=== PATIENT | female | born 1985 | race Caucasian/White ===

== ENCOUNTER 2021-07-18 15:14 | Emergency (ER) | payer MEDICAID, SELFPAY ==
[2021-07-18 15:42] VITALS: RESP 20; BMI 20.5
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
--- NOTE | 2021-07-18 16:39 | MHC.CARE ---
CARE Team assists with deescelating pt, who was brought to the Pod and was significantly anxious, paranoid reporting that someone is poisining her and following her. She called EMS herself, hoping for medical attention. She is asking to leave the ED. A chart review is completed and notes reviewed from last inpt admission to M5. Per Dr. Doty's note from Jan 2017, these symptoms are rooted in trauma and pt is not psychotic. Pt reports that she is eating and drinking and has a water bottle on her person. She denies SI/HI and does not want any intervention from CARE Team. Plan is for pt to dischare, CARE Team will provide Lyft.
== END 2021-07-18 18:33 | disposition home or self-care (01) ==
PROVIDERS: Emergency Provider Emergency Medicine
DX: F22 Delusional disorders (principal)
CPT/HCPCS: 99284

== ENCOUNTER 2023-03-05 05:06 | Inpatient (IN) | payer OTHER, MEDICAID, SELFPAY ==
[2023-03-05 05:22] VITALS: BP 132/86; PULSE 105; RESP 18; TEMP 37.1; O2SAT 98; BMI 22.6
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
--- NOTE | 2023-03-05 05:55 | MHC.EDTECH ---
Patient came in by ambulance, vitals taken,patient was changed into crisis attire, security at bedside. Belongings list completed,patient has 221.00 [address], all belongings are in a blue linen bag,they are Locked in the BH Pod in the LINEN ROOM.
--- NOTE | 2023-03-05 05:58 | PC.NURSE ---
Pt changed over by t/w and technical editor. Belonging in clean linen closet.
--- NOTE | 2023-03-05 06:00 | PC.NURSE ---
Pt MAUDE from aunts house, aunt called PD for concerned of bilateral feet. Pt walking from unknown amount of distance. Pt was uncooperative with EMS/PD, refusing transport. Sectioned 12 by [employer]. Pt very repetitive, hyperverbal stating I am from the , I can not be sectioned . Dry blisters noted to bilateral feet. Pt A&Ox3, denies SI/HI/AH/VH. Pt cooperative with changing into hospital attire. Pt talking to self in room.
[2023-03-05 06:09] VITALS: BP 110/74; PULSE 99; RESP 18; O2SAT 98
--- NOTE | 2023-03-05 06:14 | MHC.EDTECH ---
This tech attempted to draw labs, patient is refusing stated I'm in the and they said no is aware and RN.
--- NOTE | 2023-03-05 08:15 | PC.NURSE ---
Pt educated on immportance of giving urine sample. Pt agreed. pt is calm and cooperative at this time.
[2023-03-05 08:44] VITALS: BP 105/64; PULSE 78; RESP 18; TEMP 36.7; O2SAT 98
[2023-03-05 09:03] LABS: Amphetamine Screen Urine Not Detected (Not Detect); Barbiturates, Urine Not Detected (Not Detect); Benzodiazepines Screen Urine Not Detected (Not Detect); Cannabinoid Screen Urine Not Detected (Not Detect); Cocaine Screen Urine Not Detected (Not Detect); Fentanyl, urine Not Detected (Not Detect); Opiate Screen Urine Not Detected (Not Detect); Phencyclidine Screen Urine Not Detected (Not Detect)
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
--- NOTE | 2023-03-05 12:00 | PC.NURSE ---
patient sitting on cough, clinical coordinator pointed out redness and discoloration to bilat feet. RN aware of patients status of her feet.
--- NOTE | 2023-03-05 12:33 | PC.NURSE ---
patient is sitting in community area with other patients, patient is calm and cooperative, being respectful of others. patient will occasionally engage in conversation with others. patient in no apparent distress
--- NOTE | 2023-03-05 16:01 | PC.NURSE ---
patient refusing to have lab work drawn, therefore unable to be evaluated by care team. provider aware no new orders
--- NOTE | 2023-03-05 19:52 | PC.NURSE ---
patient seated on group area couch upon t/w's arrival to unit, half hour thereafter patient began to self dialpgue for 10 minutes or so, doesnt appears anxious or distressed but patient has declined blood draw as nahid, will continue ask periodically throughout shift.
--- NOTE | 2023-03-05 21:46 | PC.NURSE ---
patient escalates when approached in regards to labs
[2023-03-05 22:12] VITALS: BP 109/75; PULSE 78; RESP 18; TEMP 36.4; O2SAT 98
--- NOTE | 2023-03-05 23:50 | MHC.EDTECH ---
All belongings moved from the pod linen room to the laundry room in the POD.
[2023-03-06 01:10] VITALS: BP 109/60; PULSE 80; RESP 15; TEMP 37.1; O2SAT 98
--- NOTE | 2023-03-06 07:41 | PC.NURSE ---
pt currently sleeping, respirations even/non labored
--- NOTE | 2023-03-06 09:37 | PC.NURSE ---
pt states she does not take home medications.
--- NOTE | 2023-03-06 09:38 | PC.NURSE ---
self-dialoguing in pod about having a tracker on her, showing her feet to staff stating that is why she is here- appear dry but intact. walks well. no resp distress. denies si/hi.
--- NOTE | 2023-03-06 11:51 | PC.NURSE ---
pt continuing to refuse labs- md aisha edouard and tltri w pt in pod common room. continuing to self-dialogue.
[2023-03-06 11:57] VITALS: BP 115/62; PULSE 72; RESP 16; TEMP 36.6; O2SAT 98
--- NOTE | 2023-03-06 15:11 | PC.NURSE ---
multiple attempts have been made for covid swab by different staff- md aisha edouard unable to obtain labs. pt declines.
--- NOTE | 2023-03-06 16:05 | MHC.CARE ---
Currently provider and charge manager working on plan to obtain COVID test for admission to pyschaitric unit.
--- NOTE | 2023-03-06 16:36 | PC.NURSE ---
monie mace came to bedside to eval pt's feet per request. pink, raw, dry- monie mace state no signs of necrosis/active frostbite.
[2023-03-06 16:43] LABS: COVID-19 Test Negative (Negative); IDNOW Serial# 9DB6401D
--- NOTE | 2023-03-06 16:50 | PC.NURSE ---
intervention from monie badillo ordered: apply cream to feet when come from pharmacy. no further interventions for feet needed
--- NOTE | 2023-03-06 17:09 | PC.NURSE ---
spoke w pharm requesting cream per apr.
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
[2023-03-06 23:11] VITALS: BP 116/85; PULSE 82; RESP 20; TEMP 36.9; O2SAT 98; BMI 20.9
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
[2023-03-07 09:15] VITALS: RESP 18
--- NOTE | 2023-03-07 11:40 | HO.PSYADMNOT ---
HPI Date of Service: 03/07/23 Chief Complaint: Psychosis Sources of Information: patient interviewed, chart reviewed and crisis/core team assessment reviewed HPI Subjective Notes: Zhang Warning (given and shows understanding) and Section 12B Narrative: Ms. Quiles is a 37 year-old woman with hx of schizophrenia who was brought in by police after aunt called due to patient walking with no shoes in snow with signs of frostbite. 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 She also denied hx of mental illness nor need for medications. She declined labs. She did allow VS, which were stable. On the unit, pt hyperverbal, talking about injustice of being on a psychiatric unit as she initially came to have her feet check. She is declining ointment and tetanus shoot as recommended by hospitalist for frostbite. She goes on and on about how she can't eat the food in hospitals because is poisoned. This teletypewriter operator offered to provide seal containers, which she declined. She was talking to people from the that were not there. She reports she does not have any mental illness and does not need treatment for psychiatric reasons. Past Psychiatric History: Inpt: prior inpt admission at [facility] OP: none Medical Evaluation Reviewed: Yes [facility] Medical History (Updated 03/08/23 @ 13:33 by Aleksandra Jean-Baptiste) Blister of foot Schizophrenia Family History: unknown Social History: homeless Substance History: none Trauma History: not disclosed Diagnostics Vital Signs (24Hr): Vital Signs - 24 hr 03/06/23 11:57 03/06/23 23:11 03/07/23 09:15 Temperature 97.8 F 98.5 F Pulse Rate 72 82 Respiratory Rate 16 20 18 Blood Pressure 115/62 116/85 Pulse Oximetry 98 98 Oxygen Delivery Method Room Air Room Air BMI result Body Mass Index 20.9 Labs Labs: Laboratory Results - last 48 hr 03/06/23 16:20 COVID-19 (SEUN) Negative COVID-19 Clin Com See Note Meds/Allergies Meds Home Medications Medication Instructions Recorded Confirmed Type No Known Home Meds 03/07/23 03/07/23 History Allergies Allergies Allergy/AdvReac Type Severity Reaction Status Date / Time penicillin V Allergy Unknown unknown Verified 03/05/23 05:16 Penicillins [PENICILLINS] Allergy Unknown RASH Verified 03/05/23 05:16 Mental Status Exam Mental Status Exam Narrative: Appearance: disheveled, nodes on her hair, in NAD Behavior:guarded and suspicious Psychomotor: no overt retardation or agitation Speech: verbose, difficult to redirect, spontaneous TP: tangential TC: paranoid delusions Mood: good Affect: suspicious SI: denies HI: none VH/AH: hearing voices theme of her working for Delusions: paranoid delusions Insight/judgment: impaired x 2. Memory/cog: alert, oriented not to situation. Assessment & Plan Assessment & Plan (1) Schizophrenia: Status: Acute Code(s): F20.9 - Schizophrenia, unspecified Plan Ms. Quiles is a 37 year-old woman with hx of schizophrenia. it appears schizophrenia largely untreated and patient has been homeless for several months. She was brought via police after aunt called them due to frostbites and increased paranoia. Pt with no insight into illness or need for treatment for both psychiatric and frostbite. We discussed risks, benefits and alternative treatment options, she declines medications- antipsychotic ones. PLAN 1. Admit to M3, sect 12b, 15 minutes checks 2. obtain collateral information 3. aftercare planning Patient educated on: diagnosis and medication risk/benefits Reason for continued inpatient stay Substantial Risk for: inability to function Statement Statement: I have reviewed the history and physical and performed a pertinent examination on my patient. No changes have occurred unless specified. If the History and Physical was not performed prior to admission, the Hospitalist's service will be consulted for completing the admission physical. Time Spent With Patient Time: Total time managing care of this patient today ____ minutes.
--- NOTE | 2023-03-07 12:12 | P.EN_ITS ---
Event Note Date of Service: 03/07/23 Event Note: 37 year old female admitte to [facility] for acute psychosis. Unable to ascertain reliable history from pt due to tangential speech, hyperverbal, paranoia, anxiety. She is unkempt appearing. Per the patient she was walking all night in 10 degree weather with poor fitting shoes. Per ED provider note, the patient was barefoot. In her belongings locker, there are no shoes, just an insert to a boot. her feet were evaluated by ED provider without any necrosis noted, but oted feet to be dry, cracked with mild erythematous/purplist discoloration. No increased warmth or drainage. She is afebrile. Notes pain to the feet bilaterally, worse with ambulation. Reports her feet are dirty and need to be washed. Exam: Bilateral feet: dusky purple/mottled appearance of the distal aspect of the feet bilaterally with some black patches on the plantar surface of the toes, likely dirt as was able to be gently wiped. There is desquamation of the feet bilaterally primarily on the plantar service as well as the lateral aspect of the R foot with erythema. The feet are cool to touch, but 1+ pedal pulses bilaterally. The patient is disheveled appearing, matted hair, dirt on feet. Assessment: The patient does appear to have grade 2-3 frostbite. I do not see any true necrosis Plan: Update tetanus vaccine Given erythema on lateral aspect of foot, will also treat with doxycycline 100mg bid x 1 week for prophylaxis. Unfortunately pt has pcn allergy Recommend warm soaks twice daily Pat dry well, then place sterile cotton between toes and wrap in sterile gauze General surgery consult placed for further evaluation and recommendations Wound care consult Can continue using [facility] Time Spent With Patient Time: Total time managing care of this patient today ____ minutes.
--- NOTE | 2023-03-07 15:39 | PC.NURSE ---
Pt refused all medications and vital signs. Aleksandra Jean-Baptiste NP made aware.
--- NOTE | 2023-03-07 16:21 | P.CONGS_ITS ---
History of Present Illness Consult details Consult date: 03/07/23 Narrative: 37F here in the Psych unit for acute psychosis. She was admitted last night because of paranoid behavior. She also stated she had been walking for several miles in the cold weather and had developed blisters and pain on her feet. She had patchy area of discoloration on both feet so I was consulted. She ays she does have some pain on both feet but is able to walk. Review of Systems Constitutional: Constitutional: Denies chills and Reports fever(s) Cardiovascular: Cardiovascular: Denies chest pain, Denies dyspnea and Denies dyspnea on exertion Respiratory: Respiratory: Denies cough, Denies dyspnea and Denies dyspnea on exertion Gastrointestinal: Gastrointestinal: Denies hematochezia and Denies change in bowel habits Genitourinary: Genitourinary: Denies hematuria Musculoskeletal: Musculoskeletal: Denies back pain and Denies limited range of motion Neurologic: Denies focal weakness and Denies convulsions Psychiatric: Psychiatric: Denies depression, Reports mood swings and Reports paranoia [facility] Past Medical History Medical History (Updated 03/07/23 @ 16:26 by Joss Jerez MD) Blister of foot Schizophrenia Social History Social History Household Members: Spouse Housing: Unknown / Unable to assess Do you presently have visiting nurse or other home services: No Alcohol intake: never Patient Tobacco Use Status: Never used Tobacco Smoked in Last 30 Days: No e-Cigarette/Vaping Use: Never Used Patient Interested in Nicotine Replacement: No Patient Given Instructions on How to Stop Smoking: No Use of substances other than those prescribed or required for medical reasons: No Currently Displaying Signs/Symptoms of Drug Intoxication Withdrawal: No Any prior treatment program specific to substance use: No Have you been hit, kicked, punched, or otherwise hurt by someone within the past year? If so, by whom?: No (per the I can't answer that) Do you feel safe in your current relationship?: Yes Is there a partner from a previous relationship who is making you feel unsafe now?: No (per the I can't answer that) Are you made to feel afraid or neglected: No Advance Directives: No Advance Directives Information Provided: No Do you have thoughts of harming others: None Do you have a plan to hurt others: No Plan Recently lost weight without trying: Unsure Eating poorly because of decreased appetite: No Nutrition Risks: No Nutritional Risk Patient : No : No Poor oral hygiene: No Meds Allergies Allergy/AdvReac Type Severity Reaction Status Date / Time penicillin V Allergy Unknown unknown Verified 03/05/23 05:16 Penicillins [PENICILLINS] Allergy Unknown RASH Verified 03/05/23 05:16 Active Medications: Current Medications Acetaminophen (Acetaminophen 325 Mg Tablet) 650 mg PO Q6H PRN PRN Reason: Headache/Pain Mild Scale (1-3) Al Hydroxide/Mg Hydroxide (Magnesium Hydrox/Alum Hydrox 30 Ml Oral.Susp) 30 ml PO Q6H PRN PRN Reason: Heartburn/Nausea Doxycycline Monohydrate (Doxycycline Monohydrate 100 Mg Capsule) 100 mg PO BID [facility] Last Admin: 03/07/23 14:41 Dose: Not Given Folic Acid (Folic Acid 1 Mg Tablet) 1 mg PO DAILY [facility] Last Admin: 03/07/23 09:02 Dose: Not Given Hydroxyzine HCl (Hydroxyzine Hcl 25 Mg Tablet) 25 mg PO Q6H PRN PRN Reason: Anxiety Magnesium Hydroxide (Milk Of Magnesia 30 Ml Oral.Susp) 30 ml PO DAILY PRN PRN Reason: Constipation Multi-Ingred Cream/Lotion/Oil/Oint (Mineral Oil/Petrolatum,White 106 Gm Tube) 1 appl TOPICAL DAILY [facility]; Protocol Last Admin: 03/07/23 12:24 Dose: Not Given Multivitamins/Vitamin C (Multivitamin Tablet) 1 tab PO DAILY [facility] Last Admin: 03/07/23 09:02 Dose: Not Given Nicotine (Nicotine 21 Mg Patch.Td24) 21 mg TRANSDERMA DAILY PRN PRN Reason: smoking cessation Nicotine Polacrilex (Nicotine Polacrilex 2 Mg Gum) 4 mg BUCCAL Q2H PRN PRN Reason: Nicotine Cravings Olanzapine (Olanzapine 5 Mg Tablet) 5 mg PO TID PRN PRN Reason: agitation Olanzapine (Olanzapine 5 Mg Tablet) 5 mg PO BID [facility] Last Admin: 03/07/23 09:02 Dose: Not Given Thiamine HCl (Thiamine Hcl 100 Mg Tablet) 100 mg PO DAILY [facility] Last Admin: 03/07/23 09:02 Dose: Not Given Trazodone HCl (Trazodone Hcl 50 Mg Tablet) 50 mg PO BEDTIME MRX1 PRN PRN Reason: Insomnia Home Medications Medication Instructions Recorded Confirmed Last Taken Type No Known Home Meds 03/07/23 03/07/23 Unknown History Physical Exam Vital Signs: Vital Signs: Last Vital Signs Temp 98.5 F 03/06/23 23:11 Pulse 82 03/06/23 23:11 Resp 18 03/07/23 09:15 BP 116/85 03/06/23 23:11 Pulse Ox 98 03/06/23 23:11 O2 Del Method Room Air 03/06/23 23:11 BMI result Body Mass Index 20.9 Const: Other: hyperverbal General: comfortable and no acute distress Resp: Effort & Inspection: normal respiratory effort Cardio: Rate: regular rate GI: Palpation (GI): Soft to palpation, not firm and nontender Extrem: Other: both feet with multiple areas of what appears to be healing bilsters as well as small patchy superficial skin discoloration, no areas of gangrene or drainage, no fluctuance or induratiom Results Labs Labs: All other labs normal. Assessment and Plan (1) Blister of foot: Status: Acute It appears that she has had blisters on multiple areas of both feet likely from prolonged walking with skin trauma from her shoes. She says she ahd a lot of scabs but these appears to have sloughed off. There is no gangrene or any signs of abscess. She does not appear to require any debridement or I and D. She does not good foot care for now. The areas of skin breakdown appear to have healed. Procedures Date of Service Date of Service: 03/07/23
[2023-03-07 19:05] VITALS: BP 103/60; PULSE 80; RESP 18; TEMP 36.2; O2SAT 98
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
[2023-03-08 19:10] VITALS: BP 105/67; PULSE 73; RESP 18; TEMP 36.7; O2SAT 99
--- NOTE | 2023-03-08 23:59 | PC.NURSE ---
Addendum entered by Ryan Lunsford RN 03/09/23 05:09: Patient wrapped foot with some gauze on her right foot only. Original Note: Jennifer soaked her feet in a warm water tub. Bilateral feet are excessive dry and cracked. Healed blisters observed. On right foot, side is red under the white cracked skin. Patient reported minor pain.
--- NOTE | 2023-03-09 08:54 | PC.NURSE ---
Patient refused all AM medications.
[2023-03-09] MEDS: Mineral Oil/Petrolatum,White 106 GM Tube 1 APPL TOPICAL ×2 (10:35→15:30)
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
[2023-03-09 12:38] VITALS: BP 107/65; PULSE 76; RESP 16; TEMP 37; O2SAT 98
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
[2023-03-09 19:30] VITALS: BP 122/59; PULSE 84; RESP 16; TEMP 36.8; O2SAT 99
[2023-03-10] MEDS: Mineral Oil/Petrolatum,White 106 GM Tube 1 APPL TOPICAL ×3 (03:07→19:15)
[2023-03-10 06:00] VITALS: BP 108/59; PULSE 82; RESP 16; TEMP 36.9; O2SAT 98
--- NOTE | 2023-03-10 13:40 | HO.PSYCHPN ---
Subjective Subjective Date of Service: 03/10/23 Reason For Visit: Psychosis Interim History: pressured, tangential. declining to come meet with MD in interview room. asserts she only came to the hospital for medical treatment, not mental health treatment, and she has no need for the latter. states she would like to be discharged. declines to answer MD regarding where she would plan to go on discharge, telling MD it is none of his business. per staff, 12b up tomorrow. denies anx/dep. not attending groups. QID foot soaks. sleeping in day room. slept about 3 hours last night. Mental Status Exam Mental Status Exam Narrative: Appearance: disheveled, poor hygiene, in NAD Behavior:guarded and suspicious Psychomotor: no overt retardation or agitation Speech: pressured, difficult to redirect, loud TP: tangential TC: paranoid delusions Mood: not assessed Affect: hyper-intense, non-labile SI: denies HI: denies VH/AH: none expressed Insight/judgment: impaired x 2. Memory/cog: alert, oriented to situation Diagnostics Vital Signs (24Hr): Vital Signs - 24 hr 03/09/23 19:30 Temperature 98.3 F Pulse Rate 84 Respiratory Rate 16 Blood Pressure 122/59 L Pulse Oximetry 99 Oxygen Delivery Method Room Air BMI result Body Mass Index 20.9 Medications Medications Current Medications Acetaminophen (Acetaminophen 325 Mg Tablet) 650 mg PO Q6H PRN PRN Reason: Headache/Pain Mild Scale (1-3) Al Hydroxide/Mg Hydroxide (Magnesium Hydrox/Alum Hydrox 30 Ml Oral.Susp) 30 ml PO Q6H PRN PRN Reason: Heartburn/Nausea Doxycycline Monohydrate (Doxycycline Monohydrate 100 Mg Capsule) 100 mg PO BID [facility] Last Admin: 03/10/23 09:34 Dose: Not Given Folic Acid (Folic Acid 1 Mg Tablet) 1 mg PO DAILY [facility] Last Admin: 03/10/23 09:34 Dose: Not Given Hydroxyzine HCl (Hydroxyzine Hcl 25 Mg Tablet) 25 mg PO Q6H PRN PRN Reason: Anxiety Magnesium Hydroxide (Milk Of Magnesia 30 Ml Oral.Susp) 30 ml PO DAILY PRN PRN Reason: Constipation Multi-Ingred Cream/Lotion/Oil/Oint (Mineral Oil/Petrolatum,White 106 Gm Tube) 1 appl TOPICAL QID PRN; Protocol PRN Reason: skin protectant Last Admin: 03/10/23 11:42 Dose: 1 appl Multivitamins/Vitamin C (Multivitamin Tablet) 1 tab PO DAILY [facility] Last Admin: 03/10/23 09:34 Dose: Not Given Nicotine (Nicotine 21 Mg Patch.Td24) 21 mg TRANSDERMA DAILY PRN PRN Reason: smoking cessation Nicotine Polacrilex (Nicotine Polacrilex 2 Mg Gum) 4 mg BUCCAL Q2H PRN PRN Reason: Nicotine Cravings Olanzapine (Olanzapine 5 Mg Tablet) 5 mg PO TID PRN PRN Reason: agitation Olanzapine (Olanzapine 5 Mg Tablet) 5 mg PO BID [facility] Last Admin: 03/10/23 09:34 Dose: Not Given Thiamine HCl (Thiamine Hcl 100 Mg Tablet) 100 mg PO DAILY [facility] Last Admin: 03/10/23 09:34 Dose: Not Given Trazodone HCl (Trazodone Hcl 50 Mg Tablet) 50 mg PO BEDTIME MRX1 PRN PRN Reason: Insomnia Allergies Allergies Allergy/AdvReac Type Severity Reaction Status Date / Time penicillin V Allergy Unknown unknown Verified 03/05/23 05:16 Penicillins [PENICILLINS] Allergy Unknown RASH Verified 03/05/23 05:16 Assessment & Plan Assessment & Plan (1) Schizophrenia: Status: Acute Code(s): F20.9 - Schizophrenia, unspecified Plan Ms. Quiles is a 37 year-old woman with hx of schizophrenia. it appears schizophrenia largely untreated and patient has been homeless for several months. She was brought via police after aunt called them due to frostbites and increased paranoia. Pt with no insight into illness or need for treatment for both psychiatric and frostbite. We discussed risks, benefits and alternative treatment options, she declines medications- antipsychotic ones. PLAN 1. Admit to M3, sect 12b, 15 minutes checks 2. obtain collateral information 3. aftercare planning 03/09: refusing medications. frostbite, no insight into mental illness. plan to petition for commitment and medication. 03/10: refusing medications. being treated for frostbite. commitment petition paperwork completed today. Reason for continued inpatient stay Substantial Risk for: harm to self, inability to function, rapid decompensation and med/psych decompensation Time Spent With Patient Time: Total time managing care of this patient today __35__ minutes.
[2023-03-10 19:25] VITALS: BP 114/68; PULSE 85; RESP 18; TEMP 36.6; O2SAT 98
[2023-03-11] MEDS: Mineral Oil/Petrolatum,White 106 GM Tube 1 APPL TOPICAL (13:10)
--- NOTE | 2023-03-11 13:51 | P.PNPSI_ITS ---
Subjective Subjective Date of Service: 03/11/23 Reason For Visit: Psychosis Subjective Notes: Section 7 Interim History: Patient has been accepting medical treatment attempted to be with patient was quite paranoid concerned that I was not DrShaista hanna paranoid story regarding imposters try to give information regarding her legal status but was not able to take in. Delusional preoccupied was not combative quite pressured Mental Status Exam Mental Status Exam Narrative: Appearance: disheveled, poor hygiene, in NAD Behavior:guarded and suspicious Psychomotor: Agitation noted Speech: pressured, difficult to redirect, loud TP: tangential flight of ideas TC: paranoid delusions Mood: Affect: hyper-intense, somewhat irritable SI: denies HI: denies VH/AH: none expressed Insight/judgment: impaired x 2. Memory/cog: alert, oriented to situation Diagnostics Vital Signs (24Hr): Vital Signs - 24 hr 03/10/23 19:25 Temperature 97.8 F Pulse Rate 85 Respiratory Rate 18 Blood Pressure 114/68 Pulse Oximetry 98 Oxygen Delivery Method Room Air BMI result Body Mass Index 20.9 Medications Medications Current Medications Acetaminophen (Acetaminophen 325 Mg Tablet) 650 mg PO Q6H PRN PRN Reason: Headache/Pain Mild Scale (1-3) Al Hydroxide/Mg Hydroxide (Magnesium Hydrox/Alum Hydrox 30 Ml Oral.Susp) 30 ml PO Q6H PRN PRN Reason: Heartburn/Nausea Doxycycline Monohydrate (Doxycycline Monohydrate 100 Mg Capsule) 100 mg PO BID [facility] Last Admin: 03/11/23 08:39 Dose: Not Given Folic Acid (Folic Acid 1 Mg Tablet) 1 mg PO DAILY [facility] Last Admin: 03/11/23 08:39 Dose: Not Given Hydroxyzine HCl (Hydroxyzine Hcl 25 Mg Tablet) 25 mg PO Q6H PRN PRN Reason: Anxiety Magnesium Hydroxide (Milk Of Magnesia 30 Ml Oral.Susp) 30 ml PO DAILY PRN PRN Reason: Constipation Multi-Ingred Cream/Lotion/Oil/Oint (Mineral Oil/Petrolatum,White 106 Gm Tube) 1 appl TOPICAL QID PRN; Protocol PRN Reason: skin protectant Last Admin: 03/11/23 13:10 Dose: 1 appl Multivitamins/Vitamin C (Multivitamin Tablet) 1 tab PO DAILY [facility] Last Admin: 03/11/23 08:39 Dose: Not Given Nicotine (Nicotine 21 Mg Patch.Td24) 21 mg TRANSDERMA DAILY PRN PRN Reason: smoking cessation Nicotine Polacrilex (Nicotine Polacrilex 2 Mg Gum) 4 mg BUCCAL Q2H PRN PRN Reason: Nicotine Cravings Olanzapine (Olanzapine 5 Mg Tablet) 5 mg PO TID PRN PRN Reason: agitation Olanzapine (Olanzapine 5 Mg Tablet) 5 mg PO BID [facility] Last Admin: 03/11/23 08:39 Dose: Not Given Thiamine HCl (Thiamine Hcl 100 Mg Tablet) 100 mg PO DAILY [facility] Last Admin: 03/11/23 08:40 Dose: Not Given Trazodone HCl (Trazodone Hcl 50 Mg Tablet) 50 mg PO BEDTIME MRX1 PRN PRN Reason: Insomnia Allergies Allergies Allergy/AdvReac Type Severity Reaction Status Date / Time penicillin V Allergy Unknown unknown Verified 03/05/23 05:16 Penicillins [PENICILLINS] Allergy Unknown RASH Verified 03/05/23 05:16 Assessment & Plan Assessment & Plan (1) Schizophrenia: Status: Acute Code(s): F20.9 - Schizophrenia, unspecified Plan Ms. Quiles is a 37 year-old woman with hx of schizophrenia. it appears schizophrenia largely untreated and patient has been homeless for several months. She was brought via police after aunt called them due to frostbites and increased paranoia. Pt with no insight into illness or need for treatment for both psychiatric and frostbite. We discussed risks, benefits and alternative treatment options, she declines medications- antipsychotic ones. PLAN 1. Admit to M3, sect 12b, 15 minutes checks 2. obtain collateral information 3. aftercare planning 03/09: refusing medications. frostbite, no insight into mental illness. plan to petition for commitment and medication. 03/10: refusing medications. being treated for frostbite. commitment petition paperwork completed today. 03/11 Patient continues to refuse medication civil commitment and treatment paperwork has been filed by Dr. Diallo patient seemed unable take in information regarding the Reason for continued inpatient stay Substantial Risk for: inability to function, rapid decompensation and med/psych decompensation Time Spent With Patient Time: Total time managing care of this patient today ____ minutes.
[2023-03-11 19:30] VITALS: BP 105/55; PULSE 75; RESP 18; TEMP 37.2; O2SAT 98
--- NOTE | 2023-03-11 22:15 | PC.NURSE ---
Addendum entered by Kristin Stout RN 03/12/23 00:47: Jennifer refused foot soaks I changed my mind I don't want to do the foot soaks tonight they did it a lot earlier today like 3 or 4 times at least. besides I actually think my feet looked better the other day in the morning, like my feet had time to absorbe all the medicine Original Note: Jennifer continues to refuse HS medications. No I told you yesterday I don't take any medications . Patient remains guarded and delusional. denies all psych symptoms. continue to encourage patient to take medications as ordered. Monitor for safety, continue Plan of Care
[2023-03-12 06:00] VITALS: RESP 18
[2023-03-12 07:00] VITALS: BMI 22.4
--- NOTE | 2023-03-12 14:35 | P.PNPSI_ITS ---
Subjective Subjective Date of Service: 03/12/23 Reason For Visit: Psychosis Interim History: seated in dining area, never seems to appear anywhere else. angry on being told of filing and that a huller operator will be assigned to represent her. 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 per staff, denies dep/anx. no groups. hyperverbal, tangential. refusing medications. a llowed foot soaks days, not nights. redirected for talking about murders and ppl in the milieu. appeared to have slept about 5 hours, in dinig area only. Mental Status Exam Mental Status Exam Narrative: Appearance: disheveled, poor hygiene, in NAD Behavior:guarded and suspicious Psychomotor: no overt retardation or agitation Speech: pressured, difficult to redirect, loud TP: tangential TC: paranoid delusions Mood: not assessed Affect: hyper-intense, mod-labile SI: none expressed HI: none expressed VH/AH: none expressed Insight/judgment: impaired x 2. Memory/cog: alert, oriented to situation Diagnostics Vital Signs (24Hr): Vital Signs - 24 hr 03/11/23 19:30 03/12/23 06:00 Temperature 99.0 F Pulse Rate 75 Respiratory Rate 18 18 Blood Pressure 105/55 L Pulse Oximetry 98 Oxygen Delivery Method Room Air BMI result Body Mass Index 20.9 Medications Medications Current Medications Acetaminophen (Acetaminophen 325 Mg Tablet) 650 mg PO Q6H PRN PRN Reason: Headache/Pain Mild Scale (1-3) Al Hydroxide/Mg Hydroxide (Magnesium Hydrox/Alum Hydrox 30 Ml Oral.Susp) 30 ml PO Q6H PRN PRN Reason: Heartburn/Nausea Doxycycline Monohydrate (Doxycycline Monohydrate 100 Mg Capsule) 100 mg PO BID [facility] Last Admin: 03/12/23 09:11 Dose: Not Given Folic Acid (Folic Acid 1 Mg Tablet) 1 mg PO DAILY [facility] Last Admin: 03/12/23 09:11 Dose: Not Given Hydroxyzine HCl (Hydroxyzine Hcl 25 Mg Tablet) 25 mg PO Q6H PRN PRN Reason: Anxiety Magnesium Hydroxide (Milk Of Magnesia 30 Ml Oral.Susp) 30 ml PO DAILY PRN PRN Reason: Constipation Multi-Ingred Cream/Lotion/Oil/Oint (Mineral Oil/Petrolatum,White 106 Gm Tube) 1 appl TOPICAL QID PRN; Protocol PRN Reason: skin protectant Last Admin: 03/11/23 13:10 Dose: 1 appl Multivitamins/Vitamin C (Multivitamin Tablet) 1 tab PO DAILY [facility] Last Admin: 03/12/23 09:11 Dose: Not Given Nicotine (Nicotine 21 Mg Patch.Td24) 21 mg TRANSDERMA DAILY PRN PRN Reason: smoking cessation Nicotine Polacrilex (Nicotine Polacrilex 2 Mg Gum) 4 mg BUCCAL Q2H PRN PRN Reason: Nicotine Cravings Olanzapine (Olanzapine 5 Mg Tablet) 5 mg PO TID PRN PRN Reason: agitation Olanzapine (Olanzapine 5 Mg Tablet) 5 mg PO BID [facility] Last Admin: 03/12/23 09:11 Dose: Not Given Thiamine HCl (Thiamine Hcl 100 Mg Tablet) 100 mg PO DAILY [facility] Last Admin: 03/12/23 09:11 Dose: Not Given Trazodone HCl (Trazodone Hcl 50 Mg Tablet) 50 mg PO BEDTIME MRX1 PRN PRN Reason: Insomnia Allergies Allergies Allergy/AdvReac Type Severity Reaction Status Date / Time penicillin V Allergy Unknown unknown Verified 03/05/23 05:16 Penicillins [PENICILLINS] Allergy Unknown RASH Verified 03/05/23 05:16 Assessment & Plan Assessment & Plan (1) Schizophrenia: Status: Acute Code(s): F20.9 - Schizophrenia, unspecified Plan Ms. Quiles is a 37 year-old woman with hx of schizophrenia. it appears schizophrenia largely untreated and patient has been homeless for several months. She was brought via police after aunt called them due to frostbites and increased paranoia. Pt with no insight into illness or need for treatment for both psychiatric and frostbite. We discussed risks, benefits and alternative treatment options, she declines medications- antipsychotic ones. PLAN 1. Admit to M3, sect 12b, 15 minutes checks 2. obtain collateral information 3. aftercare planning 03/09: refusing medications. frostbite, no insight into mental illness. plan to petition for commitment and medication. 03/10: refusing medications. being treated for frostbite. commitment petition paperwork completed today. 03/11 Patient continues to refuse medication civil commitment and treatment paperwork has been filed by Dr. Diallo patient seemed unable take in information regarding the 03/12: no change in presentation. refusing meds, including doxy for frostbite. intermittent acceptance of foot soaks. denies mental illness. disorganized, delusional. Reason for continued inpatient stay Substantial Risk for: inability to function and med/psych decompensation Time Spent With Patient Time: Total time managing care of this patient today __25__ minutes.
[2023-03-12] MEDS: Mineral Oil/Petrolatum,White 106 GM Tube 1 APPL TOPICAL (17:11)
[2023-03-12 19:40] VITALS: BP 104/53; PULSE 84; RESP 18; TEMP 36.9; O2SAT 99
[2023-03-13 08:15] VITALS: BP 108/57; PULSE 84; RESP 18; TEMP 36.7; O2SAT 100
--- NOTE | 2023-03-13 14:27 | HO.PSYCHPN ---
Subjective Subjective Date of Service: 03/13/23 Reason For Visit: Psychosis Interim History: talking non-stop, talking over MD, not allowing this writer editor to engage in exchange with her. accuses MD of refusing to listen to her, refusing to learn about her, mistaking her for someone else. asserts this writer editor was in legal trouble 7 years ago for doing the same thing to someone else here (writer editor has only worked at [employer] for 2.5 years). she stated the person's name was flako, noting several times that flako had blue eyes, and that MD had her admitted to the unit believing she was someone she was not and flako was involuntarily held and MD tried to have her medicated against her will. MD had to disengage, as pt became increasingly loud in the milieu and more aggressive in her speech and demeanor. per staff, guarded, labile. refusing medications. not leaving milieu other than to use the bathroom in her room. sleeps in milieu. Mental Status Exam Mental Status Exam Narrative: Appearance: disheveled, poor hygiene, in NAD Behavior:guarded and suspicious Psychomotor: no overt retardation or agitation Speech: pressured, difficult to redirect, loud TP: tangential TC: paranoid delusions Mood: not assessed Affect: hyper-intense, mod-labile SI: none expressed HI: none expressed VH/AH: none expressed Insight/judgment: impaired x 2. Memory/cog: alert, oriented to situation Diagnostics Vital Signs (24Hr): Vital Signs - 24 hr 03/12/23 19:40 03/13/23 08:15 Temperature 98.4 F 98.1 F Pulse Rate 84 84 Respiratory Rate 18 18 Blood Pressure 104/53 L 108/57 L Pulse Oximetry 99 100 Oxygen Delivery Method Room Air Room Air BMI result Body Mass Index 22.4 Medications Medications Current Medications Acetaminophen (Acetaminophen 325 Mg Tablet) 650 mg PO Q6H PRN PRN Reason: Headache/Pain Mild Scale (1-3) Al Hydroxide/Mg Hydroxide (Magnesium Hydrox/Alum Hydrox 30 Ml Oral.Susp) 30 ml PO Q6H PRN PRN Reason: Heartburn/Nausea Doxycycline Monohydrate (Doxycycline Monohydrate 100 Mg Capsule) 100 mg PO BID [facility] Last Admin: 03/13/23 11:53 Dose: Not Given Folic Acid (Folic Acid 1 Mg Tablet) 1 mg PO DAILY [facility] Last Admin: 03/13/23 11:53 Dose: Not Given Hydroxyzine HCl (Hydroxyzine Hcl 25 Mg Tablet) 25 mg PO Q6H PRN PRN Reason: Anxiety Magnesium Hydroxide (Milk Of Magnesia 30 Ml Oral.Susp) 30 ml PO DAILY PRN PRN Reason: Constipation Multi-Ingred Cream/Lotion/Oil/Oint (Mineral Oil/Petrolatum,White 106 Gm Tube) 1 appl TOPICAL QID PRN; Protocol PRN Reason: skin protectant Last Admin: 03/12/23 17:11 Dose: 1 appl Multivitamins/Vitamin C (Multivitamin Tablet) 1 tab PO DAILY [facility] Last Admin: 03/13/23 11:53 Dose: Not Given Nicotine (Nicotine 21 Mg Patch.Td24) 21 mg TRANSDERMA DAILY PRN PRN Reason: smoking cessation Nicotine Polacrilex (Nicotine Polacrilex 2 Mg Gum) 4 mg BUCCAL Q2H PRN PRN Reason: Nicotine Cravings Olanzapine (Olanzapine 5 Mg Tablet) 5 mg PO TID PRN PRN Reason: agitation Olanzapine (Olanzapine 5 Mg Tablet) 5 mg PO BID [facility] Last Admin: 03/13/23 11:53 Dose: Not Given Thiamine HCl (Thiamine Hcl 100 Mg Tablet) 100 mg PO DAILY [facility] Last Admin: 03/13/23 11:54 Dose: Not Given Trazodone HCl (Trazodone Hcl 50 Mg Tablet) 50 mg PO BEDTIME MRX1 PRN PRN Reason: Insomnia Allergies Allergies Allergy/AdvReac Type Severity Reaction Status Date / Time penicillin V Allergy Unknown unknown Verified 03/05/23 05:16 Penicillins [PENICILLINS] Allergy Unknown RASH Verified 03/05/23 05:16 Assessment & Plan Assessment & Plan (1) Schizophrenia: Status: Acute Code(s): F20.9 - Schizophrenia, unspecified Plan Ms. Quiles is a 37 year-old woman with hx of schizophrenia. it appears schizophrenia largely untreated and patient has been homeless for several months. She was brought via police after aunt called them due to frostbites and increased paranoia. Pt with no insight into illness or need for treatment for both psychiatric and frostbite. We discussed risks, benefits and alternative treatment options, she declines medications- antipsychotic ones. PLAN 1. Admit to M3, sect 12b, 15 minutes checks 2. obtain collateral information 3. aftercare planning 03/09: refusing medications. frostbite, no insight into mental illness. plan to petition for commitment and medication. 03/10: refusing medications. being treated for frostbite. commitment petition paperwork completed today. 03/11 Patient continues to refuse medication civil commitment and treatment paperwork has been filed by Dr. Diallo patient seemed unable take in information regarding the 03/12: no change in presentation. refusing meds, including doxy for frostbite. intermittent acceptance of foot soaks. denies mental illness. disorganized, delusional. 03/13: no change in presentation. continue current mgmt. court thursday. Reason for continued inpatient stay Substantial Risk for: inability to function and med/psych decompensation Time Spent With Patient Time: Total time managing care of this patient today __25__ minutes.
[2023-03-13] MEDS: Mineral Oil/Petrolatum,White 106 GM Tube 1 APPL TOPICAL (17:57)
[2023-03-13 20:00] VITALS: BP 126/60; PULSE 95; RESP 14; TEMP 37.2; O2SAT 98
[2023-03-14 11:50] VITALS: BP 103/64; PULSE 94; RESP 20; TEMP 36.6; O2SAT 98
[2023-03-14] MEDS: Mineral Oil/Petrolatum,White 106 GM Tube 1 APPL TOPICAL (15:14)
--- NOTE | 2023-03-14 17:42 | HO.PSYCHPN ---
Subjective Subjective Date of Service: 03/14/23 Reason For Visit: Psychosis Interim History: Patient seen in the milieu/common area. She doesn't leave the area except to go to the bathroom and sleeps there on chairs she connects to each other. Patient talkative and pressured. She perseverates on how she came to the hospital because her shoes had holes in them and she got a sierra bite and burned her feet on ice melt salt. She is difficult to interrupt. She refuses medications. She is unkept and her hair is matted. Review of Systems Review of Systems Yes Other (Patient hyperverbal, talking around in circles, not answering questions) Constitutional: Denies chills and Reports fever(s) Cardiovascular: Denies chest pain, Denies dyspnea and Denies dyspnea on exertion Respiratory: Denies cough, Denies dyspnea and Denies dyspnea on exertion Gastrointestinal: Denies hematochezia and Denies change in bowel habits Musculoskeletal: Denies back pain and Denies limited range of motion Denies focal weakness and Denies convulsions Psychiatric: Denies depression, Reports mood swings and Reports paranoia Mental Status Exam Mental Status Exam Narrative: Appearance: disheveled, poor hygiene, in NAD Behavior:guarded and suspicious Psychomotor: no overt retardation or agitation Speech: pressured, difficult to redirect, loud TP: tangential TC: paranoid delusions Mood: not assessed Affect: hyper-intense, mod-labile SI: none expressed HI: none expressed VH/AH: none expressed Insight/judgment: impaired x 2. Memory/cog: alert, oriented to situation Diagnostics Vital Signs (24Hr): Vital Signs - 24 hr 03/13/23 20:00 03/14/23 11:50 Temperature 98.9 F 97.8 F Pulse Rate 95 94 Respiratory Rate 14 20 Blood Pressure 126/60 103/64 Pulse Oximetry 98 98 Oxygen Delivery Method Room Air Room Air BMI result Body Mass Index 22.4 Medications Medications Current Medications Acetaminophen (Acetaminophen 325 Mg Tablet) 650 mg PO Q6H PRN PRN Reason: Headache/Pain Mild Scale (1-3) Al Hydroxide/Mg Hydroxide (Magnesium Hydrox/Alum Hydrox 30 Ml Oral.Susp) 30 ml PO Q6H PRN PRN Reason: Heartburn/Nausea Bacitracin (Bacitracin Oint 14 Gm Tube) 1 appl TOPICAL BID PRN; Protocol PRN Reason: lesion Doxycycline Monohydrate (Doxycycline Monohydrate 100 Mg Capsule) 100 mg PO BID [facility] Last Admin: 03/14/23 10:20 Dose: Not Given Folic Acid (Folic Acid 1 Mg Tablet) 1 mg PO DAILY [facility] Last Admin: 03/14/23 10:20 Dose: Not Given Hydroxyzine HCl (Hydroxyzine Hcl 25 Mg Tablet) 25 mg PO Q6H PRN PRN Reason: Anxiety Magnesium Hydroxide (Milk Of Magnesia 30 Ml Oral.Susp) 30 ml PO DAILY PRN PRN Reason: Constipation Multi-Ingred Cream/Lotion/Oil/Oint (Mineral Oil/Petrolatum,White 106 Gm Tube) 1 appl TOPICAL QID PRN; Protocol PRN Reason: skin protectant Last Admin: 03/14/23 15:14 Dose: 1 appl Multivitamins/Vitamin C (Multivitamin Tablet) 1 tab PO DAILY [facility] Last Admin: 03/14/23 10:21 Dose: Not Given Nicotine (Nicotine 21 Mg Patch.Td24) 21 mg TRANSDERMA DAILY PRN PRN Reason: smoking cessation Nicotine Polacrilex (Nicotine Polacrilex 2 Mg Gum) 4 mg BUCCAL Q2H PRN PRN Reason: Nicotine Cravings Olanzapine (Olanzapine 5 Mg Tablet) 5 mg PO TID PRN PRN Reason: agitation Olanzapine (Olanzapine 5 Mg Tablet) 5 mg PO BID [facility] Last Admin: 03/14/23 10:21 Dose: Not Given Thiamine HCl (Thiamine Hcl 100 Mg Tablet) 100 mg PO DAILY [facility] Last Admin: 03/14/23 10:21 Dose: Not Given Trazodone HCl (Trazodone Hcl 50 Mg Tablet) 50 mg PO BEDTIME MRX1 PRN PRN Reason: Insomnia Allergies Allergies Allergy/AdvReac Type Severity Reaction Status Date / Time penicillin V Allergy Unknown unknown Verified 03/05/23 05:16 Penicillins [PENICILLINS] Allergy Unknown RASH Verified 03/05/23 05:16 Assessment & Plan Assessment & Plan (1) Schizophrenia: Status: Acute Code(s): F20.9 - Schizophrenia, unspecified Plan Ms. Quiles is a 37 year-old woman with hx of schizophrenia. it appears schizophrenia largely untreated and patient has been homeless for several months. She was brought via police after aunt called them due to frostbites and increased paranoia. Pt with no insight into illness or need for treatment for both psychiatric and frostbite. We discussed risks, benefits and alternative treatment options, she declines medications- antipsychotic ones. PLAN 1. Admit to M3, sect 12b, 15 minutes checks 2. obtain collateral information 3. aftercare planning 03/09: refusing medications. frostbite, no insight into mental illness. plan to petition for commitment and medication. 03/10: refusing medications. being treated for frostbite. commitment petition paperwork completed today. 03/11 Patient continues to refuse medication civil commitment and treatment paperwork has been filed by Dr. Diallo patient seemed unable take in information regarding the 03/12: no change in presentation. refusing meds, including doxy for frostbite. intermittent acceptance of foot soaks. denies mental illness. disorganized, delusional. 03/13: no change in presentation. continue current mgmt. court thursday. 03/14: Court on Thursday03/17/23. Cont current plan. Reason for continued inpatient stay Substantial Risk for: inability to function and rapid decompensation Time Spent With Patient Time: Total time managing care of this patient today ____ minutes.
[2023-03-14 20:30] VITALS: BP 117/60; PULSE 90; RESP 16; TEMP 37.3; O2SAT 97
--- NOTE | 2023-03-15 16:39 | P.PNPSI_ITS ---
Subjective Subjective Date of Service: 03/15/23 Reason For Visit: Psychosis Interim History: Patient seen in the milieu/common area. Patient refuses medications. She continues paranoid and loud. She was sitting at the table and when this technical writer and editor introduced himself she started yelling ...I saw a lot of you and you all say you're doctors. There are people talking to me through the TV. The [place] police has cameras in the TV listening. I am in the . You're all the same person. You all look alike. You should be the one taking medication. I refuse to talk to you! She refuses medications. She has poor self care. Review of Systems Review of Systems Yes Other (Patient hyperverbal, talking around in circles, not answering questions) Constitutional: Denies chills and Reports fever(s) Cardiovascular: Denies chest pain, Denies dyspnea and Denies dyspnea on exertion Respiratory: Denies cough, Denies dyspnea and Denies dyspnea on exertion Gastrointestinal: Denies hematochezia and Denies change in bowel habits Musculoskeletal: Denies back pain and Denies limited range of motion Denies focal weakness and Denies convulsions Psychiatric: Denies depression, Reports mood swings and Reports paranoia Mental Status Exam Mental Status Exam Narrative: Appearance: disheveled, poor hygiene, in NAD Behavior:guarded and suspicious Psychomotor: no overt retardation or agitation Speech: pressured, difficult to redirect, loud TP: tangential TC: paranoid delusions Mood: not assessed Affect: hyper-intense, mod-labile SI: none expressed HI: none expressed VH/AH: none expressed Insight/judgment: impaired x 2. Memory/cog: alert, oriented to situation Diagnostics Vital Signs (24Hr): Vital Signs - 24 hr 03/14/23 20:30 Temperature 99.2 F Pulse Rate 90 Respiratory Rate 16 Blood Pressure 117/60 Pulse Oximetry 97 Oxygen Delivery Method Room Air BMI result Body Mass Index 22.4 Medications Medications Current Medications Acetaminophen (Acetaminophen 325 Mg Tablet) 650 mg PO Q6H PRN PRN Reason: Headache/Pain Mild Scale (1-3) Al Hydroxide/Mg Hydroxide (Magnesium Hydrox/Alum Hydrox 30 Ml Oral.Susp) 30 ml PO Q6H PRN PRN Reason: Heartburn/Nausea Bacitracin (Bacitracin Oint 14 Gm Tube) 1 appl TOPICAL BID PRN; Protocol PRN Reason: lesion Doxycycline Monohydrate (Doxycycline Monohydrate 100 Mg Capsule) 100 mg PO BID [facility] Last Admin: 03/15/23 08:47 Dose: Not Given Folic Acid (Folic Acid 1 Mg Tablet) 1 mg PO DAILY [facility] Last Admin: 03/15/23 08:47 Dose: Not Given Hydroxyzine HCl (Hydroxyzine Hcl 25 Mg Tablet) 25 mg PO Q6H PRN PRN Reason: Anxiety Magnesium Hydroxide (Milk Of Magnesia 30 Ml Oral.Susp) 30 ml PO DAILY PRN PRN Reason: Constipation Multi-Ingred Cream/Lotion/Oil/Oint (Mineral Oil/Petrolatum,White 106 Gm Tube) 1 appl TOPICAL QID PRN; Protocol PRN Reason: skin protectant Last Admin: 03/14/23 15:14 Dose: 1 appl Multivitamins/Vitamin C (Multivitamin Tablet) 1 tab PO DAILY [facility] Last Admin: 03/15/23 08:47 Dose: Not Given Nicotine (Nicotine 21 Mg Patch.Td24) 21 mg TRANSDERMA DAILY PRN PRN Reason: smoking cessation Nicotine Polacrilex (Nicotine Polacrilex 2 Mg Gum) 4 mg BUCCAL Q2H PRN PRN Reason: Nicotine Cravings Olanzapine (Olanzapine 5 Mg Tablet) 5 mg PO TID PRN PRN Reason: agitation Olanzapine (Olanzapine 5 Mg Tablet) 5 mg PO BID [facility] Last Admin: 03/15/23 08:47 Dose: Not Given Thiamine HCl (Thiamine Hcl 100 Mg Tablet) 100 mg PO DAILY [facility] Last Admin: 03/15/23 08:47 Dose: Not Given Trazodone HCl (Trazodone Hcl 50 Mg Tablet) 50 mg PO BEDTIME MRX1 PRN PRN Reason: Insomnia Allergies Allergies Allergy/AdvReac Type Severity Reaction Status Date / Time penicillin V Allergy Unknown unknown Verified 03/05/23 05:16 Penicillins [PENICILLINS] Allergy Unknown RASH Verified 03/05/23 05:16 Assessment & Plan Assessment & Plan (1) Schizophrenia: Status: Acute Code(s): F20.9 - Schizophrenia, unspecified Plan Ms. Quiles is a 37 year-old woman with hx of schizophrenia. it appears schizophrenia largely untreated and patient has been homeless for several months. She was brought via police after aunt called them due to frostbites and increased paranoia. Pt with no insight into illness or need for treatment for both psychiatric and frostbite. We discussed risks, benefits and alternative treatment options, she declines medications- antipsychotic ones. PLAN 1. Admit to M3, sect 12b, 15 minutes checks 2. obtain collateral information 3. aftercare planning 03/09: refusing medications. frostbite, no insight into mental illness. plan to petition for commitment and medication. 03/10: refusing medications. being treated for frostbite. commitment petition paperwork completed today. 03/11 Patient continues to refuse medication civil commitment and treatment paperwork has been filed by Dr. Diallo patient seemed unable take in information regarding the 03/12: no change in presentation. refusing meds, including doxy for frostbite. intermittent acceptance of foot soaks. denies mental illness. disorganized, delusional. 03/13: no change in presentation. continue current mgmt. court thursday. 03/14: Court on Thursday03/17/23. Cont current plan. 03/15: Continue current management and treatment plan. Reason for continued inpatient stay Substantial Risk for: inability to function and rapid decompensation Time Spent With Patient Time: Total time managing care of this patient today ____ minutes.
[2023-03-15] MEDS: Mineral Oil/Petrolatum,White 106 GM Tube 1 APPL TOPICAL (18:33)
[2023-03-15 19:45] VITALS: BP 112/64; PULSE 77; RESP 18; TEMP 36.8; O2SAT 98
--- NOTE | 2023-03-16 11:47 | HO.PSYCHPN ---
Subjective Subjective Date of Service: 03/16/23 Reason For Visit: Psychosis Interim History: With patient; discussed with team; reviewed notes Patient remains manic, delusional. Very difficult with which to engage or interrupt. Patient accusing securities underwriter of trying to get her to look at securities underwriter's penis... Repeats over and over that she is in the ; told securities underwriter that she believes securities underwriter and other psychiatrists are related and are not real psychiatrists, that they all are purposely dressing the same, intention is to steal her identity... Patient says I got someone killed on the spot for stealing identity.... There was a warrant... She was an illegal citizen... Patient continues to ramble similar things over and over; says that flako killed everyone in high school in [place]... 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 Patient said she came here because of frostbite for her feet and should not be on the psychiatric unit, that she is going to get everyone in the hospital arrested and that everyone is in big trouble. Payroll Processor inquired why she has been refusing antibiotics that were specifically prescribed due to her frostbite to which patient replied that it is none of securities underwriter's business. Intermittently, throughout conversation with securities underwriter, she would pause to yell at and accuse peer who was sitting at a table next to her. Patient continued to ramble, accuse; as securities underwriter excused himself she continued to yell at securities underwriter down the spencer. Continues to refuse all medications Mental Status Exam Mental Status Exam Narrative: Pt is alert and oriented; behavior is manic, guarded and suspicious, irritable; patient is not in distress; dressed in hospital attire, disheveled; mood is described as I do not want to talk to and affect constricted; eye contact appropriate; Speech pressured, rambling and difficult to interrupt; psychomotor agitation present; thought process can be goal oriented but is overall disorganized; Thought content is various paranoid delusions; otherwise will not discuss SI/HI. Will not discuss AH but intermittently appears to be internally preoccupied. Patients insight and judgment impaired Diagnostics Vital Signs (24Hr): Vital Signs - 24 hr 03/15/23 19:45 Temperature 98.3 F Pulse Rate 77 Respiratory Rate 18 Blood Pressure 112/64 Pulse Oximetry 98 Oxygen Delivery Method Room Air BMI result Body Mass Index 22.4 Medications Medications Current Medications Acetaminophen (Acetaminophen 325 Mg Tablet) 650 mg PO Q6H PRN PRN Reason: Headache/Pain Mild Scale (1-3) Al Hydroxide/Mg Hydroxide (Magnesium Hydrox/Alum Hydrox 30 Ml Oral.Susp) 30 ml PO Q6H PRN PRN Reason: Heartburn/Nausea Bacitracin (Bacitracin Oint 14 Gm Tube) 1 appl TOPICAL BID PRN; Protocol PRN Reason: lesion Doxycycline Monohydrate (Doxycycline Monohydrate 100 Mg Capsule) 100 mg PO BID [facility] Last Admin: 03/16/23 09:29 Dose: Not Given Folic Acid (Folic Acid 1 Mg Tablet) 1 mg PO DAILY [facility] Last Admin: 03/16/23 09:29 Dose: Not Given Hydroxyzine HCl (Hydroxyzine Hcl 25 Mg Tablet) 25 mg PO Q6H PRN PRN Reason: Anxiety Magnesium Hydroxide (Milk Of Magnesia 30 Ml Oral.Susp) 30 ml PO DAILY PRN PRN Reason: Constipation Multi-Ingred Cream/Lotion/Oil/Oint (Mineral Oil/Petrolatum,White 106 Gm Tube) 1 appl TOPICAL QID PRN; Protocol PRN Reason: skin protectant Last Admin: 03/15/23 18:33 Dose: 1 appl Multivitamins/Vitamin C (Multivitamin Tablet) 1 tab PO DAILY [facility] Last Admin: 03/16/23 09:29 Dose: Not Given Nicotine (Nicotine 21 Mg Patch.Td24) 21 mg TRANSDERMA DAILY PRN PRN Reason: smoking cessation Nicotine Polacrilex (Nicotine Polacrilex 2 Mg Gum) 4 mg BUCCAL Q2H PRN PRN Reason: Nicotine Cravings Olanzapine (Olanzapine 5 Mg Tablet) 5 mg PO TID PRN PRN Reason: agitation Olanzapine (Olanzapine 5 Mg Tablet) 5 mg PO BID [facility] Last Admin: 03/16/23 09:30 Dose: Not Given Thiamine HCl (Thiamine Hcl 100 Mg Tablet) 100 mg PO DAILY [facility] Last Admin: 03/16/23 09:30 Dose: Not Given Trazodone HCl (Trazodone Hcl 50 Mg Tablet) 50 mg PO BEDTIME MRX1 PRN PRN Reason: Insomnia Allergies Allergies Allergy/AdvReac Type Severity Reaction Status Date / Time penicillin V Allergy Unknown unknown Verified 03/05/23 05:16 Penicillins [PENICILLINS] Allergy Unknown RASH Verified 03/05/23 05:16 Assessment & Plan Assessment & Plan (1) Schizophrenia: Status: Acute Code(s): F20.9 - Schizophrenia, unspecified Plan Ms. Quiles is a 37 year-old woman with hx of schizophrenia. it appears schizophrenia largely untreated and patient has been homeless for several months. She was brought via police after aunt called them due to frostbites and increased paranoia. Pt with no insight into illness or need for treatment for both psychiatric and frostbite. We discussed risks, benefits and alternative treatment options, she declines medications- antipsychotic ones. PLAN 1. Admit to M3, sect 12b, 15 minutes checks 2. obtain collateral information 3. aftercare planning 03/09: refusing medications. frostbite, no insight into mental illness. plan to petition for commitment and medication. 03/10: refusing medications. being treated for frostbite. commitment petition paperwork completed today. 03/11 Patient continues to refuse medication civil commitment and treatment paperwork has been filed by Dr. Diallo patient seemed unable take in information regarding the 03/12: no change in presentation. refusing meds, including doxy for frostbite. intermittent acceptance of foot soaks. denies mental illness. disorganized, delusional. 03/13: no change in presentation. continue current mgmt. court thursday. 03/14: Court on Thursday03/17/23. Cont current plan. 03/15: Continue current management and treatment plan. 03/16 Patient remains manic, delusional. Very difficult with which to engage or interrupt. Patient accusing securities underwriter of trying to get her to look at securities underwriter's penis... Repeats over and over that she is in the ; told securities underwriter that she believes securities underwriter and other psychiatrists are related and are not real psychiatrists, that they all are purposely dressing the same, intention is to steal her identity... Patient says I got someone killed on the spot for stealing identity.... There was a warrant... She was an illegal citizen... Patient continues to ramble similar things over and over; says that crystal killed everyone in high school in [place]... 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 Patient said she came here because of frostbite for her feet and should not be on the psychiatric unit, that she is going to get everyone in the hospital arrested and that everyone is in big trouble. Payroll Processor inquired why she has been refusing antibiotics that were specifically prescribed due to her frostbite to which patient replied that it is none of securities underwriter's business. Intermittently, throughout conversation with securities underwriter, she would pause to yell at and accuse peer who was sitting at a table next to her. Patient continued to ramble, accuse; as securities underwriter excused himself she continued to yell at securities underwriter down the spencer. -Continues to refuse all medications -based on presentation, chart review patient does not appear to be able to take care of herself in the community. Payroll Processor agrees with team plan to pursue involuntary commitment. Patient educated on: diagnosis, medication risk/benefits and medical condition Informed Consent: does not understand Reason for continued inpatient stay Substantial Risk for: inability to function Time Spent With Patient Time: Total time managing care of this patient today ____ minutes.
[2023-03-16] MEDS: Mineral Oil/Petrolatum,White 106 GM Tube 1 APPL TOPICAL (16:33)
[2023-03-16 19:45] VITALS: BP 112/57; PULSE 82; RESP 16; TEMP 37.4; O2SAT 98
--- NOTE | 2023-03-17 09:09 | PC.NURSE ---
Pt declined prescribed medications stating, I don't take medication. I don't need anything right now.
--- NOTE | 2023-03-17 16:57 | P.PNPSI_ITS ---
Subjective Subjective Date of Service: 03/17/23 Reason For Visit: Psychosis Interim History: met with patient; discussed with team pt remains manic, delusional, guarded and suspicious. On approach, Pt said she would not talk w/ va underwriter, however would not stop loudly talking to va underwriter, kathleen stuart accusations and asking va underwriter questions, which she continued to do even as va underwriter excused himself and walked away. Patient continued to say she is in the , that va underwriter tried to get her to look at his penis, that she is not a prostitute and that she knows that va underwriter was trying to engage her as if she were a prostitute.... Talking about sex toys, saying she knew this va underwriter and va underwriter's from 10 years ago... Mental Status Exam Mental Status Exam Narrative: Pt is alert and oriented; behavior is manic, guarded and suspicious, irritable; patient is not in distress; dressed in hospital attire, disheveled; mood is described as I do not want to talk to and affect constricted; eye contact appropriate; Speech pressured, rambling and difficult to interrupt; psychomotor agitation present; thought process can be goal oriented but is overall disorganized; Thought content is various paranoid delusions; otherwise will not discuss SI/HI. Will not discuss AH but intermittently appears to be internally preoccupied. Patients insight and judgment impaired Diagnostics Vital Signs (24Hr): Vital Signs - 24 hr 03/16/23 19:45 Temperature 99.4 F Pulse Rate 82 Respiratory Rate 16 Blood Pressure 112/57 L Pulse Oximetry 98 Oxygen Delivery Method Room Air BMI result Body Mass Index 22.4 Medications Medications Current Medications Acetaminophen (Acetaminophen 325 Mg Tablet) 650 mg PO Q6H PRN PRN Reason: Headache/Pain Mild Scale (1-3) Al Hydroxide/Mg Hydroxide (Magnesium Hydrox/Alum Hydrox 30 Ml Oral.Susp) 30 ml PO Q6H PRN PRN Reason: Heartburn/Nausea Bacitracin (Bacitracin Oint 14 Gm Tube) 1 appl TOPICAL BID PRN; Protocol PRN Reason: lesion Folic Acid (Folic Acid 1 Mg Tablet) 1 mg PO DAILY [facility] Last Admin: 03/17/23 09:10 Dose: Not Given Hydroxyzine HCl (Hydroxyzine Hcl 25 Mg Tablet) 25 mg PO Q6H PRN PRN Reason: Anxiety Magnesium Hydroxide (Milk Of Magnesia 30 Ml Oral.Susp) 30 ml PO DAILY PRN PRN Reason: Constipation Multi-Ingred Cream/Lotion/Oil/Oint (Mineral Oil/Petrolatum,White 106 Gm Tube) 1 appl TOPICAL QID PRN; Protocol PRN Reason: skin protectant Last Admin: 03/16/23 16:33 Dose: 1 appl Multivitamins/Vitamin C (Multivitamin Tablet) 1 tab PO DAILY [facility] Last Admin: 03/17/23 09:10 Dose: Not Given Nicotine (Nicotine 21 Mg Patch.Td24) 21 mg TRANSDERMA DAILY PRN PRN Reason: smoking cessation Nicotine Polacrilex (Nicotine Polacrilex 2 Mg Gum) 4 mg BUCCAL Q2H PRN PRN Reason: Nicotine Cravings Olanzapine (Olanzapine 5 Mg Tablet) 5 mg PO TID PRN PRN Reason: agitation Olanzapine (Olanzapine 5 Mg Tablet) 5 mg PO BID [facility] Last Admin: 03/17/23 09:10 Dose: Not Given Thiamine HCl (Thiamine Hcl 100 Mg Tablet) 100 mg PO DAILY [facility] Last Admin: 03/17/23 09:10 Dose: Not Given Trazodone HCl (Trazodone Hcl 50 Mg Tablet) 50 mg PO BEDTIME MRX1 PRN PRN Reason: Insomnia Allergies Allergies Allergy/AdvReac Type Severity Reaction Status Date / Time penicillin V Allergy Unknown unknown Verified 03/05/23 05:16 Penicillins [PENICILLINS] Allergy Unknown RASH Verified 03/05/23 05:16 Assessment & Plan Assessment & Plan (1) Schizophrenia: Status: Acute Code(s): F20.9 - Schizophrenia, unspecified Plan Ms. Quiles is a 37 year-old woman with hx of schizophrenia. it appears schizophrenia largely untreated and patient has been homeless for several months. She was brought via police after aunt called them due to frostbites and increased paranoia. Pt with no insight into illness or need for treatment for both psychiatric and frostbite. We discussed risks, benefits and alternative treatment options, she declines medications- antipsychotic ones. PLAN 1. Admit to M3, sect 12b, 15 minutes checks 2. obtain collateral information 3. aftercare planning 03/09: refusing medications. frostbite, no insight into mental illness. plan to petition for commitment and medication. 03/10: refusing medications. being treated for frostbite. commitment petition paperwork completed today. 03/11 Patient continues to refuse medication civil commitment and treatment paperwork has been filed by Dr. Diallo patient seemed unable take in information regarding the 03/12: no change in presentation. refusing meds, including doxy for frostbite. intermittent acceptance of foot soaks. denies mental illness. disorganized, delusional. 03/13: no change in presentation. continue current mgmt. court thursday. 03/14: Court on Thursday03/17/23. Cont current plan. 03/15: Continue current management and treatment plan. 03/16 Patient remains manic, delusional. Very difficult with which to engage or interrupt. Patient accusing va underwriter of trying to get her to look at va underwriter's penis... Repeats over and over that she is in the ; told va underwriter that she believes va underwriter and other psychiatrists are related and are not real psychiatrists, that they all are purposely dressing the same, intention is to steal her identity... Patient says I got someone killed on the spot for melissa aling identity.... There was a warrant... She was an illegal citizen... Patient continues to ramble similar things over and over; says that crystal killed everyone in high school in [place]... 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 Patient said she came here because of frostbite for her feet and should not be on the psychiatric unit, that she is going to get everyone in the hospital arrested and that everyone is in big trouble. Plastic Surgery Manager inquired why she has been refusing antibiotics that were specifically prescribed due to her frostbite to which patient replied that it is none of va underwriter's business. Intermittently, throughout conversation with va underwriter, she would pause to yell at and accuse peer who was sitting at a table next to her. Patient continued to ramble, accuse; as va underwriter excused himself she continued to yell at va underwriter down the spencer. -Continues to refuse all medications -based on presentation, chart review patient does not appear to be able to take care of herself in the community. Plastic Surgery Manager agrees with team plan to pursue involuntary commitment. 03/17 patient remains with paranoid delusions and disorganized speech and behavior. She is difficult if not impossible with which to engage as patient immediately starts rambling a nonsensical and accusatory tirade towards va underwriter on approach. Plastic Surgery Manager is concerned about her ability take care of herself in the community. She came in with eline but will not discuss with va underwriter why she was exposed to the elements and did not protect herself; will not discuss where she wants to go, where she will live or how she plans to protect herself if discharged... It is relevant that patient did not self present to the ED for frostbite but rather her aunt called 911, concerned for patient's safety given her disorganized behavior. Patient's refusal to engage and discuss these issues is another component of her disorganized behavior Patient educated on: diagnosis and medical condition Informed Consent: does not understand Reason for continued inpatient stay Substantial Risk for: inability to function Time Spent With Patient Time: Total time managing care of this patient today ____ minutes.
--- NOTE | 2023-03-17 20:57 | P.PNPSI_ITS ---
Subjective Subjective Date of Service: 03/17/23 Reason For Visit: Psychosis Subjective Notes: Section 7 Interim History: Pt continues to present with paranoid delusions of working in people being impostors. Pt asks this telegraphic typewriter mechanic if I am in fact the same person she has seen in the past as she worries that many people in the hospital are actually impostors. She is guarded when this telegraphic typewriter mechanic asks where she will go if discharged, she states I have an apartment with my , that's private information. She is mostly in common area, declines medications, no insight into mental illness nor need for treatment. Medication Compliance: No Mental Status Exam Mental Status Exam Narrative: Appearance: disheveled, nodes on her hair, in NAD Behavior:guarded and suspicious Psychomotor: no overt retardation or agitation Speech: verbose, difficult to redirect, spontaneous TP: tangential TC: paranoid delusions Mood: good Affect: suspicious SI: denies HI: none VH/AH: hearing voices theme of her working for Delusions: paranoid delusions Insight/judgment: impaired x 2. Memory/cog: alert, oriented not to situation. Diagnostics Vital Signs (24Hr): BMI result Body Mass Index 22.4 Medications Medications Current Medications Acetaminophen (Acetaminophen 325 Mg Tablet) 650 mg PO Q6H PRN PRN Reason: Headache/Pain Mild Scale (1-3) Al Hydroxide/Mg Hydroxide (Magnesium Hydrox/Alum Hydrox 30 Ml Oral.Susp) 30 ml PO Q6H PRN PRN Reason: Heartburn/Nausea Bacitracin (Bacitracin Oint 14 Gm Tube) 1 appl TOPICAL BID PRN; Protocol PRN Reason: lesion Folic Acid (Folic Acid 1 Mg Tablet) 1 mg PO DAILY [facility] Last Admin: 03/17/23 09:10 Dose: Not Given Hydroxyzine HCl (Hydroxyzine Hcl 25 Mg Tablet) 25 mg PO Q6H PRN PRN Reason: Anxiety Magnesium Hydroxide (Milk Of Magnesia 30 Ml Oral.Susp) 30 ml PO DAILY PRN PRN Reason: Constipation Multi-Ingred Cream/Lotion/Oil/Oint (Mineral Oil/Petrolatum,White 106 Gm Tube) 1 appl TOPICAL QID PRN; Protocol PRN Reason: skin protectant Last Admin: 03/16/23 16:33 Dose: 1 appl Multivitamins/Vitamin C (Multivitamin Tablet) 1 tab PO DAILY [facility] Last Admin: 03/17/23 09:10 Dose: Not Given Nicotine (Nicotine 21 Mg Patch.Td24) 21 mg TRANSDERMA DAILY PRN PRN Reason: smoking cessation Nicotine Polacrilex (Nicotine Polacrilex 2 Mg Gum) 4 mg BUCCAL Q2H PRN PRN Reason: Nicotine Cravings Olanzapine (Olanzapine 5 Mg Tablet) 5 mg PO TID PRN PRN Reason: agitation Olanzapine (Olanzapine 5 Mg Tablet) 5 mg PO BID [facility] Last Admin: 03/17/23 20:49 Dose: Not Given Thiamine HCl (Thiamine Hcl 100 Mg Tablet) 100 mg PO DAILY [facility] Last Admin: 03/17/23 09:10 Dose: Not Given Trazodone HCl (Trazodone Hcl 50 Mg Tablet) 50 mg PO BEDTIME MRX1 PRN PRN Reason: Insomnia Allergies Allergies Allergy/AdvReac Type Severity Reaction Status Date / Time penicillin V Allergy Unknown unknown Verified 03/05/23 05:16 Penicillins [PENICILLINS] Allergy Unknown RASH Verified 03/05/23 05:16 Assessment & Plan Assessment & Plan (1) Schizophrenia: Status: Acute Code(s): F20.9 - Schizophrenia, unspecified Plan Ms. Quiles is a 37 year-old woman with hx of schizophrenia. it appears schizophrenia largely untreated and patient has been homeless for several months. She was brought via police after aunt called them due to frostbites and increased paranoia. Pt with no insight into illness or need for treatment for both psychiatric and frostbite. We discussed risks, benefits and alternative treatment options, she declines medications- antipsychotic ones. PLAN 1. Admit to M3, sect 12b, 15 minutes checks 2. obtain collateral information 3. aftercare planning 03/09: refusing medications. frostbite, no insight into mental illness. plan to petition for commitment and medication. 03/10: refusing medications. being treated for frostbite. commitment petition paperwork completed today. 03/11 Patient continues to refuse medication civil commitment and treatment paperwork has been filed by Dr. Diallo patient seemed unable take in information regarding the 03/12: no change in presentation. refusing meds, including doxy for frostbite. intermittent acceptance of foot soaks. denies mental illness. disorganized, delusional. 03/13: no change in presentation. continue current mgmt. court thursday. 03/14: Court on Thursday03/17/23. Cont current plan. 03/15: Continue current management and treatment plan. 03/16 Patient remains manic, delusional. Very difficult with which to engage or interrupt. Patient accusing telegraphic typewriter mechanic of trying to get her to look at telegraphic typewriter mechanic's penis... Repeats over and over that she is in the ; told telegraphic typewriter mechanic that she believes telegraphic typewriter mechanic and other psychiatrists are related and are not real psychiatrists, that they all are purposely dressing the same, intention is to steal her identity... Patient says I got someone killed on the spot for stealing identity.... There was a warrant... She was an illegal citizen... Patient continues to ramble similar things over and over; says that flako killed everyone in high school in [place]... 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 Patient said she came here because of frostbite for her feet and should not be on the psychiatric unit, that she is going to get everyone in the hospital arrested and that everyone is in big trouble. Survey Worker inquired why she has been refusing antibiotics that were specifically prescribed due to her frostbite to which patient replied that it is none of telegraphic typewriter mechanic's business. Intermittently, throughout conversation with telegraphic typewriter mechanic, she would pause to yell at and accuse peer who was sitting at a table next to her. Patient continued to ramble, accuse; as telegraphic typewriter mechanic excused himself she continued to yell at telegraphic typewriter mechanic down the spencer. -Continues to refuse all medications -based on presentation, chart review patient does not appear to be able to take care of herself in the community. Survey Worker agrees with team plan to pursue involuntary commitment. 03/[address] for involuntary treatment. Reason for continued inpatient stay Substantial Risk for: inability to function Time Spent With Patient Time: Total time managing care of this patient today ____ minutes.
[2023-03-17 22:00] VITALS: BP 99/55; PULSE 81; RESP 16; TEMP 36.7; O2SAT 98
[2023-03-17] MEDS: Mineral Oil/Petrolatum,White 106 GM Tube 1 APPL TOPICAL (22:30)
[2023-03-18 06:00] VITALS: BP 99/59; PULSE 81; RESP 16; TEMP 36.9; O2SAT 98
[2023-03-18] MEDS: Mineral Oil/Petrolatum,White 106 GM Tube 1 APPL TOPICAL (11:06)
--- NOTE | 2023-03-18 16:52 | HO.PSYCHPN ---
Subjective Subjective Date of Service: 03/18/23 Reason For Visit: Psychosis Subjective Notes: Section 7 Interim History: No significant change. Pt verbose, difficult to redirect, she continues to present with paranoid delusions of working in people being impostors. Pt asks again this marketing underwriter if I am impostors. She then tells me same story of how she has spotted and sent to [facility] multiple people who were not who they said they were. She is guarded when this marketing underwriter asks where she will go if discharged, she states I have an apartment with my , that's private information. She is mostly in common area, declines medications, no insight into mental illness nor need for treatment. Review of Systems Review of Systems Yes Other (Patient hyperverbal, talking around in circles, not answering questions) Constitutional: Denies chills and Reports fever(s) Cardiovascular: Denies chest pain, Denies dyspnea and Denies dyspnea on exertion Respiratory: Denies cough, Denies dyspnea and Denies dyspnea on exertion Gastrointestinal: Denies hematochezia and Denies change in bowel habits Musculoskeletal: Denies back pain and Denies limited range of motion Denies focal weakness and Denies convulsions Psychiatric: Denies depression, Reports mood swings and Reports paranoia Mental Status Exam Mental Status Exam Narrative: Appearance: disheveled, nodes on her hair, in NAD Behavior:guarded and suspicious Psychomotor: no overt retardation or agitation Speech: verbose, difficult to redirect, spontaneous TP: tangential TC: paranoid delusions Mood: good Affect: suspicious SI: denies HI: none VH/AH: hearing voices theme of her working for Delusions: paranoid delusions Insight/judgment: impaired x 2. Memory/cog: alert, oriented not to situation. Diagnostics Vital Signs (24Hr): Vital Signs - 24 hr 03/17/23 22:00 03/18/23 06:00 Temperature 98.1 F 98.4 F Pulse Rate 81 81 Respiratory Rate 16 16 Blood Pressure 99/55 L 99/59 L Pulse Oximetry 98 98 Oxygen Delivery Method Room Air Room Air BMI result Body Mass Index 22.4 Medications Medications Current Medications Acetaminophen (Acetaminophen 325 Mg Tablet) 650 mg PO Q6H PRN PRN Reason: Headache/Pain Mild Scale (1-3) Al Hydroxide/Mg Hydroxide (Magnesium Hydrox/Alum Hydrox 30 Ml Oral.Susp) 30 ml PO Q6H PRN PRN Reason: Heartburn/Nausea Bacitracin (Bacitracin Oint 14 Gm Tube) 1 appl TOPICAL BID PRN; Protocol PRN Reason: lesion Folic Acid (Folic Acid 1 Mg Tablet) 1 mg PO DAILY [facility] Last Admin: 03/18/23 08:50 Dose: Not Given Hydroxyzine HCl (Hydroxyzine Hcl 25 Mg Tablet) 25 mg PO Q6H PRN PRN Reason: Anxiety Magnesium Hydroxide (Milk Of Magnesia 30 Ml Oral.Susp) 30 ml PO DAILY PRN PRN Reason: Constipation Multi-Ingred Cream/Lotion/Oil/Oint (Mineral Oil/Petrolatum,White 106 Gm Tube) 1 appl TOPICAL QID PRN; Protocol PRN Reason: skin protectant Last Admin: 03/18/23 11:06 Dose: 1 appl Multivitamins/Vitamin C (Multivitamin Tablet) 1 tab PO DAILY [facility] Last Admin: 03/18/23 08:50 Dose: Not Given Nicotine (Nicotine 21 Mg Patch.Td24) 21 mg TRANSDERMA DAILY PRN PRN Reason: smoking cessation Nicotine Polacrilex (Nicotine Polacrilex 2 Mg Gum) 4 mg BUCCAL Q2H PRN PRN Reason: Nicotine Cravings Olanzapine (Olanzapine 5 Mg Tablet) 5 mg PO TID PRN PRN Reason: agitation Olanzapine (Olanzapine 5 Mg Tablet) 5 mg PO BID [facility] Last Admin: 03/18/23 08:50 Dose: Not Given Thiamine HCl (Thiamine Hcl 100 Mg Tablet) 100 mg PO DAILY [facility] Last Admin: 03/18/23 08:50 Dose: Not Given Trazodone HCl (Trazodone Hcl 50 Mg Tablet) 50 mg PO BEDTIME MRX1 PRN PRN Reason: Insomnia Allergies Allergies Allergy/AdvReac Type Severity Reaction Status Date / Time penicillin V Allergy Unknown unknown Verified 03/05/23 05:16 Penicillins [PENICILLINS] Allergy Unknown RASH Verified 03/05/23 05:16 Assessment & Plan Assessment & Plan (1) Schizophrenia: Status: Acute Code(s): F20.9 - Schizophrenia, unspecified Plan Ms. Quiles is a 37 year-old woman with hx of schizophrenia. it appears schizophrenia largely untreated and patient has been homeless for several months. She was brought via police after aunt called them due to frostbites and increased paranoia. Pt with no insight into illness or need for treatment for both psychiatric and frostbite. We discussed risks, benefits and alternative treatment options, she declines medications- antipsychotic ones. PLAN 1. Admit to M3, sect 12b, 15 minutes checks 2. obtain collateral information 3. aftercare planning 03/09: refusing medications. frostbite, no insight into mental illness. plan to petition for commitment and medication. 03/10: refusing medications. being treated for frostbite. commitment petition paperwork completed today. 03/11 Patient continues to refuse medication civil commitment and treatment paperwork has been filed by Dr. Diallo patient seemed unable take in information regarding the 03/12: no change in presentation. refusing meds, including doxy for frostbite. intermittent acceptance of foot soaks. denies mental illness. disorganized, delusional. 03/13: no change in presentation. continue current mgmt. court thursday. 03/14: Court on Thursday03/17/23. Cont current plan. 03/15: Continue current management and treatment plan. 03/16 Patient remains manic, delusional. Very difficult with which to engage or interrupt. Patient accusing marketing underwriter of trying to get her to look at marketing underwriter's penis... Repeats over and over that she is in the ; told marketing underwriter that she believes marketing underwriter and other psychiatrists are related and are not real psychiatrists, that they all are purposely dressing the same, intention is to steal her identity... Patient says I got someone killed on the spot for stealing identity.... There was a warrant... She was an illegal citizen... Patient continues to ramble similar things over and over; says that crystal killed everyone in high school in [place]... 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 Patient said she came here because of frostbite for her feet and should not be on the psychiatric unit, that she is going to get everyone in the hospital arrested and that everyone is in big trouble. Herpetology Teacher inquired why she has been refusing antibiotics that were specifically prescribed due to her frostbite to which patient replied that it is none of marketing underwriter's business. Intermittently, throughout conversation with marketing underwriter, she would pause to yell at and accuse peer who was sitting at a table next to her. Patient continued to ramble, accuse; as marketing underwriter excused himself she continued to yell at marketing underwriter down the spencer. -Continues to refuse all medications -based on presentation, chart review patient does not appear to be able to take care of herself in the community. Herpetology Teacher agrees with team plan to pursue involuntary commitment. 03/[address] for involuntary treatment. 03/[address] sect 08/23 Reason for continued inpatient stay Substantial Risk for: inability to function Time Spent With Patient Time: Total time managing care of this patient today ____ minutes.
[2023-03-18 19:40] VITALS: BP 172/56; PULSE 91; RESP 16; TEMP 38.2; O2SAT 97
[2023-03-18 20:54] VITALS: TEMP 37.2
[2023-03-18 22:46] VITALS: TEMP 37.2
[2023-03-19] MEDS: Mineral Oil/Petrolatum,White 106 GM Tube 1 APPL TOPICAL ×2 (10:54→20:33)
[2023-03-19 20:45] VITALS: BP 109/69; PULSE 90; RESP 18; TEMP 36.9; O2SAT 99
[2023-03-19] MEDS: OLANZapine 10 MG VIAL IM (22:15)
--- NOTE | 2023-03-19 23:34 | PC.NURSE ---
Jennifer has Jose's order for Zyprexa orally, give IM if oral medication declined. She declined to take oral medication and she declined to willingly accept IM injection of Zyprexa. Physical hold x 1 min to administer IM Zyprexa per Brea order. No adverse effects post injection. Hospitalist Keith assessed patient per protocol.
--- NOTE | 2023-03-20 09:56 | P.PNPSI_ITS ---
Subjective Subjective Date of Service: 03/19/23 Reason For Visit: Psychosis Subjective Notes: Section 8 Interim History: Hearing for involuntary commitment took place. Pt was committed on sect 8. pt continues to present with paranoid delusions, hallucinations, no insight into symptoms nor need for treatment. She declined to attend court hearing as she states she does not think this is the case. Diagnostics Vital Signs (24Hr): Vital Signs - 24 hr 03/19/23 20:45 Temperature 98.4 F Pulse Rate 90 Respiratory Rate 18 Blood Pressure 109/69 Pulse Oximetry 99 Oxygen Delivery Method Room Air BMI result Body Mass Index 22.4 Medications Medications Current Medications Acetaminophen (Acetaminophen 325 Mg Tablet) 650 mg PO Q6H PRN PRN Reason: Headache/Pain Mild Scale (1-3) Al Hydroxide/Mg Hydroxide (Magnesium Hydrox/Alum Hydrox 30 Ml Oral.Susp) 30 ml PO Q6H PRN PRN Reason: Heartburn/Nausea Bacitracin (Bacitracin Oint 14 Gm Tube) 1 appl TOPICAL BID PRN; Protocol PRN Reason: lesion Folic Acid (Folic Acid 1 Mg Tablet) 1 mg PO DAILY [facility] Last Admin: 03/20/23 08:29 Dose: Not Given Hydroxyzine HCl (Hydroxyzine Hcl 25 Mg Tablet) 25 mg PO Q6H PRN PRN Reason: Anxiety Magnesium Hydroxide (Milk Of Magnesia 30 Ml Oral.Susp) 30 ml PO DAILY PRN PRN Reason: Constipation Multi-Ingred Cream/Lotion/Oil/Oint (Mineral Oil/Petrolatum,White 106 Gm Tube) 1 appl TOPICAL QID PRN; Protocol PRN Reason: skin protectant Last Admin: 03/19/23 20:33 Dose: 1 appl Multivitamins/Vitamin C (Multivitamin Tablet) 1 tab PO DAILY [facility] Last Admin: 03/20/23 08:29 Dose: Not Given Nicotine (Nicotine 21 Mg Patch.Td24) 21 mg TRANSDERMA DAILY PRN PRN Reason: smoking cessation Nicotine Polacrilex (Nicotine Polacrilex 2 Mg Gum) 4 mg BUCCAL Q2H PRN PRN Reason: Nicotine Cravings Olanzapine (Olanzapine 5 Mg Tablet) 5 mg PO TID PRN PRN Reason: agitation Olanzapine (Olanzapine Odt 10 Mg Tab.Rapdis) 10 mg TRANSLINGU BEDTIME [facility] Last Admin: 03/19/23 23:15 Dose: Not Given Olanzapine (Olanzapine 10 Mg Vial) 10 mg IM DAILY PRN PRN Reason: if refuses po per court Last Admin: 03/19/23 22:15 Dose: 10 mg Thiamine HCl (Thiamine Hcl 100 Mg Tablet) 100 mg PO DAILY [facility] Last Admin: 03/20/23 08:29 Dose: Not Given Trazodone HCl (Trazodone Hcl 50 Mg Tablet) 50 mg PO BEDTIME MRX1 PRN PRN Reason: Insomnia Allergies Allergies Allergy/AdvReac Type Severity Reaction Status Date / Time penicillin V Allergy Unknown unknown Verified 03/05/23 05:16 Penicillins [PENICILLINS] Allergy Unknown RASH Verified 03/05/23 05:16 Assessment & Plan Assessment & Plan (1) Schizophrenia: Status: Acute Code(s): F20.9 - Schizophrenia, unspecified Plan Ms. Quiles is a 37 year-old woman with hx of schizophrenia. it appears schizophrenia largely untreated and patient has been homeless for several months. She was brought via police after aunt called them due to frostbites and increased paranoia. Pt with no insight into illness or need for treatment for both psychiatric and frostbite. We discussed risks, benefits and alternative treatment options, she declines medications- antipsychotic ones. PLAN 1. Admit to M3, sect 12b, 15 minutes checks 2. obtain collateral information 3. aftercare planning 03/09: refusing medications. frostbite, no insight into mental illness. plan to petition for commitment and medication. 03/10: refusing medications. being treated for frostbite. commitment petition paperwork completed today. 03/11 Patient continues to refuse medication civil commitment and treatment paperwork has been filed by Dr. Diallo patient seemed unable take in information regarding the 03/12: no change in presentation. refusing meds, including doxy for frostbite. intermittent acceptance of foot soaks. denies mental illness. disorganized, delusional. 03/13: no change in presentation. continue current mgmt. court thursday. 03/14: Court on Thursday03/17/23. Cont current plan. 03/15: Continue current management and treatment plan. 03/16 Patient remains manic, delusional. Very difficult with which to engage or interrupt. Patient accusing video games storywriter of trying to get her to look at video games storywriter's penis... Repeats over and over that she is in the ; told video games storywriter that she believes video games storywriter and other psychiatrists are related and are not real psychiatrists, that they all are purposely dressing the same, intention is to steal her identity... Patient says I got someone killed on the spot for stealing identity.... There was a warrant... She was an illegal [place]... Patient continues to ramble similar things over and over; says that crystal killed everyone in high school in [place]... 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 Patient said she came here because of frostbite for her feet and should not be on the psychiatric unit, that she is going to get everyone in the hospital arrested and that everyone is in big trouble. Nutrition Teacher inquired why she has been refusing antibiotics that were specifically prescribed due to her frostbite to which patient replied that it is none of video games storywriter's business. Intermittently, throughout conversation with video games storywriter, she would pause to yell at and accuse peer who was sitting at a table next to her. Patient continued to ramble, accuse; as video games storywriter excused himself she continued to yell at video games storywriter down the spencer. -Continues to refuse all medications -based on presentation, chart review patient does not appear to be able to take care of herself in the community. Nutrition Teacher agrees with team plan to pursue involuntary commitment. 03/[address] for involuntary treatment. 03/[address] sect 08/23 03/19 committed to hospital. ordered olanzapine 10mg po qhs with back up IM. Reason for continued inpatient stay Substantial Risk for: inability to function Time Spent With Patient Time: Total time managing care of this patient today ____ minutes.
--- NOTE | 2023-03-20 10:02 | HO.PSYCHPN ---
Subjective Subjective Date of Service: 03/20/23 Reason For Visit: Psychosis Subjective Notes: Section 8 Interim History: Patient remains psychotic agitated required IM last night has been somewhat lethargic otherwise pressured and psychotic resistant to treat Mental Status Exam Mental Status Exam Narrative: Patient mostly lethargic get of the times seen disheveled agitated and pressured unable to engage in clear linear thought Diagnostics Vital Signs (24Hr): Vital Signs - 24 hr 03/19/23 20:45 Temperature 98.4 F Pulse Rate 90 Respiratory Rate 18 Blood Pressure 109/69 Pulse Oximetry 99 Oxygen Delivery Method Room Air BMI result Body Mass Index 22.4 Medications Medications Current Medications Acetaminophen (Acetaminophen 325 Mg Tablet) 650 mg PO Q6H PRN PRN Reason: Headache/Pain Mild Scale (1-3) Al Hydroxide/Mg Hydroxide (Magnesium Hydrox/Alum Hydrox 30 Ml Oral.Susp) 30 ml PO Q6H PRN PRN Reason: Heartburn/Nausea Bacitracin (Bacitracin Oint 14 Gm Tube) 1 appl TOPICAL BID PRN; Protocol PRN Reason: lesion Folic Acid (Folic Acid 1 Mg Tablet) 1 mg PO DAILY [facility] Last Admin: 03/20/23 08:29 Dose: Not Given Hydroxyzine HCl (Hydroxyzine Hcl 25 Mg Tablet) 25 mg PO Q6H PRN PRN Reason: Anxiety Magnesium Hydroxide (Milk Of Magnesia 30 Ml Oral.Susp) 30 ml PO DAILY PRN PRN Reason: Constipation Multi-Ingred Cream/Lotion/Oil/Oint (Mineral Oil/Petrolatum,White 106 Gm Tube) 1 appl TOPICAL QID PRN; Protocol PRN Reason: skin protectant Last Admin: 03/19/23 20:33 Dose: 1 appl Multivitamins/Vitamin C (Multivitamin Tablet) 1 tab PO DAILY [facility] Last Admin: 03/20/23 08:29 Dose: Not Given Nicotine (Nicotine 21 Mg Patch.Td24) 21 mg TRANSDERMA DAILY PRN PRN Reason: smoking cessation Nicotine Polacrilex (Nicotine Polacrilex 2 Mg Gum) 4 mg BUCCAL Q2H PRN PRN Reason: Nicotine Cravings Olanzapine (Olanzapine 5 Mg Tablet) 5 mg PO TID PRN PRN Reason: agitation Olanzapine (Olanzapine Odt 10 Mg Tab.Rapdis) 10 mg TRANSLINGU BEDTIME [facility] Last Admin: 03/19/23 23:15 Dose: Not Given Olanzapine (Olanzapine 10 Mg Vial) 10 mg IM DAILY PRN PRN Reason: if refuses po per court Last Admin: 03/19/23 22:15 Dose: 10 mg Thiamine HCl (Thiamine Hcl 100 Mg Tablet) 100 mg PO DAILY [facility] Last Admin: 03/20/23 08:29 Dose: Not Given Trazodone HCl (Trazodone Hcl 50 Mg Tablet) 50 mg PO BEDTIME MRX1 PRN PRN Reason: Insomnia Allergies Allergies Allergy/AdvReac Type Severity Reaction Status Date / Time penicillin V Allergy Unknown unknown Verified 03/05/23 05:16 Penicillins [PENICILLINS] Allergy Unknown RASH Verified 03/05/23 05:16 Assessment & Plan Assessment & Plan (1) Schizophrenia: Status: Acute Code(s): F20.9 - Schizophrenia, unspecified Plan Ms. Quiles is a 37 year-old woman with hx of schizophrenia. it appears schizophrenia largely untreated and patient has been homeless for several months. She was brought via police after aunt called them due to frostbites and increased paranoia. Pt with no insight into illness or need for treatment for both psychiatric and frostbite. We discussed risks, benefits and alternative treatment options, she declines medications- antipsychotic ones. PLAN 1. Admit to M3, sect 12b, 15 minutes checks 2. obtain collateral information 3. aftercare planning 03/09: refusing medications. frostbite, no insight into mental illness. plan to petition for commitment and medication. 03/10: refusing medications. being treated for frostbite. commitment petition paperwork completed today. 03/11 Patient continues to refuse medication civil commitment and treatment paperwork has been filed by Dr. Diallo patient seemed unable take in information regarding the 03/12: no change in presentation. refusing meds, including doxy for frostbite. intermittent acceptance of foot soaks. denies mental illness. disorganized, delusional. 03/13: no change in presentation. continue current mgmt. court thursday. 03/14: Court on Thursday03/17/23. Cont current plan. 03/15: Continue current management and treatment plan. 03/16 Patient remains manic, delusional. Very difficult with which to engage or interrupt. Patient accusing typewriter assembly and parts inspector of trying to get her to look at typewriter assembly and parts inspector's penis... Repeats over and over that she is in the ; told typewriter assembly and parts inspector that she believes typewriter assembly and parts inspector and other psychiatrists are related and are not real psychiatrists, that they all are purposely dressing the same, intention is to steal her identity... Patient says I got someone killed on the spot for stealing identity.... There was a warrant... She was an illegal citizen... Patient continues to ramble similar things over and over; says that flako killed everyone in high school in [place]... 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 Patient said she came here because of frostbite for her feet and should not be on the psychiatric unit, that she is going to get everyone in the hospital arrested and that everyone is in big trouble. Civil Structural Engineer inquired why she has been refusing antibiotics that were specifically prescribed due to her frostbite to which patient replied that it is none of typewriter assembly and parts inspector's business. Intermittently, throughout conversation with typewriter assembly and parts inspector, she would pause to yell at and accuse peer who was sitting at a table next to her. Patient continued to ramble, accuse; as typewriter assembly and parts inspector excused himself she continued to yell at typewriter assembly and parts inspector down the spencer. -Continues to refuse all medications -based on presentation, chart review patient does not appear to be able to take care of herself in the community. Civil Structural Engineer agrees with team plan to pursue involuntary commitment. 03/[address] for involuntary treatment. 03/[address] sect 08/23 03/19 committed to hospital. ordered olanzapine 10mg po qhs with back up IM. 03/20/23 Monitor response to olanzapine cont tx plan Reason for continued inpatient stay Substantial Risk for: inability to function, rapid decompensation and med/psych decompensation Time Spent With Patient Time: Total time managing care of this patient today ____ minutes.
[2023-03-20 19:55] VITALS: BP 104/57; PULSE 88; RESP 18; TEMP 37.2; O2SAT 99
[2023-03-20] MEDS: OLANZapine 10 MG VIAL IM (20:44)
[2023-03-21] MEDS: Mineral Oil/Petrolatum,White 106 GM Tube 1 APPL TOPICAL (14:36)
[2023-03-21 20:10] VITALS: BP 111/57; PULSE 85; RESP 16; TEMP 36.7; O2SAT 100
[2023-03-21] MEDS: OLANZapine 10 MG VIAL IM (20:32)
--- NOTE | 2023-03-21 21:46 | P.PNPSI_ITS ---
Subjective Subjective Date of Service: 03/21/23 Reason For Visit: Psychosis Interim History: i'm not telling you anything about myself, walking away from MD as MD attempts to engage pt in interview. per staff, on section 8. getting restrained for IMs. fewer loud rants. continues to sleep in day room. poor hygiene. good appetite. feet are looking better. Mental Status Exam Mental Status Exam Narrative: Appearance: disheveled, nodes on her hair, in NAD Behavior:guarded and suspicious Psychomotor: no overt retardation or agitation Speech: verbose, difficult to redirect, spontaneous TP: tangential TC: declining interview with MD Mood: unable to assess Affect: suspicious SI: none expressed HI: none expressed VH/AH: none expressed Insight/judgment: impaired x 2. Memory/cog: alert, oriented not to situation. Diagnostics Vital Signs (24Hr): Vital Signs - 24 hr 03/21/23 20:10 Temperature 98.0 F Pulse Rate 85 Respiratory Rate 16 Blood Pressure 111/57 L Pulse Oximetry 100 Oxygen Delivery Method Room Air BMI result Body Mass Index 22.4 Medications Medications Current Medications Acetaminophen (Acetaminophen 325 Mg Tablet) 650 mg PO Q6H PRN PRN Reason: Headache/Pain Mild Scale (1-3) Al Hydroxide/Mg Hydroxide (Magnesium Hydrox/Alum Hydrox 30 Ml Oral.Susp) 30 ml PO Q6H PRN PRN Reason: Heartburn/Nausea Bacitracin (Bacitracin Oint 14 Gm Tube) 1 appl TOPICAL BID PRN; Protocol PRN Reason: lesion Folic Acid (Folic Acid 1 Mg Tablet) 1 mg PO DAILY [facility] Last Admin: 03/21/23 08:34 Dose: Not Given Hydroxyzine HCl (Hydroxyzine Hcl 25 Mg Tablet) 25 mg PO Q6H PRN PRN Reason: Anxiety Magnesium Hydroxide (Milk Of Magnesia 30 Ml Oral.Susp) 30 ml PO DAILY PRN PRN Reason: Constipation Multi-Ingred Cream/Lotion/Oil/Oint (Mineral Oil/Petrolatum,White 106 Gm Tube) 1 appl TOPICAL QID PRN; Protocol PRN Reason: skin protectant Last Admin: 03/21/23 14:36 Dose: 1 appl Multivitamins/Vitamin C (Multivitamin Tablet) 1 tab PO DAILY [facility] Last Admin: 03/21/23 08:34 Dose: Not Given Nicotine (Nicotine 21 Mg Patch.Td24) 21 mg TRANSDERMA DAILY PRN PRN Reason: smoking cessation Nicotine Polacrilex (Nicotine Polacrilex 2 Mg Gum) 4 mg BUCCAL Q2H PRN PRN Reason: Nicotine Cravings Olanzapine (Olanzapine 5 Mg Tablet) 5 mg PO TID PRN PRN Reason: agitation Olanzapine (Olanzapine Odt 10 Mg Tab.Rapdis) 10 mg TRANSLINGU BEDTIME [facility] Last Admin: 03/21/23 20:36 Dose: Not Given Olanzapine (Olanzapine 10 Mg Vial) 10 mg IM DAILY PRN PRN Reason: if refuses po per court Last Admin: 03/21/23 20:32 Dose: 10 mg Thiamine HCl (Thiamine Hcl 100 Mg Tablet) 100 mg PO DAILY [facility] Last Admin: 03/21/23 08:34 Dose: Not Given Trazodone HCl (Trazodone Hcl 50 Mg Tablet) 50 mg PO BEDTIME MRX1 PRN PRN Reason: Insomnia Allergies Allergies Allergy/AdvReac Type Severity Reaction Status Date / Time penicillin V Allergy Unknown unknown Verified 03/05/23 05:16 Penicillins [PENICILLINS] Allergy Unknown RASH Verified 03/05/23 05:16 Assessment & Plan Assessment & Plan (1) Schizophrenia: Status: Acute Code(s): F20.9 - Schizophrenia, unspecified Plan Ms. Quiles is a 37 year-old woman with hx of schizophrenia. it appears schizophrenia largely untreated and patient has been homeless for several months. She was brought via police after aunt called them due to frostbites and increased paranoia. Pt with no insight into illness or need for treatment for both psychiatric and frostbite. We discussed risks, benefits and alternative treatment options, she declines medications- antipsychotic ones. PLAN 1. Admit to M3, sect 12b, 15 minutes checks 2. obtain collateral information 3. aftercare planning 03/09: refusing medications. frostbite, no insight into mental illness. plan to petition for commitment and medication. 03/10: refusing medications. being treated for frostbite. commitment petition paperwork completed today. 03/11 Patient continues to refuse medication civil commitment and treatment paperwork has been filed by Dr. Diallo patient seemed unable take in information regarding the 03/12: no change in presentation. refusing meds, including doxy for frostbite. intermittent acceptance of foot soaks. denies mental illness. disorganized, delusional. 03/13: no change in presentation. continue current mgmt. court thursday. 03/14: Court on Thursday03/17/23. Cont current plan. 03/15: Continue current management and treatment plan. 03/16 Patient remains manic, delusional. Very difficult with which to engage or interrupt. Patient accusing writer technical publications of trying to get her to look at writer technical publications's penis... Repeats over and over that she is in the ; told writer technical publications that s he believes writer technical publications and other psychiatrists are related and are not real psychiatrists, that they all are purposely dressing the same, intention is to steal her identity... Patient says I got someone killed on the spot for stealing identity.... There was a warrant... She was an illegal citizen... Patient continues to ramble similar things over and over; says that flako killed everyone in high school in [place]... 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 Patient said she came here because of frostbite for her feet and should not be on the psychiatric unit, that she is going to get everyone in the hospital arrested and that everyone is in big trouble. Slope Tender inquired why she has been refusing antibiotics that were specifically prescribed due to her frostbite to which patient replied that it is none of writer technical publications's business. Intermittently, throughout conversation with writer technical publications, she would pause to yell at and accuse peer who was sitting at a table next to her. Patient continued to ramble, accuse; as writer technical publications excused himself she continued to yell at writer technical publications down the spencer. -Continues to refuse all medications -based on presentation, chart review patient does not appear to be able to take care of herself in the community. Slope Tender agrees with team plan to pursue involuntary commitment. 03/[address] for involuntary treatment. 03/[address] sect 08/23 03/19 committed to hospital. ordered olanzapine 10mg po qhs with back up IM. 03/20/23 Monitor response to olanzapine cont tx plan 03/21: remains psychotic, less agitated than prior. continue current mgmt. Reason for continued inpatient stay Substantial Risk for: harm to self, inability to function and rapid decompensation Time Spent With Patient Time: Total time managing care of this patient today ____ minutes.
--- NOTE | 2023-03-22 00:23 | PC.NURSE ---
Jennifer refused the HS po Zyprexa and required I.M. medications per Vimal's orders. Patient was yelling about how we are doing an illegal thing. It's against the law to inject people. I read it in the hand book You don't even know what your own handbook says. I asked my aunt and she agrees it's against the law to make me take medications that are going to kill me. My water tasted funny yesterday I bet you put something in the water too you bitch. I'm gonna get you fired and your going to proison for what you did
[2023-03-22 13:28] VITALS: BP 120/69; PULSE 86; RESP 16; TEMP 36.9; O2SAT 100
--- NOTE | 2023-03-22 17:52 | HO.PSYCHPN ---
Subjective Subjective Date of Service: 03/22/23 Reason For Visit: Psychosis Interim History: nope. not talking to you. per staff, refusing PO meds, getting IMs. had foot soak yesterday. eating well. still sleeping in day room. considering taking a shower. Mental Status Exam Mental Status Exam Narrative: Appearance: disheveled, nodes on her hair, in NAD Behavior:guarded and suspicious Psychomotor: no overt retardation or agitation Speech: verbose, difficult to redirect, spontaneous TP: tangential TC: declining interview with MD Mood: unable to assess Affect: suspicious SI: none expressed HI: none expressed VH/AH: none expressed Insight/judgment: impaired x 2. Memory/cog: alert, oriented not to situation. Diagnostics Vital Signs (24Hr): Vital Signs - 24 hr 03/21/23 20:10 03/22/23 13:28 Temperature 98.0 F 98.5 F Pulse Rate 85 86 Respiratory Rate 16 16 Blood Pressure 111/57 L 120/69 Pulse Oximetry 100 100 Oxygen Delivery Method Room Air Room Air BMI result Body Mass Index 22.4 Medications Medications Current Medications Acetaminophen (Acetaminophen 325 Mg Tablet) 650 mg PO Q6H PRN PRN Reason: Headache/Pain Mild Scale (1-3) Al Hydroxide/Mg Hydroxide (Magnesium Hydrox/Alum Hydrox 30 Ml Oral.Susp) 30 ml PO Q6H PRN PRN Reason: Heartburn/Nausea Bacitracin (Bacitracin Oint 14 Gm Tube) 1 appl TOPICAL BID PRN; Protocol PRN Reason: lesion Folic Acid (Folic Acid 1 Mg Tablet) 1 mg PO DAILY [facility] Last Admin: 03/22/23 08:52 Dose: Not Given Hydroxyzine HCl (Hydroxyzine Hcl 25 Mg Tablet) 25 mg PO Q6H PRN PRN Reason: Anxiety Magnesium Hydroxide (Milk Of Magnesia 30 Ml Oral.Susp) 30 ml PO DAILY PRN PRN Reason: Constipation Multi-Ingred Cream/Lotion/Oil/Oint (Mineral Oil/Petrolatum,White 106 Gm Tube) 1 appl TOPICAL QID PRN; Protocol PRN Reason: skin protectant Last Admin: 03/21/23 14:36 Dose: 1 appl Multivitamins/Vitamin C (Multivitamin Tablet) 1 tab PO DAILY [facility] Last Admin: 03/22/23 08:52 Dose: Not Given Nicotine (Nicotine 21 Mg Patch.Td24) 21 mg TRANSDERMA DAILY PRN PRN Reason: smoking cessation Nicotine Polacrilex (Nicotine Polacrilex 2 Mg Gum) 4 mg BUCCAL Q2H PRN PRN Reason: Nicotine Cravings Olanzapine (Olanzapine 5 Mg Tablet) 5 mg PO TID PRN PRN Reason: agitation Olanzapine (Olanzapine Odt 10 Mg Tab.Rapdis) 10 mg TRANSLINGU BEDTIME [facility] Last Admin: 03/21/23 20:36 Dose: Not Given Olanzapine (Olanzapine 10 Mg Vial) 10 mg IM DAILY PRN PRN Reason: if refuses po per court Last Admin: 03/21/23 20:32 Dose: 10 mg Thiamine HCl (Thiamine Hcl 100 Mg Tablet) 100 mg PO DAILY [facility] Last Admin: 03/22/23 08:52 Dose: Not Given Trazodone HCl (Trazodone Hcl 50 Mg Tablet) 50 mg PO BEDTIME MRX1 PRN PRN Reason: Insomnia Allergies Allergies Allergy/AdvReac Type Severity Reaction Status Date / Time penicillin V Allergy Unknown unknown Verified 03/05/23 05:16 Penicillins [PENICILLINS] Allergy Unknown RASH Verified 03/05/23 05:16 Assessment & Plan Assessment & Plan (1) Schizophrenia: Status: Acute Code(s): F20.9 - Schizophrenia, unspecified Plan Ms. Quiles is a 37 year-old woman with hx of schizophrenia. it appears schizophrenia largely untreated and patient has been homeless for several months. She was brought via police after aunt called them due to frostbites and increased paranoia. Pt with no insight into illness or need for treatment for both psychiatric and frostbite. We discussed risks, benefits and alternative treatment options, she declines medications- antipsychotic ones. PLAN 1. Admit to M3, sect 12b, 15 minutes checks 2. obtain collateral information 3. aftercare planning 03/09: refusing medications. frostbite, no insight into mental illness. plan to petition for commitment and medication. 03/10: refusing medications. being treated for frostbite. commitment petition paperwork completed today. 03/11 Patient continues to refuse medication civil commitment and treatment paperwork has been filed by Dr. Diallo patient seemed unable take in information regarding the 03/12: no change in presentation. refusing meds, including doxy for frostbite. intermittent acceptance of foot soaks. denies mental illness. disorganized, delusional. 03/13: no change in presentation. continue current mgmt. court thursday. 03/14: Court on Thursday03/17/23. Cont current plan. 03/15: Continue current management and treatment plan. 03/16 Patient remains manic, delusional. Very difficult with which to engage or interrupt. Patient accusing advertising copywriter of trying to get her to look at advertising copywriter's penis... Repeats over and over that she is in the ; told advertising copywriter that she believes advertising copywriter and other psychiatrists are related and are not real psychiatrists, that they all are purposely dressing the same, intention is to steal her identity... Patient says I got someone killed on the spot for stealing identity.... There was a warrant... She was an illegal citizen... Patient continues to ramble similar things over and over; says that flako killed everyone in high school in [place]... 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 Patient said she came here because of frostbite for her feet and should not be on the psychiatric unit, that she is going to get everyone in the hospital arrested and that everyone is in big trouble. Cemetery Workers Supervisor inquired why she has been refusing antibiotics that were specifically prescribed due to her frostbite to which patient replied that it is none of advertising copywriter's business. Intermittently, throughout conversation with advertising copywriter, she would pause to yell at and accuse peer who was sitting at a table next to her. Patient continued to ramble, accuse; as advertising copywriter excused himself she continued to yell at advertising copywriter down the spencer. -Continues to refuse all medications -based on presentation, chart review patient does not appear to be able to take care of herself in the community. Cemetery Workers Supervisor agrees with team plan to pursue involuntary commitment. 03/[address] for involuntary treatment. 03/[address] sect 08/23 03/19 committed to hospital. ordered olanzapine 10mg po qhs with back up IM. 03/20/23 Monitor response to olanzapine cont tx plan 23: remains psychotic, less agitated than prior. continue current mgmt. 03/22: remains psychotic, less agitated than prior. continue current mgmt. Reason for continued inpatient stay Substantial Risk for: harm to self, inability to function and rapid decompensation Time Spent With Patient Time: Total time managing care of this patient today ____ minutes.
[2023-03-22 21:00] VITALS: BP 118/61; PULSE 80; RESP 16; TEMP 37.2; O2SAT 98
[2023-03-22] MEDS: OLANZapine 10 MG VIAL IM (21:05)
[2023-03-22 21:30] VITALS: BP 122/78; PULSE 90; RESP 16; TEMP 37.1; O2SAT 99
--- NOTE | 2023-03-23 00:44 | PC.NURSE ---
for 03/22/23-hold utilized for IM zyprexa per Vimal's order. no injury to self or others. seen by hospitalist. refusing patient comment form. did not want aunt notified. see more detail under mental status assessment.
[2023-03-23 11:52] VITALS: BP 111/64; PULSE 89; RESP 16; TEMP 2.5; TEMP 36.5; O2SAT 97
[2023-03-23] MEDS: Mineral Oil/Petrolatum,White 106 GM Tube 1 APPL TOPICAL ×2 (12:23→19:11)
--- NOTE | 2023-03-23 14:18 | P.PNPSI_ITS ---
Subjective Subjective Date of Service: 03/23/23 Reason For Visit: Psychosis Interim History: attempts to ignore MD as he asks if she would like to meet. RN brings MD to her attention explicitly, pt then erupts in a tirade against MD saying she has said repeatedly she has nothing to say to me and yet i persist in trying to speak with her. MD excuses himself from milieu so as to defuse the sitation. per staff, attending groups. active and appropriate in group last night. being restrained nightly for IMs. allowing foot soaks. long tirades nightly after receiving IMs. sleeping in day room. paranoid delusions are threats her brother Sb faces due to revealing his identity to hospital staff. trying to call 911 over weekend. Mental Status Exam Mental Status Exam Narrative: Appearance: disheveled, nodes on her hair, in NAD Behavior:guarded and suspicious Psychomotor: no overt retardation or agitation Speech: verbose, difficult to redirect, spontaneous TP: tangential TC: declining interview with MD Mood: unable to assess Affect: suspicious SI: none expressed HI: none expressed VH/AH: none expressed Insight/judgment: impaired x 2. Memory/cog: alert, oriented not to situation. Diagnostics Vital Signs (24Hr): Vital Signs - 24 hr 03/22/23 21:00 03/22/23 21:30 03/23/23 11:52 Temperature 99.0 F 98.8 F 36.5 F L Pulse Rate 80 90 89 Respiratory Rate 16 16 16 Blood Pressure 118/61 122/78 111/64 Pulse Oximetry 98 99 97 Oxygen Delivery Method Room Air Room Air Room Air BMI result Body Mass Index 22.4 Medications Medications Current Medications Acetaminophen (Acetaminophen 325 Mg Tablet) 650 mg PO Q6H PRN PRN Reason: Headache/Pain Mild Scale (1-3) Al Hydroxide/Mg Hydroxide (Magnesium Hydrox/Alum Hydrox 30 Ml Oral.Susp) 30 ml PO Q6H PRN PRN Reason: Heartburn/Nausea Bacitracin (Bacitracin Oint 14 Gm Tube) 1 appl TOPICAL BID PRN; Protocol PRN Reason: lesion Folic Acid (Folic Acid 1 Mg Tablet) 1 mg PO DAILY [facility] Last Admin: 03/23/23 08:55 Dose: Not Given Hydroxyzine HCl (Hydroxyzine Hcl 25 Mg Tablet) 25 mg PO Q6H PRN PRN Reason: Anxiety Magnesium Hydroxide (Milk Of Magnesia 30 Ml Oral.Susp) 30 ml PO DAILY PRN PRN Reason: Constipation Multi-Ingred Cream/Lotion/Oil/Oint (Mineral Oil/Petrolatum,White 106 Gm Tube) 1 appl TOPICAL QID PRN; Protocol PRN Reason: skin protectant Last Admin: 03/23/23 12:23 Dose: 1 appl Multivitamins/Vitamin C (Multivitamin Tablet) 1 tab PO DAILY [facility] Last Admin: 03/23/23 08:55 Dose: Not Given Nicotine (Nicotine 21 Mg Patch.Td24) 21 mg TRANSDERMA DAILY PRN PRN Reason: smoking cessation Nicotine Polacrilex (Nicotine Polacrilex 2 Mg Gum) 4 mg BUCCAL Q2H PRN PRN Reason: Nicotine Cravings Olanzapine (Olanzapine 5 Mg Tablet) 5 mg PO TID PRN PRN Reason: agitation Olanzapine (Olanzapine Odt 10 Mg Tab.Rapdis) 10 mg TRANSLINGU BEDTIME [facility] Last Admin: 03/22/23 22:15 Dose: Not Given Olanzapine (Olanzapine 10 Mg Vial) 10 mg IM DAILY PRN PRN Reason: if refuses po per court Last Admin: 03/22/23 21:05 Dose: 10 mg Thiamine HCl (Thiamine Hcl 100 Mg Tablet) 100 mg PO DAILY [facility] Last Admin: 03/23/23 08:55 Dose: Not Given Trazodone HCl (Trazodone Hcl 50 Mg Tablet) 50 mg PO BEDTIME MRX1 PRN PRN Reason: Insomnia Allergies Allergies Allergy/AdvReac Type Severity Reaction Status Date / Time penicillin V Allergy Unknown unknown Verified 03/05/23 05:16 Penicillins [PENICILLINS] Allergy Unknown RASH Verified 03/05/23 05:16 Assessment & Plan Assessment & Plan (1) Schizophrenia: Status: Acute Code(s): F20.9 - Schizophrenia, unspecified Plan Ms. Quiles is a 37 year-old woman with hx of schizophrenia. it appears schizophrenia largely untreated and patient has been homeless for several months. She was brought via police after aunt called them due to frostbites and increased paranoia. Pt with no insight into illness or need for treatment for both psychiatric and frostbite. We discussed risks, benefits and alternative treatment options, she declines medications- antipsychotic ones. PLAN 1. Admit to M3, sect 12b, 15 minutes checks 2. obtain collateral information 3. aftercare planning 03/09: refusing medications. frostbite, no insight into mental illness. plan to petition for commitment and medication. 03/10: refusing medications. being treated for frostbite. commitment petition paperwork completed today. 03/11 Patient continues to refuse medication civil commitment and treatment paperwork has been filed by Dr. Diallo patient seemed unable take in information regarding the 03/12: no change in presentation. refusing meds, including doxy for frostbite. intermittent acceptance of foot soaks. denies mental illness. disorganized, delusional. 03/13: no change in presentation. continue current mgmt. court thursday. 03/14: Court on Thursday03/17/23. Cont current plan. 03/15: Continue current management and treatment plan. 03/16 Patient remains manic, delusional. Very difficult with which to engage or interrupt. Patient accusing magnetic tape typewriter operator of trying to get her to look at magnetic tape typewriter operator's penis... Repeats over and over that she is in the ; told magnetic tape typewriter operator that she believes magnetic tape typewriter operator and other psychiatrists are related and are not real psychiatrists, that they all are purposely dressing the same, intention is to steal her identity... Patient says I got someone killed on the spot for stealing identity.... There was a warrant... She was an illegal citizen... Patient continues to ramble similar things over and over; says that crystal killed everyone in high school in [place]... 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 Patient said she came here because of frostbite for her feet and should not be on the psychiatric unit, that she is going to get everyone in the hospital arrested and that everyone is in big trouble. Lapping Machine Operator inquired why she has been refusing antibiotics that were specifically prescribed due to her frostbite to which patient replied that it is none of magnetic tape typewriter operator's business. Intermittently, throughout conversation with magnetic tape typewriter operator, she would pause to yell at and accuse peer who was sitting at a table next to her. Patient continued to ramble, accuse; as magnetic tape typewriter operator excused himself she continued to yell at magnetic tape typewriter operator down the spencer. -Continues to refuse all medications -based on presentation, chart review patient does not appear to be able to take care of herself in the community. Lapping Machine Operator agrees with team plan to pursue involuntary commitment. 03/[address] for involuntary treatment. 03/[address] sect 08/23 03/19 committed to hospital. ordered olanzapine 10mg po qhs with back up IM. 03/20/23 Monitor response to olanzapine cont tx plan 2/3: remains psychotic, less agitated than prior. continue current mgmt. 2/4: remains psychotic, less agitated than prior. continue current mgmt. 2/5: psychotic, labile. continue current mgmt. Reason for continued inpatient stay Substantial Risk for: harm to self and inability to function Time Spent With Patient Time: Total time managing care of this patient today ____ minutes.
[2023-03-23 18:00] VITALS: BP 117/66; PULSE 89; RESP 18; TEMP 36.4; O2SAT 100
[2023-03-23] MEDS: OLANZapine 10 MG VIAL IM (20:11)
[2023-03-24] MEDS: Mineral Oil/Petrolatum,White 106 GM Tube 1 APPL TOPICAL (11:44)
--- NOTE | 2023-03-24 12:46 | HO.WOUND ---
Wound Consult: Follow up 37yr old?F admitted to [facility] on 03/06/23 to the Behavioral Health Unit - See progress notes and H&P for detailed history.? Wound consult follow up for Frostbite to Bilateral Feet.? Patient agreeable to assessment and photo documentation, she appears unkept at this time. She spoke throughout my assessment on varied topics most in some loose connection to my consultation. She reports improvement in tenderness and overall dryness. Overall her bilateral feet are noted to be improved the tissue appears well moisturized and is free of open injury. The patient reports she does not sleep in her bed but is elevating her feet at night to sleep in chairs. Occasional elevate will benefit her feet, when in the dependent position her toes turn a red purple color, no swelling, no pain and no tingling and no increase in warmth noted. Change in topical recommendations to be decreased to 1-2 days. Bilateral Feet Etiology: ??Resolving Frostbite Wound Bed: Intact moisturized red pink purple pigmented tissue Bilateral feet +PP noted, Toes are cool to touch light purple and blanchable tissue Drainage / Odor: None noted Edges: ? Irregular Marie wound: No swelling noted - No Induration, Fluctuance noted Pain: denies denies numbness and tingling Goals of Treatment: ? Warm foot soaks and ointment to treat topical dry skin twice daily Recommendations: 1. Bilateral Feet - Warm not hot foot soaks 1-2 times a day for 10-20min. Dry well after soak. Cleanse with routine cleansing. Apply thick layer of Dermacerin Cream from Pharmacy. May cover with regular socks or per patient request cover with ABD pad and gauze netting or gauze wrap. Inpatient wound care nurse will continue to follow.
--- NOTE | 2023-03-24 15:46 | P.PNPSI_ITS ---
Subjective Subjective Date of Service: 03/24/23 Reason For Visit: Psychosis Interim History: i don't have an appointment with you! get away from me! per staff, withdrawn, guared, paranoid. refusing morning meds. delusional, irritable. got IM last night. slept about 6 hours. Mental Status Exam Mental Status Exam Narrative: Appearance: disheveled, nodes on her hair, in NAD Behavior:guarded and suspicious Psychomotor: agitation in response to attempted interview Speech: verbose, difficult to redirect, spontaneous TP: tangential TC: declining interview with MD Mood: unable to assess Affect: suspicious SI: none expressed HI: none expressed VH/AH: none expressed Insight/judgment: impaired x 2. Memory/cog: alert, oriented not to situation. Diagnostics Vital Signs (24Hr): Vital Signs - 24 hr 03/23/23 18:00 Temperature 97.6 F Pulse Rate 89 Respiratory Rate 18 Blood Pressure 117/66 Pulse Oximetry 100 Oxygen Delivery Method Room Air BMI result Body Mass Index 22.4 Medications Medications Current Medications Acetaminophen (Acetaminophen 325 Mg Tablet) 650 mg PO Q6H PRN PRN Reason: Headache/Pain Mild Scale (1-3) Al Hydroxide/Mg Hydroxide (Magnesium Hydrox/Alum Hydrox 30 Ml Oral.Susp) 30 ml PO Q6H PRN PRN Reason: Heartburn/Nausea Bacitracin (Bacitracin Oint 14 Gm Tube) 1 appl TOPICAL BID PRN; Protocol PRN Reason: lesion Folic Acid (Folic Acid 1 Mg Tablet) 1 mg PO DAILY [facility] Last Admin: 03/24/23 08:47 Dose: Not Given Hydroxyzine HCl (Hydroxyzine Hcl 25 Mg Tablet) 25 mg PO Q6H PRN PRN Reason: Anxiety Magnesium Hydroxide (Milk Of Magnesia 30 Ml Oral.Susp) 30 ml PO DAILY PRN PRN Reason: Constipation Multi-Ingred Cream/Lotion/Oil/Oint (Mineral Oil/Petrolatum,White 106 Gm Tube) 1 appl TOPICAL BID PRN; Protocol PRN Reason: skin protectant Multivitamins/Vitamin C (Multivitamin Tablet) 1 tab PO DAILY [facility] Last Admin: 03/24/23 08:47 Dose: Not Given Nicotine (Nicotine 21 Mg Patch.Td24) 21 mg TRANSDERMA DAILY PRN PRN Reason: smoking cessation Nicotine Polacrilex (Nicotine Polacrilex 2 Mg Gum) 4 mg BUCCAL Q2H PRN PRN Reason: Nicotine Cravings Olanzapine (Olanzapine 5 Mg Tablet) 5 mg PO TID PRN PRN Reason: agitation Olanzapine (Olanzapine Odt 10 Mg Tab.Rapdis) 10 mg TRANSLINGU BEDTIME [facility] Last Admin: 03/23/23 21:46 Dose: Not Given Olanzapine (Olanzapine 10 Mg Vial) 10 mg IM DAILY PRN PRN Reason: if refuses po per court Last Admin: 03/23/23 20:11 Dose: 10 mg Thiamine HCl (Thiamine Hcl 100 Mg Tablet) 100 mg PO DAILY [facility] Last Admin: 03/24/23 08:47 Dose: Not Given Trazodone HCl (Trazodone Hcl 50 Mg Tablet) 50 mg PO BEDTIME MRX1 PRN PRN Reason: Insomnia Allergies Allergies Allergy/AdvReac Type Severity Reaction Status Date / Time penicillin V Allergy Unknown unknown Verified 03/05/23 05:16 Penicillins [PENICILLINS] Allergy Unknown RASH Verified 03/05/23 05:16 Assessment & Plan Assessment & Plan (1) Schizophrenia: Status: Acute Code(s): F20.9 - Schizophrenia, unspecified Plan Ms. Quiles is a 37 year-old woman with hx of schizophrenia. it appears schizophrenia largely untreated and patient has been homeless for several months. She was brought via police after aunt called them due to frostbites and increased paranoia. Pt with no insight into illness or need for treatment for both psychiatric and frostbite. We discussed risks, benefits and alternative treatment options, she declines medications- antipsychotic ones. PLAN 1. Admit to , sect 12b, 15 minutes checks 2. obtain collateral information 3. aftercare planning 03/09: refusing medications. frostbite, no insight into mental illness. plan to petition for commitment and medication. 03/10: refusing medications. being treated for frostbite. commitment petition paperwork completed today. 03/11 Patient continues to refuse medication civil commitment and treatment paperwork has been filed by Dr. Diallo patient seemed unable take in information regarding the 03/12: no change in presentation. refusing meds, including doxy for frostbite. intermittent acceptance of foot soaks. denies mental illness. disorganized, delusional. 03/13: no change in presentation. continue current mgmt. court thursday. 03/14: Court on Thursday03/17/23. Cont current plan. 03/15: Continue current management and treatment plan. 03/16 Patient remains manic, delusional. Very difficult with which to engage or interrupt. Patient accusing ticket writer of trying to get her to look at ticket writer's penis... Repeats over and over that she is in the ; told ticket writer that she believes ticket writer and other psychiatrists are related and are not real psychiatrists, that they all are purposely dressing the same, intention is to steal her identity... Patient says I got someone killed on the spot for stealing identity.... There was a warrant... She was an illegal citizen... Patient continues to ramble similar things over and over; says that flako killed everyone in high school in [place]... 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 Patient said she came here because of frostbite for her feet and should not be on the psychiatric unit, that she is going to get everyone in the hospital arrested and that everyone is in big trouble. Still Operator Gin inquired why she has been refusing antibiotics that were specifically prescribed due to her frostbite to which patient replied that it is none of ticket writer's business. Intermittently, throughout conversation with ticket writer, she would pause to yell at and accuse peer who was sitting at a table next to her. Patient continued to ramble, accuse; as ticket writer excused himself she continued to yell at ticket writer down the spencer. -Continues to refuse all medications -based on presentation, chart review patient does not appear to be able to take care of herself in the community. Still Operator Gin agrees with team plan to pursue involuntary commitment. 03/[address] for involuntary treatment. 03/[address] sect 08/23 03/19 committed to hospital. ordered olanzapine 10mg po qhs with back up IM. 03/20/23 Monitor response to olanzapine cont tx plan 2/3: remains psychotic, less agitated than prior. continue current mgmt. 2/4: remains psychotic, less agitated than prior. continue current mgmt. 2/5: psychotic, labile. continue current mgmt. 2/6: no change in presentation or plan. Reason for continued inpatient stay Substantial Risk for: harm to self, inability to function and rapid decompensation Time Spent With Patient Time: Total time managing care of this patient today ____ minutes.
[2023-03-24 18:00] VITALS: BP 114/63; PULSE 86; RESP 16; TEMP 36.7; O2SAT 98
[2023-03-24] MEDS: OLANZapine 10 MG VIAL IM (21:42)
--- NOTE | 2023-03-24 21:45 | PM.EVENT ---
Event Note Date of Service: 03/24/23 Event Note: hold placed for court ordered medication tx Time Spent With Patient Time: Total time managing care of this patient today ____ minutes.
--- NOTE | 2023-03-25 00:24 | PC.NURSE ---
At 2142 Jennifer required a physical hold to the administration of Vimal's orders medication. IM Zyprexa administered into right deltoid
--- NOTE | 2023-03-25 02:05 | PC.NURSE ---
late enter for 03/20/23. Jennifer refused her Vimal's ordered mediation by mouth and therefore received the medication IM. the patient was briefly held for safe medication administration
--- NOTE | 2023-03-25 02:07 | PC.NURSE ---
late entry for 03/21/232031: Jennifer refused her Vimal's ordered medications by mouth and therefore the medication was administered IM. patient was briefly held during medication administration for safety
--- NOTE | 2023-03-25 14:35 | HO.PSYCHPN ---
Subjective Subjective Date of Service: 03/25/23 Reason For Visit: Psychosis Interim History: pt observed in milieu doing art with peers. no notable events or behaviors today. per staff, irritable, agitated, not attending groups. upset with certain staff. hyperverbal. required restraints for meds at HS. slept about 7 hours. Mental Status Exam Mental Status Exam Narrative: Appearance: disheveled, in NAD Behavior:guarded and suspicious Psychomotor: no PMA/PMR Speech: verbose, difficult to redirect, spontaneous TP: tangential TC: paranoid delusions Mood: unable to assess Affect: suspicious SI: none expressed HI: none expressed VH/AH: none expressed Insight/judgment: impaired x 2. Memory/cog: alert, oriented not to situation. Diagnostics Vital Signs (24Hr): Vital Signs - 24 hr 03/24/23 18:00 Temperature 98.0 F Pulse Rate 86 Respiratory Rate 16 Blood Pressure 114/63 Pulse Oximetry 98 Oxygen Delivery Method Room Air BMI result Body Mass Index 22.4 Medications Medications Current Medications Acetaminophen (Acetaminophen 325 Mg Tablet) 650 mg PO Q6H PRN PRN Reason: Headache/Pain Mild Scale (1-3) Al Hydroxide/Mg Hydroxide (Magnesium Hydrox/Alum Hydrox 30 Ml Oral.Susp) 30 ml PO Q6H PRN PRN Reason: Heartburn/Nausea Bacitracin (Bacitracin Oint 14 Gm Tube) 1 appl TOPICAL BID PRN; Protocol PRN Reason: lesion Folic Acid (Folic Acid 1 Mg Tablet) 1 mg PO DAILY [facility] Last Admin: 03/25/23 08:05 Dose: Not Given Hydroxyzine HCl (Hydroxyzine Hcl 25 Mg Tablet) 25 mg PO Q6H PRN PRN Reason: Anxiety Magnesium Hydroxide (Milk Of Magnesia 30 Ml Oral.Susp) 30 ml PO DAILY PRN PRN Reason: Constipation Multi-Ingred Cream/Lotion/Oil/Oint (Mineral Oil/Petrolatum,White 106 Gm Tube) 1 appl TOPICAL BID PRN; Protocol PRN Reason: skin protectant Multivitamins/Vitamin C (Multivitamin Tablet) 1 tab PO DAILY [facility] Last Admin: 03/25/23 08:05 Dose: Not Given Nicotine (Nicotine 21 Mg Patch.Td24) 21 mg TRANSDERMA DAILY PRN PRN Reason: smoking cessation Nicotine Polacrilex (Nicotine Polacrilex 2 Mg Gum) 4 mg BUCCAL Q2H PRN PRN Reason: Nicotine Cravings Olanzapine (Olanzapine 5 Mg Tablet) 5 mg PO TID PRN PRN Reason: agitation Olanzapine (Olanzapine Odt 10 Mg Tab.Rapdis) 10 mg TRANSLINGU BEDTIME [facility] Last Admin: 03/24/23 22:07 Dose: Not Given Olanzapine (Olanzapine 10 Mg Vial) 10 mg IM DAILY PRN PRN Reason: if refuses po per court Last Admin: 03/24/23 21:42 Dose: 10 mg Thiamine HCl (Thiamine Hcl 100 Mg Tablet) 100 mg PO DAILY [facility] Last Admin: 03/25/23 08:06 Dose: Not Given Trazodone HCl (Trazodone Hcl 50 Mg Tablet) 50 mg PO BEDTIME MRX1 PRN PRN Reason: Insomnia Allergies Allergies Allergy/AdvReac Type Severity Reaction Status Date / Time penicillin V Allergy Unknown unknown Verified 03/05/23 05:16 Penicillins [PENICILLINS] Allergy Unknown RASH Verified 03/05/23 05:16 Assessment & Plan Assessment & Plan (1) Schizophrenia: Status: Acute Code(s): F20.9 - Schizophrenia, unspecified Plan Ms. Quiles is a 37 year-old woman with hx of schizophrenia. it appears schizophrenia largely untreated and patient has been homeless for several months. She was brought via police after aunt called them due to frostbites and increased paranoia. Pt with no insight into illness or need for treatment for both psychiatric and frostbite. We discussed risks, benefits and alternative treatment options, she declines medications- antipsychotic ones. PLAN 1. Admit to M3, sect 12b, 15 minutes checks 2. obtain collateral information 3. aftercare planning 03/09: refusing medications. frostbite, no insight into mental illness. plan to petition for commitment and medication. 03/10: refusing medications. being treated for frostbite. commitment petition paperwork completed today. 03/11 Patient continues to refuse medication civil commitment and treatment paperwork has been filed by Dr. Diallo patient seemed unable take in information regarding the 03/12: no change in presentation. refusing meds, including doxy for frostbite. intermittent acceptance of foot soaks. denies mental illness. disorganized, delusional. 03/13: no change in presentation. continue current mgmt. court thursday. 03/14: Court on Thursday03/17/23. Cont current plan. 03/15: Continue current management and treatment plan. 03/16 Patient remains manic, delusional. Very difficult with which to engage or interrupt. Patient accusing comic book writer of trying to get her to look at comic book writer's penis... Repeats over and over that she is in the ; told comic book writer that she believes comic book writer and other psychiatrists are related and are not real psychiatrists, that they all are purposely dressing the same, intention is to steal her identity... Patient says I got someone killed on the spot for stealing identity.... There was a warrant... She was an illegal citizen... Patient continues to ramble similar things over and over; says that flako killed everyone in high school in [place]... 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 Patient said she came here because of frostbite for her feet and should not be on the psychiatric unit, that she is going to get everyone in the hospital arrested and that everyone is in big trouble. Manager Environmental Health And Safety inquired why she has been refusing antibiotics that were specifically prescribed due to her frostbite to which patient replied that it is none of comic book writer's business. Intermittently, throughout conversation with comic book writer, she would pause to yell at and accuse peer who was sitting at a table next to her. Patient continued to ramble, accuse; as comic book writer excused himself she continued to yell at comic book writer down the spencer. -Continues to refuse all medications -based on presentation, chart review patient does not appear to be able to take care of herself in the community. Manager Environmental Health And Safety agrees with team plan to pursue involuntary commitment. 03/[address] for involuntary treatment. 03/[address] sect 08/23 03/19 committed to hospital. ordered olanzapine 10mg po qhs with back up IM. 03/20/23 Monitor response to olanzapine cont tx plan 2/3: remains psychotic, less agitated than prior. continue current mgmt. 2/4: remains psychotic, less agitated than prior. continue current mgmt. 2/5: psychotic, labile. continue current mgmt. 2/6: no change in presentation or plan. 03/25: no change in presentation or plan. Reason for continued inpatient stay Substantial Risk for: harm to self and inability to function Time Spent With Patient Time: Total time managing care of this patient today ____ minutes.
[2023-03-25 19:48] VITALS: BP 109/68; PULSE 79; RESP 16; TEMP 36.8; O2SAT 98
[2023-03-25] MEDS: OLANZapine 10 MG VIAL IM (22:20)
[2023-03-26 07:00] VITALS: BMI 22.3
[2023-03-26] MEDS: Mineral Oil/Petrolatum,White 106 GM Tube 1 APPL TOPICAL ×2 (10:30→16:54)
--- NOTE | 2023-03-26 15:03 | HO.PSYCHPN ---
Subjective Subjective Date of Service: 03/26/23 Reason For Visit: Psychosis Interim History: irritable, labile. per staff, told staff to eat glass and . visible. no groups. accepted IM at without a hold. Mental Status Exam Mental Status Exam Narrative: Appearance: disheveled, in NAD Behavior:guarded and suspicious Psychomotor: agitation in response to attempted interview Speech: verbose, difficult to redirect, spontaneous TP: tangential TC: declining interview with MD Mood: unable to assess Affect: suspicious SI: none expressed HI: none expressed VH/AH: none expressed Insight/judgment: impaired x 2. Memory/cog: alert, oriented not to situation. Diagnostics Vital Signs (24Hr): Vital Signs - 24 hr 03/25/23 19:48 Temperature 98.2 F Pulse Rate 79 Respiratory Rate 16 Blood Pressure 109/68 Pulse Oximetry 98 Oxygen Delivery Method Room Air BMI result Body Mass Index 22.4 Medications Medications Current Medications Acetaminophen (Acetaminophen 325 Mg Tablet) 650 mg PO Q6H PRN PRN Reason: Headache/Pain Mild Scale (1-3) Al Hydroxide/Mg Hydroxide (Magnesium Hydrox/Alum Hydrox 30 Ml Oral.Susp) 30 ml PO Q6H PRN PRN Reason: Heartburn/Nausea Bacitracin (Bacitracin Oint 14 Gm Tube) 1 appl TOPICAL BID PRN; Protocol PRN Reason: lesion Folic Acid (Folic Acid 1 Mg Tablet) 1 mg PO DAILY [facility] Last Admin: 03/26/23 09:30 Dose: Not Given Hydroxyzine HCl (Hydroxyzine Hcl 25 Mg Tablet) 25 mg PO Q6H PRN PRN Reason: Anxiety Magnesium Hydroxide (Milk Of Magnesia 30 Ml Oral.Susp) 30 ml PO DAILY PRN PRN Reason: Constipation Multi-Ingred Cream/Lotion/Oil/Oint (Mineral Oil/Petrolatum,White 106 Gm Tube) 1 appl TOPICAL BID PRN; Protocol PRN Reason: skin protectant Multivitamins/Vitamin C (Multivitamin Tablet) 1 tab PO DAILY [facility] Last Admin: 03/26/23 09:30 Dose: Not Given Nicotine (Nicotine 21 Mg Patch.Td24) 21 mg TRANSDERMA DAILY PRN PRN Reason: smoking cessation Nicotine Polacrilex (Nicotine Polacrilex 2 Mg Gum) 4 mg BUCCAL Q2H PRN PRN Reason: Nicotine Cravings Olanzapine (Olanzapine 5 Mg Tablet) 5 mg PO TID PRN PRN Reason: agitation Olanzapine (Olanzapine Odt 10 Mg Tab.Rapdis) 10 mg TRANSLINGU BEDTIME [facility] Last Admin: 03/25/23 22:38 Dose: Not Given Olanzapine (Olanzapine 10 Mg Vial) 10 mg IM DAILY PRN PRN Reason: if refuses po per court Last Admin: 03/25/23 22:20 Dose: 10 mg Thiamine HCl (Thiamine Hcl 100 Mg Tablet) 100 mg PO DAILY [facility] Last Admin: 03/26/23 09:30 Dose: Not Given Trazodone HCl (Trazodone Hcl 50 Mg Tablet) 50 mg PO BEDTIME MRX1 PRN PRN Reason: Insomnia Allergies Allergies Allergy/AdvReac Type Severity Reaction Status Date / Time penicillin V Allergy Unknown unknown Verified 03/05/23 05:16 Penicillins [PENICILLINS] Allergy Unknown RASH Verified 03/05/23 05:16 Assessment & Plan Assessment & Plan (1) Schizophrenia: Status: Acute Code(s): F20.9 - Schizophrenia, unspecified Plan Ms. Quiles is a 37 year-old woman with hx of schizophrenia. it appears schizophrenia largely untreated and patient has been homeless for several months. She was brought via police after aunt called them due to frostbites and increased paranoia. Pt with no insight into illness or need for treatment for both psychiatric and frostbite. We discussed risks, benefits and alternative treatment options, she declines medications- antipsychotic ones. PLAN 1. Admit to M3, sect 12b, 15 minutes checks 2. obtain collateral information 3. aftercare planning 03/09: refusing medications. frostbite, no insight into mental illness. plan to petition for commitment and medication. 03/10: refusing medications. being treated for frostbite. commitment petition paperwork completed today. 03/11 Patient continues to refuse medication civil commitment and treatment paperwork has been filed by Dr. Diallo patient seemed unable take in information regarding the 03/12: no change in presentation. refusing meds, including doxy for frostbite. intermittent acceptance of foot soaks. denies mental illness. disorganized, delusional. 03/13: no change in presentation. continue current mgmt. court thursday. 03/14: Court on Thursday03/17/23. Cont current plan. 03/15: Continue current management and treatment plan. 03/16 Patient remains manic, delusional. Very difficult with which to engage or interrupt. Patient accusing creative writer of trying to get her to look at creative writer's penis... Repeats over and over that she is in the ; told creative writer that she believes creative writer and other psychiatrists are related and are not real psychiatrists, that they all are purposely dressing the same, intention is to steal her identity... Patient says I got someone killed on the spot for stealing identity.... There was a warrant... She was an illegal citizen... Patient continues to ramble similar things over and over; says that crystal killed everyone in high school in [place]... 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 Patient said she came here because of frostbite for her feet and should not be on the psychiatric unit, that she is going to get everyone in the hospital arrested and that everyone is in big trouble. Probation Worker inquired why she has been refusing antibiotics that were specifically prescribed due to her frostbite to which patient replied that it is none of creative writer's business. Intermittently, throughout conversation with creative writer, she would pause to yell at and accuse peer who was sitting at a table next to her. Patient continued to ramble, accuse; as creative writer excused himself she continued to yell at creative writer down the spencer. -Continues to refuse all medications -based on presentation, chart review patient does not appear to be able to take care of herself in the community. Probation Worker agrees with team plan to pursue involuntary commitment. 03/[address] for involuntary treatment. 03/[address] sect 08/23 03/19 committed to hospital. ordered olanzapine 10mg po qhs with back up IM. 03/20/23 Monitor response to olanzapine cont tx plan 3: remains psychotic, less agitated than prior. continue current mgmt. 4: remains psychotic, less agitated than prior. continue current mgmt. 5: psychotic, labile. continue current mgmt. 03/24: no change in presentation or plan. 03/25: no change in presentation or plan. 03/26: no change in presentation or plan. T/C addition of benzo IM with antipsychotic as pt appears manic and mood stabilizer is likely to be necessary to quell the mariola. Reason for continued inpatient stay Substantial Risk for: harm to self and inability to function Time Spent With Patient Time: Total time managing care of this patient today ____ minutes.
[2023-03-26 20:15] VITALS: BP 109/58; PULSE 76; RESP 16; TEMP 36.4; O2SAT 100
[2023-03-26] MEDS: OLANZapine 10 MG VIAL IM (23:35)
--- NOTE | 2023-03-27 09:58 | P.PNPSI_ITS ---
Subjective Subjective Date of Service: 03/27/23 Reason For Visit: Psychosis Subjective Notes: Section 8 Interim History: Per nursing, pt slept after midnight, then appeared to sleep most of the night. She did take a shower yesterday. This morning, pt seen in common area. She states after I introduce my self and informed her that I am covering for Dr. Diallo I told Dr. Diallo I don't have an appointment with him, so I am not talking with him, my family told me not to talk with anyone here because someone stole my identity. She declined to answer further questions. She appears less hyperverbal, less agitated. calmer on the unit but clear still significantly delusional. Diagnostics Vital Signs (24Hr): Vital Signs - 24 hr 03/26/23 20:15 Temperature 97.5 F Pulse Rate 76 Respiratory Rate 16 Blood Pressure 109/58 L Pulse Oximetry 100 Oxygen Delivery Method Room Air BMI result Body Mass Index 22.3 Medications Medications Current Medications Acetaminophen (Acetaminophen 325 Mg Tablet) 650 mg PO Q6H PRN PRN Reason: Headache/Pain Mild Scale (1-3) Al Hydroxide/Mg Hydroxide (Magnesium Hydrox/Alum Hydrox 30 Ml Oral.Susp) 30 ml PO Q6H PRN PRN Reason: Heartburn/Nausea Bacitracin (Bacitracin Oint 14 Gm Tube) 1 appl TOPICAL BID PRN; Protocol PRN Reason: lesion Folic Acid (Folic Acid 1 Mg Tablet) 1 mg PO DAILY [facility] Last Admin: 03/27/23 08:30 Dose: Not Given Hydroxyzine HCl (Hydroxyzine Hcl 25 Mg Tablet) 25 mg PO Q6H PRN PRN Reason: Anxiety Magnesium Hydroxide (Milk Of Magnesia 30 Ml Oral.Susp) 30 ml PO DAILY PRN PRN Reason: Constipation Multi-Ingred Cream/Lotion/Oil/Oint (Mineral Oil/Petrolatum,White 106 Gm Tube) 1 appl TOPICAL BID PRN; Protocol PRN Reason: skin protectant Last Admin: 03/26/23 16:54 Dose: 1 appl Multivitamins/Vitamin C (Multivitamin Tablet) 1 tab PO DAILY [facility] Last Admin: 03/27/23 08:30 Dose: Not Given Nicotine (Nicotine 21 Mg Patch.Td24) 21 mg TRANSDERMA DAILY PRN PRN Reason: smoking cessation Nicotine Polacrilex (Nicotine Polacrilex 2 Mg Gum) 4 mg BUCCAL Q2H PRN PRN Reason: Nicotine Cravings Olanzapine (Olanzapine 5 Mg Tablet) 5 mg PO TID PRN PRN Reason: agitation Olanzapine (Olanzapine Odt 10 Mg Tab.Rapdis) 10 mg TRANSLINGU BEDTIME [facility] Last Admin: 03/26/23 23:31 Dose: Not Given Olanzapine (Olanzapine 10 Mg Vial) 10 mg IM DAILY PRN PRN Reason: if refuses po per court Last Admin: 03/26/23 23:35 Dose: 10 mg Thiamine HCl (Thiamine Hcl 100 Mg Tablet) 100 mg PO DAILY [facility] Last Admin: 03/27/23 08:30 Dose: Not Given Trazodone HCl (Trazodone Hcl 50 Mg Tablet) 50 mg PO BEDTIME MRX1 PRN PRN Reason: Insomnia Allergies Allergies Allergy/AdvReac Type Severity Reaction Status Date / Time penicillin V Allergy Unknown unknown Verified 03/05/23 05:16 Penicillins [PENICILLINS] Allergy Unknown RASH Verified 03/05/23 05:16 Assessment & Plan Assessment & Plan (1) Schizophrenia: Status: Acute Code(s): F20.9 - Schizophrenia, unspecified Plan Ms. Quiles is a 37 year-old woman with hx of schizophrenia. it appears schizophrenia largely untreated and patient has been homeless for several months. She was brought via police after aunt called them due to frostbites and increased paranoia. Pt with no insight into illness or need for treatment for both psychiatric and frostbite. We discussed risks, benefits and alternative treatment options, she declines medications- antipsychotic ones. PLAN 1. Admit to , sect 12b, 15 minutes checks 2. obtain collateral information 3. aftercare planning 03/09: refusing medications. frostbite, no insight into mental illness. plan to petition for commitment and medication. 03/10: refusing medications. being treated for frostbite. commitment petition paperwork completed today. 03/11 Patient continues to refuse medication civil commitment and treatment paperwork has been filed by Dr. Diallo patient seemed unable take in information regarding the 03/12: no change in presentation. refusing meds, including doxy for frostbite. intermittent acceptance of foot soaks. denies mental illness. disorganized, delusional. 03/13: no change in presentation. continue current mgmt. court thursday. 1/27: Court on Thursday03/17/23. Cont current plan. 03/15: Continue current management and treatment plan. 03/16 Patient remains manic, delusional. Very difficult with which to engage or interrupt. Patient accusing program writer of trying to get her to look at program writer's penis... Repeats over and over that she is in the ; told program writer that she believes program writer and other psychiatrists are related and are not real psychiatrists, that they all are purposely dressing the same, intention is to steal her identity... Patient says I got someone killed on the spot for stealing identity.... There was a warrant... She was an illegal citizen... Patient continues to ramble similar things over and over; says that crystal killed everyone in high school in [place]... 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 Patient said she came here because of frostbite for her feet and should not be on the psychiatric unit, that she is going to get everyone in the hospital arrested and that everyone is in big trouble. Clinical Informatics Strategist inquired why she has been refusing antibiotics that were specifically prescribed due to her frostbite to which patient replied that it is none of program writer's business. Intermittently, throughout conversation with program writer, she would pause to yell at and accuse peer who was sitting at a table next to her. Patient continued to ramble, accuse; as program writer excused himself she continued to yell at program writer down the spencer. -Continues to refuse all medications -based on presentation, chart review patient does not appear to be able to take care of herself in the community. Clinical Informatics Strategist agrees with team plan to pursue involuntary commitment. 03/[address] for involuntary treatment. 03/[address] sect 08/23 03/19 committed to hospital. ordered olanzapine 10mg po qhs with back up IM. 03/20/23 Monitor response to olanzapine cont tx plan 2/3: remains psychotic, less agitated than prior. continue current mgmt. 2/4: remains psychotic, less agitated than prior. continue current mgmt. 2/5: psychotic, labile. continue current mgmt. 2/6: no change in presentation or plan. 03/25: no change in presentation or plan. 03/26: no change in presentation or plan. T/C addition of benzo IM with antipsychotic as pt appears manic and mood stabilizer is likely to be necessary to quell the mariola. 03/27 increase olanzapine 20mg po qhs adjusted back up IM. Reason for continued inpatient stay Substantial Risk for: inability to function Time Spent With Patient Time: Total time managing care of this patient today ____ minutes.
[2023-03-27] MEDS: Mineral Oil/Petrolatum,White 106 GM Tube 1 APPL TOPICAL (12:47)
[2023-03-27 18:00] VITALS: RESP 14
[2023-03-27] MEDS: OLANZapine 10 MG VIAL 20 MG IM (20:44)
--- NOTE | 2023-03-27 20:44 | PC.NURSE ---
refused HS zyprexa. 2 IM'S GIVEN PER ORDER IN r DELTOID AND l DELTOID
--- NOTE | 2023-03-28 09:55 | PC.NURSE ---
Pt refused AM vital signs and medications
--- NOTE | 2023-03-28 11:18 | HO.PSYCHPN ---
Subjective Subjective Date of Service: 03/28/23 Reason For Visit: Psychosis Subjective Notes: Section 7 and Section 8 Medical Problems Affecting Mental Status: No Interim History: Continues to sleep in the dayroom. Refused vitals this morning. Eating OK. Continues to refuse PO zyprexa and was given the increased dose of 20 mg in 2 injections last night. Medication Compliance: No Side effects from medications: No Review of Systems Acute medical concerns: No Medical Review of Systems: unchanged Mental Status Exam Mental Status Exam Patient Appearance: Disheveled Patient Orientation: Person, Place and Time Level of Consciousness: Awake Patient Behavior: Guarded Mood Description: Apathetic Affect Description: Calm Patient Cognition Impaired: No Ability to Follow Directions: Fair Speech Pattern: Clear Memory Description: Intact Hallucinations: None Delusions: Paranoid Ideation Thought Process: Linear Thought Content: positive for Intact Judgement: Fair Diagnostics Vital Signs (24Hr): Vital Signs - 24 hr 03/27/23 18:00 Respiratory Rate 14 BMI result Body Mass Index 22.3 Medications Medications Current Medications Acetaminophen (Acetaminophen 325 Mg Tablet) 650 mg PO Q6H PRN PRN Reason: Headache/Pain Mild Scale (1-3) Al Hydroxide/Mg Hydroxide (Magnesium Hydrox/Alum Hydrox 30 Ml Oral.Susp) 30 ml PO Q6H PRN PRN Reason: Heartburn/Nausea Bacitracin (Bacitracin Oint 14 Gm Tube) 1 appl TOPICAL BID PRN; Protocol PRN Reason: lesion Folic Acid (Folic Acid 1 Mg Tablet) 1 mg PO DAILY [facility] Last Admin: 03/28/23 09:04 Dose: Not Given Hydroxyzine HCl (Hydroxyzine Hcl 25 Mg Tablet) 25 mg PO Q6H PRN PRN Reason: Anxiety Magnesium Hydroxide (Milk Of Magnesia 30 Ml Oral.Susp) 30 ml PO DAILY PRN PRN Reason: Constipation Multi-Ingred Cream/Lotion/Oil/Oint (Mineral Oil/Petrolatum,White 106 Gm Tube) 1 appl TOPICAL BID PRN; Protocol PRN Reason: skin protectant Last Admin: 03/27/23 12:47 Dose: 1 appl Multivitamins/Vitamin C (Multivitamin Tablet) 1 tab PO DAILY [facility] Last Admin: 03/28/23 09:05 Dose: Not Given Nicotine (Nicotine 21 Mg Patch.Td24) 21 mg TRANSDERMA DAILY PRN PRN Reason: smoking cessation Nicotine Polacrilex (Nicotine Polacrilex 2 Mg Gum) 4 mg BUCCAL Q2H PRN PRN Reason: Nicotine Cravings Olanzapine (Olanzapine 5 Mg Tablet) 5 mg PO TID PRN PRN Reason: agitation Olanzapine (Olanzapine Odt 10 Mg Tab.Rapdis) 20 mg TRANSLINGU BEDTIME [facility] Last Admin: 03/27/23 20:50 Dose: Not Given Olanzapine (Olanzapine 10 Mg Vial) 20 mg IM DAILY PRN PRN Reason: if refuses po per court Last Admin: 03/27/23 20:44 Dose: 20 mg Thiamine HCl (Thiamine Hcl 100 Mg Tablet) 100 mg PO DAILY [facility] Last Admin: 03/28/23 09:05 Dose: Not Given Trazodone HCl (Trazodone Hcl 50 Mg Tablet) 50 mg PO BEDTIME MRX1 PRN PRN Reason: Insomnia Allergies Allergies Allergy/AdvReac Type Severity Reaction Status Date / Time penicillin V Allergy Unknown unknown Verified 03/05/23 05:16 Penicillins [PENICILLINS] Allergy Unknown RASH Verified 03/05/23 05:16 Assessment & Plan Assessment & Plan (1) Schizophrenia: Status: Acute Code(s): F20.9 - Schizophrenia, unspecified Assessment and Plan: Zyprexa dose just increased. Give IM if refusing PO per Vimal's order Plan Ms. Quiles is a 37 year-old woman with hx of schizophrenia. it appears schizophrenia largely untreated and patient has been homeless for several months. She was brought via police after aunt called them due to frostbites and increased paranoia. Pt with no insight into illness or need for treatment for both psychiatric and frostbite. We discussed risks, benefits and alternative treatment options, she declines medications- antipsychotic ones. PLAN 1. Admit to M3, sect 12b, 15 minutes checks 2. obtain collateral information 3. aftercare planning 03/09: refusing medications. frostbite, no insight into mental illness. plan to petition for commitment and medication. 03/10: refusing medications. being treated for frostbite. commitment petition paperwork completed today. 03/11 Patient continues to refuse medication civil commitment and treatment paperwork has been filed by Dr. Diallo patient seemed unable take in information regarding the 03/12: no change in presentation. refusing meds, including doxy for frostbite. intermittent acceptance of foot soaks. denies mental illness. disorganized, delusional. 1/26: no change in presentation. continue current mgmt. court thursday. 03/14: Court on Thursday03/17/23. Cont current plan. 03/15: Continue current management and treatment plan. 03/16 Patient remains manic, delusional. Very difficult with which to engage or interrupt. Patient accusing information writer of trying to get her to look at information writer's penis... Repeats over and over that she is in the ; told information writer that she believes information writer and other psychiatrists are related and are not real psychiatrists, that they all are purposely dressing the same, intention is to steal her identity... Patient says I got someone killed on the spot for stealing identity.... There was a warrant... She was an illegal citizen... Patient continues to ramble similar things over and over; says that crystal killed everyone in high school in [place]... 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 Patient said she came here because of frostbite for her feet and should not be on the psychiatric unit, that she is going to get everyone in the hospital arrested and that everyone is in big trouble. Postage Machine Operator inquired why she has been refusing antibiotics that were specifically prescribed due to her frostbite to which patient replied that it is none of information writer's business. Intermittently, throughout conversation with information writer, she would pause to yell at and accuse peer who was sitting at a table next to her. Patient continued to ramble, accuse; as information writer excused himself she continued to yell at information writer down the spencer. -Continues to refuse all medications -based on presentation, chart review patient does not appear to be able to take care of herself in the community. Postage Machine Operator agrees with team plan to pursue involuntary commitment. 03/[address] for involuntary treatment. 03/[address] sect 08/23 03/19 committed to hospital. ordered olanzapine 10mg po qhs with back up IM. 03/20/23 Monitor response to olanzapine cont tx plan 2/3: remains psychotic, less agitated than prior. continue current mgmt. 2/4: remains psychotic, less agitated than prior. continue current mgmt. 2/5: psychotic, labile. continue current mgmt. 03/24: no change in presentation or plan. 03/25: no change in presentation or plan. 03/26: no change in presentation or plan. T/C addition of benzo IM with antipsychotic as pt appears manic and mood stabilizer is likely to be necessary to quell the mariola. 03/27 increase olanzapine 20mg po qhs adjusted back up IM. Reason for continued inpatient stay Substantial Risk for: inability to function Time Spent With Patient Time: Total time managing care of this patient today ____ minutes.
[2023-03-28] MEDS: OLANZapine 10 MG VIAL 20 MG IM (21:22)
--- NOTE | 2023-03-28 21:26 | PC.NURSE ---
IM injection given in 2 injections R and L deltoid for dose of 20 mg
[2023-03-28 21:30] VITALS: BP 112/75; PULSE 80; RESP 14; TEMP 36.6; O2SAT 97
--- NOTE | 2023-03-29 07:41 | P.PNPSI_ITS ---
Subjective Subjective Date of Service: 03/29/23 Reason For Visit: Psychosis Subjective Notes: Section 7 and Section 8 Interim History: Patient was seen and discussed in rounds today records and plans were reviewed. She continues to be paranoid. She sleeps in the day room. Refusing p.o. medications. eating adequately. Sleeping in the day room. No changes were made Medication Compliance: No Side effects from medications: No Attending Groups: No Review of Systems Review of Systems Yes Unobtainable due to mental status Mental Status Exam Mental Status Exam Patient Appearance: Disheveled Patient Orientation: Person, Place and Time Level of Consciousness: Awake Patient Behavior: Guarded Mood Description: Apathetic Affect Description: Calm Patient Cognition Impaired: No Ability to Follow Directions: Fair Speech Pattern: Clear Memory Description: Intact Hallucinations: None Delusions: Paranoid Ideation Thought Process: Linear Thought Content: positive for Intact Judgement: Fair Diagnostics Vital Signs (24Hr): Vital Signs - 24 hr 03/28/23 21:30 Temperature 97.9 F Pulse Rate 80 Respiratory Rate 14 Blood Pressure 112/75 Pulse Oximetry 97 Oxygen Delivery Method Room Air BMI result Body Mass Index 22.3 Medications Medications Current Medications Acetaminophen (Acetaminophen 325 Mg Tablet) 650 mg PO Q6H PRN PRN Reason: Headache/Pain Mild Scale (1-3) Al Hydroxide/Mg Hydroxide (Magnesium Hydrox/Alum Hydrox 30 Ml Oral.Susp) 30 ml PO Q6H PRN PRN Reason: Heartburn/Nausea Bacitracin (Bacitracin Oint 14 Gm Tube) 1 appl TOPICAL BID PRN; Protocol PRN Reason: lesion Folic Acid (Folic Acid 1 Mg Tablet) 1 mg PO DAILY [facility] Last Admin: 03/28/23 09:04 Dose: Not Given Hydroxyzine HCl (Hydroxyzine Hcl 25 Mg Tablet) 25 mg PO Q6H PRN PRN Reason: Anxiety Magnesium Hydroxide (Milk Of Magnesia 30 Ml Oral.Susp) 30 ml PO DAILY PRN PRN Reason: Constipation Multi-Ingred Cream/Lotion/Oil/Oint (Mineral Oil/Petrolatum,White 106 Gm Tube) 1 appl TOPICAL BID PRN; Protocol PRN Reason: skin protectant Last Admin: 03/27/23 12:47 Dose: 1 appl Multivitamins/Vitamin C (Multivitamin Tablet) 1 tab PO DAILY [facility] Last Admin: 03/28/23 09:05 Dose: Not Given Nicotine (Nicotine 21 Mg Patch.Td24) 21 mg TRANSDERMA DAILY PRN PRN Reason: smoking cessation Nicotine Polacrilex (Nicotine Polacrilex 2 Mg Gum) 4 mg BUCCAL Q2H PRN PRN Reason: Nicotine Cravings Olanzapine (Olanzapine 5 Mg Tablet) 5 mg PO TID PRN PRN Reason: agitation Olanzapine (Olanzapine Odt 10 Mg Tab.Rapdis) 20 mg TRANSLINGU BEDTIME [facility] Last Admin: 03/28/23 21:26 Dose: Not Given Olanzapine (Olanzapine 10 Mg Vial) 20 mg IM DAILY PRN PRN Reason: if refuses po per court Last Admin: 03/28/23 21:22 Dose: 20 mg Thiamine HCl (Thiamine Hcl 100 Mg Tablet) 100 mg PO DAILY [facility] Last Admin: 03/28/23 09:05 Dose: Not Given Trazodone HCl (Trazodone Hcl 50 Mg Tablet) 50 mg PO BEDTIME MRX1 PRN PRN Reason: Insomnia Allergies Allergies Allergy/AdvReac Type Severity Reaction Status Date / Time penicillin V Allergy Unknown unknown Verified 03/05/23 05:16 Penicillins [PENICILLINS] Allergy Unknown RASH Verified 03/05/23 05:16 Assessment & Plan Assessment & Plan (1) Schizophrenia: Status: Acute Code(s): F20.9 - Schizophrenia, unspecified Assessment and Plan: Zyprexa dose just increased. Give IM if refusing PO per Vimal's order Plan Ms. Quiles is a 37 year-old woman with hx of schizophrenia. it appears schizophrenia largely untreated and patient has been homeless for several months. She was brought via police after aunt called them due to frostbites and increased paranoia. Pt with no insight into illness or need for treatment for both psychiatric and frostbite. We discussed risks, benefits and alternative treatment options, she declines medications- antipsychotic ones. PLAN 1. Admit to [facility], sect 12b, 15 minutes checks 2. obtain collateral information 3. aftercare planning 03/09: refusing medications. frostbite, no insight into mental illness. plan to petition for commitment and medication. 03/10: refusing medications. being treated for frostbite. commitment petition paperwork completed today. 03/11 Patient continues to refuse medication civil commitment and treatment paperwork has been filed by Dr. Diallo patient seemed unable take in information regarding the 03/12: no change in presentation. refusing meds, including doxy for frostbite. intermittent acceptance of foot soaks. denies mental illness. disorganized, delusional. 03/13: no change in presentation. continue current mgmt. court thursday. 03/14: Court on Thursday03/17/23. Cont current plan. 03/15: Continue current management and treatment plan. 03/16 Patient remains manic, delusional. Very difficult with which to engage or interrupt. Patient accusing underwriter mortgage loan of trying to get her to look at underwriter mortgage loan's penis... Repeats over and over that she is in the ; told underwriter mortgage loan that she believes underwriter mortgage loan and other psychiatrists are related and are not real psychiatrists, that they all are purposely dressing the same, intention is to steal her identity... Patient says I got someone killed on the spot for stealing identity.... There was a warrant... She was an illegal citizen... Patient continues to ramble similar things over and over; says that crystal killed everyone in high school in [place]... 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 Patient said she came here because of frostbite for her feet and should not be on the psychiatric unit, that she is going to get everyone in the hospital arrested and that everyone is in big trouble. Manager Documentation inquired why she has been refusing antibiotics that were specifically prescribed due to her frostbite to which patient replied that it is none of underwriter mortgage loan's business. Intermittently, throughout conversation with underwriter mortgage loan, she would pause to yell at and accuse peer who was sitting at a table next to her. Patient continued to ramble, accuse; as underwriter mortgage loan excused himself she continued to yell at underwriter mortgage loan down the spencer. -Continues to refuse all medications -based on presentation, chart review patient does not appear to be able to take care of herself in the community. Manager Documentation agrees with team plan to pursue involuntary commitment. 03/[address] for involuntary treatment. 03/[address] sect 08/23 03/19 committed to hospital. ordered olanzapine 10mg po qhs with back up IM. 03/20/23 Monitor response to olanzapine cont tx plan 03/21: remains psychotic, less agitated than prior. continue current mgmt. /4: remains psychotic, less agitated than prior. continue current mgmt. 5: psychotic, labile. continue current mgmt. 03/24: no change in presentation or plan. 03/25: no change in presentation or plan. 03/26: no change in presentation or plan. T/C addition of benzo IM with antipsychotic as pt appears manic and mood stabilizer is likely to be necessary to quell the mariola. 03/27 increase olanzapine 20mg po qhs adjusted back up IM. 03/29: Continue current regimen and plans Reason for continued inpatient stay Substantial Risk for: med/psych decompensation Time Spent With Patient Time: Total time managing care of this patient today ____ minutes.
[2023-03-29] MEDS: Mineral Oil/Petrolatum,White 106 GM Tube 1 APPL TOPICAL ×2 (11:41→19:01)
[2023-03-29 13:23] VITALS: BP 114/56; PULSE 79; RESP 16; TEMP 36.9; O2SAT 100
[2023-03-29 20:20] VITALS: RESP 18
[2023-03-29 22:40] VITALS: BP 117/75; PULSE 75; RESP 16; TEMP 37; O2SAT 98
[2023-03-29] MEDS: OLANZapine 10 MG VIAL 20 MG IM (23:38)
[2023-03-30] MEDS: Mineral Oil/Petrolatum,White 106 GM Tube 1 APPL TOPICAL (12:05)
--- NOTE | 2023-03-30 15:40 | P.PNPSI_ITS ---
Subjective Subjective Date of Service: 03/30/23 Reason For Visit: Psychosis Interim History: observed in the milieu ambulating, waiting for shower. no complaints or requests for MD. per staff, labile. eating well. slept 8 hours. thursday labile. tolerating foot soaks. getting IMs at [facility]. sleeping 8 ours. paranoid delusions. slept 6 hours thursday. Mental Status Exam Mental Status Exam Narrative: Appearance: disheveled, in NAD Behavior:guarded and suspicious Psychomotor: no PMA/PMR Speech: verbose, difficult to redirect, spontaneous TP: tangential TC: paranoid delusions Mood: unable to assess Affect: suspicious SI: none expressed HI: none expressed VH/AH: none expressed Insight/judgment: impaired x 2. Memory/cog: alert, oriented not to situation. Diagnostics Vital Signs (24Hr): Vital Signs - 24 hr 03/29/23 20:20 03/29/23 22:40 Temperature 98.6 F Pulse Rate 75 Respiratory Rate 18 16 Blood Pressure 117/75 Pulse Oximetry 98 Oxygen Delivery Method Room Air BMI result Body Mass Index 22.3 Medications Medications Current Medications Acetaminophen (Acetaminophen 325 Mg Tablet) 650 mg PO Q6H PRN PRN Reason: Headache/Pain Mild Scale (1-3) Al Hydroxide/Mg Hydroxide (Magnesium Hydrox/Alum Hydrox 30 Ml Oral.Susp) 30 ml PO Q6H PRN PRN Reason: Heartburn/Nausea Bacitracin (Bacitracin Oint 14 Gm Tube) 1 appl TOPICAL BID PRN; Protocol PRN Reason: lesion Folic Acid (Folic Acid 1 Mg Tablet) 1 mg PO DAILY [facility] Last Admin: 03/30/23 10:15 Dose: Not Given Hydroxyzine HCl (Hydroxyzine Hcl 25 Mg Tablet) 25 mg PO Q6H PRN PRN Reason: Anxiety Magnesium Hydroxide (Milk Of Magnesia 30 Ml Oral.Susp) 30 ml PO DAILY PRN PRN Reason: Constipation Multi-Ingred Cream/Lotion/Oil/Oint (Mineral Oil/Petrolatum,White 106 Gm Tube) 1 appl TOPICAL BID PRN; Protocol PRN Reason: skin protectant Last Admin: 03/30/23 12:05 Dose: 1 appl Multivitamins/Vitamin C (Multivitamin Tablet) 1 tab PO DAILY [facility] Last Admin: 03/30/23 10:16 Dose: Not Given Nicotine (Nicotine 21 Mg Patch.Td24) 21 mg TRANSDERMA DAILY PRN PRN Reason: smoking cessation Nicotine Polacrilex (Nicotine Polacrilex 2 Mg Gum) 4 mg BUCCAL Q2H PRN PRN Reason: Nicotine Cravings Olanzapine (Olanzapine 5 Mg Tablet) 5 mg PO TID PRN PRN Reason: agitation Olanzapine (Olanzapine Odt 10 Mg Tab.Rapdis) 20 mg TRANSLINGU BEDTIME [facility] Last Admin: 03/29/23 23:20 Dose: Not Given Olanzapine (Olanzapine 10 Mg Vial) 20 mg IM DAILY PRN PRN Reason: if refuses po per court Last Admin: 03/29/23 23:38 Dose: 20 mg Thiamine HCl (Thiamine Hcl 100 Mg Tablet) 100 mg PO DAILY [facility] Last Admin: 03/30/23 10:16 Dose: Not Given Trazodone HCl (Trazodone Hcl 50 Mg Tablet) 50 mg PO BEDTIME MRX1 PRN PRN Reason: Insomnia Allergies Allergies Allergy/AdvReac Type Severity Reaction Status Date / Time penicillin V Allergy Unknown unknown Verified 03/05/23 05:16 Penicillins [PENICILLINS] Allergy Unknown RASH Verified 03/05/23 05:16 Assessment & Plan Assessment & Plan (1) Schizophrenia: Status: Acute Code(s): F20.9 - Schizophrenia, unspecified Assessment and Plan: Zyprexa dose just increased. Give IM if refusing PO per Vimal's order Plan Ms. Quiles is a 37 year-old woman with hx of schizophrenia. it appears schizophrenia largely untreated and patient has been homeless for several months. She was brought via police after aunt called them due to frostbites and increased paranoia. Pt with no insight into illness or need for treatment for both psychiatric and frostbite. We discussed risks, benefits and alternative treatment options, she declines medications- antipsychotic ones. PLAN 1. Admit to M3, sect 12b, 15 minutes checks 2. obtain collateral information 3. aftercare planning 03/09: refusing medications. frostbite, no insight into mental illness. plan to petition for commitment and medication. 03/10: refusing medications. being treated for frostbite. commitment petition paperwork completed today. 03/11 Patient continues to refuse medication civil commitment and treatment paperwork has been filed by Dr. Diallo patient seemed unable take in information regarding the 03/12: no change in presentation. refusing meds, including doxy for frostbite. intermittent acceptance of foot soaks. denies mental illness. disorganized, delusional. 03/13: no change in presentation. continue current mgmt. court thursday. 03/14: Court on Thursday03/17/23. Cont current plan. 03/15: Continue current management and treatment plan. 03/16 Patient remains manic, delusional. Very difficult with which to engage or interrupt. Patient accusing telegraphic typewriter repairer of trying to get her to look at telegraphic typewriter repairer's penis... Repeats over and over that she is in the ; told telegraphic typewriter repairer that she believes telegraphic typewriter repairer and other psychiatrists are related and are not real psychiatrists, that they all are purposely dressing the same, intention is to steal her identity... Patient says I got someone killed on the spot for stealing identity.... There was a warrant... She was an illegal citizen... Patient continues to ramble similar things over and over; says that crystal killed everyone in high school in [place]... 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 Patient said she came here because of frostbite for her feet and should not be on the psychiatric unit, that she is going to get everyone in the hospital arrested and that everyone is in big trouble. Bioinformaticist inquired why she has been refusing antibiotics that were specifically prescribed due to her frostbite to which patient replied that it is none of telegraphic typewriter repairer's business. Intermittently, throughout conversation with telegraphic typewriter repairer, she would pause to yell at and accuse peer who was sitting at a table next to her. Patient continued to ramble, accuse; as telegraphic typewriter repairer excused himself she continued to yell at telegraphic typewriter repairer down the spencer. -Continues to refuse all medications -based on presentation, chart review patient does not appear to be able to take care of herself in the community. Bioinformaticist agrees with team plan to pursue involuntary commitment. 03/[address] for involuntary treatment. 03/[address] sect 08/23 03/19 committed to hospital. ordered olanzapine 10mg po qhs with back up IM. 03/20/23 Monitor response to olanzapine cont tx plan 03/21: remains psychotic, less agitated than prior. continue current mgmt. 2/4: remains psychotic, less agitated than prior. continue current mgmt. 03/23: psychotic, labile. continue current mgmt. 03/24: no change in presentation or plan. 03/25: no change in presentation or plan. 03/26: no change in presentation or plan. T/C addition of benzo IM with antipsychotic as pt appears manic and mood stabilizer is likely to be necessary to quell the mariola. 03/27 increase olanzapine 20mg po qhs adjusted back up IM. 03/29: Continue current regimen and plans 03/30: continue current mgmt. marginal improvement, less loud and disruptive to milieu. Reason for continued inpatient stay Substantial Risk for: harm to self, inability to function and rapid decompensation Time Spent With Patient Time: Total time managing care of this patient today ____ minutes.
--- NOTE | 2023-03-30 15:52 | HO.WOUND ---
Wound Consult: Follow up 37yr old?F admitted to [facility] on 03/06/23 to the Behavioral Health Unit - See progress notes and H&P for detailed history.? Wound consult follow up for Frostbite to Bilateral Feet.? Patient agreeable to assessment and photo documentation, she appears unkept at this time. She spoke throughout my assessment on varied topics in some loose connection to my consultation. She denies pain and or tenderness. Overall her bilateral feet are noted to be resurfaced the tissue appears well moisturized and is free of open injury. The patient reports she does not sleep in her bed but is elevating her feet at night to sleep in chairs. Occasional elevate will benefit her feet. Change in topical recommendations to be PRN foot soaks and cream application to 1-2 days. Bilateral Feet Etiology: ??Resolved Frostbite Wound Bed: Intact moisturized pink pigmented tissue Bilateral feet +PP noted, Toes are cool to touch and blanchable tissue Drainage / Odor: None noted Marie wound: No swelling noted - No Induration, Fluctuance noted Pain: denies pain denies numbness and tingling Goals of Treatment: ? PRN for foot soaks and cream application - per my discussion with the direct care team the foot soaks when the patient allows them to be performed are allowing the patient to build rapport and trust amongst her care providers. Recommendations: 1. Bilateral Feet - Warm not hot foot soaks 1-2 times a day for 10-20min. Dry well after soak. Cleanse with routine cleansing. Apply thick layer of Dermacerin Cream from Pharmacy. May cover with regular socks. This can be PRN as the wounds and skin integrity tissue have resolved. Inpatient wound care nurse will sign - off please reconsult and place new consult should wound consultation be needed. TT to Dr. Radha Diallo.
[2023-03-30 19:53] VITALS: BP 111/69; PULSE 83; RESP 16; TEMP 36.8; O2SAT 99
[2023-03-30] MEDS: OLANZapine 10 MG VIAL 20 MG IM (23:58)
[2023-03-31] MEDS: Mineral Oil/Petrolatum,White 106 GM Tube 1 APPL TOPICAL (11:47)
--- NOTE | 2023-03-31 14:45 | P.PNPSI_ITS ---
Subjective Subjective Date of Service: 03/31/23 Reason For Visit: Psychosis Interim History: seen at table in milieu. labile, irritable. dismisses MD for not having an appointment, then yells after MD as he exits. per staff, no dep/anx. showered, no groups. delusional. more cooperative with IMs last night. interacting appropriately with peers. slept 5-6 hours. Mental Status Exam Mental Status Exam Narrative: Appearance: disheveled, in NAD Behavior:guarded and suspicious Psychomotor: no PMA/PMR Speech: verbose, difficult to redirect, spontaneous TP: tangential TC: paranoid delusions Mood: unable to assess Affect: suspicious SI: none expressed HI: none expressed VH/AH: none expressed Insight/judgment: impaired x 2. Memory/cog: alert, oriented not to situation. Diagnostics Vital Signs (24Hr): Vital Signs - 24 hr 03/30/23 19:53 Temperature 98.2 F Pulse Rate 83 Respiratory Rate 16 Blood Pressure 111/69 Pulse Oximetry 99 Oxygen Delivery Method Room Air BMI result Body Mass Index 22.3 Medications Medications Current Medications Acetaminophen (Acetaminophen 325 Mg Tablet) 650 mg PO Q6H PRN PRN Reason: Headache/Pain Mild Scale (1-3) Al Hydroxide/Mg Hydroxide (Magnesium Hydrox/Alum Hydrox 30 Ml Oral.Susp) 30 ml PO Q6H PRN PRN Reason: Heartburn/Nausea Bacitracin (Bacitracin Oint 14 Gm Tube) 1 appl TOPICAL BID PRN; Protocol PRN Reason: lesion Folic Acid (Folic Acid 1 Mg Tablet) 1 mg PO DAILY [facility] Last Admin: 03/31/23 08:25 Dose: Not Given Hydroxyzine HCl (Hydroxyzine Hcl 25 Mg Tablet) 25 mg PO Q6H PRN PRN Reason: Anxiety Magnesium Hydroxide (Milk Of Magnesia 30 Ml Oral.Susp) 30 ml PO DAILY PRN PRN Reason: Constipation Multi-Ingred Cream/Lotion/Oil/Oint (Mineral Oil/Petrolatum,White 106 Gm Tube) 1 appl TOPICAL BID PRN; Protocol PRN Reason: skin protectant Last Admin: 03/31/23 11:47 Dose: 1 appl Multivitamins/Vitamin C (Multivitamin Tablet) 1 tab PO DAILY [facility] Last Admin: 03/31/23 08:25 Dose: Not Given Nicotine (Nicotine 21 Mg Patch.Td24) 21 mg TRANSDERMA DAILY PRN PRN Reason: smoking cessation Nicotine Polacrilex (Nicotine Polacrilex 2 Mg Gum) 4 mg BUCCAL Q2H PRN PRN Reason: Nicotine Cravings Olanzapine (Olanzapine 5 Mg Tablet) 5 mg PO TID PRN PRN Reason: agitation Olanzapine (Olanzapine Odt 10 Mg Tab.Rapdis) 20 mg TRANSLINGU BEDTIME [facility] Last Admin: 03/30/23 23:43 Dose: Not Given Olanzapine (Olanzapine 10 Mg Vial) 20 mg IM DAILY PRN PRN Reason: if refuses po per court Last Admin: 03/30/23 23:58 Dose: 20 mg Thiamine HCl (Thiamine Hcl 100 Mg Tablet) 100 mg PO DAILY [facility] Last Admin: 03/31/23 08:25 Dose: Not Given Trazodone HCl (Trazodone Hcl 50 Mg Tablet) 50 mg PO BEDTIME MRX1 PRN PRN Reason: Insomnia Allergies Allergies Allergy/AdvReac Type Severity Reaction Status Date / Time penicillin V Allergy Unknown unknown Verified 03/05/23 05:16 Penicillins [PENICILLINS] Allergy Unknown RASH Verified 03/05/23 05:16 Assessment & Plan Assessment & Plan (1) Schizophrenia: Status: Acute Code(s): F20.9 - Schizophrenia, unspecified Assessment and Plan: Zyprexa dose just increased. Give IM if refusing PO per Vimal's order Plan Ms. Quiles is a 37 year-old woman with hx of schizophrenia. it appears schizophrenia largely untreated and patient has been homeless for several months. She was brought via police after aunt called them due to frostbites and increased paranoia. Pt with no insight into illness or need for treatment for both psychiatric and frostbite. We discussed risks, benefits and alternative treatment options, she declines medications- antipsychotic ones. PLAN 1. Admit to M3, sect 12b, 15 minutes checks 2. obtain collateral information 3. aftercare planning 03/09: refusing medications. frostbite, no insight into mental illness. plan to petition for commitment and medication. 03/10: refusing medications. being treated for frostbite. commitment petition paperwork completed today. 03/11 Patient continues to refuse medication civil commitment and treatment paperwork has been filed by Dr. Diallo patient seemed unable take in information regarding the 03/12: no change in presentation. refusing meds, including doxy for frostbite. intermittent acceptance of foot soaks. denies mental illness. disorganized, delusional. 03/13: no change in presentation. continue current mgmt. court thursday. 03/14: Court on Thursday03/17/23. Cont current plan. 03/15: Continue current management and treatment plan. 03/16 Patient remains manic, delusional. Very difficult with which to engage or interrupt. Patient accusing business writer of trying to get her to look at business writer's penis... Repeats over and over that she is in the ; told business writer that she believes business writer and other psychiatrists are related and are not real psychiatrists, that they all are purposely dressing the same, intention is to steal her identity... Patient says I got someone killed on the spot for stealing identity.... There was a warrant... She was an illegal citizen... Patient continues to ramble similar things over and over; says that flako killed everyone in high school in [place]... 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 Patient said she came here because of frostbite for her feet and should not be on the psychiatric unit, that she is going to get everyone in the hospital arrested and that everyone is in big trouble. Distance Education Director inquired why she has been refusing antibiotics that were specifically prescribed due to her frostbite to which patient replied that it is none of business writer's business. Intermittently, throughout conversation with business writer, she would pause to yell at and accuse peer who was sitting at a table next to her. Patient continued to ramble, accuse; as business writer excused himself she continued to yell at business writer down the spencer. -Continues to refuse all medications -based on presentation, chart review patient does not appear to be able to take care of herself in the community. Distance Education Director agrees with team plan to pursue i nvoluntary commitment. 03/[address] for involuntary treatment. 03/[address] sect 08/23 03/19 committed to hospital. ordered olanzapine 10mg po qhs with back up IM. 03/20/23 Monitor response to olanzapine cont tx plan 03/21: remains psychotic, less agitated than prior. continue current mgmt. 4: remains psychotic, less agitated than prior. continue current mgmt. 2: psychotic, labile. continue current mgmt. 03/24: no change in presentation or plan. 03/25: no change in presentation or plan. 03/26: no change in presentation or plan. T/C addition of benzo IM with antipsychotic as pt appears manic and mood stabilizer is likely to be necessary to quell the mariola. 03/27 increase olanzapine 20mg po qhs adjusted back up IM. 03/29: Continue current regimen and plans 03/30: continue current mgmt. marginal improvement, less loud and disruptive to milieu. 03/31: marginal improvement continues. Reason for continued inpatient stay Substantial Risk for: harm to self, inability to function and rapid decompensation Time Spent With Patient Time: Total time managing care of this patient today ____ minutes.
[2023-03-31] MEDS: OLANZapine 10 MG VIAL 20 MG IM (21:24)
--- NOTE | 2023-04-01 14:28 | P.PNPSI_ITS ---
Subjective Subjective Date of Service: 04/01/23 Reason For Visit: Psychosis Interim History: in milieu doing art. per staff, irritable, labile, paranoid. disorganized, tangential. not attending groups. got IMs last night, no restraint. slept about 6 hours. Mental Status Exam Mental Status Exam Narrative: Appearance: disheveled, in NAD Behavior:guarded and suspicious Psychomotor: no PMA/PMR Speech: verbose, difficult to redirect, spontaneous TP: tangential TC: paranoid delusions Mood: unable to assess Affect: suspicious SI: none expressed HI: none expressed VH/AH: none expressed Insight/judgment: impaired x 2. Memory/cog: alert, oriented not to situation. Diagnostics Vital Signs (24Hr): BMI result Body Mass Index 22.3 Medications Medications Current Medications Acetaminophen (Acetaminophen 325 Mg Tablet) 650 mg PO Q6H PRN PRN Reason: Headache/Pain Mild Scale (1-3) Al Hydroxide/Mg Hydroxide (Magnesium Hydrox/Alum Hydrox 30 Ml Oral.Susp) 30 ml PO Q6H PRN PRN Reason: Heartburn/Nausea Bacitracin (Bacitracin Oint 14 Gm Tube) 1 appl TOPICAL BID PRN; Protocol PRN Reason: lesion Folic Acid (Folic Acid 1 Mg Tablet) 1 mg PO DAILY [facility] Last Admin: 04/01/23 08:07 Dose: Not Given Hydroxyzine HCl (Hydroxyzine Hcl 25 Mg Tablet) 25 mg PO Q6H PRN PRN Reason: Anxiety Magnesium Hydroxide (Milk Of Magnesia 30 Ml Oral.Susp) 30 ml PO DAILY PRN PRN Reason: Constipation Multi-Ingred Cream/Lotion/Oil/Oint (Mineral Oil/Petrolatum,White 106 Gm Tube) 1 appl TOPICAL BID PRN; Protocol PRN Reason: skin protectant Last Admin: 03/31/23 11:47 Dose: 1 appl Multivitamins/Vitamin C (Multivitamin Tablet) 1 tab PO DAILY [facility] Last Admin: 04/01/23 08:08 Dose: Not Given Nicotine (Nicotine 21 Mg Patch.Td24) 21 mg TRANSDERMA DAILY PRN PRN Reason: smoking cessation Nicotine Polacrilex (Nicotine Polacrilex 2 Mg Gum) 4 mg BUCCAL Q2H PRN PRN Reason: Nicotine Cravings Olanzapine (Olanzapine 5 Mg Tablet) 5 mg PO TID PRN PRN Reason: agitation Olanzapine (Olanzapine Odt 10 Mg Tab.Rapdis) 20 mg TRANSLINGU BEDTIME [facility] Last Admin: 03/31/23 21:31 Dose: Not Given Olanzapine (Olanzapine 10 Mg Vial) 20 mg IM DAILY PRN PRN Reason: if refuses po per court Last Admin: 03/31/23 21:24 Dose: 20 mg Thiamine HCl (Thiamine Hcl 100 Mg Tablet) 100 mg PO DAILY [facility] Last Admin: 04/01/23 08:08 Dose: Not Given Trazodone HCl (Trazodone Hcl 50 Mg Tablet) 50 mg PO BEDTIME MRX1 PRN PRN Reason: Insomnia Allergies Allergies Allergy/AdvReac Type Severity Reaction Status Date / Time penicillin V Allergy Unknown unknown Verified 03/05/23 05:16 Penicillins [PENICILLINS] Allergy Unknown RASH Verified 03/05/23 05:16 Assessment & Plan Assessment & Plan (1) Schizophrenia: Status: Acute Code(s): F20.9 - Schizophrenia, unspecified Assessment and Plan: Zyprexa dose just increased. Give IM if refusing PO per Vimal's order Plan Ms. Quiles is a 37 year-old woman with hx of schizophrenia. it appears schizophrenia largely untreated and patient has been homeless for several months. She was brought via police after aunt called them due to frostbites and increased paranoia. Pt with no insight into illness or need for treatment for both psychiatric and frostbite. We discussed risks, benefits and alternative treatment options, she declines medications- antipsychotic ones. PLAN 1. Admit to M3, sect 12b, 15 minutes checks 2. obtain collateral information 3. aftercare planning 03/09: refusing medications. frostbite, no insight into mental illness. plan to petition for commitment and medication. 03/10: refusing medications. being treated for frostbite. commitment petition paperwork completed today. 03/11 Patient continues to refuse medication civil commitment and treatment paperwork has been filed by Dr. Diallo patient seemed unable take in information regarding the 03/12: no change in presentation. refusing meds, including doxy for frostbite. intermittent acceptance of foot soaks. denies mental illness. disorganized, delusional. 03/13: no change in presentation. continue current mgmt. court thursday. 03/14: Court on Thursday03/17/23. Cont current plan. 03/15: Continue current management and treatment plan. 03/16 Patient remains manic, delusional. Very difficult with which to engage or interrupt. Patient accusing database report writer of trying to get her to look at database report writer's penis... Repeats over and over that she is in the ; told database report writer that she believes database report writer and other psychiatrists are related and are not real psychiatrists, that they all are purposely dressing the same, intention is to steal her identity... Patient says I got someone killed on the spot for stealing identity.... There was a warrant... She was an illegal citizen... Patient continues to ramble similar things over and over; says that flako killed everyone in high school in [place]... 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 Patient said she came here because of frostbite for her feet and should not be on the psychiatric unit, that she is going to get everyone in the hospital arrested and that everyone is in big trouble. Mobile Ui Developer inquired why she has been refusing antibiotics that were specifically prescribed due to her frostbite to which patient replied that it is none of database report writer's business. Intermittently, throughout conversation with database report writer, she would pause to yell at and accuse peer who was sitting at a table next to her. Patient continued to ramble, accuse; as database report writer excused himself she continued to yell at database report writer down the spencer. -Continues to refuse all medications -based on presentation, chart review patient does not appear to be able to take care of herself in the community. Mobile Ui Developer agrees with team plan to pursue involuntary commitment. 03/[address] for involuntary treatment. 03/[address] sect 08/23 03/19 committed to hospital. ordered olanzapine 10mg po qhs with back up IM. 03/20/23 Monitor response to olanzapine cont tx plan 2/3: remains psychotic, less agitated than prior. continue current mgmt. 2/4: remains psychotic, less agitated than prior. continue current mgmt. /5: psychotic, labile. continue current mgmt. 03/24: no change in presentation or plan. 03/25: no change in presentation or plan. 03/26: no change in presentation or plan. T/C addition of benzo IM with antipsychotic as pt appears manic and mood stabilizer is likely to be necessary to quell the mariola. 03/27 increase olanzapine 20mg po qhs adjusted back up IM. 03/29: Continue current regimen and plans 03/30: continue current mgmt. marginal improvement, less loud and disruptive to milieu. 03/31: marginal improvement continues. 04/01: no change in presentation. continue current mgmt. Reason for continued inpatient stay Substantial Risk for: harm to self, inability to function and rapid decompensation Time Spent With Patient Time: Total time managing care of this patient today ____ minutes.
[2023-04-01] MEDS: Mineral Oil/Petrolatum,White 106 GM Tube 1 APPL TOPICAL (19:24)
[2023-04-01 20:15] VITALS: BP 113/71; PULSE 85; RESP 14; TEMP 36.6; O2SAT 99
[2023-04-01] MEDS: OLANZapine 10 MG VIAL 20 MG IM (21:20)
--- NOTE | 2023-04-01 21:30 | PC.NURSE ---
Jennifer was given 10 mg Zyprexa IM in left deltoid and 10mg Zyprexa in right deltoid
[2023-04-02] MEDS: Mineral Oil/Petrolatum,White 106 GM Tube 1 APPL TOPICAL (12:25)
--- NOTE | 2023-04-02 14:39 | P.PNPSI_ITS ---
Subjective Subjective Date of Service: 04/02/23 Reason For Visit: Psychosis Interim History: irritated, labile. declines interview with MD. per staff, denies depression or anxiety. guarded, labile. not attending groups. slept about 6 hours. allowed foot soak. Mental Status Exam Mental Status Exam Narrative: Appearance: disheveled, in NAD Behavior:guarded and suspicious Psychomotor: no PMA/PMR Speech: verbose, difficult to redirect, spontaneous TP: tangential TC: paranoid delusions Mood: unable to assess Affect: suspicious SI: none expressed HI: none expressed VH/AH: none expressed Insight/judgment: impaired x 2. Memory/cog: alert, oriented not to situation. Diagnostics Vital Signs (24Hr): Vital Signs - 24 hr 04/01/23 20:15 Temperature 97.9 F Pulse Rate 85 Respiratory Rate 14 Blood Pressure 113/71 Pulse Oximetry 99 Oxygen Delivery Method Room Air BMI result Body Mass Index 22.3 Medications Medications Current Medications Acetaminophen (Acetaminophen 325 Mg Tablet) 650 mg PO Q6H PRN PRN Reason: Headache/Pain Mild Scale (1-3) Al Hydroxide/Mg Hydroxide (Magnesium Hydrox/Alum Hydrox 30 Ml Oral.Susp) 30 ml PO Q6H PRN PRN Reason: Heartburn/Nausea Bacitracin (Bacitracin Oint 14 Gm Tube) 1 appl TOPICAL BID PRN; Protocol PRN Reason: lesion Folic Acid (Folic Acid 1 Mg Tablet) 1 mg PO DAILY [facility] Last Admin: 04/02/23 09:21 Dose: Not Given Hydroxyzine HCl (Hydroxyzine Hcl 25 Mg Tablet) 25 mg PO Q6H PRN PRN Reason: Anxiety Magnesium Hydroxide (Milk Of Magnesia 30 Ml Oral.Susp) 30 ml PO DAILY PRN PRN Reason: Constipation Multi-Ingred Cream/Lotion/Oil/Oint (Mineral Oil/Petrolatum,White 106 Gm Tube) 1 appl TOPICAL BID PRN; Protocol PRN Reason: skin protectant Last Admin: 04/02/23 12:25 Dose: 1 appl Multivitamins/Vitamin C (Multivitamin Tablet) 1 tab PO DAILY [facility] Last Admin: 04/02/23 09:21 Dose: Not Given Nicotine (Nicotine 21 Mg Patch.Td24) 21 mg TRANSDERMA DAILY PRN PRN Reason: smoking cessation Nicotine Polacrilex (Nicotine Polacrilex 2 Mg Gum) 4 mg BUCCAL Q2H PRN PRN Reason: Nicotine Cravings Olanzapine (Olanzapine 5 Mg Tablet) 5 mg PO TID PRN PRN Reason: agitation Olanzapine (Olanzapine Odt 10 Mg Tab.Rapdis) 20 mg TRANSLINGU BEDTIME [facility] Last Admin: 04/01/23 21:41 Dose: Not Given Olanzapine (Olanzapine 10 Mg Vial) 20 mg IM DAILY PRN PRN Reason: if refuses po per court Last Admin: 04/01/23 21:20 Dose: 20 mg Thiamine HCl (Thiamine Hcl 100 Mg Tablet) 100 mg PO DAILY [facility] Last Admin: 04/02/23 09:21 Dose: Not Given Trazodone HCl (Trazodone Hcl 50 Mg Tablet) 50 mg PO BEDTIME MRX1 PRN PRN Reason: Insomnia Allergies Allergies Allergy/AdvReac Type Severity Reaction Status Date / Time penicillin V Allergy Unknown unknown Verified 03/05/23 05:16 Penicillins [PENICILLINS] Allergy Unknown RASH Verified 03/05/23 05:16 Assessment & Plan Assessment & Plan (1) Schizophrenia: Status: Acute Code(s): F20.9 - Schizophrenia, unspecified Assessment and Plan: Zyprexa dose just increased. Give IM if refusing PO per Vimal's order Plan Ms. Quiles is a 37 year-old woman with hx of schizophrenia. it appears schizophrenia largely untreated and patient has been homeless for several months. She was brought via police after aunt called them due to frostbites and increased paranoia. Pt with no insight into illness or need for treatment for both psychiatric and frostbite. We discussed risks, benefits and alternative treatment options, she declines medications- antipsychotic ones. PLAN 1. Admit to M3, sect 12b, 15 minutes checks 2. obtain collateral information 3. aftercare planning 03/09: refusing medications. frostbite, no insight into mental illness. plan to petition for commitment and medication. 03/10: refusing medications. being treated for frostbite. commitment petition paperwork completed today. 03/11 Patient continues to refuse medication civil commitment and treatment paperwork has been filed by Dr. Diallo patient seemed unable take in information regarding the 03/12: no change in presentation. refusing meds, including doxy for frostbite. intermittent acceptance of foot soaks. denies mental illness. disorganized, delusional. 03/13: no change in presentation. continue current mgmt. court thursday. 03/14: Court on Thursday03/17/23. Cont current plan. 03/15: Continue current management and treatment plan. 03/16 Patient remains manic, delusional. Very difficult with which to engage or interrupt. Patient accusing development writer of trying to get her to look at development writer's penis... Repeats over and over that she is in the ; told development writer that she believes development writer and other psychiatrists are related and are not real psychiatrists, that they all are purposely dressing the same, intention is to steal her identity... Patient says I got someone killed on the spot for stealing identity.... There was a warrant... She was an illegal citizen... Patient continues to ramble similar things over and over; says that flako killed everyone in high school in [place]... 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 Patient said she came here because of frostbite for her feet and should not be on the psychiatric unit, that she is going to get everyone in the hospital arrested and that everyone is in big trouble. Graduate Recruiter inquired why she has been refusing antibiotics that were specifically prescribed due to her frostbite to which patient replied that it is none of development writer's business. Intermittently, throughout conversation with development writer, she would pause to yell at and accuse peer who was sitting at a table next to her. Patient continued to ramble, accuse; as development writer excused himself she continued to yell at development writer down the spencer. -Continues to refuse all medications -based on presentation, chart review patient does not appear to be able to take care of herself in the community. Graduate Recruiter agrees with team plan to pursue involuntary commitment. 03/[address] for involuntary treatment. 03/[address] sect 08/23 03/19 committed to hospital. ordered olanzapine 10mg po qhs with back up IM. 03/20/23 Monitor response to olanzapine cont tx plan 2/3: remains psychotic, less agitated than prior. continue current mgmt. 2/4: remains psychotic, less agitated than prior. continue current mgmt. 2/5: psychotic, labile. continue current mgmt. 2/6: no change in presentation or plan. 03/25: no change in presentation or plan. 03/26: no change in presentation or plan. T/C addition of benzo IM with antipsychotic as pt appears manic and mood stabilizer is likely to be necessary to quell the mariola. 03/27 increase olanzapine 20mg po qhs adjusted back up IM. 03/29: Continue current regimen and plans 03/30: continue current mgmt. marginal improvement, less loud and disruptive to milieu. 03/31: marginal improvement continues. 04/01: no change in presentation. continue current mgmt. 04/02: no change in presentation. continue current mgmt. Reason for continued inpatient stay Substantial Risk for: harm to self, inability to function and rapid decompensation Time Spent With Patient Time: Total time managing care of this patient today ____ minutes.
[2023-04-02 19:30] VITALS: BP 125/70; PULSE 87; RESP 16; TEMP 36.4; O2SAT 100
[2023-04-02] MEDS: OLANZapine 10 MG VIAL 20 MG IM (22:11)
--- NOTE | 2023-04-03 22:17 | HO.PSYCHPN ---
Subjective Subjective Date of Service: 04/03/23 Reason For Visit: Psychosis Interim History: omnipresent in milieu, reactive, labile. not attending groups, delusional. getting IMs nightly. slept 6 hours in day room overnight. eating well. poor hygiene. Mental Status Exam Mental Status Exam Narrative: Appearance: disheveled, in NAD Behavior:guarded and suspicious Psychomotor: no PMA/PMR Speech: verbose, difficult to redirect, spontaneous TP: tangential TC: paranoid delusions Mood: unable to assess Affect: suspicious SI: none expressed HI: none expressed VH/AH: none expressed Insight/judgment: impaired x 2. Memory/cog: alert, oriented not to situation. Diagnostics Vital Signs (24Hr): BMI result Body Mass Index 22.3 Medications Medications Current Medications Acetaminophen (Acetaminophen 325 Mg Tablet) 650 mg PO Q6H PRN PRN Reason: Headache/Pain Mild Scale (1-3) Al Hydroxide/Mg Hydroxide (Magnesium Hydrox/Alum Hydrox 30 Ml Oral.Susp) 30 ml PO Q6H PRN PRN Reason: Heartburn/Nausea Bacitracin (Bacitracin Oint 14 Gm Tube) 1 appl TOPICAL BID PRN; Protocol PRN Reason: lesion Diazepam (Diazepam 10 Mg/2 Ml Cartridge) 10 mg IM DAILY PRN PRN Reason: refusal of lithium Folic Acid (Folic Acid 1 Mg Tablet) 1 mg PO DAILY [facility] Last Admin: 04/03/23 08:28 Dose: Not Given Hydroxyzine HCl (Hydroxyzine Hcl 25 Mg Tablet) 25 mg PO Q6H PRN PRN Reason: Anxiety Likely Carbonate (Likely Carbonate Er 300 Mg Tablet.Er) 600 mg PO BEDTIME [facility] Magnesium Hydroxide (Milk Of Magnesia 30 Ml Oral.Susp) 30 ml PO DAILY PRN PRN Reason: Constipation Multi-Ingred Cream/Lotion/Oil/Oint (Mineral Oil/Petrolatum,White 106 Gm Tube) 1 appl TOPICAL BID PRN; Protocol PRN Reason: skin protectant Last Admin: 04/02/23 12:25 Dose: 1 appl Multivitamins/Vitamin C (Multivitamin Tablet) 1 tab PO DAILY [facility] Last Admin: 04/03/23 08:28 Dose: Not Given Nicotine (Nicotine 21 Mg Patch.Td24) 21 mg TRANSDERMA DAILY PRN PRN Reason: smoking cessation Nicotine Polacrilex (Nicotine Polacrilex 2 Mg Gum) 4 mg BUCCAL Q2H PRN PRN Reason: Nicotine Cravings Olanzapine (Olanzapine 5 Mg Tablet) 5 mg PO TID PRN PRN Reason: agitation Olanzapine (Olanzapine Odt 10 Mg Tab.Rapdis) 20 mg TRANSLINGU BEDTIME [facility] Last Admin: 04/02/23 22:10 Dose: Not Given Olanzapine (Olanzapine 10 Mg Vial) 15 mg IM DAILY PRN PRN Reason: if refuses po per court Thiamine HCl (Thiamine Hcl 100 Mg Tablet) 100 mg PO DAILY [facility] Last Admin: 04/03/23 08:28 Dose: Not Given Trazodone HCl (Trazodone Hcl 50 Mg Tablet) 50 mg PO BEDTIME MRX1 PRN PRN Reason: Insomnia Allergies Allergies Allergy/AdvReac Type Severity Reaction Status Date / Time penicillin V Allergy Unknown unknown Verified 03/05/23 05:16 Penicillins [PENICILLINS] Allergy Unknown RASH Verified 03/05/23 05:16 Assessment & Plan Assessment & Plan (1) Schizophrenia: Status: Acute Code(s): F20.9 - Schizophrenia, unspecified Assessment and Plan: Zyprexa dose just increased. Give IM if refusing PO per Vimal's order Plan Ms. Quiles is a 37 year-old woman with hx of schizophrenia. it appears schizophrenia largely untreated and patient has been homeless for several months. She was brought via police after aunt called them due to frostbites and increased paranoia. Pt with no insight into illness or need for treatment for both psychiatric and frostbite. We discussed risks, benefits and alternative treatment options, she declines medications- antipsychotic ones. PLAN 1. Admit to M3, sect 12b, 15 minutes checks 2. obtain collateral information 3. aftercare planning 03/09: refusing medications. frostbite, no insight into mental illness. plan to petition for commitment and medication. 03/10: refusing medications. being treated for frostbite. commitment petition paperwork completed today. 03/11 Patient continues to refuse medication civil commitment and treatment paperwork has been filed by Dr. Diallo patient seemed unable take in information regarding the 03/12: no change in presentation. refusing meds, including doxy for frostbite. intermittent acceptance of foot soaks. denies mental illness. disorganized, delusional. 03/13: no change in presentation. continue current mgmt. court thursday. 03/14: Court on Thursday03/17/23. Cont current plan. 03/15: Continue current management and treatment plan. 03/16 Patient remains manic, delusional. Very difficult with which to engage or interrupt. Patient accusing telegraphic typewriter mechanic of trying to get her to look at telegraphic typewriter mechanic's penis... Repeats over and over that she is in the ; told telegraphic typewriter mechanic that she believes telegraphic typewriter mechanic and other psychiatrists are related and are not real psychiatrists, that they all are purposely dressing the same, intention is to steal her identity... Patient says I got someone killed on the spot for stealing identity.... There was a warrant... She was an illegal citizen... Patient continues to ramble similar things over and over; says that flako killed everyone in high school in [place]... 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 Patient said she came here because of frostbite for her feet and should not be on the psychiatric unit, that she is going to get everyone in the hospital arrested and that everyone is in big trouble. Concrete Panel Installer inquired why she has been refusing antibiotics that were specifically prescribed due to her frostbite to which patient replied that it is none of telegraphic typewriter mechanic's business. Intermittently, throughout conversation with telegraphic typewriter mechanic, she would pause to yell at and accuse peer who was sitting at a table next to her. Patient continued to ramble, accuse; as telegraphic typewriter mechanic excused himself she continued to yell at telegraphic typewriter mechanic down the spencer. -Continues to refuse all medications -based on presentation, chart review patient does not appear to be able to take care of herself in the community. Concrete Panel Installer agrees with team plan to pursue involuntary commitment. 03/[address] for involuntary treatment. 03/[address] sect 08/23 03/19 committed to hospital. ordered olanzapine 10mg po qhs with back up IM. 03/20/23 Monitor response to olanzapine cont tx plan 2/3: remains psychotic, less agitated than prior. continue current mgmt. 2/4: remains psychotic, less agitated than prior. continue current mgmt. 2/5: psychotic, labile. continue current mgmt. 2/6: no change in presentation or plan. 03/25: no change in presentation or plan. 03/26: no change in presentation or plan. T/C addition of benzo IM with antipsychotic as pt appears manic and mood stabilizer is likely to be necessary to quell the mariola. 03/27 increase olanzapine 20mg po qhs adjusted back up IM. 03/29: Continue current regimen and plans 03/30: continue current mgmt. marginal improvement, less loud and disruptive to milieu. 03/31: marginal improvement continues. 04/01: no change in presentation. continue current mgmt. 04/02: no change in presentation. continue current mgmt. 04/03: decrease HS olanzapine to 15 mg as 20 mg does not seem much better than 10 was and requires 2 shots, whereas 15 mg can be given in 1 shot. add lithium for mood stabilization with valium 10 mg IM back-up per medication order. no change in presentation. Reason for continued inpatient stay Substantial Risk for: harm to self, inability to function and rapid decompensation Time Spent With Patient Time: Total time managing care of this patient today __25__ minutes.
[2023-04-03 22:18] VITALS: BP 118/77; PULSE 76; RESP 16; TEMP 36.7; O2SAT 100
[2023-04-03] MEDS: OLANZapine 10 MG VIAL 15 MG IM (23:56)
[2023-04-03] MEDS: diazePAM 10 MG/2 ML CARTRIDGE IM (23:56)
[2023-04-04 06:00] VITALS: RESP 18
--- NOTE | 2023-04-04 10:55 | HO.PSYCHPN ---
Subjective Subjective Date of Service: 04/04/23 Reason For Visit: Psychosis Subjective Notes: Section 8 Interim History: Pt refuses to speak with this senior copywriter, despite last night asking RN to speak with prescriber about changes in medications. She states I don't need to talk with you, I don't take any medications yelling about people working here being impostors, her identity being stolen, her working in the . Review of Systems Review of Systems Yes Unobtainable due to mental status and Other (Patient hyperverbal, talking around in circles, not answering questions) Constitutional: Denies chills and Reports fever(s) Cardiovascular: Denies chest pain, Denies dyspnea and Denies dyspnea on exertion Respiratory: Denies cough, Denies dyspnea and Denies dyspnea on exertion Gastrointestinal: Denies hematochezia and Denies change in bowel habits Musculoskeletal: Denies back pain and Denies limited range of motion Denies focal weakness and Denies convulsions Psychiatric: Denies depression, Reports mood swings and Reports paranoia Mental Status Exam Mental Status Exam Narrative: Appearance: disheveled, in NAD Behavior:guarded and suspicious Psychomotor: no PMA/PMR Speech: verbose, difficult to redirect, spontaneous TP: tangential TC: paranoid delusions Mood: unable to assess Affect: suspicious SI: none expressed HI: none expressed VH/AH: none expressed Insight/judgment: impaired x 2. Memory/cog: alert, oriented not to situation. Diagnostics Vital Signs (24Hr): Vital Signs - 24 hr 04/03/23 22:18 Temperature 98.0 F Pulse Rate 76 Respiratory Rate 16 Blood Pressure 118/77 Pulse Oximetry 100 Oxygen Delivery Method Room Air BMI result Body Mass Index 22.3 Medications Medications Current Medications Acetaminophen (Acetaminophen 325 Mg Tablet) 650 mg PO Q6H PRN PRN Reason: Headache/Pain Mild Scale (1-3) Al Hydroxide/Mg Hydroxide (Magnesium Hydrox/Alum Hydrox 30 Ml Oral.Susp) 30 ml PO Q6H PRN PRN Reason: Heartburn/Nausea Bacitracin (Bacitracin Oint 14 Gm Tube) 1 appl TOPICAL BID PRN; Protocol PRN Reason: lesion Diazepam (Diazepam 10 Mg/2 Ml Cartridge) 10 mg IM DAILY PRN PRN Reason: refusal of lithium Last Admin: 04/03/23 23:56 Dose: 10 mg Folic Acid (Folic Acid 1 Mg Tablet) 1 mg PO DAILY [facility] Last Admin: 04/04/23 09:27 Dose: Not Given Hydroxyzine HCl (Hydroxyzine Hcl 25 Mg Tablet) 25 mg PO Q6H PRN PRN Reason: Anxiety [place] Carbonate ([place] Carbonate Er 300 Mg Tablet.Er) 600 mg PO BEDTIME [facility] Last Admin: 04/03/23 23:54 Dose: Not Given Magnesium Hydroxide (Milk Of Magnesia 30 Ml Oral.Susp) 30 ml PO DAILY PRN PRN Reason: Constipation Multi-Ingred Cream/Lotion/Oil/Oint (Mineral Oil/Petrolatum,White 106 Gm Tube) 1 appl TOPICAL BID PRN; Protocol PRN Reason: skin protectant Last Admin: 04/02/23 12:25 Dose: 1 appl Multivitamins/Vitamin C (Multivitamin Tablet) 1 tab PO DAILY [facility] Last Admin: 04/04/23 09:27 Dose: Not Given Nicotine (Nicotine 21 Mg Patch.Td24) 21 mg TRANSDERMA DAILY PRN PRN Reason: smoking cessation Nicotine Polacrilex (Nicotine Polacrilex 2 Mg Gum) 4 mg BUCCAL Q2H PRN PRN Reason: Nicotine Cravings Olanzapine (Olanzapine 5 Mg Tablet) 5 mg PO TID PRN PRN Reason: agitation Olanzapine (Olanzapine Odt 10 Mg Tab.Rapdis) 20 mg TRANSLINGU BEDTIME [facility] Last Admin: 04/03/23 23:54 Dose: Not Given Olanzapine (Olanzapine 10 Mg Vial) 15 mg IM DAILY PRN PRN Reason: if refuses po per court Last Admin: 04/03/23 23:56 Dose: 15 mg Thiamine HCl (Thiamine Hcl 100 Mg Tablet) 100 mg PO DAILY [facility] Last Admin: 04/04/23 09:27 Dose: Not Given Trazodone HCl (Trazodone Hcl 50 Mg Tablet) 50 mg PO BEDTIME MRX1 PRN PRN Reason: Insomnia Allergies Allergies Allergy/AdvReac Type Severity Reaction Status Date / Time penicillin V Allergy Unknown unknown Verified 03/05/23 05:16 Penicillins [PENICILLINS] Allergy Unknown RASH Verified 03/05/23 05:16 Assessment & Plan Assessment & Plan (1) Schizophrenia: Status: Acute Code(s): F20.9 - Schizophrenia, unspecified Assessment and Plan: Zyprexa dose just increased. Give IM if refusing PO per Vimal's order Plan Ms. Quiles is a 37 year-old woman with hx of schizophrenia. it appears schizophrenia largely untreated and patient has been homeless for several months. She was brought via police after aunt called them due to frostbites and increased paranoia. Pt with no insight into illness or need for treatment for both psychiatric and frostbite. We discussed risks, benefits and alternative treatment options, she declines medications- antipsychotic ones. PLAN 1. Admit to M3, sect 12b, 15 minutes checks 2. obtain collateral information 3. aftercare planning 03/09: refusing medications. frostbite, no insight into mental illness. plan to petition for commitment and medication. 03/10: refusing medications. being treated for frostbite. commitment petition paperwork completed today. 03/11 Patient continues to refuse medication civil commitment and treatment paperwork has been filed by Dr. Diallo patient seemed unable take in information regarding the 03/12: no change in presentation. refusing meds, including doxy for frostbite. intermittent acceptance of foot soaks. denies mental illness. disorganized, delusional. 03/13: no change in presentation. continue current mgmt. court thursday. 03/14: Court on Thursday03/17/23. Cont current plan. 03/15: Continue current management and treatment plan. 03/16 Patient remains manic, delusional. Very difficult with which to engage or interrupt. Patient accusing senior copywriter of trying to get her to look at senior copywriter's penis... Repeats over and over that she is in the ; told senior copywriter that she believes senior copywriter and other psychiatrists are related and are not real psychiatrists, that they all are purposely dressing the same, intention is to steal her identity... Patient says I got someone killed on the spot for stealing identity.... There was a warrant... She was an illegal citizen... Patient continues to ramble similar things over and over; says that flako killed everyone in high school in [place]... 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 Patient said she came here because of frostbite for her feet and should not be on the psychiatric unit, that she is going to get everyone in the hospital arrested and that everyone is in big trouble. Blow Moulding Machine Operator inquired why she has been refusing antibiotics that were specifically prescribed due to her frostbite to which patient replied that it is none of senior copywriter's business. Intermittently, throughout conversation with senior copywriter, she would pause to yell at and accuse peer who was sitting at a table next to her. Patient continued to ramble, accuse; as senior copywriter excused himself she continued to yell at senior copywriter down the spencer. -Continues to refuse all medications -based on presentation, chart review patient does not appear to be able to take care of herself in the community. Blow Moulding Machine Operator agrees with team plan to pursue involuntary commitment. 03/[address] for involuntary treatment. 03/[address] sect 08/23 03/19 committed to hospital. ordered olanzapine 10mg po qhs with back up IM. 03/20/23 Monitor response to olanzapine cont tx plan 03/21: remains psychotic, less agitated than prior. continue current mgmt. 4: remains psychotic, less agitated than prior. continue current mgmt. 03/23: psychotic, labile. continue current mgmt. 03/24: no change in presentation or plan. 03/25: no change in presentation or plan. 03/26: no change in presentation or plan. T/C addition of benzo IM with antipsychotic as pt appears manic and mood stabilizer is likely to be necessary to quell the mariola. 03/27 increase olanzapine 20mg po qhs adjusted back up IM. 03/29: Continue current regimen and plans 03/30: continue current mgmt. marginal improvement, less loud and disruptive to milieu. 03/31: marginal improvement continues. 04/01: no change in presentation. continue current mgmt. 04/02: no change in presentation. continue current mgmt. 16: decrease HS olanzapine to 15 mg as 20 mg does not seem much better than 10 was and requires 2 shots, whereas 15 mg can be given in 1 shot. add lithium for mood stabilization with valium 10 mg IM back-up per medication order. no change in presentation. 04/04 will change back IM to haldol. Reason for continued inpatient stay Substantial Risk for: inability to function Time Spent With Patient Time: Total time managing care of this patient today ____ minutes.
[2023-04-04 19:35] VITALS: BP 134/66; PULSE 82; RESP 16; TEMP 36.4; O2SAT 100
[2023-04-04] MEDS: OLANZapine 10 MG VIAL 15 MG IM (23:51)
[2023-04-04] MEDS: diazePAM 10 MG/2 ML CARTRIDGE IM (23:52)
[2023-04-05 20:00] VITALS: BP 126/75; PULSE 103; RESP 16; TEMP 36.8; O2SAT 100
[2023-04-05] MEDS: diazePAM 10 MG/2 ML CARTRIDGE IM (22:54)
[2023-04-05] MEDS: Haloperidol Lactate 5 MG/ML VIAL IM (22:54)
[2023-04-06] MEDS: Mineral Oil/Petrolatum,White 106 GM Tube 1 APPL TOPICAL (11:44)
[2023-04-06 20:10] VITALS: BP 120/75; PULSE 93; RESP 16; TEMP 36.7; O2SAT 100
--- NOTE | 2023-04-06 20:29 | HO.PSYCHPN ---
Subjective Subjective Date of Service: 04/05/23 Reason For Visit: Psychosis Interim History: Pt refuses to speak with this writer technical publications, despite last night asking RN to speak with prescriber about changes in medications. She states I don't need to talk with you, I don't take any medications yelling about people working here being impostors, her identity being stolen, her working in the . Review of Systems Review of Systems Yes Unobtainable due to mental status and Other (Patient hyperverbal, talking around in circles, not answering questions) Constitutional: Denies chills and Reports fever(s) Cardiovascular: Denies chest pain, Denies dyspnea and Denies dyspnea on exertion Respiratory: Denies cough, Denies dyspnea and Denies dyspnea on exertion Gastrointestinal: Denies hematochezia and Denies change in bowel habits Musculoskeletal: Denies back pain and Denies limited range of motion Denies focal weakness and Denies convulsions Psychiatric: Denies depression, Reports mood swings and Reports paranoia Mental Status Exam Mental Status Exam Narrative: Appearance: disheveled, in NAD Behavior:guarded and suspicious Psychomotor: no PMA/PMR Speech: verbose, difficult to redirect, spontaneous TP: tangential TC: paranoid delusions Mood: unable to assess Affect: suspicious SI: none expressed HI: none expressed VH/AH: none expressed Insight/judgment: impaired x 2. Memory/cog: alert, oriented not to situation. Diagnostics Vital Signs (24Hr): BMI result Body Mass Index 22.3 Medications Medications Current Medications Acetaminophen (Acetaminophen 325 Mg Tablet) 650 mg PO Q6H PRN PRN Reason: Headache/Pain Mild Scale (1-3) Al Hydroxide/Mg Hydroxide (Magnesium Hydrox/Alum Hydrox 30 Ml Oral.Susp) 30 ml PO Q6H PRN PRN Reason: Heartburn/Nausea Bacitracin (Bacitracin Oint 14 Gm Tube) 1 appl TOPICAL BID PRN; Protocol PRN Reason: lesion Diazepam (Diazepam 10 Mg/2 Ml Cartridge) 10 mg IM DAILY PRN PRN Reason: refusal of lithium Last Admin: 04/05/23 22:54 Dose: 10 mg Folic Acid (Folic Acid 1 Mg Tablet) 1 mg PO DAILY [facility] Last Admin: 04/06/23 08:58 Dose: Not Given Haloperidol Lactate (Haloperidol Lactate 5 Mg/Ml Vial) 5 mg IM DAILY PRN PRN Reason: if refuses oral antipsychotic per court Last Admin: 04/05/23 22:54 Dose: 5 mg Hydroxyzine HCl (Hydroxyzine Hcl 25 Mg Tablet) 25 mg PO Q6H PRN PRN Reason: Anxiety [place] Carbonate ([place] Carbonate Er 300 Mg Tablet.Er) 600 mg PO BEDTIME [facility] Last Admin: 04/05/23 22:03 Dose: Not Given Magnesium Hydroxide (Milk Of Magnesia 30 Ml Oral.Susp) 30 ml PO DAILY PRN PRN Reason: Constipation Multi-Ingred Cream/Lotion/Oil/Oint (Mineral Oil/Petrolatum,White 106 Gm Tube) 1 appl TOPICAL BID PRN; Protocol PRN Reason: skin protectant Last Admin: 04/06/23 11:44 Dose: 1 appl Multivitamins/Vitamin C (Multivitamin Tablet) 1 tab PO DAILY [facility] Last Admin: 04/06/23 08:58 Dose: Not Given Nicotine (Nicotine 21 Mg Patch.Td24) 21 mg TRANSDERMA DAILY PRN PRN Reason: smoking cessation Nicotine Polacrilex (Nicotine Polacrilex 2 Mg Gum) 4 mg BUCCAL Q2H PRN PRN Reason: Nicotine Cravings Olanzapine (Olanzapine 5 Mg Tablet) 5 mg PO TID PRN PRN Reason: agitation Olanzapine (Olanzapine Odt 10 Mg Tab.Rapdis) 20 mg TRANSLINGU BEDTIME [facility] Last Admin: 04/05/23 22:04 Dose: Not Given Thiamine HCl (Thiamine Hcl 100 Mg Tablet) 100 mg PO DAILY [facility] Last Admin: 04/06/23 08:58 Dose: Not Given Trazodone HCl (Trazodone Hcl 50 Mg Tablet) 50 mg PO BEDTIME MRX1 PRN PRN Reason: Insomnia Allergies Allergies Allergy/AdvReac Type Severity Reaction Status Date / Time penicillin V Allergy Unknown unknown Verified 03/05/23 05:16 Penicillins [PENICILLINS] Allergy Unknown RASH Verified 03/05/23 05:16 Assessment & Plan Assessment & Plan (1) Schizophrenia: Status: Acute Code(s): F20.9 - Schizophrenia, unspecified Assessment and Plan: Zyprexa dose just increased. Give IM if refusing PO per Vimal's order Plan Ms. Quiles is a 37 year-old woman with hx of schizophrenia. it appears schizophrenia largely untreated and patient has been homeless for several months. She was brought via police after aunt called them due to frostbites and increased paranoia. Pt with no insight into illness or need for treatment for both psychiatric and frostbite. We discussed risks, benefits and alternative treatment options, she declines medications- antipsychotic ones. PLAN 1. Admit to M3, sect 12b, 15 minutes checks 2. obtain collateral information 3. aftercare planning 03/09: refusing medications. frostbite, no insight into mental illness. plan to petition for commitment and medication. 03/10: refusing medications. being treated for frostbite. commitment petition paperwork completed today. 03/11 Patient continues to refuse medication civil commitment and treatment paperwork has been filed by Dr. Diallo patient seemed unable take in information regarding the 03/12: no change in presentation. refusing meds, including doxy for frostbite. intermittent acceptance of foot soaks. denies mental illness. disorganized, delusional. 03/13: no change in presentation. continue current mgmt. court thursday. 03/14: Court on Thursday03/17/23. Cont current plan. 03/15: Continue current management and treatment plan. 03/16 Patient remains manic, delusional. Very difficult with which to engage or interrupt. Patient accusing writer technical publications of trying to get her to look at writer technical publications's penis... Repeats over and over that she is in the ; told writer technical publications that she believes writer technical publications and other psychiatrists are related and are not real psychiatrists, that they all are purposely dressing the same, intention is to steal her identity... Patient says I got someone killed on the spot for stealing identity.... There was a warrant... She was an illegal citizen... Patient continues to ramble similar things over and over; says that crystal killed everyone in high school in [place]... 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 Patient said she came here because of frostbite for her feet and should not be on the psychiatric unit, that she is going to get everyone in the hospital arrested and that everyone is in big trouble. Video Library Assistant inquired why she has been refusing antibiotics that were specifically prescribed due to her frostbite to which patient replied that it is none of writer technical publications's business. Intermittently, throughout conversation with writer technical publications, she would pause to yell at and accuse peer who was sitting at a table next to her. Patient continued to ramble, accuse; as writer technical publications excused himself she continued to yell at writer technical publications down the spencer. -Continues to refuse all medications -based on presentation, chart review patient does not appear to be able to take care of herself in the community. Video Library Assistant agrees with team plan to pursue involuntary commitment. 03/[address] for involuntary treatment. 03/[address] sect 08/23 03/19 committed to hospital. ordered olanzapine 10mg po qhs with back up IM. 03/20/23 Monitor response to olanzapine cont tx plan 03/21: remains psychotic, less agitated than prior. continue current mgmt. 03/22: remains psychotic, less agitated than prior. continue current mgmt. 03/23: psychotic, labile. continue current mgmt. 03/24: no change in presentation or plan. 03/25: no change in presentation or plan. 03/26: no change in presentation or plan. T/C addition of benzo IM with antipsychotic as pt appears manic and mood stabilizer is likely to be necessary to quell the mariola. 03/27 increase olanzapine 20mg po qhs adjusted back up IM. 03/29: Continue current regimen and plans 03/30: continue current mgmt. marginal improvement, less loud and disruptive to milieu. 03/31: marginal improvement continues. 04/01: no change in presentation. continue current mgmt. 04/02: no change in presentation. continue current mgmt. 04/03: decrease HS olanzapine to 15 mg as 20 mg does not seem much better than 10 was and requires 2 shots, whereas 15 mg can be given in 1 shot. add lithium for mood stabilization with valium 10 mg IM back-up per medication order. no change in presentation. 04/04 switched back up IM to haldol 5mg IM Reason for continued inpatient stay Substantial Risk for: inability to function Time Spent With Patient Time: Total time managing care of this patient today ____ minutes.
--- NOTE | 2023-04-06 20:29 | HO.PSYCHPN ---
Subjective Subjective Date of Service: 04/06/23 Reason For Visit: Psychosis Interim History: Pt refuses to speak with this abstract writer, despite last night asking RN to speak with prescriber about changes in medications. She states I don't need to talk with you, I don't take any medications yelling about people working here being impostors, her identity being stolen, her working in the . Review of Systems Review of Systems Yes Unobtainable due to mental status and Other (Patient hyperverbal, talking around in circles, not answering questions) Constitutional: Denies chills and Reports fever(s) Cardiovascular: Denies chest pain, Denies dyspnea and Denies dyspnea on exertion Respiratory: Denies cough, Denies dyspnea and Denies dyspnea on exertion Gastrointestinal: Denies hematochezia and Denies change in bowel habits Musculoskeletal: Denies back pain and Denies limited range of motion Denies focal weakness and Denies convulsions Psychiatric: Denies depression, Reports mood swings and Reports paranoia Mental Status Exam Mental Status Exam Narrative: Appearance: disheveled, in NAD Behavior:guarded and suspicious Psychomotor: no PMA/PMR Speech: verbose, difficult to redirect, spontaneous TP: tangential TC: paranoid delusions Mood: unable to assess Affect: suspicious SI: none expressed HI: none expressed VH/AH: none expressed Insight/judgment: impaired x 2. Memory/cog: alert, oriented not to situation. Diagnostics Vital Signs (24Hr): BMI result Body Mass Index 22.3 Medications Medications Current Medications Acetaminophen (Acetaminophen 325 Mg Tablet) 650 mg PO Q6H PRN PRN Reason: Headache/Pain Mild Scale (1-3) Al Hydroxide/Mg Hydroxide (Magnesium Hydrox/Alum Hydrox 30 Ml Oral.Susp) 30 ml PO Q6H PRN PRN Reason: Heartburn/Nausea Bacitracin (Bacitracin Oint 14 Gm Tube) 1 appl TOPICAL BID PRN; Protocol PRN Reason: lesion Diazepam (Diazepam 10 Mg/2 Ml Cartridge) 10 mg IM DAILY PRN PRN Reason: refusal of lithium Last Admin: 04/05/23 22:54 Dose: 10 mg Folic Acid (Folic Acid 1 Mg Tablet) 1 mg PO DAILY [facility] Last Admin: 04/06/23 08:58 Dose: Not Given Haloperidol Lactate (Haloperidol Lactate 5 Mg/Ml Vial) 5 mg IM DAILY PRN PRN Reason: if refuses oral antipsychotic per court Last Admin: 04/05/23 22:54 Dose: 5 mg Hydroxyzine HCl (Hydroxyzine Hcl 25 Mg Tablet) 25 mg PO Q6H PRN PRN Reason: Anxiety [place] Carbonate ([place] Carbonate Er 300 Mg Tablet.Er) 600 mg PO BEDTIME [facility] Last Admin: 04/05/23 22:03 Dose: Not Given Magnesium Hydroxide (Milk Of Magnesia 30 Ml Oral.Susp) 30 ml PO DAILY PRN PRN Reason: Constipation Multi-Ingred Cream/Lotion/Oil/Oint (Mineral Oil/Petrolatum,White 106 Gm Tube) 1 appl TOPICAL BID PRN; Protocol PRN Reason: skin protectant Last Admin: 04/06/23 11:44 Dose: 1 appl Multivitamins/Vitamin C (Multivitamin Tablet) 1 tab PO DAILY [facility] Last Admin: 04/06/23 08:58 Dose: Not Given Nicotine (Nicotine 21 Mg Patch.Td24) 21 mg TRANSDERMA DAILY PRN PRN Reason: smoking cessation Nicotine Polacrilex (Nicotine Polacrilex 2 Mg Gum) 4 mg BUCCAL Q2H PRN PRN Reason: Nicotine Cravings Olanzapine (Olanzapine 5 Mg Tablet) 5 mg PO TID PRN PRN Reason: agitation Olanzapine (Olanzapine Odt 10 Mg Tab.Rapdis) 20 mg TRANSLINGU BEDTIME [facility] Last Admin: 04/05/23 22:04 Dose: Not Given Thiamine HCl (Thiamine Hcl 100 Mg Tablet) 100 mg PO DAILY [facility] Last Admin: 04/06/23 08:58 Dose: Not Given Trazodone HCl (Trazodone Hcl 50 Mg Tablet) 50 mg PO BEDTIME MRX1 PRN PRN Reason: Insomnia Allergies Allergies Allergy/AdvReac Type Severity Reaction Status Date / Time penicillin V Allergy Unknown unknown Verified 03/05/23 05:16 Penicillins [PENICILLINS] Allergy Unknown RASH Verified 03/05/23 05:16 Assessment & Plan Assessment & Plan (1) Schizophrenia: Status: Acute Code(s): F20.9 - Schizophrenia, unspecified Assessment and Plan: Zyprexa dose just increased. Give IM if refusing PO per Vimal's order Plan Ms. Quiles is a 37 year-old woman with hx of schizophrenia. it appears schizophrenia largely untreated and patient has been homeless for several months. She was brought via police after aunt called them due to frostbites and increased paranoia. Pt with no insight into illness or need for treatment for both psychiatric and frostbite. We discussed risks, benefits and alternative treatment options, she declines medications- antipsychotic ones. PLAN 1. Admit to M3, sect 12b, 15 minutes checks 2. obtain collateral information 3. aftercare planning 03/09: refusing medications. frostbite, no insight into mental illness. plan to petition for commitment and medication. 03/10: refusing medications. being treated for frostbite. commitment petition paperwork completed today. 03/11 Patient continues to refuse medication civil commitment and treatment paperwork has been filed by Dr. Diallo patient seemed unable take in information regarding the 03/12: no change in presentation. refusing meds, including doxy for frostbite. intermittent acceptance of foot soaks. denies mental illness. disorganized, delusional. 03/13: no change in presentation. continue current mgmt. court thursday. 03/14: Court on Thursday03/17/23. Cont current plan. 03/15: Continue current management and treatment plan. 03/16 Patient remains manic, delusional. Very difficult with which to engage or interrupt. Patient accusing abstract writer of trying to get her to look at abstract writer's penis... Repeats over and over that she is in the ; told abstract writer that she believes abstract writer and other psychiatrists are related and are not real psychiatrists, that they all are purposely dressing the same, intention is to steal her identity... Patient says I got someone killed on the spot for stealing identity.... There was a warrant... She was an illegal citizen... Patient continues to ramble similar things over and over; says that crystal killed everyone in high school in [place]... 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 Patient said she came here because of frostbite for her feet and should not be on the psychiatric unit, that she is going to get everyone in the hospital arrested and that everyone is in big trouble. Pipe Bender inquired why she has been refusing antibiotics that were specifically prescribed due to her frostbite to which patient replied that it is none of abstract writer's business. Intermittently, throughout conversation with abstract writer, she would pause to yell at and accuse peer who was sitting at a table next to her. Patient continued to ramble, accuse; as abstract writer excused himself she continued to yell at abstract writer down the specner. -Continues to refuse all medications -based on presentation, chart review patient does not appear to be able to take care of herself in the community. Pipe Bender agrees with team plan to pursue involuntary commitment. 03/[address] for involuntary treatment. 03/[address] sect 08/23 03/19 committed to hospital. ordered olanzapine 10mg po qhs with back up IM. 03/20/23 Monitor response to olanzapine cont tx plan 03/21: remains psychotic, less agitated than prior. continue current mgmt. 03/22: remains psychotic, less agitated than prior. continue current mgmt. 03/23: psychotic, labile. continue current mgmt. 03/24: no change in presentation or plan. 03/25: no change in presentation or plan. 03/26: no change in presentation or plan. T/C addition of benzo IM with antipsychotic as pt appears manic and mood stabilizer is likely to be necessary to quell the mariola. 03/27 increase olanzapine 20mg po qhs adjusted back up IM. 03/29: Continue current regimen and plans 03/30: continue current mgmt. marginal improvement, less loud and disruptive to milieu. 03/31: marginal improvement continues. 04/01: no change in presentation. continue current mgmt. 04/02: no change in presentation. continue current mgmt. 04/03: decrease HS olanzapine to 15 mg as 20 mg does not seem much better than 10 was and requires 2 shots, whereas 15 mg can be given in 1 shot. add lithium for mood stabilization with valium 10 mg IM back-up per medication order. no change in presentation. 04/04 continue tx switched back up IM haldol 5mg 04/05 continue tx 04/06 continue tx. Reason for continued inpatient stay Substantial Risk for: inability to function Time Spent With Patient Time: Total time managing care of this patient today ____ minutes.
[2023-04-06] MEDS: diazePAM 10 MG/2 ML CARTRIDGE IM (22:03)
[2023-04-06] MEDS: Haloperidol Lactate 5 MG/ML VIAL IM (22:05)
[2023-04-07 06:00] VITALS: BP 133/76; PULSE 92; RESP 18; TEMP 36.8; O2SAT 99
[2023-04-07] MEDS: Mineral Oil/Petrolatum,White 106 GM Tube 1 APPL TOPICAL ×2 (12:02→17:45)
--- NOTE | 2023-04-07 12:35 | P.PNPSI_ITS ---
Subjective Subjective Date of Service: 04/07/23 Reason For Visit: Psychosis Interim History: seated in milieu, hair down and washed. looks away from MD and hold blanket to cover side of her face. does not respond to MD's attempts to speak with her until after MD begins to take his leave. pt says, i told you you don't have an appointment to speak with me. why don't you go talk to [male peer]? i know you two are related. per staff, combed hair. brighter. sleeping in milieu. refused morning meds. penelope got IM meds without resistance. pleasant, calm, cooperative, social. Mental Status Exam Mental Status Exam Narrative: Appearance: disheveled, in NAD Behavior:guarded and suspicious Psychomotor: no PMA/PMR Speech: rapid, decr amount TP: tangential TC: paranoid delusions Mood: unable to assess Affect: suspicious SI: none expressed HI: none expressed VH/AH: none expressed Insight/judgment: impaired x 2. Memory/cog: alert, oriented not to situation. Diagnostics Vital Signs (24Hr): Vital Signs - 24 hr 04/06/23 20:10 Temperature 98.1 F Pulse Rate 93 Respiratory Rate 16 Blood Pressure 120/75 Pulse Oximetry 100 Oxygen Delivery Method Room Air BMI result Body Mass Index 22.3 Medications Medications Current Medications Acetaminophen (Acetaminophen 325 Mg Tablet) 650 mg PO Q6H PRN PRN Reason: Headache/Pain Mild Scale (1-3) Al Hydroxide/Mg Hydroxide (Magnesium Hydrox/Alum Hydrox 30 Ml Oral.Susp) 30 ml PO Q6H PRN PRN Reason: Heartburn/Nausea Bacitracin (Bacitracin Oint 14 Gm Tube) 1 appl TOPICAL BID PRN; Protocol PRN Reason: lesion Diazepam (Diazepam 10 Mg/2 Ml Cartridge) 10 mg IM DAILY PRN PRN Reason: refusal of lithium Last Admin: 04/06/23 22:03 Dose: 10 mg Folic Acid (Folic Acid 1 Mg Tablet) 1 mg PO DAILY [facility] Last Admin: 04/07/23 08:35 Dose: Not Given Haloperidol Lactate (Haloperidol Lactate 5 Mg/Ml Vial) 5 mg IM DAILY PRN PRN Reason: if refuses oral antipsychotic per court Last Admin: 04/06/23 22:05 Dose: 5 mg Hydroxyzine HCl (Hydroxyzine Hcl 25 Mg Tablet) 25 mg PO Q6H PRN PRN Reason: Anxiety [place] Carbonate ([place] Carbonate Er 300 Mg Tablet.Er) 600 mg PO BEDTIME [facility] Last Admin: 04/06/23 22:12 Dose: Not Given Magnesium Hydroxide (Milk Of Magnesia 30 Ml Oral.Susp) 30 ml PO DAILY PRN PRN Reason: Constipation Multi-Ingred Cream/Lotion/Oil/Oint (Mineral Oil/Petrolatum,White 106 Gm Tube) 1 appl TOPICAL BID PRN; Protocol PRN Reason: skin protectant Last Admin: 04/07/23 12:02 Dose: 1 appl Multivitamins/Vitamin C (Multivitamin Tablet) 1 tab PO DAILY [facility] Last Admin: 04/07/23 08:35 Dose: Not Given Nicotine (Nicotine 21 Mg Patch.Td24) 21 mg TRANSDERMA DAILY PRN PRN Reason: smoking cessation Nicotine Polacrilex (Nicotine Polacrilex 2 Mg Gum) 4 mg BUCCAL Q2H PRN PRN Reason: Nicotine Cravings Olanzapine (Olanzapine 5 Mg Tablet) 5 mg PO TID PRN PRN Reason: agitation Olanzapine (Olanzapine Odt 10 Mg Tab.Rapdis) 20 mg TRANSLINGU BEDTIME [facility] Last Admin: 04/06/23 22:12 Dose: Not Given Thiamine HCl (Thiamine Hcl 100 Mg Tablet) 100 mg PO DAILY [facility] Last Admin: 04/07/23 08:35 Dose: Not Given Trazodone HCl (Trazodone Hcl 50 Mg Tablet) 50 mg PO BEDTIME MRX1 PRN PRN Reason: Insomnia Allergies Allergies Allergy/AdvReac Type Severity Reaction Status Date / Time penicillin V Allergy Unknown unknown Verified 03/05/23 05:16 Penicillins [PENICILLINS] Allergy Unknown RASH Verified 03/05/23 05:16 Assessment & Plan Assessment & Plan (1) Schizophrenia: Status: Acute Code(s): F20.9 - Schizophrenia, unspecified Assessment and Plan: Zyprexa dose just increased. Give IM if refusing PO per Vimal's order Plan Ms. Quiles is a 37 year-old woman with hx of schizophrenia. it appears schizophrenia largely untreated and patient has been homeless for several months. She was brought via police after aunt called them due to frostbites and increased paranoia. Pt with no insight into illness or need for treatment for both psychiatric and frostbite. We discussed risks, benefits and alternative treatment options, she declines medications- antipsychotic ones. PLAN 1. Admit to M3, sect 12b, 15 minutes checks 2. obtain collateral information 3. aftercare planning 03/09: refusing medications. frostbite, no insight into mental illness. plan to petition for commitment and medication. 03/10: refusing medications. being treated for frostbite. commitment petition paperwork completed today. 03/11 Patient continues to refuse medication civil commitment and treatment paperwork has been filed by Dr. Diallo patient seemed unable take in information regarding the 03/12: no change in presentation. refusing meds, including doxy for frostbite. intermittent acceptance of foot soaks. denies mental illness. disorganized, delusional. 03/13: no change in presentation. continue current mgmt. court thursday. 03/14: Court on Thursday03/17/23. Cont current plan. 03/15: Continue current management and treatment plan. 03/16 Patient remains manic, delusional. Very difficult with which to engage or interrupt. Patient accusing va underwriter of trying to get her to look at va underwriter's penis... Repeats over and over that she is in the ; told va underwriter that she believes va underwriter and other psychiatrists are related and are not real psychiatrists, that they all are purposely dressing the same, intention is to steal her identity... Patient says I got someone killed on the spot for stealing identity.... There was a warrant... She was an illegal citizen... Patient continues to ramble similar things over and over; says that crystal killed everyone in high school in [place]... 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 Patient said she came here because of frostbite for her feet and should not be on the psychiatric unit, that she is going to get everyone in the hospital arrested and that everyone is in big trouble. Assistant Department Manager inquired why she has been refusing antibiotics that were specifically prescribed due to her frostbite to which patient replied that it is none of va underwriter's business. Intermittently, throughout conversation with va underwriter, she would pause to yell at and accuse peer who was sitting at a table next to her. Patient continued to ramble, accuse; as va underwriter excused himself she continued to yell at va underwriter down the spencer. -Continues to refuse all medications -based on presentation, chart review patient does not appear to be able to take care of herself in the community. Assistant Department Manager agrees with team plan to pursue involuntary commitment. 03/[address] for involuntary treatment. 03/[address] sect 08/23 03/19 committed to hospital. ordered olanzapine 10mg po qhs with back up IM. 03/20/23 Monitor response to olanzapine cont tx plan 03/21: remains psychotic, less agitated than prior. continue current mgmt. 03/22: remains psychotic, less agitated than prior. continue current mgmt. 03/23: psychotic, labile. continue current mgmt. 03/24: no change in presentation or plan. 03/25: no change in presentation or plan. 03/26: no change in presentation or plan. T/C addition of benzo IM with antipsychotic as pt appears manic and mood stabilizer is likely to be necessary to quell the mariola. 03/27 increase olanzapine 20mg po qhs adjusted back up IM. 03/29: Continue current regimen and plans 03/30: continue current mgmt. marginal improvement, less loud and disruptive to milieu. 03/31: marginal improvement continues. 04/01: no change in presentation. continue current mgmt. 04/02: no change in presentation. continue current mgmt. 04/03: decrease HS olanzapine to 15 mg as 20 mg does not seem much better than 10 was and requires 2 shots, whereas 15 mg can be given in 1 shot. add lithium for mood stabilization with valium 10 mg IM back-up per medication order. no change in presentation. 04/04 continue tx switched back up IM haldol 5mg 04/05 continue tx 04/06 continue tx. 04/07: seems markedly improved since the addition of valium and switch to haldol. continue current mgmt. Reason for continued inpatient stay Substantial Risk for: harm to self, inability to function and rapid decompensation Time Spent With Patient Time: Total time managing care of this patient today _25___ minutes.
[2023-04-07 22:00] VITALS: BP 134/62; PULSE 91; RESP 16; TEMP 37.1; O2SAT 99
[2023-04-07] MEDS: Haloperidol Lactate 5 MG/ML VIAL IM (22:22)
[2023-04-07] MEDS: diazePAM 10 MG/2 ML CARTRIDGE IM (22:22)
--- NOTE | 2023-04-08 14:00 | HO.PSYCHPN ---
Subjective Subjective Date of Service: 04/08/23 Reason For Visit: Psychosis Interim History: on phone in milieu. declined interview. per staff, affect improving. doing ADLs. visible, no groups. talking about identity theft, girls with boys' haircuts who murder people. accepted IMs last night uneventfully. Mental Status Exam Mental Status Exam Narrative: Appearance: disheveled, in NAD Behavior:guarded and suspicious Psychomotor: no PMA/PMR Speech: rapid, decr amount TP: tangential TC: paranoid delusions Mood: unable to assess Affect: suspicious SI: none expressed HI: none expressed VH/AH: none expressed Insight/judgment: impaired x 2. Memory/cog: alert, oriented not to situation. Diagnostics Vital Signs (24Hr): Vital Signs - 24 hr 04/07/23 22:00 Temperature 98.8 F Pulse Rate 91 Respiratory Rate 16 Blood Pressure 134/62 Pulse Oximetry 99 Oxygen Delivery Method Room Air BMI result Body Mass Index 22.3 Medications Medications Current Medications Acetaminophen (Acetaminophen 325 Mg Tablet) 650 mg PO Q6H PRN PRN Reason: Headache/Pain Mild Scale (1-3) Al Hydroxide/Mg Hydroxide (Magnesium Hydrox/Alum Hydrox 30 Ml Oral.Susp) 30 ml PO Q6H PRN PRN Reason: Heartburn/Nausea Bacitracin (Bacitracin Oint 14 Gm Tube) 1 appl TOPICAL BID PRN; Protocol PRN Reason: lesion Diazepam (Diazepam 10 Mg/2 Ml Cartridge) 10 mg IM DAILY PRN PRN Reason: refusal of lithium Last Admin: 04/07/23 22:22 Dose: 10 mg Folic Acid (Folic Acid 1 Mg Tablet) 1 mg PO DAILY [facility] Last Admin: 04/08/23 08:37 Dose: Not Given Haloperidol (Haloperidol 5 Mg Tablet) 10 mg PO BEDTIME [facility] Last Admin: 04/07/23 22:29 Dose: Not Given Haloperidol Lactate (Haloperidol Lactate 5 Mg/Ml Vial) 5 mg IM DAILY PRN PRN Reason: if refuses oral antipsychotic per court Last Admin: 04/07/23 22:22 Dose: 5 mg Hydroxyzine HCl (Hydroxyzine Hcl 25 Mg Tablet) 25 mg PO Q6H PRN PRN Reason: Anxiety [place] Carbonate ([place] Carbonate Er 300 Mg Tablet.Er) 600 mg PO BEDTIME [facility] Last Admin: 04/07/23 22:29 Dose: Not Given Magnesium Hydroxide (Milk Of Magnesia 30 Ml Oral.Susp) 30 ml PO DAILY PRN PRN Reason: Constipation Multi-Ingred Cream/Lotion/Oil/Oint (Mineral Oil/Petrolatum,White 106 Gm Tube) 1 appl TOPICAL BID PRN; Protocol PRN Reason: skin protectant Last Admin: 04/07/23 17:45 Dose: 1 appl Multivitamins/Vitamin C (Multivitamin Tablet) 1 tab PO DAILY [facility] Last Admin: 04/08/23 08:37 Dose: Not Given Nicotine (Nicotine 21 Mg Patch.Td24) 21 mg TRANSDERMA DAILY PRN PRN Reason: smoking cessation Nicotine Polacrilex (Nicotine Polacrilex 2 Mg Gum) 4 mg BUCCAL Q2H PRN PRN Reason: Nicotine Cravings Olanzapine (Olanzapine 5 Mg Tablet) 5 mg PO TID PRN PRN Reason: agitation Thiamine HCl (Thiamine Hcl 100 Mg Tablet) 100 mg PO DAILY [facility] Last Admin: 04/08/23 08:37 Dose: Not Given Trazodone HCl (Trazodone Hcl 50 Mg Tablet) 50 mg PO BEDTIME MRX1 PRN PRN Reason: Insomnia Allergies Allergies Allergy/AdvReac Type Severity Reaction Status Date / Time penicillin V Allergy Unknown unknown Verified 03/05/23 05:16 Penicillins [PENICILLINS] Allergy Unknown RASH Verified 03/05/23 05:16 Assessment & Plan Assessment & Plan (1) Schizophrenia: Status: Acute Code(s): F20.9 - Schizophrenia, unspecified Assessment and Plan: Zyprexa dose just increased. Give IM if refusing PO per Vimal's order Plan Ms. Quiles is a 37 year-old woman with hx of schizophrenia. it appears schizophrenia largely untreated and patient has been homeless for several months. She was brought via police after aunt called them due to frostbites and increased paranoia. Pt with no insight into illness or need for treatment for both psychiatric and frostbite. We discussed risks, benefits and alternative treatment options, she declines medications- antipsychotic ones. PLAN 1. Admit to M3, sect 12b, 15 minutes checks 2. obtain collateral information 3. aftercare planning 03/09: refusing medications. frostbite, no insight into mental illness. plan to petition for commitment and medication. 03/10: refusing medications. being treated for frostbite. commitment petition paperwork completed today. 03/11 Patient continues to refuse medication civil commitment and treatment paperwork has been filed by Dr. Diallo patient seemed unable take in information regarding the 03/12: no change in presentation. refusing meds, including doxy for frostbite. intermittent acceptance of foot soaks. denies mental illness. disorganized, delusional. 03/13: no change in presentation. continue current mgmt. court thursday. 03/14: Court on Thursday03/17/23. Cont current plan. 03/15: Continue current management and treatment plan. 03/16 Patient remains manic, delusional. Very difficult with which to engage or interrupt. Patient accusing medical writer of trying to get her to look at medical writer's penis... Repeats over and over that she is in the ; told medical writer that she believes medical writer and other psychiatrists are related and are not real psychiatrists, that they all are purposely dressing the same, intention is to steal her identity... Patient says I got someone killed on the spot for stealing identity.... There was a warrant... She was an illegal citizen... Patient continues to ramble similar things over and over; says that crystal killed everyone in high school in [place]... 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 Patient said she came here because of frostbite for her feet and should not be on the psychiatric unit, that she is going to get everyone in the hospital arrested and that everyone is in big trouble. Diver Helper inquired why she has been refusing antibiotics that were specifically prescribed due to her frostbite to which patient replied that it is none of medical writer's business. Intermittently, throughout conversation with medical writer, she would pause to yell at and accuse peer who was sitting at a table next to her. Patient continued to ramble, accuse; as medical writer excused himself she continued to yell at medical writer down the spencer. -Continues to refuse all medications -based on presentation, chart review patient does not appear to be able to take care of herself in the community. Diver Helper agrees with team plan to pursue involuntary commitment. 03/[address] for involuntary treatment. 03/[address] sect 08/23 03/19 committed to hospital. ordered olanzapine 10mg po qhs with back up IM. 03/20/23 Monitor response to olanzapine cont tx plan 03/21: remains psychotic, less agitated than prior. continue current mgmt. 03/22: remains psychotic, less agitated than prior. continue current mgmt. 03/23: psychotic, labile. continue current mgmt. 03/24: no change in presentation or plan. 03/25: no change in presentation or plan. 03/26: no change in presentation or plan. T/C addition of benzo IM with antipsychotic as pt appears manic and mood stabilizer is likely to be necessary to quell the mariola. 03/27 increase olanzapine 20mg po qhs adjusted back up IM. 03/29: Continue current regimen and plans 03/30: continue current mgmt. marginal improvement, less loud and disruptive to milieu. 03/31: marginal improvement continues. 04/01: no change in presentation. continue current mgmt. 04/02: no change in presentation. continue current mgmt. 04/03: decrease HS olanzapine to 15 mg as 20 mg does not seem much better than 10 was and requires 2 shots, whereas 15 mg can be given in 1 shot. add lithium for mood stabilization with valium 10 mg IM back-up per medication order. no change in presentation. 04/04 continue tx switched back up IM haldol 5mg 04/05 continue tx 04/06 continue tx. 04/07: seems markedly improved since the addition of valium and switch to haldol. continue current mgmt. 04/08: continue current mgmt. no change from yesterday. Reason for continued inpatient stay Substantial Risk for: harm to self, inability to function and rapid decompensation Time Spent With Patient Time: Total time managing care of this patient today ____ minutes.
[2023-04-08 19:45] VITALS: BP 106/70; PULSE 101; RESP 18; TEMP 36.8; O2SAT 99
[2023-04-08] MEDS: diazePAM 10 MG/2 ML CARTRIDGE IM (23:27)
[2023-04-08] MEDS: Haloperidol Lactate 5 MG/ML VIAL IM (23:28)
[2023-04-09 13:57] VITALS: BMI 22.8
[2023-04-09 19:59] VITALS: BP 121/79; PULSE 98; RESP 16; TEMP 37.4; O2SAT 100
--- NOTE | 2023-04-09 22:24 | HO.PSYCHPN ---
Subjective Subjective Date of Service: 04/09/23 Reason For Visit: Psychosis Subjective Notes: Section 8 Interim History: Pt yelling at this policy writer sales stating that there is no way that I work here nor that I am a provider. She suspect that I and others here in the hospital are trying to steal her identity. She also reports people are being killed here. She did request her medications last night. Nursing informs this policy writer sales that she is able to have more reality base conversations with some peer, but clearly still highly psychotic. She did showed and comb her hair. Medication Compliance: Yes (because is court mandated.) Review of Systems Review of Systems Yes Unobtainable due to mental status and Other (Patient hyperverbal, talking around in circles, not answering questions) Constitutional: Denies chills and Reports fever(s) Cardiovascular: Denies chest pain, Denies dyspnea and Denies dyspnea on exertion Respiratory: Denies cough, Denies dyspnea and Denies dyspnea on exertion Gastrointestinal: Denies hematochezia and Denies change in bowel habits Musculoskeletal: Denies back pain and Denies limited range of motion Denies focal weakness and Denies convulsions Psychiatric: Denies depression, Reports mood swings and Reports paranoia Mental Status Exam Mental Status Exam Narrative: Appearance: disheveled, in NAD Behavior:guarded and suspicious Psychomotor: no PMA/PMR Speech: rapid, decr amount TP: tangential TC: paranoid delusions Mood: unable to assess Affect: suspicious SI: none expressed HI: none expressed VH/AH: none expressed Insight/judgment: impaired x 2. Memory/cog: alert, oriented not to situation. Diagnostics Vital Signs (24Hr): BMI result Body Mass Index 22.8 Medications Medications Current Medications Acetaminophen (Acetaminophen 325 Mg Tablet) 650 mg PO Q6H PRN PRN Reason: Headache/Pain Mild Scale (1-3) Al Hydroxide/Mg Hydroxide (Magnesium Hydrox/Alum Hydrox 30 Ml Oral.Susp) 30 ml PO Q6H PRN PRN Reason: Heartburn/Nausea Bacitracin (Bacitracin Oint 14 Gm Tube) 1 appl TOPICAL BID PRN; Protocol PRN Reason: lesion Diazepam (Diazepam 10 Mg/2 Ml Cartridge) 10 mg IM DAILY PRN PRN Reason: refusal of lithium Last Admin: 04/08/23 23:27 Dose: 10 mg Folic Acid (Folic Acid 1 Mg Tablet) 1 mg PO DAILY [facility] Last Admin: 04/09/23 08:50 Dose: Not Given Haloperidol (Haloperidol 5 Mg Tablet) 10 mg PO BEDTIME [facility] Last Admin: 04/08/23 23:07 Dose: Not Given Haloperidol Lactate (Haloperidol Lactate 5 Mg/Ml Vial) 5 mg IM DAILY PRN PRN Reason: if refuses oral antipsychotic per court Last Admin: 04/08/23 23:28 Dose: 5 mg Hydroxyzine HCl (Hydroxyzine Hcl 25 Mg Tablet) 25 mg PO Q6H PRN PRN Reason: Anxiety [place] Carbonate ([place] Carbonate Er 300 Mg Tablet.Er) 600 mg PO BEDTIME [facility] Last Admin: 04/08/23 23:07 Dose: Not Given Magnesium Hydroxide (Milk Of Magnesia 30 Ml Oral.Susp) 30 ml PO DAILY PRN PRN Reason: Constipation Multi-Ingred Cream/Lotion/Oil/Oint (Mineral Oil/Petrolatum,White 106 Gm Tube) 1 appl TOPICAL BID PRN; Protocol PRN Reason: skin protectant Last Admin: 04/07/23 17:45 Dose: 1 appl Multivitamins/Vitamin C (Multivitamin Tablet) 1 tab PO DAILY [facility] Last Admin: 04/09/23 08:50 Dose: Not Given Nicotine (Nicotine 21 Mg Patch.Td24) 21 mg TRANSDERMA DAILY PRN PRN Reason: smoking cessation Nicotine Polacrilex (Nicotine Polacrilex 2 Mg Gum) 4 mg BUCCAL Q2H PRN PRN Reason: Nicotine Cravings Olanzapine (Olanzapine 5 Mg Tablet) 5 mg PO TID PRN PRN Reason: agitation Thiamine HCl (Thiamine Hcl 100 Mg Tablet) 100 mg PO DAILY [facility] Last Admin: 04/09/23 08:50 Dose: Not Given Trazodone HCl (Trazodone Hcl 50 Mg Tablet) 50 mg PO BEDTIME MRX1 PRN PRN Reason: Insomnia Allergies Allergies Allergy/AdvReac Type Severity Reaction Status Date / Time penicillin V Allergy Unknown unknown Verified 03/05/23 05:16 Penicillins [PENICILLINS] Allergy Unknown RASH Verified 03/05/23 05:16 Assessment & Plan Assessment & Plan (1) Schizophrenia: Status: Acute Code(s): F20.9 - Schizophrenia, unspecified Assessment and Plan: Zyprexa dose just increased. Give IM if refusing PO per Vimal's order Plan Ms. Quiles is a 37 year-old woman with hx of schizophrenia. it appears schizophrenia largely untreated and patient has been homeless for several months. She was brought via police after aunt called them due to frostbites and increased paranoia. Pt with no insight into illness or need for treatment for both psychiatric and frostbite. We discussed risks, benefits and alternative treatment options, she declines medications- antipsychotic ones. PLAN 1. Admit to M3, sect 12b, 15 minutes checks 2. obtain collateral information 3. aftercare planning 03/09: refusing medications. frostbite, no insight into mental illness. plan to petition for commitment and medication. 03/10: refusing medications. being treated for frostbite. commitment petition paperwork completed today. 03/11 Patient continues to refuse medication civil commitment and treatment paperwork has been filed by Dr. Diallo patient seemed unable take in information regarding the 03/12: no change in presentation. refusing meds, including doxy for frostbite. intermittent acceptance of foot soaks. denies mental illness. disorganized, delusional. 03/13: no change in presentation. continue current mgmt. court thursday. 03/14: Court on Thursday03/17/23. Cont current plan. 03/15: Continue current management and treatment plan. 03/16 Patient remains manic, delusional. Very difficult with which to engage or interrupt. Patient accusing policy writer sales of trying to get her to look at policy writer sales's penis... Repeats over and over that she is in the ; told policy writer sales that she believes policy writer sales and other psychiatrists are related and are not real psychiatrists, that they all are purposely dressing the same, intention is to steal her identity... Patient says I got someone killed on the spot for stealing identity.... There was a warrant... She was an illegal citizen... Patient continues to ramble similar things over and over; says that crystal killed everyone in high school in [place]... 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 Patient said she came here because of frostbite for her feet and should not be on the psychiatric unit, that she is going to get everyone in the hospital arrested and that everyone is in big trouble. Box Attacher inquired why she has been refusing antibiotics that were specifically prescribed due to her frostbite to which patient replied that it is none of policy writer sales's business. Intermittently, throughout conversation with policy writer sales, she would pause to yell at and accuse peer who was sitting at a table next to her. Patient continued to ramble, accuse; as policy writer sales excused himself she continued to yell at policy writer sales down the spencer. -Continues to refuse all medications -based on presentation, chart review patient does not appear to be able to take care of herself in the community. Box Attacher agrees with team plan to pursue involuntary commitment. 03/[address] for involuntary treatment. 03/[address] sect 08/23 03/19 committed to hospital. ordered olanzapine 10mg po qhs with back up IM. 03/20/23 Monitor response to olanzapine cont tx plan 3: remains psychotic, less agitated than prior. continue current mgmt. 03/22: remains psychotic, less agitated than prior. continue current mgmt. 03/23: psychotic, labile. continue current mgmt. 03/24: no change in presentation or plan. 03/25: no change in presentation or plan. 03/26: no change in presentation or plan. T/C addition of benzo IM with antipsychotic as pt appears manic and mood stabilizer is likely to be necessary to quell the mariola. 03/27 increase olanzapine 20mg po qhs adjusted back up IM. 03/29: Continue current regimen and plans 03/30: continue current mgmt. marginal improvement, less loud and disruptive to milieu. 03/31: marginal improvement continues. 04/01: no change in presentation. continue current mgmt. 04/02: no change in presentation. continue current mgmt. 04/03: decrease HS olanzapine to 15 mg as 20 mg does not seem much better than 10 was and requires 2 shots, whereas 15 mg can be given in 1 shot. add lithium for mood stabilization with valium 10 mg IM back-up per medication order. no change in presentation. 04/04 continue tx switched back up IM haldol 5mg 04/05 continue tx 04/06 continue tx. 04/07: seems markedly improved since the addition of valium and switch to haldol. continue current mgmt. 04/08: continue current mgmt. no change from yesterday. 04/09 continue tx. Reason for continued inpatient stay Substantial Risk for: inability to function Time Spent With Patient Time: Total time managing care of this patient today ____ minutes.
[2023-04-09] MEDS: diazePAM 10 MG/2 ML CARTRIDGE IM (23:25)
[2023-04-09] MEDS: Haloperidol Lactate 5 MG/ML VIAL IM (23:25)
[2023-04-10 11:11] VITALS: BP 113/69; PULSE 95; RESP 18; TEMP 36.7; O2SAT 100
[2023-04-10] MEDS: Mineral Oil/Petrolatum,White 106 GM Tube 1 APPL TOPICAL (14:38)
[2023-04-10 19:15] VITALS: BP 110/64; PULSE 89; RESP 16; TEMP 36.6; O2SAT 99
--- NOTE | 2023-04-10 19:26 | P.PNPSI_ITS ---
Subjective Subjective Date of Service: 04/10/23 Reason For Visit: Psychosis Subjective Notes: Section 8 Interim History: Pt declines talking with this production underwriter. Still reporting she is in the , although she did take a shower and able to have some conversations more reality base with select peers. Still upset about taking medications and need for psychiatric tx. She is sleeping through the night. Medication Compliance: Yes (is court mandated.) Review of Systems Review of Systems Yes Unobtainable due to mental status and Other (Patient hyperverbal, talking around in circles, not answering questions) Constitutional: Denies chills and Reports fever(s) Cardiovascular: Denies chest pain, Denies dyspnea and Denies dyspnea on exertion Respiratory: Denies cough, Denies dyspnea and Denies dyspnea on exertion Gastrointestinal: Denies hematochezia and Denies change in bowel habits Musculoskeletal: Denies back pain and Denies limited range of motion Denies focal weakness and Denies convulsions Psychiatric: Denies depression, Reports mood swings and Reports paranoia Mental Status Exam Mental Status Exam Narrative: Appearance: disheveled, in NAD Behavior:guarded and suspicious Psychomotor: no PMA/PMR Speech: rapid, decr amount TP: tangential TC: paranoid delusions Mood: unable to assess Affect: suspicious SI: none expressed HI: none expressed VH/AH: none expressed Insight/judgment: impaired x 2. Memory/cog: alert, oriented not to situation. Diagnostics Vital Signs (24Hr): Vital Signs - 24 hr 04/09/23 19:59 04/10/23 11:11 Temperature 99.3 F 98.1 F Pulse Rate 98 95 Respiratory Rate 16 18 Blood Pressure 121/79 113/69 Pulse Oximetry 100 100 Oxygen Delivery Method Room Air Room Air BMI result Body Mass Index 22.8 Medications Medications Current Medications Acetaminophen (Acetaminophen 325 Mg Tablet) 650 mg PO Q6H PRN PRN Reason: Headache/Pain Mild Scale (1-3) Al Hydroxide/Mg Hydroxide (Magnesium Hydrox/Alum Hydrox 30 Ml Oral.Susp) 30 ml PO Q6H PRN PRN Reason: Heartburn/Nausea Bacitracin (Bacitracin Oint 14 Gm Tube) 1 appl TOPICAL BID PRN; Protocol PRN Reason: lesion Diazepam (Diazepam 10 Mg/2 Ml Cartridge) 10 mg IM DAILY PRN PRN Reason: refusal of lithium Last Admin: 04/09/23 23:25 Dose: 10 mg Folic Acid (Folic Acid 1 Mg Tablet) 1 mg PO DAILY [facility] Last Admin: 04/10/23 08:54 Dose: Not Given Haloperidol (Haloperidol 5 Mg Tablet) 10 mg PO BEDTIME [facility] Last Admin: 04/09/23 23:06 Dose: Not Given Haloperidol Lactate (Haloperidol Lactate 5 Mg/Ml Vial) 5 mg IM DAILY PRN PRN Reason: if refuses oral antipsychotic per court Last Admin: 04/09/23 23:25 Dose: 5 mg Hydroxyzine HCl (Hydroxyzine Hcl 25 Mg Tablet) 25 mg PO Q6H PRN PRN Reason: Anxiety [place] Carbonate ([place]roy Carbonate Er 300 Mg Tablet.Er) 600 mg PO BEDTIME [facility] Last Admin: 04/09/23 23:06 Dose: Not Given Magnesium Hydroxide (Milk Of Magnesia 30 Ml Oral.Susp) 30 ml PO DAILY PRN PRN Reason: Constipation Multi-Ingred Cream/Lotion/Oil/Oint (Mineral Oil/Petrolatum,White 106 Gm Tube) 1 appl TOPICAL BID PRN; Protocol PRN Reason: skin protectant Last Admin: 04/10/23 14:38 Dose: 1 appl Multivitamins/Vitamin C (Multivitamin Tablet) 1 tab PO DAILY [facility] Last Admin: 04/10/23 08:54 Dose: Not Given Nicotine (Nicotine 21 Mg Patch.Td24) 21 mg TRANSDERMA DAILY PRN PRN Reason: smoking cessation Nicotine Polacrilex (Nicotine Polacrilex 2 Mg Gum) 4 mg BUCCAL Q2H PRN PRN Reason: Nicotine Cravings Olanzapine (Olanzapine 5 Mg Tablet) 5 mg PO TID PRN PRN Reason: agitation Thiamine HCl (Thiamine Hcl 100 Mg Tablet) 100 mg PO DAILY [facility] Last Admin: 04/10/23 08:54 Dose: Not Given Trazodone HCl (Trazodone Hcl 50 Mg Tablet) 50 mg PO BEDTIME MRX1 PRN PRN Reason: Insomnia Allergies Allergies Allergy/AdvReac Type Severity Reaction Status Date / Time penicillin V Allergy Unknown unknown Verified 03/05/23 05:16 Penicillins [PENICILLINS] Allergy Unknown RASH Verified 03/05/23 05:16 Assessment & Plan Assessment & Plan (1) Schizophrenia: Status: Acute Code(s): F20.9 - Schizophrenia, unspecified Assessment and Plan: Zyprexa dose just increased. Give IM if refusing PO per Vimal's order Plan Ms. Quiles is a 37 year-old woman with hx of schizophrenia. it appears schizophrenia largely untreated and patient has been homeless for several months. She was brought via police after aunt called them due to frostbites and increased paranoia. Pt with no insight into illness or need for treatment for both psychiatric and frostbite. We discussed risks, benefits and alternative treatment options, she declines medications- antipsychotic ones. PLAN 1. Admit to M3, sect 12b, 15 minutes checks 2. obtain collateral information 3. aftercare planning 03/09: refusing medications. frostbite, no insight into mental illness. plan to petition for commitment and medication. 03/10: refusing medications. being treated for frostbite. commitment petition paperwork completed today. 03/11 Patient continues to refuse medication civil commitment and treatment paperwork has been filed by Dr. Diallo patient seemed unable take in information regarding the 03/12: no change in presentation. refusing meds, including doxy for frostbite. intermittent acceptance of foot soaks. denies mental illness. disorganized, delusional. 03/13: no change in presentation. continue current mgmt. court thursday. 03/14: Court on Thursday03/17/23. Cont current plan. 03/15: Continue current management and treatment plan. 03/16 Patient remains manic, delusional. Very difficult with which to engage or interrupt. Patient accusing production underwriter of trying to get her to look at production underwriter's penis... Repeats over and over that she is in the ; told production underwriter that she believes production underwriter and other psychiatrists are related and are not real psychiatrists, that they all are purposely dressing the same, intention is to steal her identity... Patient says I got someone killed on the spot for stealing identity.... There was a warrant... She was an illegal citizen... Patient continues to ramble similar things over and over; says that crystal killed everyone in high school in [place]... 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 Patient said she came here because of frostbite for her feet and should not be on the psychiatric unit, that she is going to get everyone in the hospital arrested and that everyone is in big trouble. Foundation Maker inquired why she has been refusing antibiotics that were specifically prescribed due to her frostbite to which patient replied that it is none of production underwriter's business. Intermittently, throughout conversation with production underwriter, she would pause to yell at and accuse peer who was sitting at a table next to her. Patient continued to ramble, accuse; as production underwriter excused himself she continued to yell at production underwriter down the spencer. -Continues to refuse all medications -based on presentation, chart review patient does not appear to be able to take care of herself in the community. Foundation Maker agrees with team plan to pursue involuntary commitment. 03/[address] for involuntary treatment. 03/[address] sect 08/23 03/19 committed to hospital. ordered olanzapine 10mg po qhs with back up IM. 03/20/23 Monitor response to olanzapine cont tx plan 3: remains psychotic, less agitated than prior. continue current mgmt. 4: remains psychotic, less agitated than prior. continue current mgmt. 03/23: psychotic, labile. continue current mgmt. 03/24: no change in presentation or plan. 03/25: no change in presentation or plan. 03/26: no change in presentation or plan. T/C addition of benzo IM with antipsychotic as pt appears manic and mood stabilizer is likely to be necessary to quell the mariola. 03/27 increase olanzapine 20mg po qhs adjusted back up IM. 03/29: Continue current regimen and plans 03/30: continue current mgmt. marginal improvement, less loud and disruptive to milieu. 03/31: marginal improvement continues. 04/01: no change in presentation. continue current mgmt. 04/02: no change in presentation. continue current mgmt. 04/03: decrease HS olanzapine to 15 mg as 20 mg does not seem much better than 10 was and requires 2 shots, whereas 15 mg can be given in 1 shot. add lithium for mood stabilization with valium 10 mg IM back-up per medication order. no change in presentation. 04/04 continue tx switched back up IM haldol 5mg 04/05 continue tx 04/06 continue tx. 04/07: seems markedly improved since the addition of valium and switch to haldol. continue current mgmt. 04/08: continue current mgmt. no change from yesterday. 04/09 continue tx. 04/10 increase haldol to 7.5mg IM back up medication, with scheduled haldol 10mg po qhs. Reason for continued inpatient stay Substantial Risk for: inability to function Time Spent With Patient Time: Total time managing care of this patient today ____ minutes.
[2023-04-10] MEDS: Haloperidol Lactate 5 MG/ML VIAL 7.5 MG IM (22:45)
[2023-04-10] MEDS: diazePAM 10 MG/2 ML CARTRIDGE IM (22:45)
--- NOTE | 2023-04-11 09:20 | PC.NURSE ---
Patient refused labs MD aware.
--- NOTE | 2023-04-11 14:59 | HO.PSYCHPN ---
Subjective Subjective Date of Service: 04/11/23 Reason For Visit: Psychosis Interim History: Pt declines talking with this comic book writer. Walks out of the room upon introduction. I don't have anything to talk about. Irritable, paranoid. Refuses PO and gets IM Haldol per [facility] order. Upset about taking medications and need for psychiatric tx. She is sleeping through the night. Review of Systems Review of Systems Yes Unobtainable due to mental status and Other (Patient hyperverbal, talking around in circles, not answering questions) Constitutional: Denies chills and Reports fever(s) Cardiovascular: Denies chest pain, Denies dyspnea and Denies dyspnea on exertion Respiratory: Denies cough, Denies dyspnea and Denies dyspnea on exertion Gastrointestinal: Denies hematochezia and Denies change in bowel habits Musculoskeletal: Denies back pain and Denies limited range of motion Denies focal weakness and Denies convulsions Psychiatric: Denies depression, Reports mood swings and Reports paranoia Mental Status Exam Mental Status Exam Narrative: Appearance: disheveled, in NAD Behavior:guarded and suspicious Psychomotor: no PMA/PMR Speech: rapid, decr amount TP: tangential TC: paranoid delusions Mood: unable to assess Affect: suspicious SI: none expressed HI: none expressed VH/AH: none expressed Insight/judgment: impaired x 2. Memory/cog: alert, oriented not to situation. Patient Appearance: Disheveled Patient Orientation: Person, Place and Time Level of Consciousness: Awake Patient Behavior: Guarded Mood Description: Apathetic Affect Description: Calm Patient Cognition Impaired: No Ability to Follow Directions: Fair Speech Pattern: Clear Memory Description: Intact Diagnostics Vital Signs (24Hr): Vital Signs - 24 hr 04/10/23 19:15 Temperature 98 F Pulse Rate 89 Respiratory Rate 16 Blood Pressure 110/64 Pulse Oximetry 99 Oxygen Delivery Method Room Air BMI result Body Mass Index 22.8 Medications Medications Current Medications Acetaminophen (Acetaminophen 325 Mg Tablet) 650 mg PO Q6H PRN PRN Reason: Headache/Pain Mild Scale (1-3) Al Hydroxide/Mg Hydroxide (Magnesium Hydrox/Alum Hydrox 30 Ml Oral.Susp) 30 ml PO Q6H PRN PRN Reason: Heartburn/Nausea Bacitracin (Bacitracin Oint 14 Gm Tube) 1 appl TOPICAL BID PRN; Protocol PRN Reason: lesion Diazepam (Diazepam 10 Mg/2 Ml Cartridge) 10 mg IM DAILY PRN PRN Reason: refusal of lithium Last Admin: 04/10/23 22:45 Dose: 10 mg Folic Acid (Folic Acid 1 Mg Tablet) 1 mg PO DAILY [facility] Last Admin: 04/11/23 09:21 Dose: Not Given Haloperidol (Haloperidol 5 Mg Tablet) 10 mg PO BEDTIME [facility] Last Admin: 04/10/23 23:02 Dose: Not Given Haloperidol Lactate (Haloperidol Lactate 5 Mg/Ml Vial) 7.5 mg IM DAILY PRN PRN Reason: if refuses oral antipsychotic per court Last Admin: 04/10/23 22:45 Dose: 7.5 mg Hydroxyzine HCl (Hydroxyzine Hcl 25 Mg Tablet) 25 mg PO Q6H PRN PRN Reason: Anxiety [place] Carbonate ([place] Carbonate Er 300 Mg Tablet.Er) 600 mg PO BEDTIME [facility] Last Admin: 04/10/23 23:02 Dose: Not Given Magnesium Hydroxide (Milk Of Magnesia 30 Ml Oral.Susp) 30 ml PO DAILY PRN PRN Reason: Constipation Multi-Ingred Cream/Lotion/Oil/Oint (Mineral Oil/Petrolatum,White 106 Gm Tube) 1 appl TOPICAL BID PRN; Protocol PRN Reason: skin protectant Last Admin: 04/10/23 14:38 Dose: 1 appl Multivitamins/Vitamin C (Multivitamin Tablet) 1 tab PO DAILY [facility] Last Admin: 04/11/23 09:21 Dose: Not Given Nicotine (Nicotine 21 Mg Patch.Td24) 21 mg TRANSDERMA DAILY PRN PRN Reason: smoking cessation Nicotine Polacrilex (Nicotine Polacrilex 2 Mg Gum) 4 mg BUCCAL Q2H PRN PRN Reason: Nicotine Cravings Olanzapine (Olanzapine 5 Mg Tablet) 5 mg PO TID PRN PRN Reason: agitation Thiamine HCl (Thiamine Hcl 100 Mg Tablet) 100 mg PO DAILY [facility] Last Admin: 04/11/23 09:21 Dose: Not Given Trazodone HCl (Trazodone Hcl 50 Mg Tablet) 50 mg PO BEDTIME MRX1 PRN PRN Reason: Insomnia Allergies Allergies Allergy/AdvReac Type Severity Reaction Status Date / Time penicillin V Allergy Unknown unknown Verified 03/05/23 05:16 Penicillins [PENICILLINS] Allergy Unknown RASH Verified 03/05/23 05:16 Assessment & Plan Assessment & Plan (1) Schizophrenia: Status: Acute Code(s): F20.9 - Schizophrenia, unspecified Assessment and Plan: Zyprexa dose just increased. Give IM if refusing PO per Vimal's order Plan Ms. Quiles is a 37 year-old woman with hx of schizophrenia. it appears schizophrenia largely untreated and patient has been homeless for several months. She was brought via police after aunt called them due to frostbites and increased paranoia. Pt with no insight into illness or need for treatment for both psychiatric and frostbite. We discussed risks, benefits and alternative treatment options, she declines medications- antipsychotic ones. PLAN 1. Admit to M3, sect 12b, 15 minutes checks 2. obtain collateral information 3. aftercare planning 03/09: refusing medications. frostbite, no insight into mental illness. plan to petition for commitment and medication. 03/10: refusing medications. being treated for frostbite. commitment petition paperwork completed today. 03/11 Patient continues to refuse medication civil commitment and treatment paperwork has been filed by Dr. Diallo patient seemed unable take in information regarding the 03/12: no change in presentation. refusing meds, including doxy for frostbite. intermittent acceptance of foot soaks. denies mental illness. disorganized, delusional. 03/13: no change in presentation. continue current mgmt. court thursday. 03/14: Court on Thursday03/17/23. Cont current plan. 03/15: Continue current management and treatment plan. 03/16 Patient remains manic, delusional. Very difficult with which to engage or interrupt. Patient accusing comic book writer of trying to get her to look at comic book writer's penis... Repeats over and over that she is in the ; told comic book writer that she believes comic book writer and other psychiatrists are related and are not real psychiatrists, that they all are purposely dressing the same, intention is to steal her identity... Patient says I got someone killed on the spot for stealing identity.... There was a warrant... She was an illegal citizen... Patient continues to ramble similar things over and over; says that crystal killed everyone in high school in [place]... 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 Patient said she came here because of frostbite for her feet and should not be on the psychiatric unit, that she is going to get everyone in the hospital arrested and that everyone is in big trouble. National Expansion Recruiter inquired why she has been refusing antibiotics that were specifically prescribed due to her frostbite to which patient replied that it is none of comic book writer's business. Intermittently, throughout conversation with comic book writer, she would pause to yell at and accuse peer who was sitting at a table next to her. Patient continued to ramble, accuse; as comic book writer excused himself she continued to yell at comic book writer down the spencer. -Continues to refuse all medications -based on presentation, chart review patient does not appear to be able to take care of herself in the community. National Expansion Recruiter agrees with team plan to pursue involuntary commitment. 03/[address] for involuntary treatment. 03/[address] sect 08/23 03/19 committed to hospital. ordered olanzapine 10mg po qhs with back up IM. 03/20/23 Monitor response to olanzapine cont tx plan 03/21: remains psychotic, less agitated than prior. continue current mgmt. 03/22: remains psychotic, less agitated than prior. continue current mgmt. 03/23: psychotic, labile. continue current mgmt. 03/24: no change in presentation or plan. 03/25: no change in presentation or plan. 03/26: no change in presentation or plan. T/C addition of benzo IM with antipsychotic as pt appears manic and mood stabilizer is likely to be necessary to quell the mariola. 03/27 increase olanzapine 20mg po qhs adjusted back up IM. 03/29: Continue current regimen and plans 03/30: continue current mgmt. marginal improvement, less loud and disruptive to milieu. 03/31: marginal improvement continues. 04/01: no change in presentation. continue current mgmt. 04/02: no change in presentation. continue current mgmt. 04/03: decrease HS olanzapine to 15 mg as 20 mg does not seem much better than 10 was and requires 2 shots, whereas 15 mg can be given in 1 shot. add lithium for mood stabilization with valium 10 mg IM back-up per medication order. no change in presentation. 04/04 continue tx switched back up IM haldol 5mg 04/05 continue tx 04/06 continue tx. 04/07: seems markedly improved since the addition of valium and switch to haldol. continue current mgmt. 04/08: continue current mgmt. no change from yesterday. 04/09 continue tx. 04/10 increase haldol to 7.5mg IM back up medication, with scheduled haldol 10mg po qhs. 04/11: Continue current management and treatment plan. Reason for continued inpatient stay Substantial Risk for: inability to function and rapid decompensation Time Spent With Patient Time: Total time managing care of this patient today ____ minutes.
[2023-04-11 19:50] VITALS: BP 121/63; PULSE 97; RESP 16; TEMP 37.1; O2SAT 98
[2023-04-11] MEDS: Haloperidol Lactate 5 MG/ML VIAL 7.5 MG IM (22:58)
[2023-04-11] MEDS: diazePAM 10 MG/2 ML CARTRIDGE IM (22:58)
[2023-04-12] MEDS: Mineral Oil/Petrolatum,White 106 GM Tube 1 APPL TOPICAL ×2 (11:18→18:31)
--- NOTE | 2023-04-12 14:45 | P.PNPSI_ITS ---
Subjective Subjective Date of Service: 04/12/23 Reason For Visit: Psychosis Interim History: Pt declines talking with this junior technical writer at length but for first time answers saying I'm good and doesn't storm out or yell. she was sitting in a chair with blanket on her head. Refuses PO and gets IM Haldol per [facility] order. She is sleeping through the night. Per RN appears more subdued and speech slowed down. Less reactive. Review of Systems Review of Systems Yes Unobtainable due to mental status and Other (Patient hyperverbal, talking around in circles, not answering questions) Constitutional: Denies chills and Reports fever(s) Cardiovascular: Denies chest pain, Denies dyspnea and Denies dyspnea on exertion Respiratory: Denies cough, Denies dyspnea and Denies dyspnea on exertion Gastrointestinal: Denies hematochezia and Denies change in bowel habits Musculoskeletal: Denies back pain and Denies limited range of motion Denies focal weakness and Denies convulsions Psychiatric: Denies depression, Reports mood swings and Reports paranoia Mental Status Exam Mental Status Exam Narrative: Appearance: disheveled, in NAD Behavior:guarded and suspicious Psychomotor: no PMA/PMR Speech: rapid, decr amount TP: tangential TC: paranoid delusions Mood: unable to assess Affect: suspicious SI: none expressed HI: none expressed VH/AH: none expressed Insight/judgment: impaired x 2. Memory/cog: alert, oriented not to situation. Patient Appearance: Disheveled Patient Orientation: Person, Place and Time Level of Consciousness: Awake Patient Behavior: Guarded Mood Description: Apathetic Affect Description: Calm Patient Cognition Impaired: No Ability to Follow Directions: Fair Speech Pattern: Clear Memory Description: Intact Diagnostics Vital Signs (24Hr): Vital Signs - 24 hr 04/11/23 19:50 Temperature 98.8 F Pulse Rate 97 Respiratory Rate 16 Blood Pressure 121/63 Pulse Oximetry 98 Oxygen Delivery Method Room Air BMI result Body Mass Index 22.8 Medications Medications Current Medications Acetaminophen (Acetaminophen 325 Mg Tablet) 650 mg PO Q6H PRN PRN Reason: Headache/Pain Mild Scale (1-3) Al Hydroxide/Mg Hydroxide (Magnesium Hydrox/Alum Hydrox 30 Ml Oral.Susp) 30 ml PO Q6H PRN PRN Reason: Heartburn/Nausea Bacitracin (Bacitracin Oint 14 Gm Tube) 1 appl TOPICAL BID PRN; Protocol PRN Reason: lesion Diazepam (Diazepam 10 Mg/2 Ml Cartridge) 10 mg IM DAILY PRN PRN Reason: refusal of lithium Last Admin: 04/11/23 22:58 Dose: 10 mg Folic Acid (Folic Acid 1 Mg Tablet) 1 mg PO DAILY [facility] Last Admin: 04/12/23 09:52 Dose: Not Given Haloperidol (Haloperidol 5 Mg Tablet) 10 mg PO BEDTIME [facility] Last Admin: 04/11/23 23:22 Dose: Not Given Haloperidol Lactate (Haloperidol Lactate 5 Mg/Ml Vial) 7.5 mg IM DAILY PRN PRN Reason: if refuses oral antipsychotic per court Last Admin: 04/11/23 22:58 Dose: 7.5 mg Hydroxyzine HCl (Hydroxyzine Hcl 25 Mg Tablet) 25 mg PO Q6H PRN PRN Reason: Anxiety [place] Carbonate ([place] Carbonate Er 300 Mg Tablet.Er) 600 mg PO BEDTIME [facility] Last Admin: 04/11/23 23:22 Dose: Not Given Magnesium Hydroxide (Milk Of Magnesia 30 Ml Oral.Susp) 30 ml PO DAILY PRN PRN Reason: Constipation Multi-Ingred Cream/Lotion/Oil/Oint (Mineral Oil/Petrolatum,White 106 Gm Tube) 1 appl TOPICAL BID PRN; Protocol PRN Reason: skin protectant Last Admin: 04/12/23 11:18 Dose: 1 appl Multivitamins/Vitamin C (Multivitamin Tablet) 1 tab PO DAILY [facility] Last Admin: 04/12/23 09:52 Dose: Not Given Nicotine (Nicotine 21 Mg Patch.Td24) 21 mg TRANSDERMA DAILY PRN PRN Reason: smoking cessation Nicotine Polacrilex (Nicotine Polacrilex 2 Mg Gum) 4 mg BUCCAL Q2H PRN PRN Reason: Nicotine Cravings Olanzapine (Olanzapine 5 Mg Tablet) 5 mg PO TID PRN PRN Reason: agitation Thiamine HCl (Thiamine Hcl 100 Mg Tablet) 100 mg PO DAILY [facility] Last Admin: 04/12/23 09:52 Dose: Not Given Trazodone HCl (Trazodone Hcl 50 Mg Tablet) 50 mg PO BEDTIME MRX1 PRN PRN Reason: Insomnia Allergies Allergies Allergy/AdvReac Type Severity Reaction Status Date / Time penicillin V Allergy Unknown unknown Verified 03/05/23 05:16 Penicillins [PENICILLINS] Allergy Unknown RASH Verified 03/05/23 05:16 Assessment & Plan Assessment & Plan (1) Schizophrenia: Status: Acute Code(s): F20.9 - Schizophrenia, unspecified Assessment and Plan: Zyprexa dose just increased. Give IM if refusing PO per Vimal's order Plan Ms. Quiles is a 37 year-old woman with hx of schizophrenia. it appears schizophrenia largely untreated and patient has been homeless for several months. She was brought via police after aunt called them due to frostbites and increased paranoia. Pt with no insight into illness or need for treatment for both psychiatric and frostbite. We discussed risks, benefits and alternative treatment options, she declines medications- antipsychotic ones. PLAN 1. Admit to M3, sect 12b, 15 minutes checks 2. obtain collateral information 3. aftercare planning 03/09: refusing medications. frostbite, no insight into mental illness. plan to petition for commitment and medication. 03/10: refusing medications. being treated for frostbite. commitment petition paperwork completed today. 03/11 Patient continues to refuse medication civil commitment and treatment paperwork has been filed by Dr. Diallo patient seemed unable take in information regarding the 03/12: no change in presentation. refusing meds, including doxy for frostbite. intermittent acceptance of foot soaks. denies mental illness. disorganized, delusional. 03/13: no change in presentation. continue current mgmt. court thursday. 03/14: Court on Thursday03/17/23. Cont current plan. 03/15: Continue current management and treatment plan. 03/16 Patient remains manic, delusional. Very difficult with which to engage or interrupt. Patient accusing junior technical writer of trying to get her to look at junior technical writer's penis... Repeats over and over that she is in the ; told junior technical writer that she believes junior technical writer and other psychiatrists are related and are not real psychiatrists, that they all are purposely dressing the same, intention is to steal her identity... Patient says I got someone killed on the spot for stealing identity.... There was a warrant... She was an illegal citizen... Patient continues to ramble similar things over and over; says that crystal killed everyone in high school in [place]... 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 Patient said she came here because of frostbite for her feet and should not be on the psychiatric unit, that she is going to get everyone in the hospital arrested and that everyone is in big trouble. Surveillance Systems Analyst inquired why she has been refusing antibiotics that were specifically prescribed due to her frostbite to which patient replied that it is none of junior technical writer's business. Intermittently, throughout conversation with junior technical writer, she would pause to yell at and accuse peer who was sitting at a table next to her. Patient continued to ramble, accuse; as junior technical writer excused himself she continued to yell at junior technical writer down the spencer. -Continues to refuse all medications -based on presentation, chart review patient does not appear to be able to take care of herself in the community. Surveillance Systems Analyst agrees with team plan to pursue involuntary commitment. 03/[address] for involuntary treatment. 03/[address] sect 08/23 03/19 committed to hospital. ordered olanzapine 10mg po qhs with back up IM. 03/20/23 Monitor response to olanzapine cont tx plan 03/21: remains psychotic, less agitated than prior. continue current mgmt. 4: remains psychotic, less agitated than prior. continue current mgmt. 03/23: psychotic, labile. continue current mgmt. 03/24: no change in presentation or plan. 03/25: no change in presentation or plan. 03/26: no change in presentation or plan. T/C addition of benzo IM with antipsychotic as pt appears manic and mood stabilizer is likely to be necessary to quell the mariola. 03/27 increase olanzapine 20mg po qhs adjusted back up IM. 03/29: Continue current regimen and plans 03/30: continue current mgmt. marginal improvement, less loud and disruptive to milieu. 03/31: marginal improvement continues. 04/01: no change in presentation. continue current mgmt. 04/02: no change in presentation. continue current mgmt. 04/03: decrease HS olanzapine to 15 mg as 20 mg does not seem much better than 10 was and requires 2 shots, whereas 15 mg can be given in 1 shot. add lithium for mood stabilization with valium 10 mg IM back-up per medication order. no change in presentation. 04/04 continue tx switched back up IM haldol 5mg 04/05 continue tx 04/06 continue tx. 04/07: seems markedly improved since the addition of valium and switch to haldol. continue current mgmt. 04/08: continue current mgmt. no change from yesterday. 04/09 continue tx. 04/10 increase haldol to 7.5mg IM back up medication, with scheduled haldol 10mg po qhs. 04/11: Continue current management and treatment plan. 04/12: continue current management and treatment plan. Reason for continued inpatient stay Substantial Risk for: harm to self, inability to function and rapid decompensation Time Spent With Patient Time: Total time managing care of this patient today ____ minutes.
[2023-04-12 20:05] VITALS: BP 128/74; PULSE 97; RESP 16; TEMP 36.7; O2SAT 100
[2023-04-12] MEDS: diazePAM 10 MG/2 ML CARTRIDGE IM (23:10)
[2023-04-12] MEDS: Haloperidol Lactate 5 MG/ML VIAL 7.5 MG IM (23:10)
--- NOTE | 2023-04-13 15:29 | HO.PSYCHPN ---
Subjective Subjective Date of Service: 04/13/23 Reason For Visit: Psychosis Interim History: not cooperative with interview, although less assertively so than on prior occasions. i did not have an appointment to meet with her today, but it seemed to be less of an outrage than before. appears slowed and stiff, with reduced stride. per staff, speech slowed and low in tone, almost slurred. outburst thursday re her tray. calling 911. showered yesterday. sleeping in milieu. Mental Status Exam Mental Status Exam Narrative: Appearance: disheveled, in NAD Behavior:guarded and suspicious Psychomotor: PMR, shorter stride, appears stiff Speech: slower, decr amount TP: focused on Md's not having an appointment TC: paranoid delusions Mood: unable to assess Affect: suspicious SI: none expressed HI: none expressed VH/AH: none expressed Insight/judgment: impaired x 2. Memory/cog: alert, oriented not to situation. Diagnostics Vital Signs (24Hr): Vital Signs - 24 hr 04/12/23 20:05 Temperature 98.0 F Pulse Rate 97 Respiratory Rate 16 Blood Pressure 128/74 Pulse Oximetry 100 Oxygen Delivery Method Room Air BMI result Body Mass Index 22.8 Medications Medications Current Medications Acetaminophen (Acetaminophen 325 Mg Tablet) 650 mg PO Q6H PRN PRN Reason: Headache/Pain Mild Scale (1-3) Al Hydroxide/Mg Hydroxide (Magnesium Hydrox/Alum Hydrox 30 Ml Oral.Susp) 30 ml PO Q6H PRN PRN Reason: Heartburn/Nausea Bacitracin (Bacitracin Oint 14 Gm Tube) 1 appl TOPICAL BID PRN; Protocol PRN Reason: lesion Diazepam (Diazepam 10 Mg/2 Ml Cartridge) 10 mg IM DAILY PRN PRN Reason: refusal of lithium Last Admin: 04/12/23 23:10 Dose: 10 mg Folic Acid (Folic Acid 1 Mg Tablet) 1 mg PO DAILY [facility] Last Admin: 04/13/23 08:51 Dose: Not Given Hydroxyzine HCl (Hydroxyzine Hcl 25 Mg Tablet) 25 mg PO Q6H PRN PRN Reason: Anxiety [place] Carbonate ([place] Carbonate Er 300 Mg Tablet.Er) 600 mg PO BEDTIME [facility] Last Admin: 04/12/23 22:49 Dose: Not Given Magnesium Hydroxide (Milk Of Magnesia 30 Ml Oral.Susp) 30 ml PO DAILY PRN PRN Reason: Constipation Multi-Ingred Cream/Lotion/Oil/Oint (Mineral Oil/Petrolatum,White 106 Gm Tube) 1 appl TOPICAL BID PRN; Protocol PRN Reason: skin protectant Last Admin: 04/12/23 18:31 Dose: 1 appl Multivitamins/Vitamin C (Multivitamin Tablet) 1 tab PO DAILY [facility] Last Admin: 04/13/23 08:51 Dose: Not Given Nicotine (Nicotine 21 Mg Patch.Td24) 21 mg TRANSDERMA DAILY PRN PRN Reason: smoking cessation Nicotine Polacrilex (Nicotine Polacrilex 2 Mg Gum) 4 mg BUCCAL Q2H PRN PRN Reason: Nicotine Cravings Olanzapine (Olanzapine 5 Mg Tablet) 5 mg PO TID PRN PRN Reason: agitation Olanzapine (Olanzapine Odt 10 Mg Tab.Rapdis) 20 mg TRANSLINGU BEDTIME [facility] Thiamine HCl (Thiamine Hcl 100 Mg Tablet) 100 mg PO DAILY [facility] Last Admin: 04/13/23 08:51 Dose: Not Given Trazodone HCl (Trazodone Hcl 50 Mg Tablet) 50 mg PO BEDTIME MRX1 PRN PRN Reason: Insomnia Allergies Allergies Allergy/AdvReac Type Severity Reaction Status Date / Time penicillin V Allergy Unknown unknown Verified 03/05/23 05:16 Penicillins [PENICILLINS] Allergy Unknown RASH Verified 03/05/23 05:16 Assessment & Plan Assessment & Plan (1) Schizophrenia: Status: Acute Code(s): F20.9 - Schizophrenia, unspecified Assessment and Plan: Zyprexa dose just increased. Give IM if refusing PO per Vimal's order Plan Ms. Quiles is a 37 year-old woman with hx of schizophrenia. it appears schizophrenia largely untreated and patient has been homeless for several months. She was brought via police after aunt called them due to frostbites and increased paranoia. Pt with no insight into illness or need for treatment for both psychiatric and frostbite. We discussed risks, benefits and alternative treatment options, she declines medications- antipsychotic ones. PLAN 1. Admit to M3, sect 12b, 15 minutes checks 2. obtain collateral information 3. aftercare planning 03/09: refusing medications. frostbite, no insight into mental illness. plan to petition for commitment and medication. 03/10: refusing medications. being treated for frostbite. commitment petition paperwork completed today. 03/11 Patient continues to refuse medication civil commitment and treatment paperwork has been filed by Dr. Diallo patient seemed unable take in information regarding the 03/12: no change in presentation. refusing meds, including doxy for frostbite. intermittent acceptance of foot soaks. denies mental illness. disorganized, delusional. 03/13: no change in presentation. continue current mgmt. court thursday. 03/14: Court on Thursday03/17/23. Cont current plan. 03/15: Continue current management and treatment plan. 03/16 Patient remains manic, delusional. Very difficult with which to engage or interrupt. Patient accusing content writer of trying to get her to look at content writer's penis... Repeats over and over that she is in the ; told content writer that she believes content writer and other psychiatrists are related and are not real psychiatrists, that they all are purposely dressing the same, intention is to steal her identity... Patient says I got someone killed on the spot for stealing identity.... There was a warrant... She was an illegal citizen... Patient continues to ramble similar things over and over; says that crystal killed everyone in high school in [place]... 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 Patient said she came here because of frostbite for her feet and should not be on the psychiatric unit, that she is going to get everyone in the hospital arrested and that everyone is in big trouble. Garnett Mechanic inquired why she has been refusing antibiotics that were specifically prescribed due to her frostbite to which patient replied that it is none of content writer's business. Intermittently, throughout conversation with content writer, she would pause to yell at and accuse peer who was sitting at a table next to her. Patient continued to ramble, accuse; as content writer excused himself she continued to yell at content writer down the spencer. -Continues to refuse all medications -based on presentation, chart review patient does not appear to be able to take care of herself in the community. Garnett Mechanic agrees with team plan to pursue involuntary commitment. 03/[address] for involuntary treatment. 03/[address] sect 08/23 03/19 committed to hospital. ordered olanzapine 10mg po qhs with back up IM. 03/20/23 Monitor response to olanzapine cont tx plan 03/21: remains psychotic, less agitated than prior. continue current mgmt. 03/22: remains psychotic, less agitated than prior. continue current mgmt. 03/23: psychotic, labile. continue current mgmt. 03/24: no change in presentation or plan. 03/25: no change in presentation or plan. 03/26: no change in presentation or plan. T/C addition of benzo IM with antipsychotic as pt appears manic and mood stabilizer is likely to be necessary to quell the mariola. 03/27 increase olanzapine 20mg po qhs adjusted back up IM. 03/29: Continue current regimen and plans 03/30: continue current mgmt. marginal improvement, less loud and disruptive to milieu. 03/31: marginal improvement continues. 04/01: no change in presentation. continue current mgmt. 04/02: no change in presentation. continue current mgmt. 04/03: decrease HS olanzapine to 15 mg as 20 mg does not seem much better than 10 was and requires 2 shots, whereas 15 mg can be given in 1 shot. add lithium for mood stabilization with valium 10 mg IM back-up per medication order. no change in presentation. 04/04 continue tx switched back up IM haldol 5mg 04/05 continue tx 04/06 continue tx. 04/07: seems markedly improved since the addition of valium and switch to haldol. continue current mgmt. 04/08: continue current mgmt. no change from yesterday. 04/09 continue tx. 04/10 increase haldol to 7.5mg IM back up medication, with scheduled haldol 10mg po qhs. 04/11: Continue current management and treatment plan. 04/12: continue current management and treatment plan. 04/13: pt appears to be becoming parkinsonian. will switch back to zyprexa for now. otherwise continue current mgmt. Reason for continued inpatient stay Substantial Risk for: harm to self, inability to function and rapid decompensation Time Spent With Patient Time: Total time managing care of this patient today __25__ minutes.
[2023-04-13] MEDS: Mineral Oil/Petrolatum,White 106 GM Tube 1 APPL TOPICAL (16:38)
[2023-04-13 20:06] VITALS: BP 137/77; PULSE 100; RESP 16; TEMP 37.6; O2SAT 98
[2023-04-13] MEDS: OLANZapine 10 MG VIAL IM (23:25)
[2023-04-13] MEDS: diazePAM 10 MG/2 ML CARTRIDGE IM (23:25)
--- NOTE | 2023-04-14 13:21 | P.PNPSI_ITS ---
Subjective Subjective Date of Service: 04/14/23 Reason For Visit: Psychosis Interim History: seen with SABA Ozuna, who had arranged an appointment btwn MD and pt for today. pt perseverative, inflexible, tearful (without shedding more than one tear), saying she had signed a 3-day and that meant she could go home tomorrow. MD attempted to explain that pt has been committed and therefore cannot discharge tomorrow on a 3-day notice, but pt's thinking was rigid and unable to integrate new in formation or exhibit any cognitive flexibility. pt was encouraged to take medication by mouth. per staff, slowed, guarded, suspicious. refusing PO meds, allowing IMs. slept well. Mental Status Exam Mental Status Exam Narrative: Appearance: improved grooming, in NAD Behavior:guarded and suspicious Psychomotor: PMR, shorter stride, appears stiff Speech: nml rate, incr amount, decr latency TP: focused on 3-day notice meaning she can discharge tomorrow, no mental illness. TC: paranoid delusions Mood: unable to assess Affect: suspicious, tearful, min labile SI: none expressed HI: none expressed VH/AH: none expressed Insight/judgment: impaired x 2. Memory/cog: alert, oriented not to situation. Diagnostics Vital Signs (24Hr): Vital Signs - 24 hr 04/13/23 20:06 Temperature 99.6 F Pulse Rate 100 Respiratory Rate 16 Blood Pressure 137/77 Pulse Oximetry 98 Oxygen Delivery Method Room Air BMI result Body Mass Index 22.8 Medications Medications Current Medications Acetaminophen (Acetaminophen 325 Mg Tablet) 650 mg PO Q6H PRN PRN Reason: Headache/Pain Mild Scale (1-3) Al Hydroxide/Mg Hydroxide (Magnesium Hydrox/Alum Hydrox 30 Ml Oral.Susp) 30 ml PO Q6H PRN PRN Reason: Heartburn/Nausea Bacitracin (Bacitracin Oint 14 Gm Tube) 1 appl TOPICAL BID PRN; Protocol PRN Reason: lesion Diazepam (Diazepam 10 Mg/2 Ml Cartridge) 10 mg IM DAILY PRN PRN Reason: refusal of lithium Last Admin: 04/13/23 23:25 Dose: 10 mg Folic Acid (Folic Acid 1 Mg Tablet) 1 mg PO DAILY [facility] Last Admin: 04/14/23 08:29 Dose: Not Given Hydroxyzine HCl (Hydroxyzine Hcl 25 Mg Tablet) 25 mg PO Q6H PRN PRN Reason: Anxiety Bledsoe Carbonate (Bledsoe Carbonate Er 300 Mg Tablet.Er) 600 mg PO BEDTIME [facility] Last Admin: 04/13/23 22:53 Dose: Not Given Magnesium Hydroxide (Milk Of Magnesia 30 Ml Oral.Susp) 30 ml PO DAILY PRN PRN Reason: Constipation Multi-Ingred Cream/Lotion/Oil/Oint (Mineral Oil/Petrolatum,White 106 Gm Tube) 1 appl TOPICAL BID PRN; Protocol PRN Reason: skin protectant Last Admin: 04/13/23 16:38 Dose: 1 appl Multivitamins/Vitamin C (Multivitamin Tablet) 1 tab PO DAILY [facility] Last Admin: 04/14/23 08:30 Dose: Not Given Nicotine (Nicotine 21 Mg Patch.Td24) 21 mg TRANSDERMA DAILY PRN PRN Reason: smoking cessation Nicotine Polacrilex (Nicotine Polacrilex 2 Mg Gum) 4 mg BUCCAL Q2H PRN PRN Reason: Nicotine Cravings Olanzapine (Olanzapine 5 Mg Tablet) 5 mg PO TID PRN PRN Reason: agitation Olanzapine (Olanzapine Odt 10 Mg Tab.Rapdis) 20 mg TRANSLINGU BEDTIME [facility] Last Admin: 04/13/23 22:53 Dose: Not Given Olanzapine (Olanzapine 10 Mg Vial) 10 mg IM DAILY PRN PRN Reason: refusal of PO; per court order Last Admin: 04/13/23 23:25 Dose: 10 mg Thiamine HCl (Thiamine Hcl 100 Mg Tablet) 100 mg PO DAILY [facility] Last Admin: 04/14/23 08:31 Dose: Not Given Trazodone HCl (Trazodone Hcl 50 Mg Tablet) 50 mg PO BEDTIME MRX1 PRN PRN Reason: Insomnia Allergies Allergies Allergy/AdvReac Type Severity Reaction Status Date / Time penicillin V Allergy Unknown unknown Verified 03/05/23 05:16 Penicillins [PENICILLINS] Allergy Unknown RASH Verified 03/05/23 05:16 Assessment & Plan Assessment & Plan (1) Schizophrenia: Status: Acute Code(s): F20.9 - Schizophrenia, unspecified Assessment and Plan: Zyprexa dose just increased. Give IM if refusing PO per Vimal's order Plan Ms. Quiles is a 37 year-old woman with hx of schizophrenia. it appears schizophrenia largely untreated and patient has been homeless for several months. She was brought via police after aunt called them due to frostbites and increased paranoia. Pt with no insight into illness or need for treatment for both psychiatric and frostbite. We discussed risks, benefits and alternative treatment options, she declines medications- antipsychotic ones. PLAN 1. Admit to M3, sect 12b, 15 minutes checks 2. obtain collateral information 3. aftercare planning 03/09: refusing medications. frostbite, no insight into mental illness. plan to petition for commitment and medication. 03/10: refusing medications. being treated for frostbite. commitment petition paperwork completed today. 03/11 Patient continues to refuse medication civil commitment and treatment paperwork has been filed by Dr. Diallo patient seemed unable take in information regarding the 03/12: no change in presentation. refusing meds, including doxy for frostbite. intermittent acceptance of foot soaks. denies mental illness. disorganized, delusional. 03/13: no change in presentation. continue current mgmt. court thursday. 03/14: Court on Thursday03/17/23. Cont current plan. 03/15: Continue current management and treatment plan. 03/16 Patient remains manic, delusional. Very difficult with which to engage or interrupt. Patient accusing abstract writer of trying to get her to look at abstract writer's penis... Repeats over and over that she is in the ; told abstract writer that she believes abstract writer and other psychiatrists are related and are not real psychiatrists, that they all are purposely dressing the same, intention is to steal her identity... Patient says I got someone killed on the spot for stealing identity.... There was a warrant... She was an illegal citizen... Patient continues to ramble similar things over and over; says that crystal killed everyone in high school in [place]... 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 Patient said she came here because of frostbite for her feet and should not be on the psychiatric unit, that she is going to get everyone in the hospital arrested and that everyone is in big trouble. Manager Respiratory inquired why she has been refusing antibiotics that were specifically prescribed due to her frostbite to which patient replied that it is none of abstract writer's business. Intermittently, throughout conversation with abstract writer, she would pause to yell at and accuse peer who was sitting at a table next to her. Patient continued to ramble, accuse; as abstract writer excused himself she continued to yell at abstract writer down the spencer. -Continues to refuse all medications -based on presentation, chart review patient does not appear to be able to take care of herself in the community. Manager Respiratory agrees with team plan to pursue involuntary commitment. 03/[address] for involuntary treatment. 03/[address] sect 08/23 03/19 committed to hospital. ordered olanzapine 10mg po qhs with back up IM. 03/20/23 Monitor response to olanzapine cont tx plan 03/21: remains psychotic, less agitated than prior. continue current mgmt. 03/22: remains psychotic, less agitated than prior. continue current mgmt. 03/23: psychotic, labile. continue current mgmt. 03/24: no change in presentation or plan. 03/25: no change in presentation or plan. 03/26: no change in presentation or plan. T/C addition of benzo IM with antipsychotic as pt appears manic and mood stabilizer is likely to be necessary to quell the mariola. 03/27 increase olanzapine 20mg po qhs adjusted back up IM. 03/29: Continue current regimen and plans 03/30: continue current mgmt. marginal improvement, less loud and disruptive to milieu. 03/31: marginal improvement continues. 04/01: no change in presentation. continue current mgmt. 04/02: no change in presentation. continue current mgmt. 04/03: decrease HS olanzapine to 15 mg as 20 mg does not seem much better than 10 was and requires 2 shots, whereas 15 mg can be given in 1 shot. add lithium for mood stabilization with valium 10 mg IM back-up per medication order. no change in presentation. 04/04 continue tx switched back up IM haldol 5mg 04/05 continue tx 04/06 continue tx. 04/07: seems markedly improved since the addition of valium and switch to haldol. continue current mgmt. 04/08: continue current mgmt. no change from yesterday. 04/09 continue tx. 04/10 increase haldol to 7.5mg IM back up medication, with scheduled haldol 10mg po qhs. 04/11: Continue current management and treatment plan. 04/12: continue current management and treatment plan. 04/13: pt appears to be becoming parkinsonian. will switch back to zyprexa for now. otherwise continue current mgmt. 04/14: less stiff today, more fluid, some cogwheeling rigidity per exam by SABA Ozuna. continue current mgmt. Reason for continued inpatient stay Substantial Risk for: harm to self, inability to function and rapid decompensation Time Spent With Patient Time: Total time managing care of this patient today __35__ minutes.
[2023-04-14 20:10] VITALS: BP 120/75; PULSE 100; RESP 16; TEMP 36.3; O2SAT 100
[2023-04-14] MEDS: OLANZapine 10 MG VIAL IM (22:57)
[2023-04-14] MEDS: diazePAM 10 MG/2 ML CARTRIDGE IM (22:58)
--- NOTE | 2023-04-15 14:06 | HO.PSYCHPN ---
Subjective Subjective Date of Service: 04/15/23 Reason For Visit: Psychosis Interim History: pt seen with RN TED Ozuna. discussed pt's proactively contacting shelters looking for a bed yesterday and her feeling she is entitled to the reward of discharge for such behavior. discuss possibility of discharging her soon, but will need some time to taper benzos, so maybe next week. per staff, crying a lot yesterday. accepting IM meds, refusing PO. more pacing. continues to sleep in milieu. slept about 6 hours overnight. Mental Status Exam Mental Status Exam Narrative: Appearance: improved grooming, in NAD Behavior: guarded and suspicious Psychomotor: no PMA/PMR Speech: nml rate, incr amount, decr latency TP: focused on discharge, no mental illness. TC: paranoid delusions Mood: did not assess Affect: suspicious, constricted, non-labile SI: none expressed HI: none expressed VH/AH: none expressed Insight/judgment: impaired x 2. Memory/cog: alert, oriented not to situation. Diagnostics Vital Signs (24Hr): Vital Signs - 24 hr 04/14/23 20:10 Temperature 97.3 F Pulse Rate 100 Respiratory Rate 16 Blood Pressure 120/75 Pulse Oximetry 100 Oxygen Delivery Method Room Air BMI result Body Mass Index 22.8 Medications Medications Current Medications Acetaminophen (Acetaminophen 325 Mg Tablet) 650 mg PO Q6H PRN PRN Reason: Headache/Pain Mild Scale (1-3) Al Hydroxide/Mg Hydroxide (Magnesium Hydrox/Alum Hydrox 30 Ml Oral.Susp) 30 ml PO Q6H PRN PRN Reason: Heartburn/Nausea Bacitracin (Bacitracin Oint 14 Gm Tube) 1 appl TOPICAL BID PRN; Protocol PRN Reason: lesion Diazepam (Diazepam 10 Mg/2 Ml Cartridge) 7.5 mg IM DAILY PRN PRN Reason: refusal of lithium Folic Acid (Folic Acid 1 Mg Tablet) 1 mg PO DAILY [facility] Last Admin: 04/15/23 09:09 Dose: Not Given Hydroxyzine HCl (Hydroxyzine Hcl 25 Mg Tablet) 25 mg PO Q6H PRN PRN Reason: Anxiety [place] Carbonate ([place] Carbonate Er 300 Mg Tablet.Er) 600 mg PO BEDTIME [facility] Last Admin: 04/14/23 23:22 Dose: Not Given Magnesium Hydroxide (Milk Of Magnesia 30 Ml Oral.Susp) 30 ml PO DAILY PRN PRN Reason: Constipation Multi-Ingred Cream/Lotion/Oil/Oint (Mineral Oil/Petrolatum,White 106 Gm Tube) 1 appl TOPICAL BID PRN; Protocol PRN Reason: skin protectant Last Admin: 04/13/23 16:38 Dose: 1 appl Multivitamins/Vitamin C (Multivitamin Tablet) 1 tab PO DAILY [facility] Last Admin: 04/15/23 09:09 Dose: Not Given Nicotine (Nicotine 21 Mg Patch.Td24) 21 mg TRANSDERMA DAILY PRN PRN Reason: smoking cessation Nicotine Polacrilex (Nicotine Polacrilex 2 Mg Gum) 4 mg BUCCAL Q2H PRN PRN Reason: Nicotine Cravings Olanzapine (Olanzapine 5 Mg Tablet) 5 mg PO TID PRN PRN Reason: agitation Olanzapine (Olanzapine Odt 10 Mg Tab.Rapdis) 20 mg TRANSLINGU BEDTIME [facility] Last Admin: 04/14/23 23:22 Dose: Not Given Olanzapine (Olanzapine 10 Mg Vial) 7.5 mg IM DAILY PRN PRN Reason: refusal of PO; per court order Thiamine HCl (Thiamine Hcl 100 Mg Tablet) 100 mg PO DAILY [facility] Last Admin: 04/15/23 09:09 Dose: Not Given Trazodone HCl (Trazodone Hcl 50 Mg Tablet) 50 mg PO BEDTIME MRX1 PRN PRN Reason: Insomnia Allergies Allergies Allergy/AdvReac Type Severity Reaction Status Date / Time penicillin V Allergy Unknown unknown Verified 03/05/23 05:16 Penicillins [PENICILLINS] Allergy Unknown RASH Verified 03/05/23 05:16 Assessment & Plan Assessment & Plan (1) Schizophrenia: Status: Acute Code(s): F20.9 - Schizophrenia, unspecified Assessment and Plan: Zyprexa dose just increased. Give IM if refusing PO per Vimal's order Plan Ms. Quiles is a 37 year-old woman with hx of schizophrenia. it appears schizophrenia largely untreated and patient has been homeless for several months. She was brought via police after aunt called them due to frostbites and increased paranoia. Pt with no insight into illness or need for treatment for both psychiatric and frostbite. We discussed risks, benefits and alternative treatment options, she declines medications- antipsychotic ones. PLAN 1. Admit to M3, sect 12b, 15 minutes checks 2. obtain collateral information 3. aftercare planning 03/09: refusing medications. frostbite, no insight into mental illness. plan to petition for commitment and medication. 03/10: refusing medications. being treated for frostbite. commitment petition paperwork completed today. 03/11 Patient continues to refuse medication civil commitment and treatment paperwork has been filed by Dr. Diallo patient seemed unable take in information regarding the 03/12: no change in presentation. refusing meds, including doxy for frostbite. intermittent acceptance of foot soaks. denies mental illness. disorganized, delusional. 03/13: no change in presentation. continue current mgmt. court thursday. 03/14: Court on Thursday03/17/23. Cont current plan. 03/15: Continue current management and treatment plan. 03/16 Patient remains manic, delusional. Very difficult with which to engage or interrupt. Patient accusing advertising copy writer of trying to get her to look at advertising copy writer's penis... Repeats over and over that she is in the ; told advertising copy writer that she believes advertising copy writer and other psychiatrists are related and are not real psychiatrists, that they all are purposely dressing the same, intention is to steal her identity... Patient says I got someone killed on the spot for stealing identity.... There was a warrant... She was an illegal citizen... Patient continues to ramble similar things over and over; says that flako killed everyone in high school in [place]... 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 Patient said she came here because of frostbite for her feet and should not be on the psychiatric unit, that she is going to get everyone in the hospital arrested and that everyone is in big trouble. Braze Operator inquired why she has been refusing antibiotics that were specifically prescribed due to her frostbite to which patient replied that it is none of advertising copy writer's business. Intermittently, throughout conversation with advertising copy writer, she would pause to yell at and accuse peer who was sitting at a table next to her. Patient continued to ramble, accuse; as advertising copy writer excused himself she continued to yell at advertising copy writer down the spencer. -Continues to refuse all medications -based on presentation, chart review patient does not appear to be able to take care of herself in the community. Braze Operator agrees with team plan to pursue involuntary commitment. 03/[address] for involuntary treatment. 03/[address] sect 08/23 03/19 committed to hospital. ordered olanzapine 10mg po qhs with back up IM. 03/20/23 Monitor response to olanzapine cont tx plan 3: remains psychotic, less agitated than prior. continue current mgmt. 03/22: remains psychotic, less agitated than prior. continue current mgmt. 03/23: psychotic, labile. continue current mgmt. 03/24: no change in presentation or plan. 03/25: no change in presentation or plan. 03/26: no change in presentation or plan. T/C addition of benzo IM with antipsychotic as pt appears manic and mood stabilizer is likely to be necessary to quell the mariola. 03/27 increase olanzapine 20mg po qhs adjusted back up IM. 03/29: Continue current regimen and plans 03/30: continue current mgmt. marginal improvement, less loud and disruptive to milieu. 03/31: marginal improvement continues. 04/01: no change in presentation. continue current mgmt. 04/02: no change in presentation. continue current mgmt. 04/03: decrease HS olanzapine to 15 mg as 20 mg does not seem much better than 10 was and requires 2 shots, whereas 15 mg can be given in 1 shot. add lithium for mood stabilization with valium 10 mg IM back-up per medication order. no change in presentation. 04/04 continue tx switched back up IM haldol 5mg 04/05 continue tx 04/06 continue tx. 04/07: seems markedly improved since the addition of valium and switch to haldol. continue current mgmt. 04/08: continue current mgmt. no change from yesterday. 04/09 continue tx. 04/10 increase haldol to 7.5mg IM back up medication, with scheduled haldol 10mg po qhs. 04/11: Continue current management and treatment plan. 04/12: continue current management and treatment plan. 04/13: pt appears to be becoming parkinsonian. will switch back to zyprexa for now. otherwise continue current mgmt. 04/14: less stiff today, more fluid, some cogwheeling rigidity per exam by SABA Ozuna. continue current mgmt. 04/15: no PMR today, appearing more normal in her movememt fluidity. agree to plan for discharge next week, begin to taper benzos over coming days, decrease dosing of olanzapine as well. will plan to discharge not on medication, as pt has steadfastly refused to take medications here. pt's mental status has improved since admission, and she is no longer considered at imminent risk of harm to self or others. Reason for continued inpatient stay Substantial Risk for: inability to function and rapid decompensation Time Spent With Patient Time: Total time managing care of this patient today __45__ minutes.
[2023-04-15 19:50] VITALS: BP 119/66; PULSE 95; RESP 16; TEMP 36.6; O2SAT 98
[2023-04-15] MEDS: OLANZapine 10 MG VIAL 7.5 MG IM (22:39)
[2023-04-15] MEDS: diazePAM 10 MG/2 ML CARTRIDGE 7.5 MG IM (22:40)
--- NOTE | 2023-04-16 14:32 | P.PNPSI_ITS ---
Subjective Subjective Date of Service: 04/16/23 Reason For Visit: Psychosis Interim History: seen with TED Harrison. bianca. cooperative. more receptive to MD today than previous days. discuss medications taper and plan for discharge next week. per staff, denies Sx. paranoid. eating. talkative. labile. delusional. Mental Status Exam Mental Status Exam Narrative: Appearance: improved grooming, in NAD Behavior: guarded and suspicious Psychomotor: no PMA/PMR Speech: nml rate, incr amount, decr latency TP: focused on discharge, no mental illness. TC: paranoid delusions Mood: did not assess Affect: suspicious, constricted, non-labile SI: none expressed HI: none expressed VH/AH: none expressed Insight/judgment: impaired x 2. Memory/cog: alert, oriented not to situation. Diagnostics Vital Signs (24Hr): Vital Signs - 24 hr 04/15/23 19:50 Temperature 97.8 F Pulse Rate 95 Respiratory Rate 16 Blood Pressure 119/66 Pulse Oximetry 98 Oxygen Delivery Method Room Air BMI result Body Mass Index 22.8 Medications Medications Current Medications Acetaminophen (Acetaminophen 325 Mg Tablet) 650 mg PO Q6H PRN PRN Reason: Headache/Pain Mild Scale (1-3) Al Hydroxide/Mg Hydroxide (Magnesium Hydrox/Alum Hydrox 30 Ml Oral.Susp) 30 ml PO Q6H PRN PRN Reason: Heartburn/Nausea Bacitracin (Bacitracin Oint 14 Gm Tube) 1 appl TOPICAL BID PRN; Protocol PRN Reason: lesion Diazepam (Diazepam 10 Mg/2 Ml Cartridge) 7.5 mg IM DAILY PRN PRN Reason: refusal of lithium Last Admin: 04/15/23 22:40 Dose: 7.5 mg Folic Acid (Folic Acid 1 Mg Tablet) 1 mg PO DAILY [facility] Last Admin: 04/16/23 09:01 Dose: Not Given Hydroxyzine HCl (Hydroxyzine Hcl 25 Mg Tablet) 25 mg PO Q6H PRN PRN Reason: Anxiety [place] Carbonate ([place] Carbonate Er 300 Mg Tablet.Er) 600 mg PO BEDTIME [facility] Last Admin: 04/15/23 22:50 Dose: Not Given Magnesium Hydroxide (Milk Of Magnesia 30 Ml Oral.Susp) 30 ml PO DAILY PRN PRN Reason: Constipation Multi-Ingred Cream/Lotion/Oil/Oint (Mineral Oil/Petrolatum,White 106 Gm Tube) 1 appl TOPICAL BID PRN; Protocol PRN Reason: skin protectant Last Admin: 04/13/23 16:38 Dose: 1 appl Multivitamins/Vitamin C (Multivitamin Tablet) 1 tab PO DAILY [facility] Last Admin: 04/16/23 09:01 Dose: Not Given Nicotine (Nicotine 21 Mg Patch.Td24) 21 mg TRANSDERMA DAILY PRN PRN Reason: smoking cessation Nicotine Polacrilex (Nicotine Polacrilex 2 Mg Gum) 4 mg BUCCAL Q2H PRN PRN Reason: Nicotine Cravings Olanzapine (Olanzapine 5 Mg Tablet) 5 mg PO TID PRN PRN Reason: agitation Olanzapine (Olanzapine Odt 10 Mg Tab.Rapdis) 20 mg TRANSLINGU BEDTIME [facility] Last Admin: 04/15/23 22:50 Dose: Not Given Olanzapine (Olanzapine 10 Mg Vial) 7.5 mg IM DAILY PRN PRN Reason: refusal of PO; per court order Last Admin: 04/15/23 22:39 Dose: 7.5 mg Thiamine HCl (Thiamine Hcl 100 Mg Tablet) 100 mg PO DAILY [facility] Last Admin: 04/16/23 09:02 Dose: Not Given Trazodone HCl (Trazodone Hcl 50 Mg Tablet) 50 mg PO BEDTIME MRX1 PRN PRN Reason: Insomnia Allergies Allergies Allergy/AdvReac Type Severity Reaction Status Date / Time penicillin V Allergy Unknown unknown Verified 03/05/23 05:16 Penicillins [PENICILLINS] Allergy Unknown RASH Verified 03/05/23 05:16 Assessment & Plan Assessment & Plan (1) Schizophrenia: Status: Acute Code(s): F20.9 - Schizophrenia, unspecified Assessment and Plan: Zyprexa dose just increased. Give IM if refusing PO per Vimal's order Plan Ms. Quiles is a 37 year-old woman with hx of schizophrenia. it appears schizophrenia largely untreated and patient has been homeless for several months. She was brought via police after aunt called them due to frostbites and increased paranoia. Pt with no insight into illness or need for treatment for both psychiatric and frostbite. We discussed risks, benefits and alternative treatment options, she declines medications- antipsychotic ones. PLAN 1. Admit to M3, sect 12b, 15 minutes checks 2. obtain collateral information 3. aftercare planning 03/09: refusing medications. frostbite, no insight into mental illness. plan to petition for commitment and medication. 03/10: refusing medications. being treated for frostbite. commitment petition paperwork completed today. 03/11 Patient continues to refuse medication civil commitment and treatment paperwork has been filed by Dr. Diallo patient seemed unable take in information regarding the 03/12: no change in presentation. refusing meds, including doxy for frostbite. intermittent acceptance of foot soaks. denies mental illness. disorganized, delusional. 03/13: no change in presentation. continue current mgmt. court thursday. 03/14: Court on Thursday03/17/23. Cont current plan. 03/15: Continue current management and treatment plan. 03/16 Patient remains manic, delusional. Very difficult with which to engage or interrupt. Patient accusing personal lines underwriter of trying to get her to look at personal lines underwriter's penis... Repeats over and over that she is in the ; told personal lines underwriter that she believes personal lines underwriter and other psychiatrists are related and are not real psychiatrists, that they all are purposely dressing the same, intention is to steal her identity... Patient says I got someone killed on the spot for stealing identity.... There was a warrant... She was an illegal citizen... Patient continues to ramble similar things over and over; says that flako killed everyone in high school in [place]... 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 Patient said she came here because of frostbite for her feet and should not be on the psychiatric unit, that she is going to get everyone in the hospital arrested and that everyone is in big trouble. Garbage Collector Supervisor inquired why she has been refusing antibiotics that were specifically prescribed due to her frostbite to which patient replied that it is none of personal lines underwriter's business. Intermittently, throughout conversation with personal lines underwriter, she would pause to yell at and accuse peer who was sitting at a table next to her. Patient continued to ramble, accuse; as personal lines underwriter excused himself she continued to yell at personal lines underwriter down the spencer. -Continues to refuse all medications -based on presentation, chart review patient does not appear to be able to take care of herself in the community. Garbage Collector Supervisor agrees with team plan to pursue involuntary commitment. 03/[address] for involuntary treatment. 03/[address] sect 08/23 03/19 committed to hospital. ordered olanzapine 10mg po qhs with back up IM. 03/20/23 Monitor response to olanzapine cont tx plan 3: remains psychotic, less agitated than prior. continue current mgmt. 4: remains psychotic, less agitated than prior. continue current mgmt. 03/23: psychotic, labile. continue current mgmt. 03/24: no change in presentation or plan. 03/25: no change in presentation or plan. 03/26: no change in presentation or plan. T/C addition of benzo IM with antipsychotic as pt appears manic and mood stabilizer is likely to be necessary to quell the mariola. 03/27 increase olanzapine 20mg po qhs adjusted back up IM. 03/29: Continue current regimen and plans 03/30: continue current mgmt. marginal improvement, less loud and disruptive to milieu. 03/31: marginal improvement continues. 04/01: no change in presentation. continue current mgmt. 04/02: no change in presentation. continue current mgmt. 04/03: decrease HS olanzapine to 15 mg as 20 mg does not seem much better than 10 was and requires 2 shots, whereas 15 mg can be given in 1 shot. add lithium for mood stabilization with valium 10 mg IM back-up per medication order. no change in presentation. 04/04 continue tx switched back up IM haldol 5mg 04/05 continue tx 04/06 continue tx. 04/07: seems markedly improved since the addition of valium and switch to haldol. continue current mgmt. 04/08: continue current mgmt. no change from yesterday. 04/09 continue tx. 04/10 increase haldol to 7.5mg IM back up medication, with scheduled haldol 10mg po qhs. 04/11: Continue current management and treatment plan. 04/12: continue current management and treatment plan. 04/13: pt appears to be becoming parkinsonian. will switch back to zyprexa for now. otherwise continue current mgmt. 04/14: less stiff today, more fluid, some cogwheeling rigidity per exam by SABA Ozuna. continue current mgmt. 04/15: no PMR today, appearing more normal in her movememt fluidity. agree to plan for discharge next week, begin to taper benzos over coming days, decrease dosing of olanzapine as well. will plan to discharge not on medication, as pt has steadfastly refused to take medications here. pt's mental status has improved since admission, and she is no longer considered at imminent risk of harm to self or others. : less antagonistic toward MD today. pleased with medication taper. discussed discharge next week. continue valium taper tomorrow. Reason for continued inpatient stay Substantial Risk for: inability to function and rapid decompensation Time Spent With Patient Time: Total time managing care of this patient today __35__ minutes.
[2023-04-16] MEDS: Mineral Oil/Petrolatum,White 106 GM Tube 1 APPL TOPICAL (19:25)
[2023-04-16 21:00] VITALS: BP 100/66; PULSE 82; RESP 16; TEMP 37.2; O2SAT 99
[2023-04-16] MEDS: diazePAM 10 MG/2 ML CARTRIDGE 7.5 MG IM (23:17)
[2023-04-16] MEDS: OLANZapine 10 MG VIAL 7.5 MG IM (23:19)
--- NOTE | 2023-04-17 13:41 | P.PNPSI_ITS ---
Subjective Subjective Date of Service: 04/17/23 Reason For Visit: Psychosis Interim History: calm, cooperative. less paranoid toward underwriter solicitation director. seen with TED Harrison. shows arms, left arm with some erythematous patches around elbow, no swelling, denies substantial tenderness or warmth. looking forward to discharge. unsure if she can stay at her aunt's house. per staff, not attending groups. hyperverbal. slept 7 hours. left arm swollen and warm to the touch. Mental Status Exam Mental Status Exam Narrative: Appearance: improved grooming, in NAD Behavior: guarded and suspicious, but less so than prior Psychomotor: no PMA/PMR Speech: nml rate, incr amount, decr latency TP: focused on discharge, no mental illness. TC: paranoid delusions Mood: did not assess Affect: suspicious, constricted, non-labile SI: none expressed HI: none expressed VH/AH: none expressed Insight/judgment: impaired x 2. Memory/cog: alert, oriented not to situation. Diagnostics Vital Signs (24Hr): Vital Signs - 24 hr 04/16/23 21:00 Temperature 98.9 F Pulse Rate 82 Respiratory Rate 16 Blood Pressure 100/66 Pulse Oximetry 99 Oxygen Delivery Method Room Air BMI result Body Mass Index 22.8 Medications Medications Current Medications Acetaminophen (Acetaminophen 325 Mg Tablet) 650 mg PO Q6H PRN PRN Reason: Headache/Pain Mild Scale (1-3) Al Hydroxide/Mg Hydroxide (Magnesium Hydrox/Alum Hydrox 30 Ml Oral.Susp) 30 ml PO Q6H PRN PRN Reason: Heartburn/Nausea Bacitracin (Bacitracin Oint 14 Gm Tube) 1 appl TOPICAL BID PRN; Protocol PRN Reason: lesion Diazepam (Diazepam 10 Mg/2 Ml Cartridge) 7.5 mg IM DAILY PRN PRN Reason: refusal of lithium Last Admin: 04/16/23 23:17 Dose: 7.5 mg Folic Acid (Folic Acid 1 Mg Tablet) 1 mg PO DAILY [facility] Last Admin: 04/17/23 09:43 Dose: Not Given Hydroxyzine HCl (Hydroxyzine Hcl 25 Mg Tablet) 25 mg PO Q6H PRN PRN Reason: Anxiety [place] Carbonate ([place] Carbonate Er 300 Mg Tablet.Er) 600 mg PO BEDTIME [facility] Last Admin: 04/16/23 23:16 Dose: Not Given Magnesium Hydroxide (Milk Of Magnesia 30 Ml Oral.Susp) 30 ml PO DAILY PRN PRN Reason: Constipation Multi-Ingred Cream/Lotion/Oil/Oint (Mineral Oil/Petrolatum,White 106 Gm Tube) 1 appl TOPICAL BID PRN; Protocol PRN Reason: skin protectant Last Admin: 04/16/23 19:25 Dose: 1 appl Multivitamins/Vitamin C (Multivitamin Tablet) 1 tab PO DAILY [facility] Last Admin: 04/17/23 09:43 Dose: Not Given Nicotine (Nicotine 21 Mg Patch.Td24) 21 mg TRANSDERMA DAILY PRN PRN Reason: smoking cessation Nicotine Polacrilex (Nicotine Polacrilex 2 Mg Gum) 4 mg BUCCAL Q2H PRN PRN Reason: Nicotine Cravings Olanzapine (Olanzapine 5 Mg Tablet) 5 mg PO TID PRN PRN Reason: agitation Olanzapine (Olanzapine Odt 10 Mg Tab.Rapdis) 20 mg TRANSLINGU BEDTIME [facility] Last Admin: 04/16/23 23:17 Dose: Not Given Olanzapine (Olanzapine 10 Mg Vial) 7.5 mg IM DAILY PRN PRN Reason: refusal of PO; per court order Last Admin: 04/16/23 23:19 Dose: 7.5 mg Thiamine HCl (Thiamine Hcl 100 Mg Tablet) 100 mg PO DAILY [facility] Last Admin: 04/17/23 09:43 Dose: Not Given Trazodone HCl (Trazodone Hcl 50 Mg Tablet) 50 mg PO BEDTIME MRX1 PRN PRN Reason: Insomnia Allergies Allergies Allergy/AdvReac Type Severity Reaction Status Date / Time penicillin V Allergy Unknown unknown Verified 03/05/23 05:16 Penicillins [PENICILLINS] Allergy Unknown RASH Verified 03/05/23 05:16 Assessment & Plan Assessment & Plan (1) Schizophrenia: Status: Acute Code(s): F20.9 - Schizophrenia, unspecified Assessment and Plan: Zyprexa dose just increased. Give IM if refusing PO per Vimal's order Plan Ms. Quiles is a 37 year-old woman with hx of schizophrenia. it appears schizophrenia largely untreated and patient has been homeless for several months. She was brought via police after aunt called them due to frostbites and increased paranoia. Pt with no insight into illness or need for treatment for both psychiatric and frostbite. We discussed risks, benefits and alternative treatment options, she declines medications- antipsychotic ones. PLAN 1. Admit to M3, sect 12b, 15 minutes checks 2. obtain collateral information 3. aftercare planning 03/09: refusing medications. frostbite, no insight into mental illness. plan to petition for commitment and medication. 03/10: refusing medications. being treated for frostbite. commitment petition paperwork completed today. 03/11 Patient continues to refuse medication civil commitment and treatment paperwork has been filed by Dr. Diallo patient seemed unable take in information regarding the 03/12: no change in presentation. refusing meds, including doxy for frostbite. intermittent acceptance of foot soaks. denies mental illness. disorganized, delusional. 03/13: no change in presentation. continue current mgmt. court thursday. 03/14: Court on Thursday03/17/23. Cont current plan. 03/15: Continue current management and treatment plan. 03/16 Patient remains manic, delusional. Very difficult with which to engage or interrupt. Patient accusing underwriter solicitation director of trying to get her to look at underwriter solicitation director's penis... Repeats over and over that she is in the ; told underwriter solicitation director that she believes underwriter solicitation director and other psychiatrists are related and are not real psychiatrists, that they all are purposely dressing the same, intention is to steal her identity... Patient says I got someone killed on the spot for stealing identity.... There was a warrant... She was an illegal citizen... Patient continues to ramble similar things over and over; says that crystal killed everyone in high school in [place]... 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 Patient said she came here because of frostbite for her feet and should not be on the psychiatric unit, that she is going to get everyone in the hospital arrested and that everyone is in big trouble. Metal Off Bearer inquired why she has been refusing antibiotics that were specifically prescribed due to her frostbite to which patient replied that it is none of underwriter solicitation director's business. Intermittently, throughout conversation with underwriter solicitation director, she would pause to yell at and accuse peer who was sitting at a table next to her. Patient continued to ramble, accuse; as underwriter solicitation director excused himself she continued to yell at underwriter solicitation director down the spencer. -Continues to refuse all medications -based on presentation, chart review patient does not appear to be able to take care of herself in the community. Metal Off Bearer agrees with team plan to pursue involuntary commitment. 03/[address] for involuntary treatment. 03/[address] sect 08/23 03/19 committed to hospital. ordered olanzapine 10mg po qhs with back up IM. 03/20/23 Monitor response to olanzapine cont tx plan 03/21: remains psychotic, less agitated than prior. continue current mgmt. 03/22: remains psychotic, less agitated than prior. continue current mgmt. 03/23: psychotic, labile. continue current mgmt. 03/24: no change in presentation or plan. 03/25: no change in presentation or plan. 03/26: no change in presentation or plan. T/C addition of benzo IM with antipsychotic as pt appears manic and mood stabilizer is likely to be necessary to quell the mariola. 03/27 increase olanzapine 20mg po qhs adjusted back up IM. 03/29: Continue current regimen and plans 03/30: continue current mgmt. marginal improvement, less loud and disruptive to milieu. 03/31: marginal improvement continues. 04/01: no change in presentation. continue current mgmt. 04/02: no change in presentation. continue current mgmt. 04/03: decrease HS olanzapine to 15 mg as 20 mg does not seem much better than 10 was and requires 2 shots, whereas 15 mg can be given in 1 shot. add lithium for mood stabilization with valium 10 mg IM back-up per medication order. no change in presentation. 04/04 continue tx switched back up IM haldol 5mg 04/05 continue tx 04/06 continue tx. 04/07: seems markedly improved since the addition of valium and switch to haldol. continue current mgmt. 04/08: continue current mgmt. no change from yesterday. 04/09 continue tx. 04/10 increase haldol to 7.5mg IM back up medication, with scheduled haldol 10mg po qhs. 04/11: Continue current management and treatment plan. 04/12: continue current management and treatment plan. 04/13: pt appears to be becoming parkinsonian. will switch back to zyprexa for now. otherwise continue current mgmt. 04/14: less stiff today, more fluid, some cogwheeling rigidity per exam by SABA Ozuna. continue current mgmt. 04/15: no PMR today, appearing more normal in her movememt fluidity. agree to plan for discharge next week, begin to taper benzos over coming days, decrease dosing of olanzapine as well. will plan to discharge not on medication, as pt has steadfastly refused to take medications here. pt's mental status has improved since admission, and she is no longer considered at imminent risk of harm to self or others. : less antagonistic toward MD today. pleased with medication taper. discussed discharge next week. continue valium taper tomorrow. 04/16: more friendly toward MD today. unsure if she can stay with aunt. looking forward to discharge next week. continue valium taper tonight. Reason for continued inpatient stay Substantial Risk for: inability to function and rapid decompensation Time Spent With Patient Time: Total time managing care of this patient today __25__ minutes.
[2023-04-17 19:45] VITALS: BP 108/74; PULSE 85; RESP 16; TEMP 35.8; O2SAT 98
[2023-04-17] MEDS: OLANZapine 10 MG VIAL 5 MG IM (23:26)
[2023-04-17] MEDS: diazePAM 10 MG/2 ML CARTRIDGE 5 MG IM (23:27)
[2023-04-18 08:46] VITALS: BP 115/66; PULSE 74; RESP 18; TEMP 36.4; O2SAT 100
[2023-04-18] MEDS: Mineral Oil/Petrolatum,White 106 GM Tube 1 APPL TOPICAL (12:29)
--- NOTE | 2023-04-18 16:07 | P.PNPSI_ITS ---
Subjective Subjective Date of Service: 04/18/23 Reason For Visit: Psychosis Interim History: calm, cooperative. loquacious and tangential. upset with roommate last night bcse roommate was making sexualized comments, otherwise no issues. awaiting word on dispo from aunt. per staff, no dep/anx. sleeping in dining area. pacing, self-dialoguing. 2 outbursts last night, one with roommate. slept well. Mental Status Exam Mental Status Exam Narrative: Appearance: improved grooming, in NAD Behavior: guarded and suspicious, but less so than prior Psychomotor: no PMA/PMR Speech: nml rate, incr amount, decr latency TP: focused on discharge, no mental illness. TC: paranoid delusions Mood: did not assess Affect: suspicious, constricted, non-labile SI: none expressed HI: none expressed VH/AH: none expressed Insight/judgment: impaired x 2. Memory/cog: alert, oriented not to situation. Diagnostics Vital Signs (24Hr): Vital Signs - 24 hr 04/17/23 19:45 04/18/23 08:46 Temperature 96.4 F L 97.5 F Pulse Rate 85 74 Respiratory Rate 16 18 Blood Pressure 108/74 115/66 Pulse Oximetry 98 100 Oxygen Delivery Method Room Air Room Air BMI result Body Mass Index 22.8 Medications Medications Current Medications Acetaminophen (Acetaminophen 325 Mg Tablet) 650 mg PO Q6H PRN PRN Reason: Headache/Pain Mild Scale (1-3) Al Hydroxide/Mg Hydroxide (Magnesium Hydrox/Alum Hydrox 30 Ml Oral.Susp) 30 ml PO Q6H PRN PRN Reason: Heartburn/Nausea Bacitracin (Bacitracin Oint 14 Gm Tube) 1 appl TOPICAL BID PRN; Protocol PRN Reason: lesion Diazepam (Diazepam 10 Mg/2 Ml Cartridge) 5 mg IM DAILY PRN PRN Reason: refusal of lithium Last Admin: 04/17/23 23:27 Dose: 5 mg Folic Acid (Folic Acid 1 Mg Tablet) 1 mg PO DAILY [facility] Last Admin: 04/18/23 08:49 Dose: Not Given Hydroxyzine HCl (Hydroxyzine Hcl 25 Mg Tablet) 25 mg PO Q6H PRN PRN Reason: Anxiety [place] Carbonate ([place] Carbonate Er 300 Mg Tablet.Er) 600 mg PO BEDTIME [facility] Last Admin: 04/17/23 23:05 Dose: Not Given Magnesium Hydroxide (Milk Of Magnesia 30 Ml Oral.Susp) 30 ml PO DAILY PRN PRN Reason: Constipation Multi-Ingred Cream/Lotion/Oil/Oint (Mineral Oil/Petrolatum,White 106 Gm Tube) 1 appl TOPICAL BID PRN; Protocol PRN Reason: skin protectant Last Admin: 04/18/23 12:29 Dose: 1 appl Multivitamins/Vitamin C (Multivitamin Tablet) 1 tab PO DAILY [facility] Last Admin: 04/18/23 08:49 Dose: Not Given Nicotine (Nicotine 21 Mg Patch.Td24) 21 mg TRANSDERMA DAILY PRN PRN Reason: smoking cessation Nicotine Polacrilex (Nicotine Polacrilex 2 Mg Gum) 4 mg BUCCAL Q2H PRN PRN Reason: Nicotine Cravings Olanzapine (Olanzapine 5 Mg Tablet) 5 mg PO TID PRN PRN Reason: agitation Olanzapine (Olanzapine Odt 10 Mg Tab.Rapdis) 20 mg TRANSLINGU BEDTIME [facility] Last Admin: 04/17/23 23:05 Dose: Not Given Olanzapine (Olanzapine 10 Mg Vial) 5 mg IM DAILY PRN PRN Reason: refusal of PO; per court order Last Admin: 04/17/23 23:26 Dose: 5 mg Thiamine HCl (Thiamine Hcl 100 Mg Tablet) 100 mg PO DAILY [facility] Last Admin: 04/18/23 08:49 Dose: Not Given Trazodone HCl (Trazodone Hcl 50 Mg Tablet) 50 mg PO BEDTIME MRX1 PRN PRN Reason: Insomnia Allergies Allergies Allergy/AdvReac Type Severity Reaction Status Date / Time penicillin V Allergy Unknown unknown Verified 03/05/23 05:16 Penicillins [PENICILLINS] Allergy Unknown RASH Verified 03/05/23 05:16 Assessment & Plan Assessment & Plan (1) Schizophrenia: Status: Acute Code(s): F20.9 - Schizophrenia, unspecified Assessment and Plan: Zyprexa dose just increased. Give IM if refusing PO per Vimal's order Plan Ms. Quiles is a 37 year-old woman with hx of schizophrenia. it appears schizophrenia largely untreated and patient has been homeless for several months. She was brought via police after aunt called them due to frostbites and increased paranoia. Pt with no insight into illness or need for treatment for both psychiatric and frostbite. We discussed risks, benefits and alternative treatment options, she declines medications- antipsychotic ones. PLAN 1. Admit to M3, sect 12b, 15 minutes checks 2. obtain collateral information 3. aftercare planning 03/09: refusing medications. frostbite, no insight into mental illness. plan to petition for commitment and medication. 03/10: refusing medications. being treated for frostbite. commitment petition paperwork completed today. 03/11 Patient continues to refuse medication civil commitment and treatment paperwork has been filed by Dr. Diallo patient seemed unable take in information regarding the 03/12: no change in presentation. refusing meds, including doxy for frostbite. intermittent acceptance of foot soaks. denies mental illness. disorganized, delusional. 03/13: no change in presentation. continue current mgmt. court thursday. 03/14: Court on Thursday03/17/23. Cont current plan. 03/15: Continue current management and treatment plan. 03/16 Patient remains manic, delusional. Very difficult with which to engage or interrupt. Patient accusing sql report writer of trying to get her to look at sql report writer's penis... Repeats over and over that she is in the ; told sql report writer that she believes sql report writer and other psychiatrists are related and are not real psychiatrists, that they all are purposely dressing the same, intention is to steal her identity... Patient says I got someone killed on the spot for stealing identity.... There was a warrant... She was an illegal citizen... Patient continues to ramble similar things over and over; says that crystal killed everyone in high school in [place]... 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 Patient said she came here because of frostbite for her feet and should not be on the psychiatric unit, that she is going to get everyone in the hospital arrested and that everyone is in big trouble. Dry Cell And Battery Assembler inquired why she has been refusing antibiotics that were specifically prescribed due to her frostbite to which patient replied that it is none of sql report writer's business. Intermittently, throughout conversation with sql report writer, she would pause to yell at and accuse peer who was sitting at a table next to her. Patient continued to ramble, accuse; as sql report writer excused himself she continued to yell at sql report writer down the spencer. -Continues to refuse all medications -based on presentation, chart review patient does not appear to be able to take care of herself in the community. Dry Cell And Battery Assembler agrees with team plan to pursue involuntary commitment. 03/[address] for involuntary treatment. 03/[address] sect 08/23 03/19 committed to hospital. ordered olanzapine 10mg po qhs with back up IM. 03/20/23 Monitor response to olanzapine cont tx plan 03/21: remains psychotic, less agitated than prior. continue current mgmt. 03/22: remains psychotic, less agitated than prior. continue current mgmt. 03/23: psychotic, labile. continue current mgmt. 03/24: no change in presentation or plan. 03/25: no change in presentation or plan. 03/26: no change in presentation or plan. T/C addition of benzo IM with antipsychotic as pt appears manic and mood stabilizer is likely to be necessary to quell the mariola. 03/27 increase olanzapine 20mg po qhs adjusted back up IM. 03/29: Continue current regimen and plans 03/30: continue current mgmt. marginal improvement, less loud and disruptive to milieu. 03/31: marginal improvement continues. 04/01: no change in presentation. continue current mgmt. 04/02: no change in presentation. continue current mgmt. 04/03: decrease HS olanzapine to 15 mg as 20 mg does not seem much better than 10 was and requires 2 shots, whereas 15 mg can be given in 1 shot. add lithium for mood stabilization with valium 10 mg IM back-up per medication order. no change in presentation. 04/04 continue tx switched back up IM haldol 5mg 04/05 continue tx 04/06 continue tx. 04/07: seems markedly improved since the addition of valium and switch to haldol. continue current mgmt. 04/08: continue current mgmt. no change from yesterday. 04/09 continue tx. 04/10 increase haldol to 7.5mg IM back up medication, with scheduled haldol 10mg po qhs. 04/11: Continue current management and treatment plan. 04/12: continue current management and treatment plan. 04/13: pt appears to be becoming parkinsonian. will switch back to zyprexa for now. otherwise continue current mgmt. 04/14: less stiff today, more fluid, some cogwheeling rigidity per exam by SABA Ozuna. continue current mgmt. 04/15: no PMR today, appearing more normal in her movememt fluidity. agree to plan for discharge next week, begin to taper benzos over coming days, decrease dosing of olanzapine as well. will plan to discharge not on medication, as pt has steadfastly refused to take medications here. pt's mental status has improved since admission, and she is no longer considered at imminent risk of harm to self or others. : less antagonistic toward MD today. pleased with medication taper. discussed discharge next week. continue valium taper tomorrow. 04/16: more friendly toward MD today. unsure if she can stay with aunt. looking forward to discharge next week. continue valium taper tonight. 04/17: 2 outbursts, more verbal output, self-dialoguing in spencer, pacing. more trusting of MD, however. continue regimen for tonight, cut meds again tomorrow night. Reason for continued inpatient stay Substantial Risk for: inability to function and rapid decompensation Time Spent With Patient Time: Total time managing care of this patient today __25__ minutes.
[2023-04-18 19:58] VITALS: BP 115/57; PULSE 82; RESP 16; TEMP 37; O2SAT 100
[2023-04-18] MEDS: OLANZapine 10 MG VIAL 5 MG IM (23:23)
[2023-04-18] MEDS: diazePAM 10 MG/2 ML CARTRIDGE 5 MG IM (23:24)
[2023-04-19 08:45] VITALS: BP 102/61; PULSE 76; RESP 18; TEMP 36.8; O2SAT 100
--- NOTE | 2023-04-19 14:28 | P.PNPSI_ITS ---
Subjective Subjective Date of Service: 04/19/23 Reason For Visit: Psychosis Interim History: much more self-dialoguing in the spencer. focused on leaving thursday. multiple reminders to lower medication tonight. per staff, denies dep/anx. flat. withdrawn. guarded. not attending groups. refusing meds, getting IMs. intrusive. slept well. Mental Status Exam Mental Status Exam Narrative: Appearance: improved grooming, in NAD Behavior: guarded and suspicious, but less so than prior Psychomotor: no PMA/PMR Speech: nml rate, incr amount, decr latency TP: focused on discharge, no mental illness. TC: paranoid delusions Mood: did not assess Affect: suspicious, constricted, non-labile SI: none expressed HI: none expressed VH/AH: none expressed Insight/judgment: impaired x 2. Memory/cog: alert, oriented not to situation. Diagnostics Vital Signs (24Hr): Vital Signs - 24 hr 04/18/23 19:58 04/19/23 08:45 Temperature 98.6 F 98.2 F Pulse Rate 82 76 Respiratory Rate 16 18 Blood Pressure 115/57 L 102/61 Pulse Oximetry 100 100 Oxygen Delivery Method Room Air Room Air BMI result Body Mass Index 22.8 Medications Medications Current Medications Acetaminophen (Acetaminophen 325 Mg Tablet) 650 mg PO Q6H PRN PRN Reason: Headache/Pain Mild Scale (1-3) Al Hydroxide/Mg Hydroxide (Magnesium Hydrox/Alum Hydrox 30 Ml Oral.Susp) 30 ml PO Q6H PRN PRN Reason: Heartburn/Nausea Bacitracin (Bacitracin Oint 14 Gm Tube) 1 appl TOPICAL BID PRN; Protocol PRN Reason: lesion Diazepam (Diazepam 10 Mg/2 Ml Cartridge) 5 mg IM DAILY PRN PRN Reason: refusal of lithium Last Admin: 04/18/23 23:24 Dose: 5 mg Folic Acid (Folic Acid 1 Mg Tablet) 1 mg PO DAILY [facility] Last Admin: 04/19/23 08:36 Dose: Not Given Hydroxyzine HCl (Hydroxyzine Hcl 25 Mg Tablet) 25 mg PO Q6H PRN PRN Reason: Anxiety [place] Carbonate ([place] Carbonate Er 300 Mg Tablet.Er) 600 mg PO BEDTIME [facility] Last Admin: 04/18/23 22:58 Dose: Not Given Magnesium Hydroxide (Milk Of Magnesia 30 Ml Oral.Susp) 30 ml PO DAILY PRN PRN Reason: Constipation Multi-Ingred Cream/Lotion/Oil/Oint (Mineral Oil/Petrolatum,White 106 Gm Tube) 1 appl TOPICAL BID PRN; Protocol PRN Reason: skin protectant Last Admin: 04/18/23 12:29 Dose: 1 appl Multivitamins/Vitamin C (Multivitamin Tablet) 1 tab PO DAILY [facility] Last Admin: 04/19/23 08:36 Dose: Not Given Nicotine (Nicotine 21 Mg Patch.Td24) 21 mg TRANSDERMA DAILY PRN PRN Reason: smoking cessation Nicotine Polacrilex (Nicotine Polacrilex 2 Mg Gum) 4 mg BUCCAL Q2H PRN PRN Reason: Nicotine Cravings Olanzapine (Olanzapine 5 Mg Tablet) 5 mg PO TID PRN PRN Reason: agitation Olanzapine (Olanzapine Odt 10 Mg Tab.Rapdis) 20 mg TRANSLINGU BEDTIME [facility] Last Admin: 04/18/23 22:58 Dose: Not Given Olanzapine (Olanzapine 10 Mg Vial) 5 mg IM DAILY PRN PRN Reason: refusal of PO; per court order Last Admin: 04/18/23 23:23 Dose: 5 mg Thiamine HCl (Thiamine Hcl 100 Mg Tablet) 100 mg PO DAILY [facility] Last Admin: 04/19/23 08:37 Dose: Not Given Trazodone HCl (Trazodone Hcl 50 Mg Tablet) 50 mg PO BEDTIME MRX1 PRN PRN Reason: Insomnia Allergies Allergies Allergy/AdvReac Type Severity Reaction Status Date / Time penicillin V Allergy Unknown unknown Verified 03/05/23 05:16 Penicillins [PENICILLINS] Allergy Unknown RASH Verified 03/05/23 05:16 Assessment & Plan Assessment & Plan (1) Schizophrenia: Status: Acute Code(s): F20.9 - Schizophrenia, unspecified Assessment and Plan: Zyprexa dose just increased. Give IM if refusing PO per Vimal's order Plan Ms. Quiles is a 37 year-old woman with hx of schizophrenia. it appears schizophrenia largely untreated and patient has been homeless for several months. She was brought via police after aunt called them due to frostbites and increased paranoia. Pt with no insight into illness or need for treatment for both psychiatric and frostbite. We discussed risks, benefits and alternative treatment options, she declines medications- antipsychotic ones. PLAN 1. Admit to M3, sect 12b, 15 minutes checks 2. obtain collateral information 3. aftercare planning 03/09: refusing medications. frostbite, no insight into mental illness. plan to petition for commitment and medication. 03/10: refusing medications. being treated for frostbite. commitment petition paperwork completed today. 03/11 Patient continues to refuse medication civil commitment and treatment paperwork has been filed by Dr. Diallo patient seemed unable take in information regarding the 03/12: no change in presentation. refusing meds, including doxy for frostbite. intermittent acceptance of foot soaks. denies mental illness. disorganized, delusional. 03/13: no change in presentation. continue current mgmt. court thursday. 03/14: Court on Thursday03/17/23. Cont current plan. 03/15: Continue current management and treatment plan. 03/16 Patient remains manic, delusional. Very difficult with which to engage or interrupt. Patient accusing typewriter tester of trying to get her to look at typewriter tester's penis... Repeats over and over that she is in the ; told typewriter tester that she believes typewriter tester and other psychiatrists are related and are not real psychiatrists, that they all are purposely dressing the same, intention is to steal her identity... Patient says I got someone killed on the spot for stealing identity.... There was a warrant... She was an illegal citizen... Patient continues to ramble similar things over and over; says that crystal killed everyone in high school in [place]... 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 Patient said she came here because of frostbite for her feet and should not be on the psychiatric unit, that she is going to get everyone in the hospital arrested and that everyone is in big trouble. Gate Shear Operator inquired why she has been refusing antibiotics that were specifically prescribed due to her frostbite to which patient replied that it is none of typewriter tester's business. Intermittently, throughout conversation with typewriter tester, she would pause to yell at and accuse peer who was sitting at a table next to her. Patient continued to ramble, accuse; as typewriter tester excused himself she continued to yell at typewriter tester down the spencer. -Continues to refuse all medications -based on presentation, chart review patient does not appear to be able to take care of herself in the community. Gate Shear Operator agrees with team plan to pursue involuntary commitment. 03/[address] for involuntary treatment. 03/[address] sect 08/23 03/19 committed to hospital. ordered olanzapine 10mg po qhs with back up IM. 03/20/23 Monitor response to olanzapine cont tx plan 03/21: remains psychotic, less agitated than prior. continue current mgmt. 03/22: remains psychotic, less agitated than prior. continue current mgmt. 03/23: psychotic, labile. continue current mgmt. 03/24: no change in presentation or plan. 03/25: no change in presentation or plan. 03/26: no change in presentation or plan. T/C addition of benzo IM with antips ychotic as pt appears manic and mood stabilizer is likely to be necessary to quell the mariola. 03/27 increase olanzapine 20mg po qhs adjusted back up IM. 03/29: Continue current regimen and plans 03/30: continue current mgmt. marginal improvement, less loud and disruptive to milieu. 03/31: marginal improvement continues. 04/01: no change in presentation. continue current mgmt. 04/02: no change in presentation. continue current mgmt. 04/03: decrease HS olanzapine to 15 mg as 20 mg does not seem much better than 10 was and requires 2 shots, whereas 15 mg can be given in 1 shot. add lithium for mood stabilization with valium 10 mg IM back-up per medication order. no change in presentation. 04/04 continue tx switched back up IM haldol 5mg 04/05 continue tx 04/06 continue tx. 04/07: seems markedly improved since the addition of valium and switch to haldol. continue current mgmt. 04/08: continue current mgmt. no change from yesterday. 04/09 continue tx. 04/10 increase haldol to 7.5mg IM back up medication, with scheduled haldol 10mg po qhs. 04/11: Continue current management and treatment plan. 04/12: continue current management and treatment plan. 04/13: pt appears to be becoming parkinsonian. will switch back to zyprexa for now. otherwise continue current mgmt. 04/14: less stiff today, more fluid, some cogwheeling rigidity per exam by SABA Ozuna. continue current mgmt. 04/15: no PMR today, appearing more normal in her movememt fluidity. agree to plan for discharge next week, begin to taper benzos over coming days, decrease dosing of olanzapine as well. will plan to discharge not on medication, as pt has steadfastly refused to take medications here. pt's mental status has improved since admission, and she is no longer considered at imminent risk of harm to self or others. : less antagonistic toward MD today. pleased with medication taper. discussed discharge next week. continue valium taper tomorrow. 04/16: more friendly toward MD today. unsure if she can stay with aunt. looking forward to discharge next week. continue valium taper tonight. 04/17: 2 outbursts, more verbal output, self-dialoguing in spencer, pacing. more trusting of MD, however. continue regimen for tonight, cut meds again tomorrow night. 04/18: +RIS. focused on discharge thursday and medication taper. Reason for continued inpatient stay Substantial Risk for: inability to function and rapid decompensation Time Spent With Patient Time: Total time managing care of this patient today ____ minutes.
[2023-04-19] MEDS: Mineral Oil/Petrolatum,White 106 GM Tube 1 APPL TOPICAL (14:42)
[2023-04-19 19:45] VITALS: BP 106/66; PULSE 81; RESP 16; TEMP 36.6; O2SAT 99
[2023-04-19] MEDS: OLANZapine 10 MG VIAL 5 MG IM (22:37)
[2023-04-19] MEDS: diazePAM 10 MG/2 ML CARTRIDGE 2.5 MG IM (22:38)
--- NOTE | 2023-04-20 10:50 | PM.PSYDC ---
DS: Providers Provider Date of Service: 04/20/23 Date of admission: 03/06/23 23:07 Primary care physician: Unknown Physician Consults: 03/06/23 20:38 Consult to Hospitalist Routine Comment: Consulting Provider: Hospitalist Reason For Exam: assess feet for frostbite 03/07/23 12:08 Consult to General Surgery Routine Consulting Provider: [facility] General Surgeons Reason for consultation: frostbite bilateral feet, stage 2-3? DS: Diagnosis Discharge Diagnosis (1) Schizophrenia: Status: Acute DS: Medications Discharge Medications Home Medications: Home Medications Medication Instructions Recorded Confirmed No Known Home Meds 03/07/23 03/07/23 Mental Status Exam Mental Status Exam Narrative: Appearance: improved grooming, in NAD Behavior: guarded and suspicious, but less so than prior Psychomotor: no PMA/PMR Speech: nml rate, incr amount, decr latency TP: focused on discharge, no mental illness. TC: paranoid delusions Mood: good Affect: suspicious, constricted, non-labile SI: none HI: none AH: none Insight/judgment: impaired x 2. Memory/cog: alert, oriented not to situation. DS: Summary Hospital Course Hospital Course: per 03/07 admission note: Ms. Quiles is a 37 year-old woman with hx of schizophrenia who was brought in by police after aunt called due to patient walking with no shoes in snow with signs of frostbite. 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 She also denied hx of mental illness nor need for medications. She declined labs. She did allow VS, which were stable. On the unit, pt hyperverbal, talking about injustice of being on a psychiatric unit as she initially came to have her feet check. She is declining ointment and tetanus shoot as recommended by hospitalist for frostbite. She goes on and on about how she can't eat the food in hospitals because is poisoned. This director underwriter sales offered to provide seal containers, which she declined. She was talking to people from the that were not there. She reports she does not have any mental illness and does not need treatment for psychiatric reasons. Past Psychiatric History: Inpt: prior inpt admission at [facility] OP: none Medical Evaluation Reviewed: Yes [facility] Medical History (Updated 03/08/23 @ 13:33 by Aleksandra Jean-Baptiste) Blister of foot Schizophrenia Family History: unknown Social History: homeless Substance History: none Trauma History: not disclosed Precis: Ms. Quiles is a 37 year-old woman with hx of schizophrenia. it appears schizophrenia largely untreated and patient has been homeless for several months. She was brought via police after aunt called them due to frostbites and increased paranoia. Pt with no insight into illness or need for treatment for both psychiatric and frostbite. We discussed risks, benefits and alternative treatment options, she declines medications- antipsychotic ones. PLAN 1. Admit to M3, sect 12b, 15 minutes checks 2. obtain collateral information 3. aftercare planning 03/09: refusing medications. frostbite, no insight into mental illness. plan to petition for commitment and medication. 03/10: refusing medications. being treated for frostbite. commitment petition paperwork completed today. 03/11 Patient continues to refuse medication civil commitment and treatment paperwork has been filed by Dr. Diallo patient seemed unable take in information regarding the 03/12: no change in presentation. refusing meds, including doxy for frostbite. intermittent acceptance of foot soaks. denies mental illness. disorganized, delusional. 03/13: no change in presentation. continue current mgmt. court thursday. 03/14: Court on Thursday03/17/23. Cont current plan. 03/15: Continue current management and treatment plan. 03/16 Patient remains manic, delusional. Very difficult with which to engage or interrupt. Patient accusing director underwriter sales of trying to get her to look at director underwriter sales's penis... Repeats over and over that she is in the ; told director underwriter sales that she believes director underwriter sales and other psychiatrists are related and are not real psychiatrists, that they all are purposely dressing the same, intention is to steal her identity... Patient says I got someone killed on the spot for stealing identity.... There was a warrant... She was an illegal citizen... Patient continues to ramble similar things over and over; says that crystal killed everyone in high school in [place]... 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 Patient said she came here because of frostbite for her feet and should not be on the psychiatric unit, that she is going to get everyone in the hospital arrested and that everyone is in big trouble. Staff Radiographer inquired why she has been refusing antibiotics that were specifically prescribed due to her frostbite to which patient replied that it is none of director underwriter sales's business. Intermittently, throughout conversation with director underwriter sales, she would pause to yell at and accuse peer who was sitting at a table next to her. Patient continued to ramble, accuse; as director underwriter sales excused himself she continued to yell at director underwriter sales down the spencer. -Continues to refuse all medications -based on presentation, chart review patient does not appear to be able to take care of herself in the community. Staff Radiographer agrees with team plan to pursue involuntary commitment. 03/[address] for involuntary treatment. 03/[address] sect 08/23 03/19 committed to hospital. ordered olanzapine 10mg po qhs with back up IM. 03/20/23 Monitor response to olanzapine cont tx plan 03/21: remains psychotic, less agitated than prior. continue current mgmt. 03/22: remains psychotic, less agitated than prior. continue current mgmt. 03/23: psychotic, labile. continue current mgmt. 03/24: no change in presentation or plan. 03/25: no change in presentation or plan. 03/26: no change in presentation or plan. T/C addition of benzo IM with antipsychotic as pt appears manic and mood stabilizer is likely to be necessary to quell the mariola. 03/27 increase olanzapine 20mg po qhs adjusted back up IM. 03/29: Continue current regimen and plans 03/30: continue current mgmt. marginal improvement, less loud and disruptive to milieu. 03/31: marginal improvement continues. 04/01: no change in presentation. continue current mgmt. 04/02: no change in presentation. continue current mgmt. 04/03: decrease HS olanzapine to 15 mg as 20 mg does not seem much better than 10 was and requires 2 shots, whereas 15 mg can be given in 1 shot. add lithium for mood stabilization with valium 10 mg IM back-up per medication order. no change in presentation. 04/04 continue tx switched back up IM haldol 5mg 04/05 continue tx 04/06 continue tx. 04/07: seems markedly improved since the addition of valium and switch to haldol. continue current mgmt. 04/08: continue current mgmt. no change from yesterday. 04/09 continue tx. 04/10 increase haldol to 7.5mg IM back up medication, with scheduled haldol 10mg po qhs. 04/11: Continue current management and treatment plan. 04/12: continue current management and treatment plan. 04/13: pt appears to be becoming parkinsonian. will switch back to zyprexa for now. otherwise continue current mgmt. 04/14: less stiff today, more fluid, some cogwheeling rigidity per exam by SABA Ozuna. continue current mgmt. 04/15: no PMR today, appearing more normal in her movememt fluidity. agree to plan for discharge next week, begin to taper benzos over coming days, decrease dosing of olanzapine as well. will plan to discharge not on medication, as pt has steadfastly refused to take medications here. pt's mental status has improved since admission, and she is no longer considered at imminent risk of harm to self or others. : less antagonistic toward MD today. pleased with medication taper. discussed discharge next week. continue valium taper tomorrow. 04/16: more friendly toward MD today. unsure if she can stay with aunt. looking forward to discharge next week. continue valium taper tonight. 04/17: 2 outbursts, more verbal output, self-dialoguing in spencer, pacing. more trusting of MD, however. continue regimen for tonight, cut meds again tomorrow night. 04/18: +RIS. focused on discharge thursday and medication taper. 04/19: no change in presentation. discharged today as per plan. Time Spent with Patient Time attestation: Total time managing care of this patient today __35__ minutes. Discharge Plan Discharge Anticipated Discharge Date/Time: 04/21/23 10:30 Patient Disposition: Snf Discharge Diagnosis: Schizophrenia, Paranoid Type Referrals: Therapy [Other] - 1 Week (*If you are interested in working with a therapist, please present to the above clinic on Tuesdays or between the hours of 10am and 12pm* ) [facility] [Provider Group] - 1 Week (May use walk in clinic as needed for immediate medical attention. ) Discharge Medications: No Action No Known Home Meds Discharge Orders: Discharge Order (Routine); Ordered 04/21/23 Ordered By: Jonnie Diallo Diet: Advance to usual diet Activity on Discharge: As tolerated Stand Alone Forms: Patient Portal Discharge page, Community Support Care Plan Goals: remain safe and stable in the outpatient treatment setting Health Concerns: none Plan of Treatment: establish a relationship with a behavioral health clinic and meet with a medication prescriber and begin medication treatment for schizophrenia Assessment: not at imminent risk of harm to self or others Discharge Date/Time: 04/21/23 11:44
[2023-04-20 14:30] VITALS: BP 113/60; PULSE 89; RESP 16; TEMP 36.7; O2SAT 97
[2023-04-20] MEDS: Mineral Oil/Petrolatum,White 106 GM Tube 1 APPL TOPICAL (17:49)
[2023-04-20] MEDS: diazePAM 10 MG/2 ML CARTRIDGE 2.5 MG IM (22:08)
[2023-04-20] MEDS: OLANZapine 10 MG VIAL 5 MG IM (22:11)
[2023-04-20 22:14] VITALS: BP 112/72; PULSE 91; RESP 16; TEMP 36.6; O2SAT 98
[2023-04-21 08:09] VITALS: BP 106/66; PULSE 85; RESP 18; TEMP 36; O2SAT 100
== END 2023-04-21 11:44 | disposition home or self-care (01) | DRG 750 ==
LOC: HO.ED 03-06 21:42 → HO.PADLT16 03-06 23:08
PROVIDERS: Admitting Provider Psychiatry & Neurology Psychiatry; Emergency Provider Emergency Medicine; Visit Provider Psychiatry & Neurology Psychiatry
DX: F20.0 Paranoid schizophrenia (principal); T33.821A Superficial frostbite of right foot, initial encounter; T33.822A Superficial frostbite of left foot, initial encounter; X31.XXXA Exposure to excessive natural cold, initial encounter; Z20.822 Contact with and (suspected) exposure to COVID-19; Z59.02 Unsheltered homelessness; Z88.0 Allergy status to penicillin
CPT/HCPCS: 80307; 87635; 99285; J1630; J2359; J3360; S9485

== ENCOUNTER → 2023-03-06 23:07 | Outpatient (BNV) | payer MEDICAID, SELFPAY | PROVIDERS: Admitting Provider Psychiatry & Neurology Psychiatry; Emergency Provider Emergency Medicine; Visit Provider Surgery | DX: S90.821A Blister (nonthermal), right foot, initial encounter (principal); S90.822A Blister (nonthermal), left foot, initial encounter | CPT/HCPCS: 99222 ==

== ENCOUNTER → 2023-03-06 23:07 | Outpatient (BNV) | payer OTHER, SELFPAY | PROVIDERS: Admitting Provider Psychiatry & Neurology Psychiatry; Emergency Provider Emergency Medicine; Visit Provider Psychiatry & Neurology Psychiatry | DX: F20.0 Paranoid schizophrenia (principal) | CPT/HCPCS: 99231; 99232; 99499 ==

== ENCOUNTER → 2023-03-06 23:07 | Outpatient (BNV) | payer OTHER, SELFPAY | PROVIDERS: Admitting Provider Psychiatry & Neurology Psychiatry; Emergency Provider Emergency Medicine; Visit Provider Social Worker | DX: F20.0 Paranoid schizophrenia (principal) | CPT/HCPCS: 99231; 99232; 99499 ==

== ENCOUNTER 2024-02-09 14:25 | Inpatient (IN) | payer OTHER, SELFPAY ==
[2024-02-09 14:38] VITALS: RESP 20; BMI 21.3
--- NOTE | 2024-02-09 15:19 | PC.NURSE ---
pt refusing to give urine sample, allow for vitals and will not give blood work
[2024-02-09 15:20] VITALS: RESP 16
--- NOTE | 2024-02-09 15:28 | PC.NURSE ---
Pt calm at this time, continues to be hyperverbal, refusing labs
--- NOTE | 2024-02-09 15:39 | PC.NURSE ---
Patient reports she takes no home medications. She reports that the [facility] does not let her take medication
--- NOTE | 2024-02-09 16:09 | ED.PSYCH ---
HPI - Psych General Chief Complaint: Psychiatric Symptoms Stated Complaint: SEC 12,MANIC,NON MED COMP,PD ON BOARD,RESTRAINED Time Seen by Provider: 02/09/24 14:40 Source: patient Mode of arrival: EMS History of Present Illness ED Provider: Raudel CONNER Narrative: 38-year-old female with history of schizophrenia, is brought in by EMS and the police for manic behavior. Patient denies SI/HI and states she was at her aunt's house. Related Data Home Medications ?Medication ?Instructions ?Recorded ?Confirmed No Known Home Meds 03/07/23 02/09/24 Allergies Allergy/AdvReac Type Severity Reaction Status Date / Time penicillin V Allergy Unknown unknown Verified 02/09/24 14:41 Penicillins [PENICILLINS] Allergy Unknown RASH Verified 02/09/24 14:41 Review of Systems Review of Systems: Yes Unobtainable due to mental condition PMFSH Past Medical History Source: nursing notes reviewed Medical History Blister of foot Schizophrenia Social History Social History Household Members: Spouse Housing: Unknown / Unable to assess Do you presently have visiting nurse or other home services: No Alcohol intake: never Comment: not high risk for falls Patient Tobacco Use Status: Never used Tobacco e-Cigarette/Vaping Use: Never Used Advance Directives: No Advance Directives Information Provided: Yes Patient : No Sexual orientation: Straight/Heterosexual Physical Exam Vital Signs: Vital Signs: Last Vital Signs Resp 16 02/09/24 15:20 BMI result Body Mass Index 21.3 VITAL SIGNS: Reviewed. GENERAL: Well developed, well nourished, in no acute distress. HEAD: Normocephalic/atraumatic EYES: PERRLA, EOMI LUNGS: Normal breath sounds. No adventitious sounds or accessory muscle use. CARDIOVASCULAR: Regular rate and rhythm without noted murmurs ABDOMEN: Soft, non-tender, non-distended with bowel sounds. MUSCULOSKELETAL: No tenderness, deformities, or effusions noted on gross inspection. EXTREMITIES: No cyanosis, clubbing or edema. SKIN: Inspection of the skin reveals no rashes NEUROLOGIC: Alert and oriented x 3. Strength and sensation to light touch were grossly intact x 4, cranial nerves 2-12 are grossly intact PSYCH: Challenging to redirect Medications Administered Discontinued Medications Generic Name Dose Route Start Last Admin Trade Name Teri PRN Reason Stop Dose Admin Diphenhydramine HCl 50 mg 02/09/24 14:40 02/09/24 15:27 Diphenhydramine Hcl 50 Mg/Ml Vial IM 02/09/24 14:41 Not Given ONCE ONE Lorazepam 2 mg 02/09/24 14:40 02/09/24 15:27 Lorazepam 2 Mg/Ml Vial IM 02/09/24 14:41 Not Given ONCE ONE Olanzapine 5 mg 02/09/24 14:40 02/09/24 15:28 Olanzapine 10 Mg Vial IM 02/09/24 14:41 Not Given ONCE ONE Medical Decision Making Medical Decision Making MDM Narrative: 38-year-old female with history and clinical presentation consistent with psychosis and has underlying schizophrenia, poor med compliance, not compliant with any lab work to medically clear at this time but will need further evaluation by the crisis team. Care team will see the patient. Patient placed in physician observation because the patient needed more time for crisis evaluation. At the time observation was started the patient's vital signs were stable, patient is alert and oriented but slightly agitated, neuro: Nonfocal, CV RRR, lungs clear Differential Diagnosis Differential Diagnoses: The differential diagnosis associated with the presentation includes See above Discharge Plan Discharge Clinical Impression: Schizophrenia, Psychosis Patient Disposition: Still a Patient Prescriptions: No Action No Known Home Meds Interventions: Marathon-Suicide Risk Severity Scale Last Done: 02/09/24 15:20 Print Language: Romanian
--- NOTE | 2024-02-09 16:51 | MHC.CARE ---
Aunt returned call. She reports pt presented to her home today after a long period of not seeing her. Aunt reports she has not seen pt since she was discharged from in April,. Pt showed up at aunt?s house today, agitated, with paranoid delusions of being watched by cameras and stating she was in the . Aunt believes pt?s presentation is caused by Colleton's Disease. She reports her mother and brother (pt?s grandmother and uncle) have been diagnosed with Julio?s and presented similarly. Aunt reports pt is homeless and has been staying in [place], close to police department. She is unclear if there is a Vimal?s order in place. Aunt expressed wanting to petition for guardianship as she believes pt is not able to care for herself. Pt has continued to decompensate in the community. Pt was last employed at [employer] years ago. He lost her job, apartment and her marriage ended due to MH. Pt?s mother has history of MH, and is currently in detention. Aunt reports pt refuses any mental health treatment and is not currently on medications or receiving tx.
--- NOTE | 2024-02-09 17:02 | PC.NURSE ---
Pt stating my roddy told me not to come to [facility] or [facility] because I have orders not to go. The big black roddy can access me at those hospitals and track me down . Pt does appear to be having intense delusions about a man stalking her and stealing her identity . Patient continues to refuse urine and blood work
[2024-02-09 17:49] VITALS: BP 106/64; PULSE 79; RESP 18; TEMP 36.9; O2SAT 100
[2024-02-09 21:17] VITALS: BP 102/62; PULSE 72; RESP 20; TEMP 36.8; O2SAT 100
[2024-02-09 23:14] VITALS: BMI 19.0
--- NOTE | 2024-02-10 03:23 | PC.ADMIT ---
Jennifer was admitted to M3 from the [facility] on a CV for schizophrenia with psychotic features. she is hyper-verbal and has difficulty remaining focused on assessment questions. She states that she is here because she needs someone to care for her feet. upon assessment her feet are noted to be reddened and slightly swollen, with a large intact crack on the plantar surface of her right foot proximal to her second toe. she states that she is being tracked by a large black man and that she is upset that she is here because the personnel told her not to go to the hospital in [place] or [place] because it would be easier for the people who are tracking her to find her. when she saw a diagnosis of schizophrenia she said that's not correct you have to take that off of there, My cousin has schizophrenia and she stole my identity when we were kids and she said [facility] because she was going to kill me and she didn't care. My aunt called the inside sales associate and sent me here because she doesn't understand she was worried I guess but I don't have mental illness. I just need help with my feet. my skin pulled off when I changed my socks because I wasn't able to wash my clothes for a long time because I didn't have any money to wash them. patient has 367.10 in patel that will be sent to security, and eye glasses. admission completed, oriented to the unit, monitor for safety
--- NOTE | 2024-02-10 08:56 | HO.PSYADMNOT ---
HPI Date of Service: 02/10/24 Chief Complaint: Schizophrenia Sources of Information: chart reviewed and crisis/core team assessment reviewed Additional Sources of Information: She refused to sit down with me the morning after her admission because ?I do not have an appointment with you and I am just here for my feet?. HPI Subjective Notes: Conditional Voluntary Narrative: Jennifer is a 38-year-old female who is known to us from previous hospitalizations with psychotic and possible hypomanic behaviors and presentations. She was brought to the emergency room for an evaluation after her aunt called the police because of her being paranoid and delusional. She has had prior hospitalizations here and at [facility]. I believe she is not currently on any medications. She did not agree to sit down with me for an intake interview and stating that she did not have an appointment with me and is only here for her foot care. She is currently homeless and does indeed have cracked heels. She was last in this hospital in February to April of this year Past Psychiatric History: Inpt: prior inpt admission at [facility] OP: none Medical Evaluation Reviewed: Yes [facility] Medical History Blister of foot Schizophrenia Family History: unknown Social History: homeless Substance History: Unknown Trauma History: not disclosed Diagnostics Vital Signs (24Hr): Vital Signs - 24 hr 02/09/24 14:38 02/09/24 15:20 02/09/24 17:49 Temperature 98.4 F Pulse Rate 79 Respiratory Rate 20 16 18 Blood Pressure 106/64 Pulse Oximetry 100 Oxygen Delivery Method Room Air 02/09/24 21:17 Temperature 98.3 F Pulse Rate 72 Respiratory Rate 20 Blood Pressure 102/62 Pulse Oximetry 100 Oxygen Delivery Method Room Air BMI result Body Mass Index 19.0 Meds/Allergies Meds Home Medications ?Medication ?Instructions ?Recorded ?Confirmed ?Type No Known Home Meds 03/07/23 02/09/24 History Allergies Allergies Allergy/AdvReac Type Severity Reaction Status Date / Time penicillin V Allergy Unknown unknown Verified 02/09/24 14:41 Penicillins [PENICILLINS] Allergy Unknown RASH Verified 02/09/24 14:41 Mental Status Exam Mental Status Exam Narrative: Patient refused to be interviewed, stating that she is here for her feet and has no appointment to see me today!. Crisis evaluation observed her as being paranoid and delusional. Assessment & Plan Assessment & Plan (1) Schizophrenia: Status: Acute Code(s): F20.9 - Schizophrenia, unspecified Plan Patient meets criteria for IP LOC for safety and restate pulsation. She is not agreeable to take any medications and only p.r.n. orders were put in. Collateral information to be obtained tomorrow Patient educated on: medication risk/benefits and other Reason for continued inpatient stay Substantial Risk for: inability to function Statement Statement: I have reviewed the history and physical and performed a pertinent examination on my patient. No changes have occurred unless specified. If the History and Physical was not performed prior to admission, the Hospitalist's service will be consulted for completing the admission physical. Time Spent With Patient Time: Total time managing care of this patient today ____ minutes.
[2024-02-10] MEDS: Bacitracin Oint 14 GM TUBE 1 APPL TOPICAL ×2 (12:15→19:24)
[2024-02-10 20:12] VITALS: BP 136/61; PULSE 79; TEMP 36.7; O2SAT 100
[2024-02-11 08:00] VITALS: RESP 16
--- NOTE | 2024-02-11 15:21 | HO.PSYCHPN ---
Subjective Subjective Date of Service: 02/11/24 Reason For Visit: Schizophrenia Interim History: pleasant. moderately pressured. paranoid delusions. declines to consider medication. just here for her feet, then planning to go. i'm mentally stable. per staff, CV. paranoid. foot soaks. no scheduled meds. slept 7 hours in chairs in kitchen. Mental Status Exam Mental Status Exam Narrative: Appearance: improved grooming, in NAD Behavior: guarded and suspicious, but less so than prior Psychomotor: no PMA/PMR Speech: incr rate, incr amount, decr latency TP: tangential, disorganized TC: focused on feet, paranoid delusions, no mental illness. Mood: good Affect: constricted, non-labile SI: none expressed HI: none expressed AH: none expressed Insight/judgment: impaired x 2. Memory/cog: alert, oriented Diagnostics Vital Signs (24Hr): Vital Signs - 24 hr 02/10/24 20:12 02/11/24 08:00 Temperature 98.0 F Pulse Rate 79 Respiratory Rate 16 Blood Pressure 136/61 Pulse Oximetry 100 Oxygen Delivery Method Room Air BMI result Body Mass Index 19.0 Medications Medications Current Medications Acetaminophen (Acetaminophen 325 Mg Tablet) 650 mg PO Q6H PRN PRN Reason: Headache/Pain Mild Scale (1-3) Al Hydroxide/Mg Hydroxide (Magnesium Hydrox/Alum Hydrox 30 Ml Oral.Susp) 30 ml PO Q6H PRN PRN Reason: Heartburn/Nausea Bacitracin (Bacitracin Oint 14 Gm Tube) 1 appl TOPICAL BID PRN; Protocol PRN Reason: infection Last Admin: 02/10/24 19:24 Dose: 1 appl Hydroxyzine HCl (Hydroxyzine Hcl 25 Mg Tablet) 25 mg PO Q6H PRN PRN Reason: Anxiety Lactic Acid (Ammonium Lactate 12 % Cream 140 Gm Tube) 1 appl TOPICAL BID PRN; Protocol PRN Reason: Dry Skin Lorazepam (Lorazepam 1 Mg Tablet) 1 mg PO Q4H PRN PRN Reason: agitation, anxiety Magnesium Hydroxide (Milk Of Magnesia 30 Ml Oral.Susp) 30 ml PO DAILY PRN PRN Reason: Constipation Nicotine Polacrilex (Nicotine Polacrilex 2 Mg Gum) 4 mg BUCCAL Q2H PRN PRN Reason: Nicotine Cravings Olanzapine (Olanzapine 5 Mg Tablet) 5 mg PO Q4H PRN PRN Reason: agitation, psychosis Trazodone HCl (Trazodone Hcl 50 Mg Tablet) 50 mg PO BEDTIME MRX1 PRN PRN Reason: Insomnia Allergies Allergies Allergy/AdvReac Type Severity Reaction Status Date / Time penicillin V Allergy Unknown unknown Verified 02/09/24 14:41 Penicillins [PENICILLINS] Allergy Unknown RASH Verified 02/09/24 14:41 Assessment & Plan Assessment & Plan (1) Schizophrenia: Status: Acute Code(s): F20.9 - Schizophrenia, unspecified Plan 02/09: She is not agreeable to take any medications and only p.r.n. orders were put in. Collateral information to be obtained tomorrow. 02/10: declining meds. floridly psychotic. plans to have feet medically treated, then discharge. continue current mgmt. Reason for continued inpatient stay Substantial Risk for: inability to function Time Spent With Patient Time: Total time managing care of this patient today __35__ minutes.
[2024-02-11 19:47] VITALS: BP 113/63; PULSE 75; RESP 16; TEMP 36.9; O2SAT 98
[2024-02-12 08:00] VITALS: RESP 16
[2024-02-12] MEDS: Bacitracin Oint 14 GM TUBE 1 APPL TOPICAL (12:18)
--- NOTE | 2024-02-12 12:30 | HO.PSYCHPN ---
Subjective Subjective Date of Service: 02/12/24 Reason For Visit: Schizophrenia Interim History: no change in presentation from yesterday. discuss dispo planning, pt would like to give some days to improve the condition of her feet, then discharge. thinking of tues or [facility] next week. per staff, declined labs this morning. agitated in day room, talking about rape. yelling at dinner, conversing with the invisible. argument with a peer re her frequent and loud vocalizations. slept 5 hours on chairs in the day room. Mental Status Exam Mental Status Exam Narrative: Appearance: adequate grooming, in NAD Behavior: guarded, but relatively receptive to discussion with MD Psychomotor: no PMA/PMR Speech: incr rate, incr amount, decr latency TP: tangential, disorganized TC: focused on feet, paranoid delusions. Mood: good Affect: constricted, non-labile SI: none expressed HI: none expressed AH: none expressed Insight/judgment: impaired x 2. Memory/cog: alert, oriented Diagnostics Vital Signs (24Hr): Vital Signs - 24 hr 02/11/24 19:47 Temperature 98.4 F Pulse Rate 75 Respiratory Rate 16 Blood Pressure 113/63 Pulse Oximetry 98 Oxygen Delivery Method Room Air BMI result Body Mass Index 19.0 Medications Medications Current Medications Acetaminophen (Acetaminophen 325 Mg Tablet) 650 mg PO Q6H PRN PRN Reason: Headache/Pain Mild Scale (1-3) Al Hydroxide/Mg Hydroxide (Magnesium Hydrox/Alum Hydrox 30 Ml Oral.Susp) 30 ml PO Q6H PRN PRN Reason: Heartburn/Nausea Bacitracin (Bacitracin Oint 14 Gm Tube) 1 appl TOPICAL BID PRN; Protocol PRN Reason: infection Last Admin: 02/12/24 12:18 Dose: 1 appl Hydroxyzine HCl (Hydroxyzine Hcl 25 Mg Tablet) 25 mg PO Q6H PRN PRN Reason: Anxiety Lactic Acid (Ammonium Lactate 12 % Cream 140 Gm Tube) 1 appl TOPICAL BID PRN; Protocol PRN Reason: Dry Skin Lorazepam (Lorazepam 1 Mg Tablet) 1 mg PO Q4H PRN PRN Reason: agitation, anxiety Magnesium Hydroxide (Milk Of Magnesia 30 Ml Oral.Susp) 30 ml PO DAILY PRN PRN Reason: Constipation Nicotine Polacrilex (Nicotine Polacrilex 2 Mg Gum) 4 mg BUCCAL Q2H PRN PRN Reason: Nicotine Cravings Olanzapine (Olanzapine 5 Mg Tablet) 5 mg PO Q4H PRN PRN Reason: agitation, psychosis Trazodone HCl (Trazodone Hcl 50 Mg Tablet) 50 mg PO BEDTIME MRX1 PRN PRN Reason: Insomnia Allergies Allergies Allergy/AdvReac Type Severity Reaction Status Date / Time penicillin V Allergy Unknown unknown Verified 02/09/24 14:41 Penicillins [PENICILLINS] Allergy Unknown RASH Verified 02/09/24 14:41 Assessment & Plan Assessment & Plan (1) Schizophrenia: Status: Acute Code(s): F20.9 - Schizophrenia, unspecified Plan 02/09: She is not agreeable to take any medications and only p.r.n. orders were put in. Collateral information to be obtained tomorrow. 02/10: declining meds. floridly psychotic. plans to have feet medically treated, then discharge. continue current mgmt. 02/11: remains uninterested in psych meds. continue foot treatments, planning to observe for safety and discharge 02/15 or 02/17 if remains stable and feet improved. Reason for continued inpatient stay Substantial Risk for: rapid decompensation Time Spent With Patient Time: Total time managing care of this patient today __25__ minutes.
[2024-02-12 20:00] VITALS: BP 105/68; PULSE 79; RESP 16; TEMP 36.6; O2SAT 99
--- NOTE | 2024-02-13 10:35 | HO.PSYCHPN ---
Subjective Subjective Date of Service: 02/13/24 Reason For Visit: Schizophrenia Interim History: Patient seen and discussed. Seen in the common area. Didn't want to talk in proivate. When approached, patient said I have nothing to say to you. No change in presentation from yesterday. Patient reported to be disorganized, paranoid and delusional per staff. Review of Systems Review of Systems Yes Unobtainable due to mental condition and Unobtainable due to mental status Mental Status Exam Mental Status Exam Narrative: Appearance: adequate grooming, in NAD Behavior: guarded, but relatively receptive to discussion with MD Psychomotor: no PMA/PMR Speech: incr rate, incr amount, decr latency TP: tangential, disorganized TC: focused on feet, paranoid delusions. Mood: good Affect: constricted, non-labile SI: none expressed HI: none expressed AH: none expressed Insight/judgment: impaired x 2. Memory/cog: alert, oriented Diagnostics Vital Signs (24Hr): Vital Signs - 24 hr 02/12/24 20:00 Temperature 97.9 F Pulse Rate 79 Respiratory Rate 16 Blood Pressure 105/68 Pulse Oximetry 99 Oxygen Delivery Method Room Air BMI result Body Mass Index 19.0 Medications Medications Current Medications Acetaminophen (Acetaminophen 325 Mg Tablet) 650 mg PO Q6H PRN PRN Reason: Headache/Pain Mild Scale (1-3) Al Hydroxide/Mg Hydroxide (Magnesium Hydrox/Alum Hydrox 30 Ml Oral.Susp) 30 ml PO Q6H PRN PRN Reason: Heartburn/Nausea Bacitracin (Bacitracin Oint 14 Gm Tube) 1 appl TOPICAL BID PRN; Protocol PRN Reason: infection Last Admin: 02/12/24 12:18 Dose: 1 appl Hydroxyzine HCl (Hydroxyzine Hcl 25 Mg Tablet) 25 mg PO Q6H PRN PRN Reason: Anxiety Lactic Acid (Ammonium Lactate 12 % Cream 140 Gm Tube) 1 appl TOPICAL BID PRN; Protocol PRN Reason: Dry Skin Lorazepam (Lorazepam 1 Mg Tablet) 1 mg PO Q4H PRN PRN Reason: agitation, anxiety Magnesium Hydroxide (Milk Of Magnesia 30 Ml Oral.Susp) 30 ml PO DAILY PRN PRN Reason: Constipation Nicotine Polacrilex (Nicotine Polacrilex 2 Mg Gum) 4 mg BUCCAL Q2H PRN PRN Reason: Nicotine Cravings Olanzapine (Olanzapine 5 Mg Tablet) 5 mg PO Q4H PRN PRN Reason: agitation, psychosis Trazodone HCl (Trazodone Hcl 50 Mg Tablet) 50 mg PO BEDTIME MRX1 PRN PRN Reason: Insomnia Allergies Allergies Allergy/AdvReac Type Severity Reaction Status Date / Time penicillin V Allergy Unknown unknown Verified 02/09/24 14:41 Penicillins [PENICILLINS] Allergy Unknown RASH Verified 02/09/24 14:41 Assessment & Plan Assessment & Plan (1) Schizophrenia: Status: Acute Code(s): F20.9 - Schizophrenia, unspecified Plan 02/09: She is not agreeable to take any medications and only p.r.n. orders were put in. Collateral information to be obtained tomorrow. 02/10: declining meds. floridly psychotic. plans to have feet medically treated, then discharge. continue current mgmt. 02/11: remains uninterested in psych meds. continue foot treatments, planning to observe for safety and discharge 02/15 or 02/17 if remains stable and feet improved. 02/12: Continue current management and treatment plan. Reason for continued inpatient stay Substantial Risk for: inability to function, rapid decompensation and med/psych decompensation Time Spent With Patient Time: Total time managing care of this patient today ____ minutes.
[2024-02-13] MEDS: Bacitracin Oint 14 GM TUBE 1 APPL TOPICAL ×2 (11:30→19:26)
[2024-02-13 20:00] VITALS: BP 125/74; PULSE 76; RESP 15; TEMP 36.8; O2SAT 100
--- NOTE | 2024-02-14 09:57 | HO.PSYCHPN ---
Subjective Subjective Date of Service: 02/14/24 Reason For Visit: Schizophrenia Interim History: Patient seen and discussed. Approached while nurse was helping her with foot soaks in the treatment room. Patient loudly said I don't neeed to see you. I have nothing to say to you. No change in presentation from yesterday. Patient reported to be disorganized, paranoid and delusional per staff. Review of Systems Review of Systems Yes Unobtainable due to mental condition and Unobtainable due to mental status Mental Status Exam Mental Status Exam Narrative: Appearance: adequate grooming, in NAD Behavior: guarded, but relatively receptive to discussion with MD Psychomotor: no PMA/PMR Speech: incr rate, incr amount, decr latency TP: tangential, disorganized TC: focused on feet, paranoid delusions. Mood: good Affect: constricted, non-labile SI: none expressed HI: none expressed AH: none expressed Insight/judgment: impaired x 2. Memory/cog: alert, oriented Diagnostics Vital Signs (24Hr): Vital Signs - 24 hr 02/13/24 20:00 Temperature 98.3 F Pulse Rate 76 Respiratory Rate 15 Blood Pressure 125/74 Pulse Oximetry 100 Oxygen Delivery Method Room Air BMI result Body Mass Index 19.0 Medications Medications Current Medications Acetaminophen (Acetaminophen 325 Mg Tablet) 650 mg PO Q6H PRN PRN Reason: Headache/Pain Mild Scale (1-3) Al Hydroxide/Mg Hydroxide (Magnesium Hydrox/Alum Hydrox 30 Ml Oral.Susp) 30 ml PO Q6H PRN PRN Reason: Heartburn/Nausea Bacitracin (Bacitracin Oint 14 Gm Tube) 1 appl TOPICAL BID PRN; Protocol PRN Reason: infection Last Admin: 02/13/24 19:26 Dose: 1 appl Hydroxyzine HCl (Hydroxyzine Hcl 25 Mg Tablet) 25 mg PO Q6H PRN PRN Reason: Anxiety Lactic Acid (Ammonium Lactate 12 % Cream 140 Gm Tube) 1 appl TOPICAL BID PRN; Protocol PRN Reason: Dry Skin Lorazepam (Lorazepam 1 Mg Tablet) 1 mg PO Q4H PRN PRN Reason: agitation, anxiety Magnesium Hydroxide (Milk Of Magnesia 30 Ml Oral.Susp) 30 ml PO DAILY PRN PRN Reason: Constipation Nicotine Polacrilex (Nicotine Polacrilex 2 Mg Gum) 4 mg BUCCAL Q2H PRN PRN Reason: Nicotine Cravings Olanzapine (Olanzapine 5 Mg Tablet) 5 mg PO Q4H PRN PRN Reason: agitation, psychosis Trazodone HCl (Trazodone Hcl 50 Mg Tablet) 50 mg PO BEDTIME MRX1 PRN PRN Reason: Insomnia Allergies Allergies Allergy/AdvReac Type Severity Reaction Status Date / Time penicillin V Allergy Unknown unknown Verified 02/09/24 14:41 Penicillins [PENICILLINS] Allergy Unknown RASH Verified 02/09/24 14:41 Assessment & Plan Assessment & Plan (1) Schizophrenia: Status: Acute Code(s): F20.9 - Schizophrenia, unspecified Plan 02/09: She is not agreeable to take any medications and only p.r.n. orders were put in. Collateral information to be obtained tomorrow. 02/10: declining meds. floridly psychotic. plans to have feet medically treated, then discharge. continue current mgmt. 02/11: remains uninterested in psych meds. continue foot treatments, planning to observe for safety and discharge 02/15 or 02/17 if remains stable and feet improved. 02/12: Continue current management and treatment plan. 02/13: Continue current management and treatment plan. Reason for continued inpatient stay Substantial Risk for: inability to function and rapid decompensation Time Spent With Patient Time: Total time managing care of this patient today ____ minutes.
[2024-02-14] MEDS: Bacitracin Oint 14 GM TUBE 1 APPL TOPICAL (10:42)
[2024-02-14 20:00] VITALS: BP 127/66; PULSE 83; RESP 14; TEMP 36.8; O2SAT 97
[2024-02-15 09:09] VITALS: BP 110/60; PULSE 78; RESP 16; TEMP 36.9; O2SAT 99
--- NOTE | 2024-02-15 11:13 | HO.PSYCHPN ---
Subjective Subjective Date of Service: 02/15/24 Reason For Visit: Schizophrenia Interim History: Met with patient; discussed with team Patient guarded and a little irritable; dismissed freelance copywriter, saying she does not have anything she wants to discuss and will only talk with Dr. Diallo. Staff reports she expresses delusional thinking and is hyperverbal; refuses to sleep in her room and will only sleep in the day room Mental Status Exam Mental Status Exam Narrative: Appearance: Unkempt; in NAD Behavior: guarded, intermittently hyperverbal Psychomotor: no PMA/PMR observe Speech: Intermittently pressured but currently normal rate and prosody TP: Goal oriented, TC: Refuses to discuss Mood: Refuses to discuss Affect: constricted, SI: none expressed HI: none expressed AH: none expressed Insight/judgment: impaired x 2. Memory/cog: alert, oriented Diagnostics Vital Signs (24Hr): Vital Signs - 24 hr 02/14/24 20:00 02/15/24 09:09 Temperature 98.2 F 98.4 F Pulse Rate 83 78 Respiratory Rate 14 16 Blood Pressure 127/66 110/60 Pulse Oximetry 97 99 Oxygen Delivery Method Room Air Room Air BMI result Body Mass Index 19.0 Medications Medications Current Medications Acetaminophen (Acetaminophen 325 Mg Tablet) 650 mg PO Q6H PRN PRN Reason: Headache/Pain Mild Scale (1-3) Al Hydroxide/Mg Hydroxide (Magnesium Hydrox/Alum Hydrox 30 Ml Oral.Susp) 30 ml PO Q6H PRN PRN Reason: Heartburn/Nausea Bacitracin (Bacitracin Oint 14 Gm Tube) 1 appl TOPICAL BID PRN; Protocol PRN Reason: infection Last Admin: 02/14/24 10:42 Dose: 1 appl Hydroxyzine HCl (Hydroxyzine Hcl 25 Mg Tablet) 25 mg PO Q6H PRN PRN Reason: Anxiety Lactic Acid (Ammonium Lactate 12 % Cream 140 Gm Tube) 1 appl TOPICAL BID PRN; Protocol PRN Reason: Dry Skin Lorazepam (Lorazepam 1 Mg Tablet) 1 mg PO Q4H PRN PRN Reason: agitation, anxiety Magnesium Hydroxide (Milk Of Magnesia 30 Ml Oral.Susp) 30 ml PO DAILY PRN PRN Reason: Constipation Nicotine Polacrilex (Nicotine Polacrilex 2 Mg Gum) 4 mg BUCCAL Q2H PRN PRN Reason: Nicotine Cravings Olanzapine (Olanzapine 5 Mg Tablet) 5 mg PO Q4H PRN PRN Reason: agitation, psychosis Trazodone HCl (Trazodone Hcl 50 Mg Tablet) 50 mg PO BEDTIME MRX1 PRN PRN Reason: Insomnia Allergies Allergies Allergy/AdvReac Type Severity Reaction Status Date / Time penicillin V Allergy Unknown unknown Verified 02/09/24 14:41 Penicillins [PENICILLINS] Allergy Unknown RASH Verified 02/09/24 14:41 Assessment & Plan Assessment & Plan (1) Schizophrenia: Status: Acute Code(s): F20.9 - Schizophrenia, unspecified Plan 02/09: She is not agreeable to take any medications and only p.r.n. orders were put in. Collateral information to be obtained tomorrow. 02/10: declining meds. floridly psychotic. plans to have feet medically treated, then discharge. continue current mgmt. 02/11: remains uninterested in psych meds. continue foot treatments, planning to observe for safety and discharge 02/15 or 02/17 if remains stable and feet improved. 02/12: Continue current management and treatment plan. 02/13: Continue current management and treatment plan. Patient educated on: diagnosis Informed Consent: does not understand Reason for continued inpatient stay Substantial Risk for: inability to function Time Spent With Patient Time: Total time managing care of this patient today ____ minutes.
[2024-02-15] MEDS: Bacitracin Oint 14 GM TUBE 1 APPL TOPICAL ×2 (11:30→19:26)
[2024-02-15 19:54] VITALS: BP 116/60; PULSE 77; RESP 16; TEMP 36.6; O2SAT 100
[2024-02-16] MEDS: Bacitracin Oint 14 GM TUBE 1 APPL TOPICAL (13:30)
--- NOTE | 2024-02-16 17:45 | HO.PSYCHPN ---
Subjective Subjective Date of Service: 02/16/24 Reason For Visit: Schizophrenia Interim History: calm, cooperative, hyperverbal. loosely organized. mostly non-psychotic material. planning to discharge or thursday. per staff, delusional, expansive. unhappy with room change. slept 8 hours in common area. Mental Status Exam Mental Status Exam Narrative: Appearance: adequate grooming, in NAD Behavior: guarded, but relatively receptive to discussion with MD Psychomotor: no PMA/PMR Speech: incr rate, incr amount, decr latency TP: tangential, disorganized TC: focused on feet, survival living. Mood: good Affect: constricted, non-labile SI: none expressed HI: none expressed AH: none expressed Insight/judgment: impaired x 2. Memory/cog: alert, oriented Diagnostics Vital Signs (24Hr): Vital Signs - 24 hr 02/15/24 19:54 Temperature 97.9 F Pulse Rate 77 Respiratory Rate 16 Blood Pressure 116/60 Pulse Oximetry 100 Oxygen Delivery Method Room Air BMI result Body Mass Index 19.0 Medications Medications Current Medications Acetaminophen (Acetaminophen 325 Mg Tablet) 650 mg PO Q6H PRN PRN Reason: Headache/Pain Mild Scale (1-3) Al Hydroxide/Mg Hydroxide (Magnesium Hydrox/Alum Hydrox 30 Ml Oral.Susp) 30 ml PO Q6H PRN PRN Reason: Heartburn/Nausea Bacitracin (Bacitracin Oint 14 Gm Tube) 1 appl TOPICAL BID PRN; Protocol PRN Reason: infection Last Admin: 02/15/24 19:26 Dose: 1 appl Hydroxyzine HCl (Hydroxyzine Hcl 25 Mg Tablet) 25 mg PO Q6H PRN PRN Reason: Anxiety Lactic Acid (Ammonium Lactate 12 % Cream 140 Gm Tube) 1 appl TOPICAL BID PRN; Protocol PRN Reason: Dry Skin Lorazepam (Lorazepam 1 Mg Tablet) 1 mg PO Q4H PRN PRN Reason: agitation, anxiety Magnesium Hydroxide (Milk Of Magnesia 30 Ml Oral.Susp) 30 ml PO DAILY PRN PRN Reason: Constipation Nicotine Polacrilex (Nicotine Polacrilex 2 Mg Gum) 4 mg BUCCAL Q2H PRN PRN Reason: Nicotine Cravings Olanzapine (Olanzapine 5 Mg Tablet) 5 mg PO Q4H PRN PRN Reason: agitation, psychosis Trazodone HCl (Trazodone Hcl 50 Mg Tablet) 50 mg PO BEDTIME MRX1 PRN PRN Reason: Insomnia Allergies Allergies Allergy/AdvReac Type Severity Reaction Status Date / Time penicillin V Allergy Unknown unknown Verified 02/09/24 14:41 Penicillins [PENICILLINS] Allergy Unknown RASH Verified 02/09/24 14:41 Assessment & Plan Assessment & Plan (1) Schizophrenia: Status: Acute Code(s): F20.9 - Schizophrenia, unspecified Plan 02/09: She is not agreeable to take any medications and only p.r.n. orders were put in. Collateral information to be obtained tomorrow. 02/10: declining meds. floridly psychotic. plans to have feet medically treated, then discharge. continue current mgmt. 02/11: remains uninterested in psych meds. continue foot treatments, planning to observe for safety and discharge 02/15 or 02/17 if remains stable and feet improved. 02/12: Continue current management and treatment plan. 02/13: Continue current management and treatment plan. 02/15: stable. psychotic, paranoid, but behaving adequately for the milieu. continue foot treatments. plan to discharge 02/17 or 02/18. Reason for continued inpatient stay Substantial Risk for: inability to function Time Spent With Patient Time: Total time managing care of this patient today __25__ minutes.
[2024-02-16 19:20] VITALS: BP 112/72; PULSE 67; RESP 14; TEMP 37.2; O2SAT 100
--- NOTE | 2024-02-17 15:27 | P.PNPSI_ITS ---
Subjective Subjective Date of Service: 02/17/24 Reason For Visit: Schizophrenia Interim History: met with patient; discussed with team; reviewed chart Patient sitting in the day room; staff reports no change in presentation. On approach, patient is overall polite but says that she has nothing to talk about with this specifications writer and repeats that she has nothing to talk about or say.. Though she did make a comment that she has been resting her feet which feel better. Patient Intermittently patient mutters under her breath to herself. Mental Status Exam Mental Status Exam Narrative: Appearance: adequate grooming, in NAD Behavior: guarded, but relatively receptive to discussion with MD Psychomotor: no PMA/PMR Speech: Spontaneous; not pressured TP: Goal directed but also can be tangential, disorganized TC: focused on feet, survival living. Mood: I have nothing to say Affect: constricted, non-labile SI: none expressed HI: none expressed AH: none expressed Insight/judgment: impaired Memory/cog: alert, oriented Diagnostics Vital Signs (24Hr): Vital Signs - 24 hr 02/16/24 19:20 Temperature 99.0 F Pulse Rate 67 Respiratory Rate 14 Blood Pressure 112/72 Pulse Oximetry 100 Oxygen Delivery Method Room Air BMI result Body Mass Index 19.0 Medications Medications Current Medications Acetaminophen (Acetaminophen 325 Mg Tablet) 650 mg PO Q6H PRN PRN Reason: Headache/Pain Mild Scale (1-3) Al Hydroxide/Mg Hydroxide (Magnesium Hydrox/Alum Hydrox 30 Ml Oral.Susp) 30 ml PO Q6H PRN PRN Reason: Heartburn/Nausea Bacitracin (Bacitracin Oint 14 Gm Tube) 1 appl TOPICAL BID PRN; Protocol PRN Reason: infection Last Admin: 02/16/24 13:30 Dose: 1 appl Hydroxyzine HCl (Hydroxyzine Hcl 25 Mg Tablet) 25 mg PO Q6H PRN PRN Reason: Anxiety Lactic Acid (Ammonium Lactate 12 % Cream 140 Gm Tube) 1 appl TOPICAL BID PRN; Protocol PRN Reason: Dry Skin Lorazepam (Lorazepam 1 Mg Tablet) 1 mg PO Q4H PRN PRN Reason: agitation, anxiety Magnesium Hydroxide (Milk Of Magnesia 30 Ml Oral.Susp) 30 ml PO DAILY PRN PRN Reason: Constipation Nicotine Polacrilex (Nicotine Polacrilex 2 Mg Gum) 4 mg BUCCAL Q2H PRN PRN Reason: Nicotine Cravings Olanzapine (Olanzapine 5 Mg Tablet) 5 mg PO Q4H PRN PRN Reason: agitation, psychosis Trazodone HCl (Trazodone Hcl 50 Mg Tablet) 50 mg PO BEDTIME MRX1 PRN PRN Reason: Insomnia Allergies Allergies Allergy/AdvReac Type Severity Reaction Status Date / Time penicillin V Allergy Unknown unknown Verified 02/09/24 14:41 Penicillins [PENICILLINS] Allergy Unknown RASH Verified 02/09/24 14:41 Assessment & Plan Assessment & Plan (1) Schizophrenia: Status: Acute Code(s): F20.9 - Schizophrenia, unspecified Plan 02/09: She is not agreeable to take any medications and only p.r.n. orders were put in. Collateral information to be obtained tomorrow. 02/10: declining meds. floridly psychotic. plans to have feet medically treated, then discharge. continue current mgmt. 02/11: remains uninterested in psych meds. continue foot treatments, planning to observe for safety and discharge 02/15 or 02/17 if remains stable and feet improved. 02/12: Continue current management and treatment plan. 02/13: Continue current management and treatment plan. 02/17/24 Patient sitting in the day room; staff reports no change in presentation. On approach, patient is overall polite but says that she has nothing to talk about with this specifications writer and repeats that she has nothing to talk about or say.. Though she did make a comment that she has been resting her feet which feel better. Patient Intermittently patient mutters under her breath to herself. Patient educated on: diagnosis Informed Consent: does not understand Reason for continued inpatient stay Substantial Risk for: med/psych decompensation Time Spent With Patient Time: Total time managing care of this patient today ____ minutes.
[2024-02-17 20:00] VITALS: BP 105/55; PULSE 83; RESP 16; TEMP 36.9; O2SAT 100
--- NOTE | 2024-02-18 11:44 | PM.PSYDC ---
DS: Providers Provider Date of Service: 02/18/24 Date of admission: 02/09/24 18:39 Primary care physician: Unknown Physician Consults: 02/12/24 10:35 Consult to Wound Care Routine Reason for consultation: pedal exposure injuries DS: Diagnosis Discharge Diagnosis (1) Schizophrenia: Status: Acute DS: Medications Discharge Medications Home Medications: Home Medications ?Medication ?Instructions ?Recorded ?Confirmed No Known Home Meds 03/07/23 02/09/24 Mental Status Exam Mental Status Exam Narrative: Appearance: adequate grooming, in NAD Behavior: guarded, but relatively receptive to discussion with MD Psychomotor: no PMA/PMR Speech: incr rate, incr amount, decr latency TP: tangential, disorganized TC: focused on recent negative interactions with peers. Mood: OK Affect: constricted, non-labile SI: none expressed HI: none expressed AH: none expressed Insight/judgment: impaired x 2. Memory/cog: alert, oriented DS: Summary Hospital Course Hospital Course: per 02/09 admission note: HPI Subjective Notes: Conditional Voluntary Narrative: Jennifer is a 38-year-old female who is known to us from previous hospitalizations with psychotic and possible hypomanic behaviors and presentations. She was brought to the emergency room for an evaluation after her aunt called the police because of her being paranoid and delusional. She has had prior hospitalizations here and at [facility]. I believe she is not currently on any medications. She did not agree to sit down with me for an intake interview and stating that she did not have an appointment with me and is only here for her foot care. She is currently homeless and does indeed have cracked heels. She was last in this hospital in February to April of this year Past Psychiatric History: Inpt: prior inpt admission at [facility] OP: none Medical Evaluation Reviewed: Yes [facility] Medical History Blister of foot Schizophrenia Family History: unknown Social History: homeless Substance History: Unknown Trauma History: not disclosed Precis: 02/09: She is not agreeable to take any medications and only p.r.n. orders were put in. Collateral information to be obtained tomorrow. 02/10: declining meds. floridly psychotic. plans to have feet medically treated, then discharge. continue current mgmt. 02/11: remains uninterested in psych meds. continue foot treatments, planning to observe for safety and discharge 02/15 or 02/17 if remains stable and feet improved. 02/12: Continue current management and treatment plan. 02/13: Continue current management and treatment plan. 02/17/24 Patient sitting in the day room; staff reports no change in presentation. On approach, patient is overall polite but says that she has nothing to talk about with this manual writer and repeats that she has nothing to talk about or say.. Though she did make a comment that she has been resting her feet which feel better. Patient Intermittently patient mutters under her breath to herself. 02/17: no change in presentation. no safety concerns aside from around ability to care for herself. nevertheless, planning to discharge tomorrow in light of treatment failure at most recent admission and pt's h/o surviving in similar state for 10 years. 02/18: no change in status. discharged as per plan. Time Spent with Patient Time attestation: Total time managing care of this patient today __45__ minutes. Discharge Plan Discharge Anticipated Discharge Date/Time: 02/19/24 11:59 Patient Disposition: Halfway Discharge Diagnosis: Schizophrenia, Paranoid Type Referrals: [facility] [Provider Group] - 1 Week ([facility] was added to patients chart. Please call [phone] to schedule your follow up appt.) Discharge Medications: No Action No Known Home Meds Discharge Orders: Discharge Order (Routine); Ordered 02/19/24 Ordered By: Jonnie Diallo Diet: Advance to usual diet Activity on Discharge: As tolerated Stand Alone Forms: Patient Portal Discharge page, Community Support Print Language: Moz[place]ican Care Plan Goals: remain safe and stable in the outpatient treatment setting Health Concerns: none at present Plan of Treatment: consider taking medication for mental health; establish care with mental health providers in your area Assessment: not at imminent risk of harm to self or others
[2024-02-18] MEDS: Bacitracin Oint 14 GM TUBE 1 APPL TOPICAL ×2 (13:57→20:36)
[2024-02-18 20:00] VITALS: BP 113/65; PULSE 63; RESP 16; TEMP 36.3; O2SAT 99
== END 2024-02-19 15:32 | disposition home or self-care (01) | DRG 750 ==
LOC: HO.ED 16:15 → HO.PADLT16 20:01
PROVIDERS: Admitting Provider Clinical Nurse Specialist Psychiatric/Mental Health, Adult; Emergency Provider Student in an Organized Health Care Education/Training Program; Visit Provider Psychiatry & Neurology Psychiatry
DX: F20.0 Paranoid schizophrenia (principal); Z59.02 Unsheltered homelessness
CPT/HCPCS: 99285

== ENCOUNTER → 2024-02-09 18:39 | Outpatient (BNV) | payer OTHER, SELFPAY | PROVIDERS: Admitting Provider Clinical Nurse Specialist Psychiatric/Mental Health, Adult; Emergency Provider Student in an Organized Health Care Education/Training Program; Visit Provider Psychiatry & Neurology Psychiatry | DX: F20.0 Paranoid schizophrenia (principal) | CPT/HCPCS: 99231; 99232 ==